=== PATIENT | female | born 2005 | race Caucasian/White ===

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

== ENCOUNTER 2023-01-05 18:46 | Emergency (ER) | payer OTHER ==
--- NOTE | 2023-01-05 20:21 | RAD REPORT ---
EXAM DESCRIPTION: CT - Head Brain Wo Cont - 01/05/2023 8:06 pm CLINICAL HISTORY: HEADACHE COMPARISON: No comparisons TECHNIQUE: All CT scans are performed using dose optimization technique as appropriate and may inclu de automated exposure control or mA/KV adjustment according to patient size. FINDINGS: No intracranial hemorrhage, hydrocephalus or extra-axial fluid collection.No areas of brai n edema or evidence of midline shift. The paranasal sinuses and mastoids are clear. The calvarium is intact. IMPRESSION: No acute intracranial abnormality.
[2023-01-05] MEDS ORDERED: DIPHENHYDRAMINE 50 MG/ML VIAL ONE (20:52)
[2023-01-05] MEDS ORDERED: KETOROLAC 30 MG/ML INJ ONE (20:52)
[2023-01-05] MEDS ORDERED: NA CHLORIDE 0.9% 1,000 ML ONE (20:52)
[2023-01-05] MEDS ORDERED: METOCLOPRAMIDE 10 MG/2mL INJ ONE (20:52)
[2023-01-05] MEDS ORDERED: ACETAMINOPHEN 500 MG TAB ONE (20:52)
--- NOTE | 2023-01-05 21:07 | EDPHYS ---
Physician Documentation [facility] Name: Simon Collier Age: 17 yrs Sex: Female : 2005 Arrival Date: 01/05/2023 Time: 18:46 Bed 20 Private MD: ED Physician Rahul Luevano HPI: 01/05 20:33 This 17 yrs old Female presents to ER via Ambulatory with complaints of Headache. rt 20:33 Patient presents to the ED with a headache. It is right-sided, throbbing in nature, rt nonradiating. She has associated nausea without vomiting. Reports blurred vision in her right eye. Denies any trauma. Ibuprofen and Tylenol have not adequately proved her symptoms. She states that they have been constant for the past 2 weeks. Symptoms are moderate severity, no other aggravating alleviating factors. Historical: - Allergies: 19:34 Latex, Natural Rubber; nj1 19:34 PENICILLINS; nj1 19:34 Keflex; nj1 - PMHx: 19:34 Anxiety; BPD; Depression; PTSD; nj1 - Immunization history:: Client reports having NOT received the Covid vaccine. - Social history:: Smoking status: Patient denies any tobacco usage or history of. - Family history:: not pertinent. ROS: 20:33 Constitutional: Negative for fever, chills, and weight loss, Cardiovascular: Negative rt for chest pain, palpitations, and edema, Respiratory: Negative for shortness of breath, cough, wheezing, and pleuritic chest pain, Skin: Negative for injury, rash, and discoloration. 20:33 Eyes: Positive for blurry vision. 20:33 Abdomen/GI: Positive for nausea, Negative for abdominal pain. 20:33 Neuro: Positive for headache, Negative for altered mental status. Exam: 20:33 Constitutional: This is a well developed, well nourished patient who is awake, alert, rt and in no acute distress. Head/Face: Normocephalic, atraumatic. Chest/axilla: Normal chest wall appearance and motion. Nontender with no deformity. No lesions are appreciated. Cardiovascular: Regular rate and rhythm with a normal S1 and S2. No gallops, murmurs, or rubs. Normal PMI, no JVD. No pulse deficits. Respiratory: Lungs have equal breath sounds bilaterally, clear to auscultation and percussion. No rales, rhonchi or wheezes noted. No increased work of breathing, no retractions or nasal flaring. Abdomen/GI: Soft, non-tender, with normal bowel sounds. No distension or tympany. No guarding or rebound. No evidence of tenderness throughout. Skin: Warm, dry with normal turgor. Normal color with no rashes, no lesions, and no evidence of cellulitis. MS/ Extremity: Pulses equal, no cyanosis. Neurovascular intact. Full, normal range of motion. Neuro: Awake and alert, GCS 15, oriented to person, place, time, and situation. Cranial nerves II-XII grossly intact. Motor strength 5/5 in all extremities. Sensory grossly intact. Cerebellar exam normal. Normal gait. Psych: Awake, alert, with orientation to person, place and time. Behavior, mood, and affect are within normal limits. 20:33 Neck: Supple, full range of motion, no meningismus. Vital Signs: 19:33 BP 141 / 97; Pulse 84; Resp 18; Temp 98.5(O); Pulse Ox 100% on R/A; Weight 84.28 kg; nj1 Height 5 ft. 1 in. ; Pain 8/10; 20:33 BP 137 / 82; Pulse 67; Resp 18 S; Pulse Ox 100% on R/A; ha1 21:30 BP 121 / 67; Pulse 60; Resp 17 S; Pulse Ox 100% on R/A; ha1 19:33 Body Mass Index 35.11 (84.28 kg, 154.94 cm) [facility] 19:33 Pain Scale: Adult nj MDM: 19:37 Patient medically screened. rt 21:07 Differential diagnosis: Tumor, intracranial hemorrhage, migraine, tension headache. rt Data reviewed: vital signs, nurses notes, radiologic studies. Independent interpretation of the following test(s) in the Emergency Department CT Scan: My interpretation is No hemorrhage seen on interpretation of the CT scan images. Test considered but Not performed: Labs: Neck supple, no meningismus, symptoms not consistent with subarachnoid hemorrhage, meningitis, cephalitis, lumbar puncture not indicated. Counseling: I had a detailed discussion with the patient and/or guardian regarding the historical points, exam findings, and any diagnostic results supporting the discharge/admit diagnosis, radiology results, the need for outpatient follow up, to return to the emergency department if symptoms worsen or persist or if there are any questions or concerns that arise at home. Response to treatment: the patient's symptoms have resolved after treatment. 01/05 19:37 Order name: CT Head Brain wo Cont; Complete Time: 20:22 rt Administered Medications: 20:35 Drug: Acetaminophen PO 1000 mg Route: PO; ha1 21:00 Follow up: Response: No adverse reaction; Pain is decreased ha1 20:40 Drug: Ketorolac IVP 15 mg Route: IVP; Site: left antecubital; ha1 21:00 Follow up: Response: No adverse reaction; Pain is decreased ha1 20:40 Drug: NS 0.9% IV 1000 ml Route: IV; Rate: 1 bolus; Site: left antecubital; ha1 22:09 Follow up: Response: No adverse reaction; IV Status: Completed infusion; IV Intake: ha1 1000ml 20:43 Drug: diphenhydrAMINE IVP 25 mg Route: IVP; Site: left antecubital; ha1 22:10 Follow up: Response: No adverse reaction ha1 20:46 Drug: metoCLOPramide IVP 10 mg Route: IVP; Site: left antecubital; ha1 22:10 Follow up: Response: No adverse reaction ha1 Disposition Summary: 01/05/23 21:06 Discharge Ordered Location: Home rt Problem: new rt Symptoms: are resolved rt Condition: Stable rt Diagnosis - Headache rt Followup: rt - With: Jasen Juarez DO - When: 5 - 6 days - Reason: Discharge Instructions: - Discharge Summary Sheet rt - General Headache Without Cause rt - Migraine Headache rt Forms: - Medication Reconciliation Form rt - Thank You Letter rt - Antibiotic Education rt - Prescription Opioid Use rt - Patient Portal Instructions rt - Leadership Thank You Letter rt - Work release form rv1 Prescriptions: - Reglan 10 mg Oral Tablet - take 1 tablet by ORAL route every 6 hours As needed for headache; 20 tablet; rt Refills: 0, Product Selection Permitted Signatures: Dispatcher [employer] Iman Tong, RN RN ha1 Rahul Luevano MD MD rt Earlene Leger RN RN nj1
--- NOTE | 2023-01-05 21:07 | ER ---
Nurse's Notes [facility] Name: Simon Collier Age: 17 yrs Sex: Female : 2005 Arrival Date: 01/05/2023 Time: 18:46 Bed 20 Private MD: Diagnosis: Headache Presentation: 01/05 19:33 Chief complaint: Patient states: Headache for almost 2 weeks, getting worse. Have tried [facility] ibuprofen and tylenol with no success. Ebola Screen: Patient denies travel to an Ebola-affected area in the 21 days before illness onset. Initial Sepsis Screen: Does the patient meet any 2 criteria? No. Patient's initial sepsis screen is negative. Does the patient have a suspected source of infection? No. Patient's initial sepsis screen is negative. Risk Assessment: Do you want to hurt yourself or someone else? Patient reports no desire to harm self or others. Onset of symptoms was December 23, 2022. 19:33 Method Of Arrival: Ambulatory [facility] 19:33 Acuity: SANDRA 3 [facility] 19:36 Coronavirus screen: Vaccine status: Patient reports being unvaccinated. [facility] Triage Assessment: 20:30 Headache History: The patient has had previous headaches and this one is similar to 1 previous episodes. General: Appears uncomfortable, Behavior is cooperative. Pain: Complains of pain in headache. Neuro: Level of Consciousness is awake, alert, obeys commands, Oriented to person, place, time, situation. Respiratory: Airway is patent Respiratory effort is even, unlabored, Respiratory pattern is regular, symmetrical. 22:08 Pain: Also complains of no other associated symptoms. [facility] Historical: - Allergies: 19:34 Latex, Natural Rubber; nj1 19:34 PENICILLINS; nj1 19:34 Keflex; nj1 - PMHx: 19:34 Anxiety; BPD; Depression; PTSD; nj1 - Immunization history:: Client reports having NOT received the Covid vaccine. - Social history:: Smoking status: Patient denies any tobacco usage or history of. - Family history:: not pertinent. Screenin:35 [facility] ED Fall Risk Assessment (Adult) History of falling in the last 3 months, pf1 including since admission No falls in past 3 months (0 pts) Confusion or Disorientation No (0 pts) Intoxicated or Sedated No (0 pts) Impaired Gait No (0 pts) Mobility Assist Device Used No (0 pt) Altered Elimination No (0 pt) Score/Fall Risk Level 0 - 2 = Low Risk Oriented to surroundings, Maintained a safe environment, Educated pt \T\ family on fall prevention, incl call for assistance when getting out of bed, Assessed \T\ reinforced patient's understanding of fall precautions, Provided non-skid footwear, Hourly rounding (assess needs \T\ fall precautionary measures) done, Used ambulatory aids as needed (educated on \T\ assisted with), Used gait belt as appropriate. Abuse screen: Denies threats or abuse. Nutritional screening: No deficits noted. Tuberculosis screening: No symptoms or risk factors identified. Assessment: 20:33 General: Appears in no apparent distress. uncomfortable, well groomed, well developed, pf1 Behavior is calm, cooperative, appropriate for age, quiet. Pain: Complains of pain in right frontal headache pain of 9 Pain currently is 9 out of 10 on a pain scale. Pain began 2 weeks. Neuro: Level of Consciousness is awake, alert, obeys commands, Oriented to person, place, time, situation, Reports headache in right frontal area. Neuro: Reports headache. Neuro: Reports dizziness, headache with confusion. Cardiovascular: No deficits noted. Capillary refill < 3 seconds Patient's skin is warm and dry. Respiratory: No deficits noted. Airway is patent Respiratory effort is even, unlabored, Respiratory pattern is regular, symmetrical. GI: No deficits noted. No signs and/or symptoms were reported involving the gastrointestinal system. : No deficits noted. No signs and/or symptoms were reported regarding the genitourinary system. EENT: No deficits noted. No signs and/or symptoms were reported regarding the EENT system. Derm: No deficits noted. No signs and/or symptoms reported regarding the dermatologic system. 21:30 Reassessment: Patient and/or family updated on plan of care and expected duration. Pain ha1 level reassessed. Patient is alert, oriented x 3, equal unlabored respirations, skin warm/dry/pink. Patient states feeling better. Patient states symptoms have improved. 21:35 Reassessment: awaiting on fluids to be completed as instructed by care provider. ha1 Vital Signs: 19:33 BP 141 / 97; Pulse 84; Resp 18; Temp 98.5(O); Pulse Ox 100% on R/A; Weight 84.28 kg; nj1 Height 5 ft. 1 in. ; Pain 8/10; 20:33 BP 137 / 82; Pulse 67; Resp 18 S; Pulse Ox 100% on R/A; ha1 21:30 BP 121 / 67; Pulse 60; Resp 17 S; Pulse Ox 100% on R/A; ha1 19:33 Body Mass Index 35.11 (84.28 kg, 154.94 cm) nj1 19:33 Pain Scale: Adult [facility] ED Course: 18:50 Patient arrived in ED. mr 19:33 Rahul Luevano MD is Attending Physician. rt 19:34 Triage completed. nj1 19:34 Arm band placed on right wrist. nj1 20:08 CT Head Brain wo Cont In Process Unspecified. EDMS 20:28 Iman Garcia, FARHAN is Primary Nurse. ha1 20:30 Patient has correct armband on for positive identification. Placed in gown. Bed in low ha1 position. Call light in reach. Side rails up X 1. 20:30 Inserted saline lock: 22 gauge in left antecubital area, using aseptic technique. ha1 21:06 Jasen Juarez DO is Referral Physician. rt 22:08 No provider procedures requiring assistance completed. IV discontinued, intact, ha1 bleeding controlled, No redness/swelling at site. Pressure dressing applied. 22:09 Provided Education on: follow up. ha1 Administered Medications: 20:35 Drug: Acetaminophen PO 1000 mg Route: PO; ha1 21:00 Follow up: Response: No adverse reaction; Pain is decreased ha1 20:40 Drug: Ketorolac IVP 15 mg Route: IVP; Site: left antecubital; ha1 21:00 Follow up: Response: No adverse reaction; Pain is decreased ha1 20:40 Drug: NS 0.9% IV 1000 ml Route: IV; Rate: 1 bolus; Site: left antecubital; ha1 22:09 Follow up: Response: No adverse reaction; IV Status: Completed infusion; IV Intake: ha1 1000ml 20:43 Drug: diphenhydrAMINE IVP 25 mg Route: IVP; Site: left antecubital; ha1 22:10 Follow up: Response: No adverse reaction ha1 20:46 Drug: metoCLOPramide IVP 10 mg Route: IVP; Site: left antecubital; ha1 22:10 Follow up: Response: No adverse reaction ha1 Medication: 21:43 VIS not applicable for this client. ha1 Intake: 22:09 IV: 1000ml; Total: 1000ml. ha1 Outcome: 21:06 Discharge ordered by . rt 22:08 Discharged to home via ambulance. ha1 22:08 Condition: stable 22:08 Discharge instructions given to patient, Instructed on discharge instructions, follow up and referral plans. medication usage, Demonstrated understanding of instructions, follow-up care, medications, Prescriptions given X 1. 22:10 Patient left the ED. ha1 Signatures: Dispatcher [employer] EDPR Erendira Dyson mr Iman Garcia RN RN ha1 Rahul Luevano MD MD rt Arabella Alfaro RN RN pf1 Earlene Leger RN RN nj1 Corrections: (The following items were deleted from the chart) 19:38 19:33 BP 141 / 97; Pulse 84bpm; Resp 18bpm; Pulse Ox 100% RA; Temp 98.5F Oral; nj1 nj1
[2023-01-05 22:33] VITALS: TEMP 98.5; O2SAT 100
[2023-01-05 22:37] VITALS: BP 121/67
== END 2023-01-05 22:10 | disposition home or self-care (01) ==
LOC: ER 18:46
DX: R51.9 Headache, unspecified (principal); Z88.0 Allergy status to penicillin; Z88.1 Allergy status to other antibiotic agents; Z91.040 Latex allergy status; Z91.048 Other nonmedicinal substance allergy status
CPT/HCPCS: 96361; 70450; 96375; 96374; 99284; J2765; J1200; J7030

== ENCOUNTER 2023-01-28 21:25 | Emergency (ER) | payer OTHER ==
--- OUTSIDE RECORDS SUMMARY | 2023-01-28 21:36 | XMS REPORT | Continuity of Care Document ---
:2005 Author Organization [facility] t Address [address] [facility] [address] [place] [address] Care Team Providers Name Role Phone PCP, PATIENT DOES NOT HAVE A Primary Care Physician Unavaila ADOLPH Bain Attending Clinician Unavailable ADOLPH LALA Attending Clinician Unavailable BAYRON BERMEO Attending Clinician Unavailable Bayron Bermeo MD Attending Clinician LORRIE ZAMARRIPA Attending Clinician Unavailable Lorrie Porras Attending Clinician GAUDENCIO COWAN Attending Clinician Unavailable GAUDENCIO COWAN Attending Clinician Unavailable ZOFIA BRISENO Attending Clinician Unavailable STEVE ORTEGA Attending Clinician Unavailable STEVE ORTEGA Attending Clinician Unavailable 2, [facility] Attending Clinician Unavailable Kirti Zavala PA-C Attending Clinician KIRTI ZAVALA Attending Clinician Unavailable Doctor Unassigned, [place] Attending Clinician Unavailable Heidi Bowen MD Attending Clinician Lab, Lkj Pedi Attending Clinician Unavailable Dio DIA, Andrade Attending Clinician Bunny DIA, Ivan Castle Attending Clinician Chela KRAFT, Fely Attending Clinician Payers Payer Name Policy Type Policy Number Effective Date Expiration Date S ede OLGUIN DUNKIRK [id number] 2022 HEALTHCARE 00:00:00 [facility] [id number] 2013 CHOICE [place] STAR 00:00:00 [place] [id number] 2019 00:00:00 Blue Cross Blue 6 [id number] 2019 Common Shield of [place] 00:00:00 [facility] [id number] 2013 Common CHOICE 00:00:00 [facility] [id number] Common CHOICE [facility] Blue Cross Blue C1 [id number] Common Shield of [facility] [id number] Common CHOICE [facility] Blue Cross Blue C1 [id number] Common Shield of [facility] Problems Condition Condition Condition Status Onset Resolution Last Treating Co mments Source Name Details Category Date Date Treatment Clinician Date Pain in Pain in Disease Active 2020-05 Univers wrist wrist 05-23 ity of 00:00: Medical Branch Enthesopat Enthesopat Disease Active 2020-05 U nivers hy hy 05-23 ity of 00:00: Medical Branch Depression Depression Disease Active Overview : Univers 08-13 Formattin ity of 00:00: g of this note Medical might be Branch different from the original. Sees Psychiatr y and Therapist Asthma Asthma Disease Active Univers 08-13 ity of 00:00: Medical Branch [id number] Extensor Problem Active Comm on carpi Spirit ulnaris - [facility] tendinitis [facility] [id number] Pain in Problem Active Commo n joint of Spirit left wrist [facility] [id number] Flexor Problem Active Common carpi Spirit ulnaris - [facility]I tendinitis [facility] Allergies, Adverse Reactions, Alerts Allergy Allergy Status Severity Reaction(s) Onset Inactive Treating Comm ents Source Name Type Date Date Clinician CEPHALEX DRUG Active Rash 2021-05 Univers IN INGREDI 2- ity of 00:00: [place] 00 Medical Branch Cephalex Propensi Active Rash 2021-05 Univer s in ty to 2 ity of adverse 00:00: [place] reaction 00 Medical s Branch Penicill Propensi Active Unknown - 2020-05 Rashes Uni vers in ty to See comments 0-07 and ity of adverse 00:00: throat [place] reaction 00 swells Medical s Branch PENICILL DRUG Active Unknown-Cmnt 2020-05 Un adilson IN INGREDI 0-07 ity of 00:00: [place] 00 Medical Branch Latex Propensi Active Rash Univers ty to 12-12 ity of adverse 00:00: [place] reaction 00 Medical s Branch LATEX DRUG Active Rash Univers INGREDI 12-12 ity of 00:00: [place] 00 Medical Branch Penicill Penicill Active Unknown Commo n in in [facility] Social History Social Habit Start Date Stop Date Quantity Comments Source Sex Assigned At Common Sp [facility] - [facility] History of tobacco Passive smoker Un iversity of use [facility] Gender identity Universit y of [facility] Sexual orientation [facility] sity of [facility] Alcohol intake 2023-01-12 2023-01-12 0 /d University of 00:00:00 00:00:00 [facility] Exposure to 2022-09-09 2022-09-19 Not sure University of SARS-CoV-2 (event) 00:00:00 09:55:00 [facility] Tobacco Comment 2022-09-19 2022-09-19 mother smokes [facility] sity of 00:00:00 00:00:00 inside and [facility] outside of house Branch History SDOH 2022-09-19 2022-09-19 1 University o f Alcohol Frequency 00:00:00 00:00:00 [facility] edical Branch History SDOH 2022-09-19 2022-09-19 0 University o f Alcohol Std Drinks 00:00:00 00:00:00 [place] [facility] History SDOH 2022-09-19 2022-09-19 1 University o f Alcohol Binge 00:00:00 00:00:00 [place] Medic al Branch History SDOH Social 2022-09-19 2022-09-19 5 Unive rsity of Connections Phone 00:00:00 00:00:00 [place] M edical Branch History SDOH Social 2022-09-19 2022-09-19 3 Unive rsity of Connections Get 00:00:00 00:00:00 [place] Med ical Together Branch History SDOH Social 2022-09-19 2022-09-19 1 Unive rsity of Connections Anglican 00:00:00 00:00:00 [place] [facility] History SDOH Social 2022-09-19 2022-09-19 2 Unive rsity of Connections 00:00:00 00:00:00 [place] Medical Membership Branch History SDOH Social 2022-09-19 2022-09-19 1 Unive rsity of Connections 00:00:00 00:00:00 [place] Medical Meetings Branch History SDOH Social 2022-09-19 2022-09-19 98 Unive rsity of Connections Living 00:00:00 00:00:00 [place] [facility] History SDOH 2022-09-19 2022-09-19 3 University o f Physical Activity 00:00:00 00:00:00 [place] M edical DPW Branch History SDOH 2022-09-19 2022-09-19 2 University o f Physical Activity 00:00:00 00:00:00 [place] M edical MPS Branch History SDOH Stress 2022-09-19 2022-09-19 5 Unive rsity of 00:00:00 00:00:00 [place] [facility] History SDOH 2022-09-19 2022-09-19 2 University o f Financial 00:00:00 00:00:00 [place] [facility] History SDOH Food 2022-09-19 2022-09-19 2 Univers ity of Worry 00:00:00 00:00:00 [place] [facility] History SDOH Food 2022-09-19 2022-09-19 2 Univers ity of Scarcity 00:00:00 00:00:00 [place] [facility] History SDOH 2022-09-19 2022-09-19 2 University o f Transport Med 00:00:00 00:00:00 [place] Medic al Branch History SDOH 2022-09-19 2022-09-19 2 University o f Transport Non-Med 00:00:00 00:00:00 [place] M edical Branch History [facility] 2022-09-19 2022-09-19 1 University o f Housing Unable to 00:00:00 00:00:00 [place] M edical Pay Branch History SDPA 2022-09-19 2022-09-19 1 [place] o f Housing Places 00:00:00 00:00:00 [facility] yaakov Lived Branch History [facility] 2022-09-19 2022-09-19 2 [place] o f Housing Homeless 00:00:00 00:00:00 [place] Me dical Last Year Branch History of Social 2022-09-19 2022-09-19 Univers ity of function 00:00:00 00:00:00 [facility] Tobacco use and 2022-09-19 2022-09-19 Smokeless Universit y of exposure 00:00:00 00:00:[address] tobacco non-[address] [facility] dical Branch Smoking Status Start Date Stop Date Source Never smoked tobacco [facility] Medications Ordered Filled Start Stop Current Ordering Indication Dosage Frequency Signature Comments Components Source Medication Medication Date Date Medication? Clinician (SIG) Name Name butmickeybital- 2022- No 1{tbl} 1 tablet, Univers acetaminoph 8-28 08-28 Oral, ity of en-caff 02:45: 02:52 ONCE, 1 [place] (ESGIC) 00 :00 dose, On Medical 50-325-40 Sun Branch mg tablet 1 01/12/23 at tablet 2145, LISETH butalbital- Yes [id number] 1{tbl} Take 1 Univers acetaminoph 8-27 tablet by ity of en-caff 00:00: mouth [place] 50-325-40 00 every 6 Medical mg tablet (six) Branch hours as needed (Headache) . budesonide- Yes 2{puff} Inhale 2 Univers formoteroL 8-05 Puffs in ity o f 160-4.5 06:42: the [place] mcg/actuati 03 morning Medic al on inhaler and 2 Branch Puffs in the evening. methylPREDN Yes [id number] Take by Univers ISolone 7-07 mouth ity of (MEDROL, 00:00: SEE-INSTRU [place] as ASIA,) 4 mg 00 CTIONS. Medica l tablets follow Branch package directions bromphenira 2023-0 Yes [id number] 5mL Take 5 mL Univers mine-pseudo 7-07 by mouth 4 it y of ephedrine-D 00:00: (four) [place] (BROMFED 00 times Medical DM) 2-30-10 daily as Bran ch mg/5 mL needed for syrup Congestion /Allergies . methylPREDN 2023-0 Yes [id number] Take by Univers ISolone 7-07 mouth ity of (MEDROL, 00:00: SEE-INSTRU [place] ASIA,) 4 mg 00 CTIONS. Medica l tablets follow Branch package directions bromphenira 2023-0 Yes [id number] 5mL Take 5 mL Univers mine-pseudo 7-07 by mouth 4 it y of ephedrine-D 00:00: (four) [place] M (BROMFED 00 times Medical DM) 2-30-10 daily as Bran ch mg/5 mL needed for syrup Congestion /Allergies . methylPREDN 3-0 Yes [id number] Take by Univers ISolone 7-07 mouth ity of (MEDROL, 00:00: SEE-INSTRU [place] as ASIA,) 4 mg 00 CTIONS. Medica l tablets follow Branch package directions bromphenira 2022-0 Yes [id number] 5mL Take 5 mL Univers mine-pseudo 7-07 by mouth 4 it y of ephedrine-D 00:00: (four) [place] (BROMFED 00 times Medical DM) 2-30-10 daily as Bran ch mg/5 mL needed for syrup Congestion /Allergies . budesonide- 2022-0 Yes 2{puff} Inhale 2 Univers formoteroL 6-23 Puffs in ity o f 160-4.5 11:08: the [place] mcg/actuati 41 morning Medic al on inhaler and 2 Branch Puffs in the evening. budesonide- 2022-0 Yes 2{puff} Inhale 2 Univers formoteroL 6-23 Puffs in ity o f 160-4.5 11:08: the [place] mcg/actuati 41 morning Medic al on inhaler and 2 Branch Puffs in the evening. budesonide- 2022-0 Yes 2{puff} Inhale 2 Univers formoteroL 6-23 Puffs in ity o f 160-4.5 11:08: the [place] mcg/actuati 41 morning Medic al on inhaler and 2 Branch Puffs in the evening. budesonide- Yes 2{puff} Inhale 2 Univers formoteroL 6-23 Puffs in ity o f 160-4.5 11:08: the [place] mcg/actuati 41 morning Medic al on inhaler and 2 Branch Puffs in the evening. clindamycin 2022- Yes [id number] 300mg Take 1 Univers 300 mg 6-23 07-04 capsule by ity of capsule 00:00: 04:59 mouth in [place] 00 :00 the Medical morning Branch and 1 capsule at noon and 1 capsule in the evening. Do all this for 10 days. clindamycin 2022- Yes [id number] 300mg Take 1 Univers 300 mg 6-23 07-04 capsule by ity of capsule 00:00: 04:59 mouth in [place] 00 :00 the Medical morning Branch and 1 capsule at noon and 1 capsule in the evening. Do all this for 10 days. VENTOLIN Yes [id number] INHALE TWO Univers HFA 90 6-01 (2) PUFFS ity of mcg/actuati 00:00: BY MOUTH [place] on inhaler 00 EVERY 6 Medica l (SIX) Branch HOURS NEEDED FOR WHEEZING OR SHORTNESS OF BREATH. VENTOLIN 0 Yes [id number] INHALE TWO Univers HFA 90 6-01 (2) PUFFS ity of mcg/actuati 00:00: [place] inhaler 00 EVERY 6 Medica l (SIX) Branch HOURS NEEDED FOR WHEEZING OR SHORTNESS OF BREATH. VENTOLIN 0 Yes [id number] INHALE TWO Univers HFA 90 6-01 (2) PUFFS ity of mcg/actuati 00:00: [place] inhaler 00 EVERY 6 Medica l (SIX) Branch HOURS NEEDED FOR WHEEZING OR SHORTNESS OF BREATH. VENTOLIN 0 Yes [id number] INHALE TWO Univers HFA 90 6-01 (2) PUFFS ity of mcg/actuati 00:00: [place]TH [place] inhaler 00 EVERY 6 Medica l (SIX) Branch HOURS NEEDED FOR WHEEZING OR SHORTNESS OF BREATH. VENTOLIN 2022-0 Yes [id number] INHALE TWO Univers HFA 90 6-01 (2) PUFFS ity of mcg/actuati 00:00: [place]TH [place] inhaler 00 EVERY 6 Medica l (SIX) Branch HOURS NEEDED FOR WHEEZING OR SHORTNESS OF BREATH. VENTOLIN 2022-0 Yes [id number] INHALE TWO Univers HFA 90 6-01 (2) PUFFS ity of mcg/actuati 00:00: BY [place]TH [place] inhaler 00 EVERY 6 Medica l (SIX) Branch HOURS NEEDED FOR WHEEZING OR SHORTNESS OF BREATH. budesonide- 2022-0 Yes 2{puff} Inhale 2 Univers formoteroL 5-04 Puffs in ity o f (SYMBICORT) 10:50: the [place] 160-4.5 50 morning Medical mcg/actuati and 2 Branch on inhaler Puffs in the evening. budesonide- 2022-0 Yes 2{puff} Inhale 2 Univers formoteroL 5-04 Puffs in ity o f (SYMBICORT) 10:50: the [place] 160-4.5 50 morning Medical mcg/actuati and 2 Branch on inhaler Puffs in the evening. budesonide- 2022-0 Yes 2{puff} Inhale 2 Univers formoteroL 5-04 Puffs in ity o f (SYMBICORT) 10:50: the [place] 160-4.5 50 morning Medical mcg/actuati and 2 Branch on inhaler Puffs in the evening. budesonide- 2022-0 Yes 2{puff} Inhale 2 Univers formoteroL 5-04 Puffs in ity o f (SYMBICORT) 10:50: the [place] 160-4.5 50 morning Medical mcg/actuati and 2 Branch on inhaler Puffs in the evening. albuterol 2022-0 Yes [id number] 2{puff} Inhale 2 Univers 90 5-04 Puffs ity of mcg/actuati 00:00: every 6 [place] on inhaler 00 (six) Medical hours as Branch needed for Wheezing or Shortness of Breath. montelukast 2022-0 Yes [id number] 10mg Take 1 Univers (SINGULAIR) 5-04 tablet by ity of 10 mg 00:00: mouth in [place] tablet 00 the Medical morning. [place] albuterol 2022-0 Yes [id number] 2{puff} Inhale 2 Univers 90 5-04 Puffs ity of mcg/actuati 00:00: every 6 [place] on inhaler 00 (six) Medical hours as Branch needed for Wheezing or Shortness of Breath. montelukast 2022-0 Yes [id number] 10mg Take 1 Univers (SINGULAIR) 5-04 tablet by ity of 10 mg 00:00: mouth in [place] tablet 00 the Medical morning. [place] albuterol 2022-0 Yes [id number] 2{puff} Inhale 2 Univers 90 5-04 Puffs ity of mcg/actuati 00:00: every 6 [place] on inhaler 00 (six) Medical hours as Branch needed for Wheezing or Shortness of Breath. montelukast 2022-0 Yes [id number] 10mg Take 1 Univers (SINGULAIR) 5-04 tablet by ity of 10 mg 00:00: mouth in [place] tablet 00 the Medical morning. [place] montelukast 2022-0 Yes [id number] 10mg Take 1 Univers (SINGULAIR) 5-04 tablet by ity of 10 mg 00:00: mouth in [place] tablet 00 the Medical morning. [place] montelukast 2022-0 Yes [id number] 10mg Take 1 Univers (SINGULAIR) 5-04 tablet by ity of 10 mg 00:00: mouth in [place] tablet 00 the Medical morning. [place] montelukast 2022-0 Yes [id number] 10mg Take 1 Univers (SINGULAIR) 5-04 tablet by ity of 10 mg 00:00: mouth in [place] tablet 00 the Medical morning. [place] montelukast 2022-0 Yes [id number] 10mg Take 1 Univers (SINGULAIR) 5-04 tablet by ity of 10 mg 00:00: mouth in [place] tablet 00 the Medical morning. [place] montelukast 2022-0 Yes [id number] 10mg Take 1 Univers (SINGULAIR) 5-04 tablet by ity of 10 mg 00:00: mouth in [place] tablet 00 the Medical morning. [place] montelukast 2022-0 Yes [id number] 10mg Take 1 Univers (SINGULAIR) 5-04 tablet by ity of 10 mg 00:00: mouth in [place] tablet 00 the Medical morning. Branch albuterol 3- No [id number] 2{puff} Inhale 2 [place] [address] 09-19 06-01 Puffs ity of mcg/actuati 00:00: 00:00 every 6 [place] on inhaler 00 :00 (six) Medical hours as Branch needed for Wheezing or Shortness of Breath. triamcinolo 3-0 Yes [id number] Apply to [facility] 09-16 area(s) 2 ity of acetonide 00:00: (two) [place] 0.1 % 00 times Medical ointment daily. Branch triamcinolo 2022-0 Yes [id number] Apply to [facility] 09-16 area(s) 2 ity of acetonide 00:00: (two) [place] 0.1 % 00 times Medical ointment daily. Branch triamcinolo 2022-0 2022- No [id number] Apply to [facility] 09-16 05- area(s) 2 ity of acetonide 00:00: 00:00 (two) [place] 0.1 % 00 :00 times Medical ointment daily. Branch triamcinolo 2022-0 2022- No [id number] Apply to [facility] 09-16 05-04 area(s) 2 ity of acetonide 00:00: 00:00 (two) [place] 0.1 % 00 :00 times Medical ointment daily. Branch methscopola 2023-0 Yes 5mg Take 1 Univ ers mine 5 mg 4-18 tablet by ity o f tablet 00:00: mouth [place] 00 every Medical morning. Branch methscopola 2023-0 Yes 5mg Take 1 Univ ers mine 5 mg 4-18 tablet by ity o f tablet 00:00: mouth [place] 00 every Medical morning. Branch methscopola 2023-0 Yes 5mg Take 1 Univ ers mine 5 mg 4-18 tablet by ity o f tablet 00:00: mouth [place] 00 every Medical morning. Branch methscopola 2023-0 Yes 5mg Take 1 Univ ers mine 5 mg 4-18 tablet by ity o f tablet 00:00: mouth [place] 00 every Medical morning. Branch methscopola 2023-0 Yes 5mg Take 1 Univ ers mine 5 mg 4-18 tablet by ity o f tablet 00:00: mouth [place] 00 every Medical morning. Branch methscopola 2023-0 Yes 5mg Take 1 Univ ers mine 5 mg 4-18 tablet by ity o f tablet 00:00: mouth [place] 00 every Medical morning. Branch methscopola 2023-0 Yes 5mg Take 1 Univ ers mine 5 mg 4-18 tablet by ity o f tablet 00:00: mouth [place] 00 every Medical morning. Branch methscopola 2023-0 Yes 5mg Take 1 Univ ers mine 5 mg 4-18 tablet by ity o f tablet 00:00: mouth [place] 00 every Medical morning. Branch methscopola 2023-0 Yes 5mg Take 1 Univ ers mine 5 mg 4-18 tablet by ity o f tablet 00:00: mouth [place] 00 every Medical morning. Branch omeprazole 2023-0 2023- No TAKE ONE Un adilson 20 mg 4-18 05-04 (1) ity of capsule 00:00: 00:00 CAPSULE BY [place] as 00 :00 MOUTH IN [facility] MORNING. omeprazole 2023-0 3- No TAKE ONE Un adilson 20 mg 4-18 05-04 (1) ity of capsule 00:00: 00:00 CAPSULE BY [place] as 00 :00 MOUTH IN [facility] MORNING. ondansetron 2023-0 Yes [id number] 8mg Take 1 Univers 8 mg 4-04 tablet by ity of disintegrat 00:00: mouth [place] ing tablet 00 every 8 Medica l (eight) Branch hours as needed for Nausea and Vomiting (N/V). ondansetron 2023-0 Yes [id number] 8mg Take 1 Univers 8 mg 4-04 tablet by ity of disintegrat 00:00: mouth [place] ing tablet 00 every 8 Medica l (eight) Branch hours as needed for Nausea and Vomiting (N/V). ondansetron 2023-0 Yes [id number] 8mg Take 1 Univers 8 mg 4-04 tablet by ity of disintegrat 00:00: mouth [place] ing tablet 00 every 8 Medica l (eight) Branch hours as needed for Nausea and Vomiting (N/V). ondansetron 2023-0 Yes [id number] 8mg Take 1 Univers 8 mg 4-04 tablet by ity of disintegrat 00:00: mouth [place] ing tablet 00 every 8 Medica l (eight) Branch hours as needed for Nausea and Vomiting (N/V). ondansetron 2023-0 Yes [id number] 8mg Take 1 Univers 8 mg 4-04 tablet by ity of disintegrat 00:00: mouth [place] ing tablet 00 every 8 Medica l (eight) Branch hours as needed for Nausea and Vomiting (N/V). ondansetron 2023-0 Yes [id number] 8mg Take 1 Univers 8 mg 4-04 tablet by ity of disintegrat 00:00: mouth [place] ing tablet 00 every 8 Medica l (eight) Branch hours as needed for Nausea and Vomiting (N/V). guanFACINE 2023-0 Yes 1mg Take 1 Unive rs 1 mg tablet 4-04 tablet by ity of 00:00: mouth at [place] 00 bedtime. Medical Branch ondansetron 2023-0 Yes [id number] 8mg Take 1 Univers 8 mg 4-04 tablet by ity of disintegrat 00:00: mouth [place] ing tablet 00 every 8 Medica l (eight) Branch hours as needed for Nausea and Vomiting (N/V). guanFACINE 2023-0 Yes 1mg Take 1 Unive rs 1 mg tablet 4-04 tablet by ity of 00:00: mouth at [place] 00 bedtime. Medical Branch ondansetron 3-0 Yes [id number] 8mg Take 1 Univers 8 mg 4-04 tablet by ity of disintegrat 00:00: mouth [place] ing tablet 00 every 8 Medica l (eight) Branch hours as needed for Nausea and Vomiting (N/V). guanFACINE 2023-0 Yes 1mg Take 1 Unive rs 1 mg tablet 4-04 tablet by ity of 00:00: mouth at [place] 00 bedtime. Medical Branch ondansetron 2023-0 Yes [id number] 8mg Take 1 Univers 8 mg 4-04 tablet by ity of disintegrat 00:00: mouth [place] ing tablet 00 every 8 Medica l (eight) Branch hours as needed for Nausea and Vomiting (N/V). guanFACINE 2023-0 Yes 1mg Take 1 Unive rs 1 mg tablet 4-04 tablet by ity of 00:00: mouth at [place] 00 bedtime. Medical Branch ondansetron 2023-0 Yes [id number] 8mg Take 1 Univers 8 mg 4-04 tablet by ity of disintegrat 00:00: mouth [place] ing tablet 00 every 8 Medica l (eight) Branch hours as needed for Nausea and Vomiting (N/V). guanFACINE 3-0 Yes 3mg Take 1 Unive rs ER 3 mg 4-04 tablet by ity of tablet 00:00: mouth at [place] 00 bedtime. Medical Branch ondansetron 2022-0 Yes [id number] 8mg Take 1 Univers 8 mg 4-04 tablet by ity of disintegrat 00:00: mouth [place] ing tablet 00 every 8 Medica l (eight) Branch hours as needed for Nausea and Vomiting (N/V). guanFACINE 3-0 Yes 3mg Take 1 Unive rs ER 3 mg 4-04 tablet by ity of tablet 00:00: mouth at [place] 00 bedtime. Medical Branch ondansetron 2022-0 Yes [id number] 8mg Take 1 Univers 8 mg 4-04 tablet by ity of disintegrat 00:00: mouth [place] ing tablet 00 every 8 Medica l (eight) Branch hours as needed for Nausea and Vomiting (N/V). guanFACINE 2022-0 Yes 3mg Take 1 Unive rs ER 3 mg 4-04 tablet by ity of tablet 00:00: mouth at [place] 00 bedtime. Medical Branch ondansetron 2022-0 Yes [id number] 8mg Take 1 Univers 8 mg 4-04 tablet by ity of disintegrat 00:00: mouth [place] ing tablet 00 every 8 Medica l (eight) Branch hours as needed for Nausea and Vomiting (N/V). guanFACINE 3-0 Yes 3mg Take 1 Unive rs ER 3 mg 4-04 tablet by ity of tablet 00:00: mouth at [place] 00 bedtime. Medical Branch ondansetron 2022-0 Yes [id number] 8mg Take 1 Univers 8 mg 4-04 tablet by ity of disintegrat 00:00: mouth [place] ing tablet 00 every 8 Medica l (eight) Branch hours as needed for Nausea and Vomiting (N/V). guanFACINE 3-0 Yes 3mg Take 1 Unive rs ER 3 mg 4-04 tablet by ity of tablet 00:00: mouth at [place] 00 bedtime. Medical Branch ziprasidone 3-0 Yes TAKE ONE Un adilson 20 mg 4-02 (1) ity of capsule 00:00: [place]LE(S) [place] 00 BY MOUTH Medical TWICE Branch DAILY WITH FOOD. ziprasidone 2023-0 Yes TAKE ONE Un adilson 20 mg 4-02 (1) ity of capsule 00:00: CAPSULE(S) [place] 00 BY MOUTH Medical TWICE Branch DAILY WITH FOOD. ziprasidone 2023-0 Yes TAKE ONE Un adilson 20 mg 4-02 (1) ity of capsule 00:00: CAPSULE(S) [place] 00 BY MOUTH Medical TWICE Branch DAILY WITH FOOD. ziprasidone 2023-0 Yes TAKE ONE Un adilson 20 mg 4-02 (1) ity of capsule 00:00: CAPSULE(S) [place] 00 BY MOUTH Medical TWICE Branch DAILY WITH FOOD. ziprasidone 3-0 Yes Take by Uni vers 60 mg 4-02 mouth ity of capsule 00:00: daily. [address] Branch ziprasidone 2023-0 Yes Take by Uni vers 60 mg 4-02 mouth ity of capsule 00:00: daily. [address] Branch ziprasidone 2023-0 Yes Take by Uni vers 60 mg 4-02 mouth ity of capsule 00:00: daily. [address] Branch ziprasidone 2023-0 Yes Take by Uni vers 60 mg 4-02 mouth ity of capsule 00:00: daily. [place] [address] Medical Branch ziprasidone 2023-0 Yes Take by Uni vers 60 mg 4-02 mouth ity of capsule 00:00: daily. [place] [address] Medical Branch ondansetron 3-0 Yes [id number] 8mg Take 1 Univers 8 mg 3-21 tablet by ity of disintegrat 00:00: mouth [place] ing tablet 00 every 8 Medica l (eight) Branch hours as needed for Nausea and Vomiting (N/V). albuterol 3-0 Yes [id number] 2.5mg Inhale 3 Univers 2.5 mg /3 3-21 mL every 4 ity of mL (0.083 00:00: (four) [place] %) 00 hours as Medical nebulizer needed for Bran ch solution Wheezing or Shortness of Breath. ondansetron 3-0 Yes [id number] 8mg Take 1 Univers 8 mg 3-21 tablet by ity of disintegrat 00:00: mouth [place] ing tablet 00 every 8 Medica l (eight) Branch hours as needed for Nausea and Vomiting (N/V). albuterol 2022-0 Yes [id number] 2.5mg Inhale 3 Univers 2.5 mg /3 3-21 mL every 4 ity of mL (0.083 00:00: (four) [place] %) 00 hours as Medical nebulizer needed for Bran ch solution Wheezing or Shortness of Breath. albuterol 2022-0 Yes [id number] 2.5mg Inhale 3 Univers 2.5 mg /3 3-21 mL every 4 ity of mL (0.083 00:00: (four) [place] %) 00 hours as Medical nebulizer needed for Bran ch solution Wheezing or Shortness of Breath. albuterol 2022-0 Yes [id number] 2.5mg Inhale 3 Univers 2.5 mg /3 3-21 mL every 4 ity of mL (0.083 00:00: ([facility]) [place] %) 00 hours as Medical nebulizer needed for Bran ch solution Wheezing or Shortness of Breath. albuterol 2022-0 Yes [id number] 2.5mg Inhale 3 Univers 2.5 mg /3 3-21 mL every 4 ity of mL (0.083 00:00: (four) [place] %) 00 hours as Medical nebulizer needed for Bran ch solution Wheezing or Shortness of Breath. albuterol 2022-0 Yes [id number] 2.5mg Inhale 3 Univers 2.5 mg /3 3-21 mL every 4 ity of mL (0.083 00:00: (four) [place] %) 00 hours as Medical nebulizer needed for Bran ch solution Wheezing or Shortness of Breath. albuterol 2022-0 Yes [id number] 2.5mg Inhale 3 Univers 2.5 mg /3 3-21 mL every 4 ity of mL (0.083 00:00: (four) [place] %) 00 hours as Medical nebulizer needed for Bran ch solution Wheezing or Shortness of Breath. albuterol 2022-0 3- No [id number] 2.5mg Inhale 3 Univers 2.5 mg /3 3-21 05-04 mL every 4 ity of mL (0.083 00:00: 00:00 (four) [place] %) 00 :00 hours as Medical nebulizer needed for Bran ch solution Wheezing or Shortness of Breath. albuterol 2022- No [id number] 2.5mg Inhale 3 [facility] 2.5 mg /3 3-21 05-04 mL every 4 ity of mL (0.083 00:00: 00:00 (four) [place] %) 00 :00 hours as Medical nebulizer needed for Bran ch solution Wheezing or Shortness of Breath. ondansetron 2022-2022- No [id number] 8mg Take 1 [facility] 8 mg 3-21 04-04 tablet by ity of disintegrat 00:00: 00:[place] 00 :00 every 8 Medica l (eight) Branch hours as needed for Nausea and Vomiting (N/V). ondansetron 2022-2022- No [id number] 8mg Take 1 [facility] 8 mg 3-21 04-04 tablet by ity of disintegrat 00:00: 00:00 [place] 00 :00 every 8 Medica l (eight) Branch hours as needed for Nausea and Vomiting (N/V). meloxicam 2022- No Univers (MOBIC 3-07 03-07 ity of ORAL) 11:13: 00:00 [place] 14 :00 Medical Branch meloxicam 0 2022- No Univers (MOBIC 3-07 03-07 ity of ORAL) 11:13: 00:00 [place] 14 :00 Medical Branch meloxicam 2022-0 2022- No Univers (MOBIC 3-07 03-07 ity of ORAL) 11:13: 00:00 [place] 14 :00 Medical Branch albuterol 0 Yes [id number] 2.5mg Inhale 3 [facility] 2.5 mg /3 3-07 mL every 4 ity of mL (0.083 00:00: (four) [place] %) 00 hours as Medical nebulizer needed for Bran ch solution Wheezing or Shortness of Breath. Nebulizer & 0 Yes [id number] Use as Univers Compressor 3-07 directed ity o f For Neb 00:00: [place] 00 Medical Branch budesonide- 2022-0 Yes [id number] 2{puff} Inhale 2 [facility] formoteroL 3-07 Puffs in ity o f (SYMBICORT) 00:00: the [place] 160-4.5 00 morning Medical mcg/actuati and 2 Branch on inhaler Puffs in the evening. meloxicam 2022-0 Yes [id number] Take 1 tab [facility] 7.5 mg 3-07 once daily ity of tablet 00:00: with food [place] 00 for muscle Medical pain for 3 Branch to 5 days at a time albuterol 2022-0 Yes [id number] 2.5mg Inhale 3 [facility] 2.5 mg /3 3-07 mL every 4 ity of mL (0.083 00:00: (four) [place] %) 00 hours as Medical nebulizer needed for Bran ch solution Wheezing or Shortness of Breath. Nebulizer & 2022-0 Yes [id number] Use as [facility] Compressor 3-07 directed ity o f For Neb 00:00: [place] 00 Medical Branch budesonide- 2022-0 Yes [id number] 2{puff} Inhale 2 [facility] formoteroL 3-07 Puffs in ity o f (SYMBICORT) 00:00: the 160-4.5 00 morning Medical mcg/actuati and 2 Branch on inhaler Puffs in the evening. meloxicam 2022-0 Yes [id number] Take 1 tab [facility] 7.5 mg 3-07 once daily ity of tablet 00:00: with food [place] for muscle Medical pain for 3 Branch to 5 days at a time albuterol 2022-0 Yes [id number] 2.5mg Inhale 3 [facility] 2.5 mg /3 3-07 mL every 4 ity of mL (0.083 00:00: (four) [place] %) 00 hours as Medical nebulizer needed for Bran ch solution Wheezing or Shortness of Breath. Nebulizer & 2022-0 Yes [id number] Use as [facility] Compressor 3-07 directed ity o f For Neb 00:00: [place] 00 Medical Branch budesonide- 2022-0 Yes [id number] 2{puff} Inhale 2 [facility] formoteroL 3-07 Puffs in ity o f (SYMBICORT) 00:00: the [place] 160-4.5 00 morning Medical mcg/actuati and 2 Branch on inhaler Puffs in the evening. meloxicam 2022-0 Yes [id number] Take 1 tab [facility] 7.5 mg 3-07 once daily ity of tablet 00:00: with food [place] 00 for muscle Medical pain for 3 Branch to 5 days at a time albuterol 2022-0 Yes [id number] 2.5mg Inhale 3 [facility] 2.5 mg /3 3-07 mL every 4 ity of mL (0.083 00:00: (four) [place] %) 00 hours as Medical nebulizer needed for Bran ch solution Wheezing or Shortness of Breath. Nebulizer & 2022-0 Yes [id number] Use as [facility] Compressor 3-07 directed ity o f For Neb 00:00: [place] Medical Branch budesonide- 2022-0 Yes [id number] 2{puff} Inhale 2 [facility] formoteroL 3-07 Puffs in ity o f (SYMBICORT) 00:00: the 160-4.5 00 morning Medical mcg/actuati and 2 Branch on inhaler Puffs in the evening. meloxicam 2022-0 Yes [id number] Take 1 tab [facility] 7.5 mg 3-07 once daily ity of tablet 00:00: with for muscle Medical pain for 3 Branch to 5 days at a time Nebulizer & 2022-0 Yes [id number] Use as [facility] Compressor 3-07 directed ity o f For Neb 00:00: Medical Branch budesonide- 2022-0 Yes [id number] 2{puff} Inhale 2 [facility] formoteroL 3-07 Puffs in ity o f (SYMBICORT) 00:00: the 160-4.5 00 morning Medical mcg/actuati and 2 Branch on inhaler Puffs in the evening. meloxicam 2022-0 Yes [id number] Take 1 tab [facility] 7.5 mg 3-07 once daily ity of tablet 00:00: with [place] for muscle Medical pain for 3 Branch to 5 days at a time Nebulizer & 2022-0 Yes [id number] Use as [facility] Compressor 3-07 directed ity o f For Neb 00:00: Medical Branch budesonide- 2022-0 Yes [id number] 2{puff} Inhale 2 [facility] formoteroL 3-07 Puffs in ity o f (SYMBICORT) 00:00: the 160-4.5 00 morning Medical mcg/actuati and 2 Branch on inhaler Puffs in the evening. meloxicam 2022-0 Yes [id number] Take 1 tab [facility] 7.5 mg 3-07 once daily ity of tablet 00:00: with food [place] 00 for muscle Medical pain for 3 Branch to 5 days at a time Nebulizer & 2022-0 Yes [id number] Use as [facility] Compressor 3-07 directed ity o f For Neb 00:00: [facility] Medical Branch budesonide- 2022-0 Yes [id number] 2{puff} Inhale 2 Univers formoteroL 3-07 Puffs in ity o f (SYMBICORT) 00:00: the [place] 160-4.5 00 morning Medical mcg/actuati and 2 Branch on inhaler Puffs in the evening. meloxicam 2022-0 Yes [id number] Take 1 tab [facility] 7.5 mg 3-07 once daily ity of tablet 00:00: with food [place] 00 for muscle Medical pain for 3 Branch to 5 days at a time Nebulizer & 2022-0 Yes [id number] Use as [facility] Compressor 3-07 directed ity o f For Neb 00:00: [place] Medical Branch budesonide- 2022-0 Yes [id number] 2{puff} Inhale 2 [facility] formoteroL 3-07 Puffs in ity o f (SYMBICORT) 00:00: the [place] 160-4.5 00 morning Medical mcg/actuati and 2 Branch on inhaler Puffs in the evening. meloxicam 2022-0 Yes [id number] Take 1 tab [facility] 7.5 mg 3-07 once daily ity of tablet 00:00: with food [place] 00 for muscle Medical pain for 3 Branch to 5 days at a time Nebulizer & 2022-0 Yes [id number] Use as [facility] Compressor 3-07 directed ity o f For Neb 00:00: [place] 00 Medical Branch budesonide- 2022-0 Yes [id number] 2{puff} Inhale 2 [facility] formoteroL 3-07 Puffs in ity o f (SYMBICORT) 00:00: the [place] 160-4.5 00 morning Medical mcg/actuati and 2 Branch on inhaler Puffs in the evening. meloxicam 2022-0 Yes [id number] Take 1 tab [facility] 7.5 mg 3-07 once daily ity of tablet 00:00: with food [place] 00 for muscle Medical pain for 3 Branch to 5 days at a time Nebulizer & 2022-0 Yes [id number] Use as [facility] Compressor 3-07 directed ity o f For Neb 00:00: [place] 00 Medical Branch budesonide- 2022-0 Yes [id number] 2{puff} Inhale 2 [facility] formoteroL 3-07 Puffs in ity o f (SYMBICORT) 00:00: the [place] 160-4.5 00 morning Medical mcg/actuati and 2 Branch on inhaler Puffs in the evening. meloxicam 2022-0 Yes [id number] Take 1 tab [facility] 7.5 mg 3-07 once daily ity of tablet 00:00: with food [place] 00 for muscle Medical pain for 3 Branch to 5 days at a time Nebulizer & 2022-0 Yes [id number] Use as [facility] Compressor 3-07 directed ity o f For Neb 00:00: Medical Branch budesonide- 2022-0 Yes [id number] 2{puff} Inhale 2 [facility] formoteroL 3-07 Puffs in ity o f (SYMBICORT) 00:00: the [place] 160-4.5 00 morning Medical mcg/actuati and 2 Branch on inhaler Puffs in the evening. meloxicam 2022-0 Yes [id number] Take 1 tab [facility] 7.5 mg 3-07 once daily ity of tablet 00:00: with food [place] 00 for muscle Medical pain for 3 Branch to 5 days at a time Nebulizer & 2022-0 2023- No [id number] Use as [facility] Compressor 3-07 05-04 directed ity of For Neb 00:00: 00:00 [place] 00 :00 Medical Branch budesonide- 2022-0 2023- No [id number] 2{puff} Inhale 2 [facility] formoteroL 3-07 05-04 Puffs in ity of (SYMBICORT) 00:00: 00:00 the [place] 160-4.5 00 :00 morning Medical mcg/actuati and 2 Branch on inhaler Puffs in the evening. meloxicam 2022-0 2023- No [id number] Take 1 tab [facility] 7.5 mg 3-07 05-04 once daily ity of tablet 00:00: 00:00 with food [place] 00 :00 for muscle Medical pain for 3 Branch to 5 days at a time Nebulizer & 2022-2022- No [id number] Use as [facility] Compressor 07-23- directed ity of For Neb 00:00: 00:00 [place] 00 :00 Medical Branch budesonide- 2022- No [id number] 2{puff} Inhale 2 [facility] formoteroL 07-23-04 Puffs in ity of (SYMBICORT) 00:00: 00:00 the [place] 160-4.5 00 :00 morning Medical mcg/actuati and 2 Branch on inhaler Puffs in the evening. meloxicam 2022- No [id number] Take 1 tab [facility] 7.5 mg 07-23- once daily ity of tablet 00:00: 00:00 with food [place] 00 :00 for muscle Medical pain for 3 Branch to 5 days at a time albuterol 2022-0 2022- No [id number] 2.5mg Inhale 3 Univers 2.5 mg /3 07-23 03-21 mL every 4 ity of mL (0.083 00:00: 00:00 (four) [place] %) 00 :00 hours as Medical nebulizer needed for Bran ch solution Wheezing or Shortness of Breath. albuterol 2022-0 2022- No [id number] 2.5mg Inhale 3 Univers 2.5 mg /3 07-23 03-21 mL every 4 ity of mL (0.083 00:00: 00:00 (four) [place] %) 00 :00 hours as Medical nebulizer needed for Bran ch solution Wheezing or Shortness of Breath. famotidine 2022-0 Yes 20mg Take 1 Un[facility] rs 20 mg 3-04 tablet by ity of tablet 00:00: mouth in [place] 00 the Medical morning. Branch cetirizine 2022-0 Yes TAKE ONE Uni vers 10 mg 3-04 (1) ity of tablet 00:00: TABLET(S) [place] 00 BY MOUTH Medical DAILY Branch NEEDED FOR ALLERGIES. famotidine 2022-0 Yes 20mg Take 1 Unive rs 20 mg 3-04 tablet by ity of tablet 00:00: mouth in [place] 00 the Medical morning. Branch cetirizine 2022-0 Yes TAKE ONE Uni vers 10 mg 3-04 (1) ity of tablet 00:00: TABLET(S) [place] 00 BY MOUTH Medical DAILY Branch NEEDED FOR ALLERGIES. famotidine 2023-0 Yes 20mg Take 1 Unive rs 20 mg 3-04 tablet by ity of tablet 00:00: mouth in [place] the Medical morning. Branch cetirizine 3-0 Yes TAKE ONE Uni vers 10 mg 3-04 (1) ity of tablet 00:00: TABLET(S) [place] 00 BY MOUTH Medical DAILY Branch NEEDED FOR ALLERGIES. famotidine 2023-0 Yes 20mg Take 1 Unive rs 20 mg 3-04 tablet by ity of tablet 00:00: mouth in [place] the Medical morning. Branch cetirizine 3-0 Yes TAKE ONE Uni vers 10 mg 3-04 (1) ity of tablet 00:00: TABLET(S) 00 BY MOUTH Medical DAILY Branch NEEDED FOR ALLERGIES. famotidine 2023-0 Yes 20mg Take 1 Unive rs 20 mg 3-04 tablet by ity of tablet 00:00: mouth in [place] the Medical morning. Branch cetirizine 3-0 Yes TAKE ONE Uni vers 10 mg 3-04 (1) ity of tablet 00:00: TABLET(S) BY MOUTH Medical DAILY Branch NEEDED FOR ALLERGIES. famotidine 2023-0 Yes 20mg Take 1 Unive rs 20 mg 3-04 tablet by ity of tablet 00:00: mouth in [place] the Medical morning. Branch cetirizine 3-0 Yes TAKE ONE Uni vers 10 mg 3-04 (1) ity of tablet 00:00: TABLET(S) BY MOUTH Medical DAILY Branch NEEDED FOR ALLERGIES. famotidine 2023-0 Yes 20mg Take 1 Unive rs 20 mg 3-04 tablet by ity of tablet 00:00: mouth in [place] the Medical morning. Branch cetirizine 2023-0 Yes TAKE ONE Uni vers 10 mg 3-04 (1) ity of tablet 00:00: TABLET(S) [place] 00 BY MOUTH Medical DAILY Branch NEEDED FOR ALLERGIES. famotidine 2023-0 Yes 20mg Take 1 Unive rs 20 mg 3-04 tablet by ity of tablet 00:00: mouth in [place] the Medical morning. Branch cetirizine 2023-0 Yes TAKE ONE Uni vers 10 mg 3-04 (1) ity of tablet 00:00: TABLET(S) [place] 00 BY MOUTH Medical DAILY Branch NEEDED FOR ALLERGIES. famotidine 0 Yes 20mg Take 1 Unive rs 20 mg 3-04 tablet by ity of tablet 00:00: mouth in [place] 00 the Medical morning. Branch cetirizine 0 Yes TAKE ONE Uni vers 10 mg 3-04 (1) ity of tablet 00:00: TABLET(S) [place] 00 BY MOUTH Medical DAILY Branch NEEDED FOR ALLERGIES. ondansetron 2022-0 Yes [id number] 8mg Take 1 [facility] 8 mg 3-01 tablet by ity of disintegrat 00:00: mouth [place] ing tablet 00 every 8 Medica l (eight) Branch hours as needed for Nausea and Vomiting (N/V). ondansetron 2022-0 Yes [id number] 8mg Take 1 [facility] 8 mg 3-01 tablet by ity of disintegrat 00:00: mouth [place] ing tablet 00 every 8 Medica l (eight) Branch hours as needed for Nausea and Vomiting (N/V). ondansetron 2022-0 Yes [id number] 8mg Take 1 [facility] 8 mg 3-01 tablet by ity of disintegrat 00:00: mouth [place] ing tablet 00 every 8 Medica l (eight) Branch hours as needed for Nausea and Vomiting (N/V). ondansetron 2022-0 Yes [id number] 8mg Take 1 [facility] 8 mg 3-01 tablet by ity of disintegrat 00:00: mouth [place] ing tablet 00 every 8 Medica l (eight) Branch hours as needed for Nausea and Vomiting (N/V). ondansetron 3-0 Yes [id number] 8mg Take 1 [facility] 8 mg 3-01 tablet by ity of disintegrat 00:00: mouth [place] ing tablet 00 every 8 Medica l (eight) Branch hours as needed for Nausea and Vomiting (N/V). ondansetron 3-0 Yes [id number] 8mg Take 1 [facility] 8 mg 3-01 tablet by ity of disintegrat 00:00: mouth [place] ing tablet 00 every 8 Medica l (eight) Branch hours as needed for Nausea and Vomiting (N/V). ondansetron 2023-0 Yes [id number] 8mg Take 1 [facility] 8 mg 3-01 tablet by ity of disintegrat 00:00: mouth [place] ing tablet 00 every 8 Medica l (eight) Branch hours as needed for Nausea and Vomiting (N/V). ondansetron 2023-0 Yes [id number] 8mg Take 1 [facility] 8 mg 3-01 tablet by ity of disintegrat 00:00: mouth [place] ing tablet 00 every 8 Medica l (eight) Branch hours as needed for Nausea and Vomiting (N/V). ondansetron 2023-0 Yes [id number] 8mg Take 1 [facility] 8 mg 3-01 tablet by ity of disintegrat 00:00: mouth [place] ing tablet 00 every 8 Medica l (eight) Branch hours as needed for Nausea and Vomiting (N/V). ondansetron 3-0 3- No [id number] 8mg Take 1 [facility] 8 mg 3-01 03-21 tablet by ity of disintegrat 00:00: 00:00 [place] tablet 00 :00 every 8 Medica l (eight) Branch hours as needed for Nausea and Vomiting (N/V). ondansetron 3-0 3- No [id number] 8mg Take 1 [facility] 8 mg 3-01 03-21 tablet by ity of disintegrat 00:00: 00:00 [place] tablet 00 :00 every 8 Medica l (eight) Branch hours as needed for Nausea and Vomiting (N/V). clindamycin 3-0 3- No [id number] 300mg Take 1 [facility] (CLEOCIN 3-01 03-12 capsule by ity of HCL) 300 mg 00:00: 05:59 mouth in [place] capsule 00 :00 the Medical morning Branch and 1 capsule at noon and 1 capsule in the evening. Do all this for 10 days. clindamycin 2023-0 3- No [id number] 300mg Take 1 Univers (CLEOCIN 3-01 03-12 capsule by ity of HCL) 300 mg 00:00: 05:59 mouth in [place] capsule 00 :00 the Medical morning Branch and 1 capsule at noon and 1 capsule in the evening. Do all this for 10 days. clindamycin 2023-0 3- No [id number] 300mg Take 1 [facility] (CLEOCIN 3-01 03-12 capsule by ity of HCL) 300 mg 00:00: 05:59 mouth in [place] capsule 00 :00 the Medical morning Branch and 1 capsule at noon and 1 capsule in the evening. Do all this for 10 days. clindamycin 2022-0 3- No [id number] 300mg Take 1 [facility] (CLEOCIN 3-01 03-12 capsule by ity of HCL) 300 mg 00:00: 05:59 mouth in [place] capsule 00 :00 the Medical morning Branch and 1 capsule at noon and 1 capsule in the evening. Do all this for 10 days. clindamycin 2022-0 3- No [id number] 300mg Take 1 [facility] (CLEOCIN 3- 03-12 capsule by ity of HCL) 300 mg 00:00: 05:59 mouth in [place] capsule 00 :00 the Medical morning Branch and 1 capsule at noon and 1 capsule in the evening. Do all this for 10 days. clindamycin 2022-0 3- No [id number] 300mg Take 1 [facility] (CLEOCIN 3- 03-12 capsule by ity of HCL) 300 mg 00:00: 05:59 mouth in [place] capsule 00 :00 the Medical morning Branch and 1 capsule at noon and 1 capsule in the evening. Do all this for 10 days. clindamycin 2022-0 3- No [id number] 300mg Take 1 [facility] (CLEOCIN 3- 03-12 capsule by ity of HCL) 300 mg 00:00: 05:59 mouth in [place] capsule 00 :00 the Medical morning Branch and 1 capsule at noon and 1 capsule in the evening. Do all this for 10 days. clindamycin 2022-0 3- No [id number] 300mg Take 1 [facility] (CLEOCIN 3- 03-12 capsule by ity of HCL) 300 mg 00:00: 05:59 mouth in [place] capsule 00 :00 the Medical morning Branch and 1 capsule at noon and 1 capsule in the evening. Do all this for 10 days. clindamycin 2022-0 3- No [id number] 300mg Take 1 [facility] (CLEOCIN 3-01 03-12 capsule by ity of HCL) 300 mg 00:00: 05:59 mouth in [place] capsule 00 :00 the Medical morning Branch and 1 capsule at noon and 1 capsule in the evening. Do all this for 10 days. predniSONE 0 2022- No [id number] 10mg Take 1 Univers 10 mg 07-17 tablet by ity of tablet 00:00: 05:59 mouth in [place] 00 :00 [facility] and 1 tablet in the evening. Do all this for 5 days. predniSONE 2022-0 2022- No [id number] 10mg Take 1 Univers 10 mg 07-17 tablet by ity of tablet 00:00: 05:59 mouth in [place] 00 :00 [facility] and 1 tablet in the evening. Do all this for 5 days. predniSONE 0 2022- No [id number] 10mg Take 1 [facility] 10 mg 07-17 tablet by ity of tablet 00:00: 05:59 mouth in [place] 00 :00 [facility] and 1 tablet in the evening. Do all this for 5 days. predniSONE 2022-0 2022- No [id number] 10mg Take 1 [facility] 10 mg 07-17 tablet by ity of tablet 00:00: 05:59 mouth in [place] 00 :00 [facility] and 1 tablet in the evening. Do all this for 5 days. predniSONE 2022-2022- No [id number] 10mg Take 1 [facility] 10 mg 07-17 tablet by ity of tablet 00:00: 05:59 mouth in [place] 00 :00 [facility] and 1 tablet in the evening. Do all this for 5 days. azithromyci Yes [id number] 250mg Take 1 Univers n 250 mg 1- tablet by ity of tablet 00:00: mouth [place] 00 SEE-INSTRU Medical CTIONS. Branch Take 500 mg day 1, then 250 mg days 2 to 5. fluticasone Yes [id number] 2{spray Use 2 [facility] propionate 1-31 } [...] BREATH OR CHEST TIGHTNESS. azithromyci 2022-0 Yes [id number] 250mg Take 1 Univers n 250 mg 1-31 tablet by ity of tablet 00:00: mouth [place] 00 [facility] CTIONS. Branch Take 500 mg day 1, then 250 mg days 2 to 5. fluticasone 2022-0 Yes [id number] 2{spray Use 2 Univers propionate 1-31 } [...] BREATH OR CHEST TIGHTNESS. azithromyci 2022-0 Yes [id number] 250mg Take 1 Univers n 250 mg 1-31 tablet by ity of tablet 00:00: mouth [place] 00 [facility] CTIONS. Branch Take 500 mg day 1, then 250 mg days 2 to 5. fluticasone 2022-0 Yes [id number] 2{spray Use 2 Univers propionate 1-31 } [...] BREATH OR CHEST TIGHTNESS. azithromyci 2022-0 Yes [id number] 250mg Take 1 Univers n 250 mg 1-31 tablet by ity of tablet 00:00: mouth [place] 00 [facility] CTIONS. Branch Take 500 mg day 1, then 250 mg days 2 to 5. fluticasone 2022-0 Yes [id number] 2{spray Use 2 Univers propionate 1-31 } [...] OF BREATH OR CHEST TIGHTNESS. azithromyci Yes [id number] 250mg Take 1 Univers n 250 mg 1-31 tablet by ity of tablet 00:00: mouth [place] 00 SEE-INSTRU Medical CTIONS. Branch Take 500 mg day 1, then 250 mg days 2 to 5. fluticasone Yes [id number] 2{spray Use 2 [facility] propionate 1-31 } [...] OF BREATH OR CHEST TIGHTNESS. fluticasone Yes [id number] 2{spray Use 2 [facility] propionate 1-31 } [...] OF BREATH OR CHEST TIGHTNESS. fluticasone Yes [id number] 2{spray Use 2 [facility] propionate 1-31 } [...] SHORTNESS OF BREATH OR CHEST TIGHTNESS. fluticasone 0 Yes [id number] 2{spray Use 2 [facility] propionate 1-31 } [...] OF BREATH OR CHEST TIGHTNESS. fluticasone Yes [id number] 2{spray Use 2 [facility] propionate 1-31 } [...] OF BREATH OR CHEST TIGHTNESS. fluticasone Yes [id number] 2{spray Use 2 [facility] propionate 1-31 } [...] SHORTNESS OF BREATH OR CHEST TIGHTNESS. fluticasone 0 Yes [id number] 2{spray Use 2 [facility] propionate 1-31 } [...] OF BREATH OR CHEST TIGHTNESS. fluticasone Yes [id number] 2{spray Use 2 [facility] propionate 1-31 } [...] OF BREATH OR CHEST TIGHTNESS. fluticasone Yes [id number] 2{spray Use 2 [facility] propionate 1-31 } [...] OF BREATH OR CHEST TIGHTNESS. fluticasone Yes [id number] 2{spray Use 2 [facility] propionate 1-31 } [...] OF BREATH OR CHEST TIGHTNESS. fluticasone Yes [id number] 2{spray Use 2 [facility] propionate 1-31 } [...] OF BREATH OR CHEST TIGHTNESS. fluticasone Yes [id number] 2{spray Use 2 [facility] propionate 1-31 } [...] OF BREATH OR CHEST TIGHTNESS. fluticasone Yes [id number] 2{spray Use 2 [facility] propionate 1-31 } [...] OF BREATH OR CHEST TIGHTNESS. fluticasone Yes [id number] 2{spray Use 2 [facility] propionate 1-31 } [...] OF BREATH OR CHEST TIGHTNESS. fluticasone Yes [id number] 2{spray Use 2 [facility] propionate 1-31 } [...] OF BREATH OR CHEST TIGHTNESS. fluticasone Yes [id number] 2{spray Use 2 [facility] propionate 1-31 } [...] OF BREATH OR CHEST TIGHTNESS. fluticasone Yes [id number] 2{spray Use 2 [facility] propionate 1-31 } [...] SHORTNESS OF BREATH OR CHEST TIGHTNESS. fluticasone 2022- No [id number] 2{spray Use 2 Univers propionate 1-31 05-04 } Sprays in ity of 50 00:00: 00:00 each [place] mcg/actuati 00 :00 nostril in Me dical on nasal the Branch spray morning and 2 Sprays in the evening. albuterol 2022- No INHALE TWO U nivers (VENTOLIN 06-18 (2) PUFFS ity of HFA) 90 00:00: 00:00 BY MOUTH [place] mcg/actuati 00 :00 EVERY FOUR Me dical on inhaler HOURS Branc h NEEDED FOR WHEEZING, SHORTNESS OF BREATH OR CHEST TIGHTNESS. fluticasone 2022- No [id number] 2{spray Use 2 Univers propionate 06-18 } Sprays in ity of 50 00:00: 00:00 each [place] mcg/actuati 00 :00 nostril in Me dical on nasal the Branch spray morning and 2 Sprays in the evening. albuterol 2022- No INHALE TWO U nivers (VENTOLIN 06-18 (2) PUFFS ity of HFA) 90 00:00: 00:00 BY MOUTH [place] mcg/actuati 00 :00 EVERY FOUR Me dical on inhaler HOURS Branc h NEEDED FOR WHEEZING, SHORTNESS OF BREATH OR CHEST TIGHTNESS. azithromyci 2022- No [id number] 250mg Take 1 [facility] n 250 mg 06-18 tablet by ity o f tablet 00:00: 00:00 [facility] mg day 1, then 250 mg days 2 to 5. azithromyci 2022- No [id number] 250mg Take 1 Univers n 250 mg 06-18 tablet by ity o f tablet 00:00: 00:00 [facility] 00 :00 SEE-INSTRU Medical CTIONS. Branch Take 500 mg day 1, then 250 mg days 2 to 5. azithromyci 2022- No [id number] 250mg Take 1 Univers n 250 mg 06-18 tablet by ity o f tablet 00:00: 00:00 [facility] 00 :00 [facility] Medical CTIONS. Branch Take 500 mg day 1, then 250 mg days 2 to 5. clindamycin 2021-05- No [id number] 300mg Take 1 Univers (CLEOCIN 06-27 capsule by ity of HCL) 300 mg 00:00: 05:59 mouth in [place] capsule 00 :00 the Medical morning Branch and 1 capsule at noon and 1 capsule in the evening. Do all this for 7 days. clindamycin 2021-05- No [id number] 300mg Take 1 [facility] (CLEOCIN 06-27 capsule by ity of HCL) 300 mg 00:00: 05:59 mouth in [place] capsule 00 :00 the Medical morning Branch and 1 capsule at noon and 1 capsule in the evening. Do all this for 7 days. fluticasone 2021-05 Yes [id number] 2{spray Use 2 [facility] propionate 0-18 } Sprays in ity of 50 00:00: each [place] mcg/actuati 00 nostril in Me dical on nasal the Branch spray morning and 2 Sprays in the evening. fluticasone 2021-05 Yes [id number] 2{spray Use 2 [facility] propionate 0-18 } Sprays in ity of 50 00:00: each [place] mcg/actuati 00 nostril in Me dical on nasal the Branch spray morning and 2 Sprays in the evening. fluticasone 2021-05 Yes [id number] 2{spray Use 2 [facility] propionate 0-18 } Sprays in ity of 50 00:00: each [place] mcg/actuati 00 nostril in Me dical on nasal the Branch spray morning and 2 Sprays in the evening. fluticasone 2021-05 Yes [id number] 2{spray Use 2 [facility] propionate 0-18 } Sprays in ity of 50 00:00: each [place] mcg/actuati 00 nostril in Me dical on nasal the Branch spray morning and 2 Sprays in the evening. fluticasone 2021-05 Yes [id number] 2{spray Use 2 [facility] propionate 0-18 } Sprays in ity of 50 00:00: each [place] mcg/actuati 00 nostril in Me dical on nasal the Branch spray morning and 2 Sprays in the evening. fluticasone 2021-05 Yes [id number] 2{spray Use 2 [facility] propionate 0-18 } Sprays in ity of 50 00:00: each [place] mcg/actuati 00 nostril in Me dical on nasal the Branch spray morning and 2 Sprays in the evening. fluticasone 2021-05- No [id number] 2{spray Use 2 [facility] propionate 0-18 06-18 } Sprays in ity of 50 00:00: 00:00 each [place] mcg/actuati 00 :00 nostril in Me dical on nasal the Branch spray morning and 2 Sprays in the evening. fluticasone 2021-05- No [id number] 2{spray Use 2 [facility] propionate 0-18 06-18 } Sprays in ity of 50 00:00: [...] TAKE ONE U nivers ne 600 mg 013 06-18 (1) ity of tablet 00:00: 00:00 TABLET(S) [place] 00 :00 BY MOUTH Medical THREE Branch TIMES A DAY WITH MEALS. meloxicam 2021-05 Yes Univers (MOBIC 0-11 ity of ORAL) 08:14: [address] meloxicam 2021-05 Yes Univers (MOBIC 0-11 ity of ORAL) 08:14: [address] meloxicam 2021-05 Yes Univers (MOBIC 0-11 ity of ORAL) 08:14: [address] meloxicam 2021-05 Yes Univers (MOBIC 0-11 ity of ORAL) 08:14: [address] meloxicam 2021-05 Yes Univers (MOBIC 0-11 ity of ORAL) 08:14: [address] meloxicam 2021-05 Yes Univers (MOBIC 0-11 ity of ORAL) 08:14: [address] meloxicam 2021-05 Yes Univers (MOBIC 0-11 ity of ORAL) 08:14: [address] meloxicam 2021-05 Yes Univers (MOBIC 0-11 ity of ORAL) 08:14: [address] meloxicam 2021-05 Yes Univers (MOBIC 0-11 ity of ORAL) 08:14: [address] meloxicam 2021-05 Yes Univers (MOBIC 0-11 ity of ORAL) 08:14: [address] meloxicam 2021-05 Yes Univers (MOBIC 0-11 ity of ORAL) 08:14: [address] meloxicam 2021-05 Yes Univers (MOBIC 0-11 ity of ORAL) 08:14: [address] meloxicam 2021-05 Yes Univers (MOBIC 0-11 ity of ORAL) 08:14: [address] meloxicam 2021-05 Yes Univers (MOBIC 0-11 ity of ORAL) 08:14: [address] meloxicam 2021-05 Yes Univers (MOBIC 0-11 ity of ORAL) 08:14: [address] meloxicam 2021-05 Yes Univers (MOBIC 0-11 ity of ORAL) 08:14: [place] [facility] fluticasone 2021-05 Yes [id number] INHALE TWO Univers propion-kumar 0-07 (2) PUFFS ity of meteroL 00:00: BY MOUTH [place] (ADVAIR 00 TWICE A Medical HFA) 115-21 DAY. Branch mcg/actuati on inhaler fluticasone 2021-05 Yes [id number] INHALE TWO Univers propion-kumar 0-07 (2) PUFFS ity of meteroL 00:00: BY MOUTH [place] (ADVAIR 00 TWICE A Medical HFA) 115-21 DAY. Branch mcg/actuati on inhaler fluticasone 2021-05 Yes [id number] INHALE TWO Univers propion-kumar 0-07 (2) PUFFS ity of meteroL 00:00: BY MOUTH [place] (ADVAIR 00 TWICE A Medical HFA) 115-21 DAY. Branch mcg/actuati on inhaler fluticasone 2021-05 Yes [id number] INHALE TWO Univers propion-kumar 0-07 (2) PUFFS ity of meteroL 00:00: BY MOUTH [place] (ADVAIR 00 TWICE A Medical HFA) 115-21 DAY. Branch mcg/actuati on inhaler fluticasone 2021-05 Yes [id number] INHALE TWO Univers propion-kumar 0-07 (2) PUFFS ity of meteroL 00:00: BY MOUTH [place] (ADVAIR 00 TWICE A Medical HFA) 115-21 DAY. Branch mcg/actuati on inhaler fluticasone 2021-05 Yes [id number] INHALE TWO Univers propion-kumar 0-07 (2) PUFFS ity of meteroL 00:00: BY MOUTH [place] (ADVAIR 00 TWICE A Medical HFA) 115-21 DAY. Branch mcg/actuati on inhaler fluticasone 2021-05 Yes [id number] INHALE TWO Univers propion-kumar 0-07 (2) PUFFS ity of meteroL 00:00: BY MOUTH [place] (ADVAIR 00 TWICE A Medical HFA) 115-21 DAY. Branch mcg/actuati on inhaler fluticasone 2021-05 Yes [id number] INHALE TWO Univers propion-kumar 0-07 (2) PUFFS ity of meteroL 00:00: BY MOUTH [place] (ADVAIR 00 TWICE A Medical HFA) 115-21 DAY. Branch mcg/actuati on inhaler fluticasone 2021-05 Yes [id number] INHALE TWO Univers propion-kumar 0-07 (2) PUFFS ity of meteroL 00:00: BY MOUTH [place] (ADVAIR 00 TWICE A Medical HFA) 115-21 DAY. Branch mcg/actuati on inhaler fluticasone 2021-05 Yes [id number] INHALE TWO Univers propion-kumar 0-07 (2) PUFFS ity of meteroL 00:00: BY MOUTH [place] (ADVAIR 00 TWICE A Medical HFA) 115-21 DAY. Branch mcg/actuati on inhaler fluticasone 2021-05 Yes [id number] INHALE TWO Univers propion-kumar 0-07 (2) PUFFS ity of meteroL 00:00: BY MOUTH [place] (ADVAIR 00 TWICE A Medical HFA) 115-21 DAY. Branch mcg/actuati on inhaler fluticasone 2021-05 Yes [id number] INHALE TWO Univers propion-kumar 0-07 (2) PUFFS ity of meteroL 00:00: BY MOUTH [place] (ADVAIR 00 TWICE A Medical HFA) 115-21 DAY. Branch mcg/actuati on inhaler fluticasone 2021-05 Yes [id number] INHALE TWO Univers propion-kumar 0-07 (2) PUFFS ity of meteroL 00:00: BY MOUTH [place] (ADVAIR 00 TWICE A Medical HFA) 115-21 DAY. Branch mcg/actuati on inhaler fluticasone 2021-05 Yes [id number] INHALE TWO Univers propion-kumar 0-07 (2) PUFFS ity of meteroL 00:00: BY MOUTH [place] (ADVAIR 00 TWICE A Medical HFA) 115-21 DAY. Branch mcg/actuati on inhaler fluticasone 2021-05 Yes [id number] INHALE TWO Univers propion-kumar 0-07 (2) PUFFS ity of meteroL 00:00: BY MOUTH [place] (ADVAIR 00 TWICE A Medical HFA) 115-21 DAY. Branch mcg/actuati on inhaler fluticasone 2021-05 Yes [id number] INHALE TWO Univers propion-kumar 0-07 (2) PUFFS ity of meteroL 00:00: BY MOUTH [place] (ADVAIR 00 TWICE A Medical HFA) 115-21 DAY. Branch mcg/actuati on inhaler fluticasone 2021-05- No [id number] INHALE TWO Univers propion-kumar 0-07 03-07 (2) PUFFS it y of meteroL 00:00: 00:00 BY MOUTH [place] (ADVAIR 00 :00 TWICE A Medical HFA) 115-21 DAY. Branch mcg/actuati on inhaler fluticasone 2021-05- No [id number] INHALE TWO Univers propion-kumar 0-07 03-07 (2) PUFFS it y of meteroL 00:00: 00:00 BY MOUTH [place] (ADVAIR 00 :00 TWICE A Medical HFA) 115-21 DAY. Branch mcg/actuati on inhaler fluticasone 2021-05- No [id number] INHALE TWO Univers propion-kumar 0-07 03-07 (2) PUFFS it y of meteroL 00:00: 00:00 BY MOUTH [place] (ADVAIR 00 :00 TWICE A Medical HFA) 115-21 DAY. Branch mcg/actuati on inhaler OXcarbazepi 2022-0 Yes 300mg Take 300 U nivers ne 300 mg 9-30 mg by ity of tablet 00:00: mouth in [place] 00 the Medical morning Branch and 300 mg in the evening. OXcarbazepi 2022-0 Yes 300mg Take 300 U nivers ne 300 mg 9-30 mg by ity of tablet 00:00: mouth in [place] 00 the Medical morning Branch and 300 mg in the evening. OXcarbazepi 2022-0 Yes 300mg Take 300 U nivers ne 300 mg 9-30 mg by ity of tablet 00:00: mouth in [place] 00 the Medical morning Branch and 300 mg in the evening. OXcarbazepi 2022-0 Yes 300mg Take 300 U nivers ne 300 mg 9-30 mg by ity of tablet 00:00: mouth in [place] 00 the Medical morning Branch and 300 mg in the evening. OXcarbazepi 2022-0 Yes 300mg Take 300 U nivers ne 300 mg 9-30 mg by ity of tablet 00:00: mouth in [place] 00 the Medical morning Branch and 300 mg in the evening. OXcarbazepi 2022-0 Yes 300mg Take 300 U nivers ne 300 mg 9-30 mg by ity of tablet 00:00: mouth in [place] 00 the Medical morning Branch and 300 mg in the evening. OXcarbazepi 2021-0 2022- No 300mg Take 300 Univers ne 300 mg 9-30 01-31 mg by ity of tablet 00:00: 00:00 mouth in [place] 00 :00 the Medical morning Branch and 300 mg in the evening. OXcarbazepi 2021-0 2022- No 300mg Take 300 Univers ne 300 mg 9-30 01-31 mg by ity of tablet 00:00: 00:00 mouth in [place] 00 :00 the Medical morning Branch and 300 mg in the evening. VRAYLAR 4.5 2021- Yes TAKE ONE Un adilson mg Cap 9-28 (1) ity of 00:00: CAPSULE(S) [place] 00 BY MOUTH Medical [facility] BEDTIME. mirtazapine 2021-0 Yes 7.5mg Take 7.5 U nivers 7.5 mg 9-28 mg by ity of tablet 00:00: mouth at [place] [address] bedtime. Medical Branch VRAYLAR 4.5 Yes TAKE ONE Un adilson mg Cap 9-28 (1) ity of 00:00: CAPSULE(S) [place] 00 BY MOUTH Medical [facility] BEDTIME. mirtazapine 2021-0 Yes 7.5mg Take 7.5 U nivers 7.5 mg 9-28 mg by ity of tablet 00:00: mouth at [place] [address] bedtime. Medical Branch VRAYLAR 4.5 2021-0 Yes TAKE ONE Un adilson mg Cap 9-28 (1) ity of 00:00: CAPSULE(S) [place] 00 BY MOUTH Medical AT [place] BEDTIME. mirtazapine 2-0 Yes 7.5mg Take 7.5 U nivers 7.5 mg 9-28 mg by ity of tablet 00:00: mouth at [place] [address] bedtime. Medical Branch VRAYLAR 4.5 2021-0 Yes TAKE ONE Un adilson mg Cap 9-28 (1) ity of 00:00: CAPSULE(S) [place] BY MOUTH Medical [facility] BEDTIME. mirtazapine 2-0 Yes 7.5mg Take 7.5 U nivers 7.5 mg 9-28 mg by ity of tablet 00:00: mouth at [place] [address] bedtime. Medical Branch VRAYNJR 4.5 Yes TAKE ONE Un adilson mg Cap 9-28 (1) ity of 00:00: CAPSULE(S) [place] 00 BY [facility] Medical [facility] BEDTIME. mirtazapine Yes 7.5mg Take 7.5 U nivers 7.5 mg 9-28 mg by ity of tablet 00:00: mouth at [place] 00 bedtime. Medical Branch [facility] 4.5 Yes TAKE ONE Un adilson mg Cap 9-28 (1) ity of 00:00: CAPSULE(S) [place] 00 BY [facility] Medical [facility] BEDTIME. mirtazapine Yes 7.5mg Take 7.5 U nivers 7.5 mg 9-28 mg by ity of tablet 00:00: mouth at [place] [address] bedtime. Medical [facility] 4.5 2022- No TAKE ONE U nivers mg Cap 9-28 -31 (1) ity of 00:00: 00:00 CAPSULE(S) [place] 00 :00 BY [facility] BEDTIME. mirtazapine 2022- No 7.5mg Take 7.5 Univers 7.5 mg 9-28 01-31 mg by ity of tablet 00:00: 00:00 mouth at [place] 00 :00 bedtime. Medical [place] [facility] 4.5 0 2022- No TAKE ONE U nivers mg Cap 9-28 -31 (1) ity of 00:00: 00:00 CAPSULE(S) [place] 00 :00 BY [facility] Medical [facility] BEDTIME. mirtazapine 2022- No 7.5mg Take 7.5 Univers 7.5 mg 9-28 01-31 mg by ity of tablet 00:00: 00:00 mouth at [place] 00 :00 bedtime. Medical Branch VRAYLA 3 Yes 1{capsu Take 1 Uni vers mg Cap 9-06 le} capsule by ity of 00:00: mouth [place] 00 daily. Medical Branch VRAYLAR 3 2021-0 Yes 1{capsu Take 1 Uni vers mg Cap 9-06 le} capsule by ity of 00:00: mouth [place] 00 daily. [facility] 3 Yes 1{capsu Take 1 Uni vers mg Cap 9-06 le} capsule by ity of 00:00: mouth [place] 00 daily. [facility] Branch [facility] 3 Yes 1{capsu Take 1 Uni vers mg Cap 9-06 le} capsule by ity of 00:00: mouth [place] 00 daily. [facility] 3 Yes 1{capsu Take 1 Uni vers mg Cap 9-06 le} capsule by ity of 00:00: mouth [place] 00 daily. [facility] 3 Yes 1{capsu Take 1 Uni vers mg Cap 9-06 le} capsule by ity of 00:00: mouth [place] 00 daily. [facility] 3 2022- No 1{capsu Take 1 Un adilson mg Cap 9-10 17-31 le} capsule by ity of 00:00: 00:00 mouth [place] 00 :00 daily. [facility] 3 2022- No 1{capsu Take 1 Un adilson mg Cap 9-06 -31 le} capsule by ity of 00:00: 00:00 mouth [place] 00 :00 daily. Medical Branch ADVAIR HFA Yes [id number] INHALE TWO Univers 115-21 8-29 (2) PUFFS ity of mcg/actuati 00:00: BY MOUTH [place] on inhaler 00 TWICE A Medica l DAY. Branch ADVAIR HFA Yes [id number] INHALE TWO Univers 115-21 8-01 (2) PUFFS ity of mcg/actuati 00:00: [place] inhal[place] 00 TWICE A Medica l DAY. Branch ADVAIR HFA Yes [id number] INHALE TWO Univers 115-21 8-01 (2) PUFFS ity of mcg/actuati 00:00: [place] inhal[place] 00 TWICE A Medica l DAY. Branch ADVAIR HFA 2022- No [id number] INHALE TWO Univers 115-21 8-01 08-29 (2) PUFFS ity of mcg/actuati 00:00: 00:00 BY MOUTH [place] inhaler 00 :00 TWICE A Medica l DAY. Branch albuterol 2021-0 Yes [id number] INHALE TWO Univers (VENTOLIN 4-08 (2) PUFFS ity o f HFA) 90 00:00: BY MOUTH [place] mcg/actuati 00 EVERY FOUR Me dical on inhaler HOURS Branc h NEEDED FOR WHEEZING, SHORTNESS OF BREATH OR CHEST TIGHTNESS. albuterol 2021-0 Yes [id number] INHALE TWO Univers (VENTOLIN 4-08 (2) PUFFS ity o f HFA) 90 00:00: BY MOUTH [place] mcg/actuati 00 EVERY FOUR Me dical on inhaler HOURS Branc h NEEDED FOR WHEEZING, SHORTNESS OF BREATH OR CHEST TIGHTNESS. albuterol 2021-0 Yes [id number] INHALE TWO Univers (VENTOLIN 4-08 (2) PUFFS ity o f HFA) 90 00:00: BY MOUTH [place] mcg/actuati 00 EVERY FOUR Me dical on inhaler HOURS Branc h NEEDED FOR WHEEZING, SHORTNESS OF BREATH OR CHEST TIGHTNESS. albuterol 2021-0 Yes [id number] INHALE TWO Univers (VENTOLIN 4-08 (2) PUFFS ity o f HFA) 90 00:00: BY MOUTH [place] mcg/actuati 00 EVERY FOUR Me dical on inhaler HOURS Branc h NEEDED FOR WHEEZING, SHORTNESS OF BREATH OR CHEST TIGHTNESS. albuterol 2021-0 Yes [id number] INHALE TWO Univers (VENTOLIN 4-08 (2) PUFFS ity o f HFA) 90 00:00: BY MOUTH [place] mcg/actuati 00 EVERY FOUR Me dical on inhaler HOURS Branc h NEEDED FOR WHEEZING, SHORTNESS OF BREATH OR CHEST TIGHTNESS. albuterol 2021-0 Yes [id number] INHALE TWO Univers (VENTOLIN 4-08 (2) PUFFS ity o f HFA) 90 00:00: BY MOUTH [place] mcg/actuati 00 EVERY FOUR Me dical on inhaler HOURS Branc h NEEDED FOR WHEEZING, SHORTNESS OF BREATH OR CHEST TIGHTNESS. albuterol 2021-0 Yes [id number] INHALE TWO Univers (VENTOLIN 4-08 (2) PUFFS ity o f HFA) 90 00:00: BY MOUTH [place] mcg/actuati 00 EVERY FOUR Me dical on inhaler HOURS Branc h NEEDED FOR WHEEZING, SHORTNESS OF BREATH OR CHEST TIGHTNESS. albuterol 0 Yes [id number] INHALE TWO Univers (VENTOLIN 4-08 (2) PUFFS ity o f HFA) 90 00:00: BY MOUTH [place] mcg/actuati 00 EVERY FOUR Me dical on inhaler HOURS Branc h NEEDED FOR WHEEZING, SHORTNESS OF BREATH OR CHEST TIGHTNESS. albuterol 0 Yes [id number] INHALE TWO Univers (VENTOLIN 4-08 (2) PUFFS ity o f HFA) 90 00:00: BY MOUTH [place] mcg/actuati 00 EVERY FOUR Me dical on inhaler HOURS Branc h NEEDED FOR WHEEZING, SHORTNESS OF BREATH OR CHEST TIGHTNESS. albuterol 3- No [id number] INHALE TWO Univers (VENTOLIN 4-08 01-31 (2) PUFFS ity of HFA) 90 00:00: 00:00 BY MOUTH [place] mcg/actuati 00 :00 EVERY FOUR Me dical on inhaler HOURS Branc h NEEDED FOR WHEEZING, SHORTNESS OF BREATH OR CHEST TIGHTNESS. albuterol 3- No [id number] INHALE TWO Univers (VENTOLIN 4-08 01-31 (2) [...] ity of tablet 00:00: mouth 00 daily. [facility] Branch meloxicam 2020-05 Yes 7.5mg Take 7.5 Uni vers 7.5 mg 0-08 mg by ity of tablet 00:00: mouth [place] 00 daily. [facility] meloxicam 2020-05 Yes 7.5mg Take 7.5 Uni vers 7.5 mg 0-08 mg by ity of tablet 00:00: mouth [place] 00 daily. [facility] meloxicam 2020-05 Yes 7.5mg Take 7.5 Uni vers 7.5 mg 0-08 mg by ity of tablet 00:00: mouth [place] 00 daily. [facility] meloxicam 2020-05 Yes 7.5mg Take 7.5 Uni vers 7.5 mg 0-08 mg by ity of tablet 00:00: mouth [place] 00 daily. [facility] meloxicam 2020-05 Yes 7.5mg Take 7.5 Uni vers 7.5 mg 0-08 mg by ity of tablet 00:00: mouth [place] 00 daily. [facility] meloxicam 2020-05 Yes 7.5mg Take 7.5 Uni vers 7.5 mg 0-08 mg by ity of tablet 00:00: mouth [place] 00 daily. [facility] meloxicam 2020-05- No 7.5mg Take 7.5 Un adilson 7.5 mg 0-08 01-31 mg by ity of tablet 00:00: 00:00 mouth [place] 00 :00 daily. [facility] meloxicam 2020-05- No 7.5mg Take 7.5 Un adilson 7.5 mg 0-08 01-31 mg by ity of tablet 00:00: 00:00 mouth [place] 00 :00 daily. [facility] Meloxicam Meloxicam 2020-05- No 1{table QD Meloxicam 7.5 MG 7.5 MG 003-24 t} 7.5 MG 00:00: 00:00 00 :00 Mobic 7.5 Mobic 7.5 2020- No 1{table QD Mobic 7.5 MG MG 12-25 t} MG 00:00: 00:00 00 :00 Mobic 7.5 Mobic 7.5 2020- No 1{table QD Mobic 7.5 MG MG 801-24 t} MG 00:00: 00:00 00 :00 fluticasone Yes [id number] 2{spray Use 2 Univers propionate 4-26 } Sprays in ity of 50 00:00: each [place] mcg/actuati 00 nostril 2 Med ical on nasal (two) Branch spray times daily. fluticasone Yes [id number] 2{spray Use 2 Univers propionate 4-26 } Sprays in ity of 50 00:00: each [place] mcg/actuati 00 nostril 2 Med ical on nasal (two) Branch spray times daily. fluticasone Yes [id number] 2{spray Use 2 Univers propionate 4-26 } Sprays in ity of 50 00:00: each [place] mcg/actuati 00 nostril 2 Med ical on nasal (two) Branch spray times daily. fluticasone 2021- No [id number] 2{spray Use 2 Univers propionate 4-26 10-18 } Sprays in ity of 50 00:00: 00:00 each [place] mcg/actuati 00 :00 nostril 2 Med ical on nasal (two) Branch spray times daily. fluticasone 2021- No [id number] 2{spray Use 2 Univers propionate 4-26 10-18 } Sprays in ity of 50 00:00: 00:00 each [place] mcg/actuati 00 :00 nostril 2 Med ical on nasal (two) Branch spray times daily. Mobic Mobic No Mobic Immunizations Ordered Immunization Filled Immunization Date Status Commen ts Source Name Name HPV9 2022-03-05 Completed University of 00:00:00 [facility] HPV9 2022-03-05 Completed University of 00:00: [facility] HPV9 2022-03-05 Completed University of 00:00:00 [facility] HPV9 2022-03-05 Completed University of 00:00:00 [facility] HPV9 2022-03-05 Completed University of 00:00:00 [facility] HPV9 2022-03-05 Completed University of 00:00: [facility] HPV9 2022-03-05 Completed University of 00:00: [facility] HPV9 2022-03-05 Completed University of 00:00:00 [facility] HPV9 2022-03-05 Completed University of 00:00:00 [facility] HPV9 2022-03-05 Completed University of 00:00:00 [facility] HPV9 2022-03-05 Completed University of 00:00:00 [place] [facility] HPV9 2022-03-05 Completed University of 00:00:00 [place] [facility] HPV9 2022-03-05 Completed University of 00:00:00 [place] [facility] HPV9 2022-03-05 Completed University of 00:00:00 [place] [facility] HPV9 2022-03-05 Completed University of 00:00:00 [place] [facility] HPV9 2022-03-05 Completed University of 00:00:00 [place] [facility] HPV9 2022-03-05 Completed University of 00:00:00 [place] [facility] HPV9 2022-03-05 Completed University of 00:00:00 [place] [facility] HPV9 2022-03-05 Completed University of 00:00:00 [place] [facility] HPV9 2022-03-05 Completed University of 00:00:00 [place] [facility] HPV9 2022-03-05 Completed University of 00:00:00 [place] [facility] HPV9 2022-03-05 Completed University of 00:00:00 [place] [facility] HPV9 2022-03-05 Completed University of 00:00:00 [place] [facility] HPV9 2022-03-05 Completed University of 00:00:00 [place] [facility] HPV9 2022-03-05 Completed University of 00:00:00 [place] [facility] HPV9 2022-03-05 Completed University of 00:00:00 [place] [facility] HPV9 2022-03-05 Completed University of 00:00:00 [place] [facility] HPV9 2022-03-05 Completed University of 00:00:00 [place] [facility] HPV9 2022-03-05 Completed University of 00:00:00 [place] [facility] HPV9 2022-03-05 Completed University of 00:00:00 [place] [facility] HPV9 2022-03-05 Completed University of 00:00:00 [place] [facility] HPV9 2022-03-05 Completed University of 00:00:00 [place] [facility] HPV9 2022-03-05 Completed University of 00:00:00 [place] [facility] HPV9 2022-03-05 Completed University of 00:00:00 [place] [facility] HPV9 2022-03-05 Completed University of 00:00:00 [place] [facility] HPV9 2022-03-05 Completed University of 00:00:00 [place] [facility] HPV9 2021-03-26 Completed University of [...] Branch HPV9 2021-03-26 Completed University of 00:00:00 [facility] Meningococcal B, OMV 2021-03-26 Completed Univ ersity of 00:00:00 [place] [facility] HPV9 2021-03-26 Completed University of 00:00:00 [facility] Meningococcal B, OMV 2021-03-26 Completed Univ ersity of 00:00:00 [facility] HPV9 2021-03-26 Completed University of 00:00:00 [facility] Meningococcal B, OMV 2021-03-26 Completed Univ ersity of 00:00:00 [place] [facility] HPV9 2021-03-26 Completed University of 00:00:00 [facility] Meningococcal B, OMV 2021-03-26 Completed Univ ersity of 00:00:00 [facility] HPV9 2021-03-26 Completed University of 00:00:00 [facility] Meningococcal B, OMV 2021-03-26 Completed Univ ersity of 00:00:00 [facility] Meningococcal 2019-12-06 Completed University of Polysaccharide 00:00:00 [place] Medi yaakov (groups A, C, Y and Branc h W-135) conjugate vaccine (MCV4P) Meningococcal B, OMV 2019-12-06 Completed Univ ersity of 00:00:00 [facility] Meningococcal 2019-12-06 Completed University of Polysaccharide 00:00:00 [place] Medi yaakov (groups A, C, Y and Branc h W-135) conjugate vaccine (MCV4P) Meningococcal B, OMV 2019-12-06 Completed Univ ersity of 00:00:00 [facility] Meningococcal 2019-12-06 Completed University of Polysaccharide 00:00:00 [place] Medi yaakov (groups A, C, Y and Branc h W-135) conjugate vaccine (MCV4P) Meningococcal B, OMV 2019-12-06 Completed Univ ersity of 00:00:00 [facility] Meningococcal 2019-12-06 Completed University of Polysaccharide 00:00:00 [place] Medi yaakov (groups A, C, Y and Branc h W-135) conjugate vaccine (MCV4P) Meningococcal B, OMV 2019-12-06 Completed Univ ersity of 00:00:00 [facility] Meningococcal 2019-12-06 Completed University of Polysaccharide 00:00:00 [place] Medi yaakov (groups A, C, Y and Branc h W-135) conjugate vaccine (MCV4P) Meningococcal B, OMV 2019-12-06 Completed Univ ersity of 00:00:00 [facility] Meningococcal 2019-12-06 Completed University of Polysaccharide 00:00:00 [place] Medi yaakov (groups A, C, Y and Branc h W-135) conjugate vaccine (MCV4P) Meningococcal B, OMV 2019-12-06 Completed Univ ersity of 00:00:00 [facility] Meningococcal 2019-12-06 Completed University of Polysaccharide 00:00:00 [place] Medi yaakov (groups A, C, Y and Branc h W-135) conjugate vaccine (MCV4P) Meningococcal B, OMV 2019-12-06 Completed Univ ersity of 00:00:00 [facility] Meningococcal 2019-12-06 Completed University of Polysaccharide 00:00:00 [facility] yaakov (groups A, C, Y and Branc h W-135) conjugate vaccine (MCV4P) Meningococcal B, OMV 2019-12-06 Completed Univ ersity of 00:00:00 [facility] Meningococcal 2019-12-06 Completed University of Polysaccharide 00:00:00 [facility] yaakov (groups A, C, Y and Branc h W-135) conjugate vaccine (MCV4P) Meningococcal B, OMV 2019-12-06 Completed Univ ersity of 00:00:00 [facility] Meningococcal 2019-12-06 Completed University of Polysaccharide 00:00:00 [facility] yaakov (groups A, C, Y and Branc h W-135) conjugate vaccine (MCV4P) Meningococcal B, OMV 2019-12-06 Completed Univ ersity of 00:00:00 [facility] Meningococcal 2019-12-06 Completed University of Polysaccharide 00:00:00 [place] Medi yaakov (groups A, C, Y and Branc h W-135) conjugate vaccine (MCV4P) Meningococcal B, OMV 2019-12-06 Completed Univ ersity of 00:00:00 [facility] Meningococcal 2019-12-06 Completed University of Polysaccharide 00:00:00 [place] Medi yaakov (groups A, C, Y and Branc h W-135) conjugate vaccine (MCV4P) Meningococcal B, OMV 2019-12-06 Completed Univ ersity of 00:00:00 [facility] Meningococcal 2019-12-06 Completed University of Polysaccharide 00:00:00 [place] Medi yaakov (groups A, C, Y and Branc h W-135) conjugate vaccine (MCV4P) Meningococcal B, OMV 2019-12-06 Completed Univ ersity of 00:00:00 [facility] Meningococcal 2019-12-06 Completed University of Polysaccharide 00:00:00 [place] Medi yaakov (groups A, C, Y and Branc h W-135) conjugate vaccine (MCV4P) Meningococcal B, OMV 2019-12-06 Completed Univ ersity of 00:00:00 [facility] Meningococcal 2019-12-06 Completed University of Polysaccharide 00:00:00 [place] Medi yaakov (groups A, C, Y and Branc h W-135) conjugate vaccine (MCV4P) Meningococcal B, OMV 2019-12-06 Completed Univ ersity of 00:00:00 [facility] Meningococcal 2019-12-06 Completed University of Polysaccharide 00:00:00 [place] Medi yaakov (groups A, C, Y and Branc h W-135) conjugate vaccine (MCV4P) Meningococcal B, OMV 2019-12-06 Completed Univ ersity of 00:00:00 [facility] Meningococcal 2019-12-06 Completed University of Polysaccharide 00:00:00 [place] Medi yaaokv (groups A, C, Y and Branc h W-135) conjugate vaccine (MCV4P) Meningococcal B, OMV 2019-12-06 Completed Univ ersity of 00:00:00 [facility] Meningococcal 2019-12-06 Completed University of Polysaccharide 00:00:00 [place] Medi yaakov (groups A, C, Y and Branc h W-135) conjugate vaccine (MCV4P) Meningococcal B, OMV 2019-12-06 Completed Univ ersity of 00:00:00 [facility] Meningococcal 2019-12-06 Completed University of Polysaccharide 00:00:00 [place] Medi yaakov (groups A, C, Y and Branc h W-135) conjugate vaccine (MCV4P) Meningococcal B, OMV 2019-12-06 Completed Univ ersity of 00:00:00 [facility] Meningococcal 2019-12-06 Completed University of Polysaccharide 00:00:00 [place] Medi yaakov (groups A, C, Y and Branc h W-135) conjugate vaccine (MCV4P) Meningococcal B, OMV 2019-12-06 Completed Univ ersity of 00:00:00 [facility] Meningococcal 2019-12-06 Completed University of Polysaccharide 00:00:00 [place] Medi yaakov (groups A, C, Y and Branc h W-135) conjugate vaccine (MCV4P) Meningococcal B, OMV 2019-12-06 Completed [facility] 00:00:00 [facility] Meningococcal 2019-12-06 Completed [facility] Polysaccharide 00:00:00 [facility] (groups A, C, Y and Branc h W-135) conjugate vaccine (MCV4P) Meningococcal B, OMV 2019-12-06 Completed [facility] 00:00:00 [facility] Meningococcal 2019-12-06 Completed [facility] Polysaccharide 00:00:00 [facility] (groups A, C, Y and Branc h W-135) conjugate vaccine (MCV4P) Meningococcal B, OMV 2019-12-06 Completed [facility] 00:00:00 [facility] Meningococcal 2019-12-06 Completed [facility] Polysaccharide 00:00:00 [facility] (groups A, C, Y and Branc h W-135) conjugate vaccine (MCV4P) Meningococcal B, OMV 2019-12-06 Completed [facility] 00:00:00 [facility] Meningococcal 2019-12-06 Completed [facility] Polysaccharide 00:00:00 [facility] (groups A, C, Y and Branc h W-135) conjugate vaccine (MCV4P) Meningococcal B, OMV 2019-12-06 Completed [facility] 00:00:00 [facility] Meningococcal 2019-12-06 Completed [facility] Polysaccharide 00:00:00 [facility] (groups A, C, Y and Branc h W-135) conjugate vaccine (MCV4P) Meningococcal B, OMV 2019-12-06 Completed [facility] 00:00:00 [facility] Meningococcal 2019-12-06 Completed [facility] Polysaccharide 00:00:00 [facility] (groups A, C, Y and Branc h W-135) conjugate vaccine (MCV4P) Meningococcal B, OMV 2019-12-06 Completed [facility] 00:00:00 [facility] Meningococcal 2019-12-06 Completed [facility] Polysaccharide 00:00:00 [facility] (groups A, C, Y and Branc h W-135) conjugate vaccine (MCV4P) Meningococcal B, OMV 2019-12-06 Completed [facility] 00:00:00 [facility] Meningococcal 2019-12-06 Completed [facility] Polysaccharide 00:00:00 [place] [facility] (groups A, C, Y and Branc h W-135) conjugate vaccine (MCV4P) Meningococcal B, OMV 2019-12-06 Completed [facility] 00:00:00 [facility] Meningococcal 2019-12-06 Completed [facility] Polysaccharide 00:00:00 [facility] (groups A, C, Y and Branc h W-135) conjugate vaccine (MCV4P) Meningococcal B, OMV 2019-12-06 Completed [facility] 00:00:00 [facility] Meningococcal 2019-12-06 Completed [facility] Polysaccharide 00:00:00 [facility] (groups A, C, Y and Branc h W-135) conjugate vaccine (MCV4P) Meningococcal B, OMV 2019-12-06 Completed [facility] 00:00:00 [facility] Meningococcal 2019-12-06 Completed [facility] Polysaccharide 00:00:00 [facility] (groups A, C, Y and Branc h W-135) conjugate vaccine (MCV4P) Meningococcal B, OMV 2019-12-06 Completed [facility] 00:00:00 [facility] Meningococcal 2019-12-06 Completed [facility] Polysaccharide 00:00:00 [facility] (groups A, C, Y and Branc h W-135) conjugate vaccine (MCV4P) Meningococcal B, OMV 2019-12-06 Completed [facility] 00:00:00 [facility] Meningococcal 2019-12-06 Completed [facility] Polysaccharide 00:00:00 [facility] (groups A, C, Y and Branc h W-135) conjugate vaccine (MCV4P) Meningococcal B, OMV 2019-12-06 Completed [facility] 00:00:00 [facility] Meningococcal 2019-12-06 Completed [facility] Polysaccharide 00:00:00 [place] [facility] (groups A, C, Y and Branc h W-135) conjugate vaccine (MCV4P) Meningococcal B, OMV 2019-12-06 Completed [facility] 00:00:00 [facility] Meningococcal 2019-12-06 Completed [facility] Polysaccharide 00:00:00 [facility] (groups A, C, Y and Branc h W-135) conjugate vaccine (MCV4P) Meningococcal B, OMV 2019-12-06 Completed [facility] 00:00:00 [facility] Meningococcal 2019-12-06 Completed [facility] Polysaccharide 00:00:00 [facility] (groups A, C, Y and Branc h W-135) conjugate vaccine (MCV4P) Meningococcal B, OMV 2019-12-06 Completed [facility] 00:00:00 [facility] Meningococcal 2019-12-06 Completed [facility] Polysaccharide 00:00:00 [facility] (groups A, C, Y and Branc h W-135) conjugate vaccine (MCV4P) Meningococcal B, OMV 2019-12-06 Completed [facility] 00:00:00 [facility] Meningococcal 2019-12-06 Completed [facility] Polysaccharide 00:00:00 [facility] (groups A, C, Y and Branc h W-135) conjugate vaccine (MCV4P) Meningococcal B, OMV 2019-12-06 Completed [facility] 00:00:00 [facility] Meningococcal Vaccine 2015-09-08 Completed [facility] vers[facility] 00:00:00 [facility] TDAP 2015-09-08 Completed [facility] of 00:00:00 [facility] Meningococcal Vaccine 2015-09-08 Completed [facility] vers[facility] 00:00:00 [facility] TDAP 2015-09-08 Completed [facility] of 00:00:00 [facility] Meningococcal Vaccine 2015-09-08 Completed [facility] vers[facility] of 00:00:00 [facility] TDAP 2015-09-08 Completed [facility] of 00:00:00 [facility] Meningococcal Vaccine 2015-09-08 Completed [facility] vers[facility] 00:00:00 [facility] TDAP 2015-09-08 Completed [facility] of 00:00:00 [facility] Meningococcal Vaccine 2015-09-08 Completed [facility] vers[facility] of 00:00:00 [facility] TDAP 2015-09-08 Completed [facility] of 00:00:00 [facility] Meningococcal Vaccine 2015-09-08 Completed [facility] vers[facility] 00:00:00 [facility] TDAP 2015-09-08 Completed [facility] 00:00:00 [facility] Meningococcal Vaccine 2015-09-08 Completed [facility] vers[facility] 00:00:00 [facility] TDAP 2015-09-08 Completed [facility] 00:00:00 [facility] Meningococcal Vaccine 2015-09-08 Completed [facility] 00:00:00 [facility] TDAP 2015-09-08 Completed [facility] 00:00:00 [facility] Meningococcal Vaccine 2015-09-08 Completed [facility] 00:00:00 [facility] TDAP 2015-09-08 Completed [facility] 00:00:00 [facility] Meningococcal Vaccine 2015-09-08 Completed [facility] 00:00:00 [facility] TDAP 2015-09-08 Completed [facility] 00:00:00 [facility] Meningococcal Vaccine 2015-09-08 Completed [facility] 00:00:00 [facility] TDAP 2015-09-08 Completed [facility] 00:00:00 [facility] Meningococcal Vaccine 2015-09-08 Completed [facility] 00:00:00 [facility] TDAP 2015-09-08 Completed [facility] 00:00:00 [facility] Meningococcal Vaccine 2015-09-08 Completed [facility] 00:00:00 [facility] TDAP 2015-09-08 Completed [facility] 00:00:00 [facility] Meningococcal Vaccine 2015-09-08 Completed [facility] 00:00:00 [facility] TDAP 2015-09-08 Completed [facility] 00:00:00 [facility] Meningococcal Vaccine 2015-09-08 Completed [facility] 00:00:00 [facility] TDAP 2015-09-08 Completed [facility] 00:00:00 [facility] Meningococcal Vaccine 2015-09-08 Completed [facility] vers[facility] 00:00:00 [facility] TDAP 2015-09-08 Completed [facility] 00:00:00 [facility] Meningococcal Vaccine 2015-09-08 Completed [facility] vers[facility] 00:00:00 [facility] TDAP 2015-09-08 Completed [facility] 00:00:00 [facility] Meningococcal Vaccine 2015-09-08 Completed [facility] vers[facility] 00:00:00 [facility] TDAP 2015-09-08 Completed [facility] 00:00:00 [facility] Meningococcal Vaccine 2015-09-08 Completed [facility] 00:00:00 [facility] TDAP 2015-09-08 Completed [facility] 00:00:00 [facility] Meningococcal Vaccine 2015-09-08 Completed [facility] 00:00:00 [facility] TDAP 2015-09-08 Completed [facility] 00:00:00 [facility] Meningococcal Vaccine 2015-09-08 Completed [facility] 00:00:00 [facility] TDAP 2015-09-08 Completed [facility] 00:00:00 [facility] Meningococcal Vaccine 2015-09-08 Completed [facility] 00:00:00 [facility] TDAP 2015-09-08 Completed [facility] 00:00:00 [facility] Meningococcal Vaccine 2015-09-08 Completed [facility] 00:00:00 [facility] TDAP 2015-09-08 Completed [facility] 00:00:00 [facility] Meningococcal Vaccine 2015-09-08 Completed [facility] 00:00:00 [facility] TDAP 2015-09-08 Completed [facility] 00:00:00 [facility] Meningococcal Vaccine 2015-09-08 Completed [facility] 00:00:00 [facility] TDAP 2015-09-08 Completed [facility] 00:00:00 [facility] Meningococcal Vaccine 2015-09-08 Completed [facility] 00:00:00 [facility] TDAP 2015-09-08 Completed [facility] 00:00:00 [facility] Meningococcal Vaccine 2015-09-08 Completed [facility] 00:00:00 [facility] TDAP 2015-09-08 Completed [facility] 00:00:00 [facility] Meningococcal Vaccine 2015-09-08 Completed [facility] 00:00:00 [facility] TDAP 2015-09-08 Completed [facility] 00:00:00 [facility] Meningococcal Vaccine 2015-09-08 Completed [facility] 00:00:00 [facility] TDAP 2015-09-08 Completed [facility] 00:00:00 [facility] Meningococcal Vaccine 2015-09-08 Completed [facility] 00:00:00 [facility] TDAP 2015-09-08 Completed [facility] 00:00:00 [facility] Meningococcal Vaccine 2015-09-08 Completed [facility] 00:00:00 [facility] TDAP 2015-09-08 Completed [facility] 00:00:00 [facility] Meningococcal Vaccine 2015-09-08 Completed [facility] 00:00:00 [facility] TDAP 2015-09-08 Completed [facility] 00:00:00 [facility] Meningococcal Vaccine 2015-09-08 Completed [facility] 00:00:00 [facility] TDAP 2015-09-08 Completed [facility] 00:00:00 [facility] Meningococcal Vaccine 2015-09-08 Completed [facility] 00:00:00 [facility] TDAP 2015-09-08 Completed [facility] 00:00:00 [facility] Meningococcal Vaccine 2015-09-08 Completed [facility] 00:00:00 [facility] TDAP 2015-09-08 Completed [facility] 00:00:00 [facility] Meningococcal Vaccine 2015-09-08 Completed [facility] 00:00:00 [facility] TDAP 2015-09-08 Completed [facility] 00:00:00 [facility] Meningococcal Vaccine 2015-09-08 Completed [facility] 00:00:00 [facility] TDAP 2015-09-08 Completed [facility] 00:00:00 [facility] Meningococcal Vaccine 2015-09-08 Completed [facility] 00:00:00 [facility] TDAP 2015-09-08 Completed [facility] 00:00:00 [facility] Meningococcal Vaccine 2015-09-08 Completed [facility] 00:00:00 [facility] TDAP 2015-09-08 Completed [facility] 00:00:00 [facility] HEPATITIS A 2008-08-11 Completed [facility] of 00:00:00 [facility] HEPATITIS A 2008-08-11 Completed [facility] 00:00:00 [facility] HEPATITIS A 2008-08-11 Completed [facility] 00:00:00 [facility] HEPATITIS A 2008-08-11 Completed [facility] of 00:00:00 [facility] HEPATITIS A 2008-08-11 Completed [facility] 00:00:00 [facility] HEPATITIS A 2008-08-11 Completed [facility] 00:00:00 [facility] HEPATITIS A 2008-08-11 Completed [facility] 00:00:00 [facility] HEPATITIS A 2008-08-11 Completed [facility] 00:00:00 [facility] HEPATITIS A 2008-08-11 Completed [facility] 00:00:00 [facility] HEPATITIS A 2008-08-11 Completed [facility] 00:00:00 [facility] HEPATITIS A 2008-08-11 Completed [facility] 00:00:00 [facility] HEPATITIS A 2008-08-11 Completed [facility] 00:00:00 [facility] HEPATITIS A 2008-08-11 Completed [facility] 00:00:00 [facility] HEPATITIS A 2008-08-11 Completed [facility] 00:00:00 [facility] HEPATITIS A 2008-08-11 Completed [facility] 00:00:00 [facility] HEPATITIS A 2008-08-11 Completed [facility] 00:00:00 [facility] HEPATITIS A 2008-08-11 Completed [facility] 00:00:00 [facility] HEPATITIS A 2008-08-11 Completed [facility] 00:00:00 [facility] HEPATITIS A 2008-08-11 Completed [facility] 00:00:00 [facility] HEPATITIS A 2008-08-11 Completed [facility] 00:00:00 [facility] HEPATITIS A 2008-08-11 Completed [facility] 00:00:00 [facility] HEPATITIS A 2008-08-11 Completed [facility] 00:00:00 [facility] HEPATITIS A 2008-08-11 Completed [facility] 00:00:00 [facility] HEPATITIS A 2008-08-11 Completed [facility] 00:00:00 [facility] HEPATITIS A 2008-08-11 Completed [facility] 00:00:00 [facility] HEPATITIS A 2008-08-11 Completed [facility] 00:00:00 [facility] HEPATITIS A 2008-08-11 Completed [facility] 00:00:00 [facility] HEPATITIS A 2008-08-11 Completed [facility] 00:00:00 [facility] HEPATITIS A 2008-08-11 Completed [facility] 00:00:00 [facility] HEPATITIS A 2008-08-11 Completed [facility] 00:00:00 [facility] HEPATITIS A 2008-08-11 Completed [facility] 00:00:00 [facility] HEPATITIS A 2008-08-11 Completed [facility] 00:00:00 [facility] HEPATITIS A 2008-08-11 Completed [facility] 00:00:00 [facility] HEPATITIS A 2008-08-11 Completed [facility] 00:00:00 [facility] HEPATITIS A 2008-08-11 Completed [facility] 00:00:00 [facility] HEPATITIS A 2008-08-11 Completed [facility] 00:00:00 [facility] HEPATITIS A 2008-08-11 Completed [facility] 00:00:00 [facility] HEPATITIS A 2008-08-11 Completed [facility] 00:00:00 [facility] HEPATITIS A 2008-08-11 Completed [facility] 00:00:00 [facility] DTAP 2008-01-15 Completed [facility] 00:00:00 [facility] HEPATITIS A 2008-01-15 Completed [facility] 00:00:00 [facility] MMR 2008-01-15 Completed [facility] of 00:00:00 [facility] Polio (IPV/OPV) 2008-01-15 Completed [facility] 00:00:00 [facility] Varicella 2008-01-15 Completed [facility] of (varivax)(chicken 00:00:00 [place] [facility] DTAP 2008-01-15 Completed [facility] 00:00:00 [facility] HEPATITIS A 2008-01-15 Completed [facility] 00:00:00 [facility] MMR 2008-01-15 Completed [facility] of 00:00:00 [facility] Polio (IPV/OPV) 2008-01-15 Completed [facility] 00:00:00 [facility] Varicella 2008-01-15 Completed [facility] (varivax)(chicken 00:00:00 [place] [facility]ox[facility] DTAP 2008-01-15 Completed [facility] 00:00:00 [facility] HEPATITIS A 2008-01-15 Completed [facility] 00:00:00 [facility] MMR 2008-01-15 Completed [facility] 00:00:00 [facility] Polio (IPV/OPV) 2008-01-15 Completed [facility] y [facility] 00:00:00 [facility] Varicella 2008-01-15 Completed [facility] (varivax)(chicken 00:00:00 [place] [facility]ox) [facility] DTAP 2008-01-15 Completed [facility] 00:00:00 [facility] HEPATITIS A 2008-01-15 Completed [facility] 00:00:00 [facility] MMR 2008-01-15 Completed [facility] of 00:00:00 [facility] Polio (IPV/OPV) 2008-01-15 Completed [facility] y [facility] 00:00:00 [facility] Varicella 2008-01-15 Completed [facility] (varivax)(chicken 00:00:00 [place] [facility]ox[facility] DTAP 2008-01-15 Completed [facility] 00:00:00 [facility] HEPATITIS A 2008-01-15 Completed [facility] 00:00:00 [facility] MMR 2008-01-15 Completed [facility] of 00:00:00 [facility] Polio (IPV/OPV) 2008-01-15 Completed [facility] 00:00:00 [facility] Varicella 2008-01-15 Completed [facility] (varivax)(chicken 00:00:00 [place] [facility]ox) [facility] DTAP 2008-01-15 Completed [facility] 00:00:00 [facility] HEPATITIS A 2008-01-15 Completed [facility] of 00:00:00 [facility] MMR 2008-01-15 Completed [facility] of 00:00:00 [facility] Polio (IPV/OPV) 2008-01-15 Completed [facility] y [facility] 00:00:00 [facility] Varicella 2008-01-15 Completed [facility] (varivax)(chicken 00:00:00 [place] [facility]) [facility] DTAP 2008-01-15 Completed [facility] 00:00:00 [facility] HEPATITIS A 2008-01-15 Completed [facility] of 00:00:00 [facility] MMR 2008-01-15 Completed [facility] of 00:00:00 [facility] Polio (IPV/OPV) 2008-01-15 Completed [facility] 00:00:00 [facility] Varicella 2008-01-15 Completed [facility] (varivax)(chicken 00:00:00 [place] [facility] DTAP 2008-01-15 Completed [facility] 00:00:00 [facility] HEPATITIS A 2008-01-15 Completed [facility] of 00:00:00 [facility] MMR 2008-01-15 Completed [facility] of 00:00:00 [facility] Polio (IPV/OPV) 2008-01-15 Completed [facility] 00:00:00 [facility] Varicella 2008-01-15 Completed [facility] (varivax)(chicken 00:00:00 [place] [facility] DTAP 2008-01-15 Completed [facility] 00:00:00 [facility] HEPATITIS A 2008-01-15 Completed [facility] 00:00:00 [facility] MMR 2008-01-15 Completed [facility] 00:00:00 [facility] Polio (IPV/OPV) 2008-01-15 Completed [facility] 00:00:00 [facility] Varicella 2008-01-15 Completed [facility] (varivax)(chicken 00:00:00 [place] [facility] DTAP 2008-01-15 Completed [facility] 00:00:00 [facility] HEPATITIS A 2008-01-15 Completed [facility] of 00:00:00 [facility] MMR 2008-01-15 Completed [facility] of 00:00:00 [facility] Polio (IPV/OPV) 2008-01-15 Completed [facility] 00:00:00 [facility] Varicella 2008-01-15 Completed [facility] (varivax)(chicken 00:00:00 [place] [facility] DTAP 2008-01-15 Completed [facility] 00:00:00 [facility] HEPATITIS A 2008-01-15 Completed [facility] 00:00:00 [facility] MMR 2008-01-15 Completed [facility] of 00:00:00 [facility] Polio (IPV/OPV) 2008-01-15 Completed [facility] 00:00:00 [facility] Varicella 2008-01-15 Completed [facility] (varivax)(chicken 00:00:00 [place] [facility] DTAP 2008-01-15 Completed [facility] 00:00:00 [facility] HEPATITIS A 2008-01-15 Completed [facility] 00:00:00 [facility] MMR 2008-01-15 Completed [facility] of 00:00:00 [facility] Polio (IPV/OPV) 2008-01-15 Completed [facility] 00:00:00 [facility] Varicella 2008-01-15 Completed [facility] (varivax)(chicken 00:00:00 [place] [facility] DTAP 2008-01-15 Completed [facility] 00:00:00 [facility] HEPATITIS A 2008-01-15 Completed [facility] 00:00:00 [facility] MMR 2008-01-15 Completed [facility] of 00:00:00 [facility] Polio (IPV/OPV) 2008-01-15 Completed [facility] 00:00:00 [facility] Varicella 2008-01-15 Completed [facility] (varivax)(chicken 00:00:00 [place] [facility] DTAP 2008-01-15 Completed [facility] 00:00:00 [facility] HEPATITIS A 2008-01-15 Completed [facility] 00:00:00 [facility] MMR 2008-01-15 Completed [facility] of 00:00:00 [facility] Polio (IPV/OPV) 2008-01-15 Completed [facility] 00:00:00 [facility] Varicella 2008-01-15 Completed [facility] (varivax)(chicken 00:00:00 [place] [facility] DTAP 2008-01-15 Completed [facility] 00:00:00 [facility] HEPATITIS A 2008-01-15 Completed [facility] 00:00:00 [facility] MMR 2008-01-15 Completed [facility] 00:00:00 [facility] Polio (IPV/OPV) 2008-01-15 Completed [facility] 00:00:00 [facility] Varicella 2008-01-15 Completed [facility] (varivax)(chicken 00:00:00 [place] [facility] DTAP 2008-01-15 Completed [facility] 00:00:00 [facility] HEPATITIS A 2008-01-15 Completed [facility] 00:00:00 [facility] MMR 2008-01-15 Completed [facility] of 00:00:00 [facility] Polio (IPV/OPV) 2008-01-15 Completed [facility] 00:00:00 [facility] Varicella 2008-01-15 Completed [facility] (varivax)(chicken 00:00:00 [place] [facility] DTAP 2008-01-15 Completed [facility] 00:00:00 [facility] HEPATITIS A 2008-01-15 Completed [facility] 00:00:00 [facility] MMR 2008-01-15 Completed [facility] 00:00:00 [facility] Polio (IPV/OPV) 2008-01-15 Completed [facility] 00:00:00 [facility] Varicella 2008-01-15 Completed [facility] (varivax)(chicken 00:00:00 [place] [facility] DTAP 2008-01-15 Completed [facility] 00:00:00 [facility] HEPATITIS A 2008-01-15 Completed [facility] 00:00:00 [facility] MMR 2008-01-15 Completed [facility] 00:00:00 [facility] Polio (IPV/OPV) 2008-01-15 Completed [facility] 00:00:00 [facility] Varicella 2008-01-15 Completed [facility] (varivax)(chicken 00:00:00 [place] [facility] DTAP 2008-01-15 Completed [facility] 00:00:00 [facility] HEPATITIS A 2008-01-15 Completed [facility] 00:00:00 [facility] MMR 2008-01-15 Completed [facility] 00:00:00 [facility] Polio (IPV/OPV) 2008-01-15 Completed [facility] 00:00:00 [facility] Varicella 2008-01-15 Completed [facility] (varivax)(chicken 00:00:00 [place] [facility] DTAP 2008-01-15 Completed [facility] 00:00:00 [facility] HEPATITIS A 2008-01-15 Completed [facility] 00:00:00 [facility] MMR 2008-01-15 Completed [facility] 00:00:00 [facility] Polio (IPV/OPV) 2008-01-15 Completed [facility] 00:00:00 [facility] Varicella 2008-01-15 Completed [facility] (varivax)(chicken 00:00:00 [place] [facility] DTAP 2008-01-15 Completed [facility] 00:00:00 [facility] HEPATITIS A 2008-01-15 Completed [facility] 00:00:00 [facility] MMR 2008-01-15 Completed [facility] 00:00:00 [facility] Polio (IPV/OPV) 2008-01-15 Completed [facility] 00:00:00 [facility] Varicella 2008-01-15 Completed [facility] (varivax)(chicken 00:00:00 [place] [facility] DTAP 2008-01-15 Completed [facility] 00:00:00 [facility] [facility] HEPATITIS A 2008-01-15 Completed [facility] 00:00:00 [facility] MMR 2008-01-15 Completed [facility] 00:00:00 [facility] Polio (IPV/OPV) 2008-01-15 Completed [facility] 00:00:00 [facility] Varicella 2008-01-15 Completed [facility] of (varivax)(chicken 00:00:00 [place] [facility] pox) [facility] DTAP 2008-01-15 Completed [facility] 00:00:00 [facility] HEPATITIS A 2008-01-15 Completed [facility] 00:00:00 [facility] MMR 2008-01-15 Completed [facility] 00:00:00 [facility] Polio (IPV/OPV) 2008-01-15 Completed [facility] 00:00:00 [facility] Varicella 2008-01-15 Completed [facility] (varivax)(chicken 00:00:00 [place] [facility] pox) [facility] DTAP 2008-01-15 Completed [facility] 00:00:00 [facility] HEPATITIS A 2008-01-15 Completed [facility] 00:00:00 [facility] MMR 2008-01-15 Completed [facility] 00:00:00 [facility] Polio (IPV/OPV) 2008-01-15 Completed [facility] 00:00:00 [facility] Varicella 2008-01-15 Completed [facility] (varivax)(chicken 00:00:00 [place] [facility] pox) [facility] DTAP 2008-01-15 Completed [facility] 00:00:00 [facility] HEPATITIS A 2008-01-15 Completed [facility] 00:00:00 [facility] MMR 2008-01-15 Completed [facility] 00:00:00 [facility] Polio (IPV/OPV) 2008-01-15 Completed [facility] 00:00:00 [facility] Varicella 2008-01-15 Completed [facility] (varivax)(chicken 00:00:00 [place] [facility] pox) [facility] DTAP 2008-01-15 Completed [facility] 00:00:00 [facility] HEPATITIS A 2008-01-15 Completed [facility] 00:00:00 [facility] MMR 2008-01-15 Completed [facility] 00:00:00 [facility] Polio (IPV/OPV) 2008-01-15 Completed [facility] 00:00:00 [facility] Varicella 2008-01-15 Completed [facility] (varivax)(chicken 00:00:00 [place] [facility] pox) [facility] DTAP 2008-01-15 Completed [facility] 00:00:00 [facility] HEPATITIS A 2008-01-15 Completed [facility] 00:00:00 [facility] MMR 2008-01-15 Completed [facility] 00:00:00 [facility] Polio (IPV/OPV) 2008-01-15 Completed [facility] 00:00:00 [facility] Varicella 2008-01-15 Completed [facility] (varivax)(chicken 00:00:00 [place] [facility] pox) [facility] DTAP 2008-01-15 Completed [facility] 00:00:00 [facility] HEPATITIS A 2008-01-15 Completed [facility] 00:00:00 [facility] MMR 2008-01-15 Completed [facility] 00:00:00 [facility] Polio (IPV/OPV) 2008-01-15 Completed [facility] 00:00:00 [facility] Varicella 2008-01-15 Completed [facility] (varivax)(chicken 00:00:00 [place] [facility] pox) Branch DTAP 2008-01-15 Completed [facility] 00:00:00 [facility] HEPATITIS A 2008-01-15 Completed [facility] 00:00:00 [facility] MMR 2008-01-15 Completed [facility] of 00:00:00 [facility] Polio (IPV/OPV) 2008-01-15 Completed [facility] 00:00:00 [facility] Varicella 2008-01-15 Completed [facility] (varivax)(chicken 00:00:00 [place] [facility] pox) [facility] DTAP 2008-01-15 Completed [facility] 00:00:00 [facility] HEPATITIS A 2008-01-15 Completed [facility] 00:00:00 [facility] MMR 2008-01-15 Completed [facility] 00:00:00 [facility] Polio (IPV/OPV) 2008-01-15 Completed [facility] 00:00:00 [facility] Varicella 2008-01-15 Completed [facility] (varivax)(chicken 00:00:00 [place] [facility] pox) [facility] DTAP 2008-01-15 Completed [facility] 00:00:00 [facility] HEPATITIS A 2008-01-15 Completed [facility] 00:00:00 [facility] MMR 2008-01-15 Completed [facility] 00:00:00 [facility] Polio (IPV/OPV) 2008-01-15 Completed [facility] 00:00:00 [facility] Varicella 2008-01-15 Completed [facility] (varivax)(chicken 00:00:00 [place] [facility] pox) [facility] DTAP 2008-01-15 Completed [facility] 00:00:00 [facility] HEPATITIS A 2008-01-15 Completed [facility] of 00:00:00 [facility] MMR 2008-01-15 Completed [facility] of 00:00:00 [facility] Polio (IPV/OPV) 2008-01-15 Completed [facility] 00:00:00 [facility] Varicella 2008-01-15 Completed [facility] (varivax)(chicken 00:00:00 [place] [facility] pox) [facility] DTAP 2008-01-15 Completed [facility] 00:00:00 [facility] HEPATITIS A 2008-01-15 Completed [facility] 00:00:00 [facility] MMR 2008-01-15 Completed [facility] 00:00:00 [facility] Polio (IPV/OPV) 2008-01-15 Completed [facility] 00:00:00 [facility] Varicella 2008-01-15 Completed [facility] (varivax)(chicken 00:00:00 [place] [facility] pox) Branch DTAP 2008-01-15 Completed [facility] 00:00:00 [facility] HEPATITIS A 2008-01-15 Completed [facility] 00:00:00 [facility] MMR 2008-01-15 Completed [facility] 00:00:00 [facility] Polio (IPV/OPV) 2008-01-15 Completed [facility] 00:00:00 [facility] Varicella 2008-01-15 Completed [facility] (varivax)(chicken 00:00:00 [place] [facility] pox) Branch DTAP 2008-01-15 Completed [facility] 00:00:00 [facility] HEPATITIS A 2008-01-15 Completed [facility] 00:00:00 [facility] MMR 2008-01-15 Completed [facility] 00:00:00 [facility] Polio (IPV/OPV) 2008-01-15 Completed [facility] 00:00:00 [facility] Varicella 2008-01-15 Completed [facility] (varivax)(chicken 00:00:00 [place] [facility] pox) Branch DTAP 2008-01-15 Completed [facility] 00:00:00 [facility] HEPATITIS A 2008-01-15 Completed [facility] 00:00:00 [facility] MMR 2008-01-15 Completed [facility] 00:00:00 [facility] Polio (IPV/OPV) 2008-01-15 Completed [facility] 00:00:00 [facility] Varicella 2008-01-15 Completed [facility] (varivax)(chicken 00:00:00 [place] [facility] pox) [facility] DTAP 2008-01-15 Completed [facility] 00:00:00 [facility] HEPATITIS A 2008-01-15 Completed [facility] 00:00:00 [facility] MMR 2008-01-15 Completed [facility] 00:00:00 [facility] Polio (IPV/OPV) 2008-01-15 Completed [facility] 00:00:00 [facility] Varicella 2008-01-15 Completed [facility] (varivax)(chicken 00:00:00 [place] [facility] pox) [facility] DTAP 2008-01-15 Completed [facility] 00:00:00 [facility] HEPATITIS A 2008-01-15 Completed [facility] 00:00:00 [facility] MMR 2008-01-15 Completed [facility] 00:00:00 [facility] Polio (IPV/OPV) 2008-01-15 Completed [facility] 00:00:00 [facility] Varicella 2008-01-15 Completed [facility] (varivax)(chicken 00:00:00 [place] [facility] pox) [facility] DTAP 2008-01-15 Completed [facility] 00:00:00 [facility] HEPATITIS A 2008-01-15 Completed [facility] 00:00:00 [facility] MMR 2008-01-15 Completed [facility] 00:00:00 [facility] Polio (IPV/OPV) 2008-01-15 Completed [facility] 00:00:00 [facility] Varicella 2008-01-15 Completed [facility] (varivax)(chicken 00:00:00 [place] [facility] pox) Branch Pneumococcal 13 2005-07-16 Completed Universit y of Conjugate, PCV13 00:00:00 [facility] dical (Prevnar 13) Branch Polio (IPV/OPV) 2005-07-16 Completed [facility] 00:00:00 [facility] Pneumococcal 13 2005-07-16 Completed [facility]it y of Conjugate, PCV13 00:00:00 [facility] dical (Prevnar 13) Branch Polio (IPV/OPV) 2005-07-16 Completed [facility] 00:00:00 [facility] Pneumococcal 13 2005-07-16 Completed [facility]it y of Conjugate, PCV13 00:00:00 [facility] dical (Prevnar 13) Branch Polio (IPV/OPV) 2005-07-16 Completed [facility] 00:00:00 [facility] Pneumococcal 13 2005-07-16 Completed [facility]it y of Conjugate, PCV13 00:00:00 [facility] dical (Prevnar 13) Branch Polio (IPV/OPV) 2005-07-16 Completed [facility] 00:00:00 [facility] Pneumococcal 13 2005-07-16 Completed [facility]it y of Conjugate, PCV13 00:00:00 [facility] dical (Prevnar 13) Branch Polio (IPV/OPV) 2005-07-16 Completed [facility] 00:00:00 [facility] Pneumococcal 13 2005-07-16 Completed [facility] y of Conjugate, PCV13 00:00:00 [place] [facility] (Prevnar 13) Branch Polio (IPV/OPV) 2005-07-16 Completed [facility] 00:00:00 [facility] Pneumococcal 13 2005-07-16 Completed [facility]it y of Conjugate, PCV13 00:00:00 [facility] dical (Prevnar 13) Branch Polio (IPV/OPV) 2005-07-16 Completed [facility] 00:00:00 [facility] Pneumococcal 13 2005-07-16 Completed [facility] of Conjugate, PCV13 00:00:00 [place] [facility] (Prevnar 13) Branch Polio (IPV/OPV) 2005-07-16 Completed [facility] 00:00:00 [facility] Pneumococcal 13 2005-07-16 Completed [facility] of Conjugate, PCV13 00:00:00 [place] [facility] (Prevnar 13) Branch Polio (IPV/OPV) 2005-07-16 Completed [facility] 00:00:00 [facility] Pneumococcal 13 2005-07-16 Completed [facility] y of Conjugate, PCV13 00:00:00 [facility] dical (Prevnar 13) Branch Polio (IPV/OPV) 2005-07-16 Completed [facility] 00:00:00 [facility] Pneumococcal 13 2005-07-16 Completed [facility]it y of Conjugate, PCV13 00:00:00 [facility] dical (Prevnar 13) Branch Polio (IPV/OPV) 2005-07-16 Completed [facility] 00:00:00 [facility] Pneumococcal 13 2005-07-16 Completed [facility] y of Conjugate, PCV13 00:00:00 [facility] dical (Prevnar 13) Branch Polio (IPV/OPV) 2005-07-16 Completed [facility] 00:00:00 [facility] Pneumococcal 13 2005-07-16 Completed [facility] y of Conjugate, PCV13 00:00:00 [facility] dical (Prevnar 13) Branch Polio (IPV/OPV) 2005-07-16 Completed [facility] 00:00:00 [facility] Pneumococcal 13 2005-07-16 Completed [facility] y of Conjugate, PCV13 00:00:00 [facility] dical (Prevnar 13) Branch Polio (IPV/OPV) 2005-07-16 Completed [facility] 00:00:00 [facility] Pneumococcal 13 2005-07-16 Completed [facility] y of Conjugate, PCV13 00:00:00 [place] [facility] (Prevnar 13) Branch Polio (IPV/OPV) 2005-07-16 Completed [facility] 00:00:00 [facility] Pneumococcal 13 2005-07-16 Completed [facility] y of Conjugate, PCV13 00:00:00 [facility] dical (Prevnar 13) Branch Polio (IPV/OPV) 2005-07-16 Completed [facility] 00:00:00 [facility] Pneumococcal 13 2005-07-16 Completed [facility] y of Conjugate, PCV13 00:00:00 [place] [facility] (Prevnar 13) Branch Polio (IPV/OPV) 2005-07-16 Completed [facility] 00:00:00 [facility] Pneumococcal 13 2005-07-16 Completed [facility] y of Conjugate, PCV13 00:00:00 [place] [facility] (Prevnar 13) Branch Polio (IPV/OPV) 2005-07-16 Completed [facility] 00:00:00 [facility] Pneumococcal 13 2005-07-16 Completed [facility] y of Conjugate, PCV13 00:00:00 [place] [facility] (Prevnar 13) Branch Polio (IPV/OPV) 2005-07-16 Completed [facility] 00:00:00 [facility] Pneumococcal 13 2005-07-16 Completed [facility] of Conjugate, PCV13 00:00:00 [place] [facility] (Prevnar 13) Branch Polio (IPV/OPV) 2005-07-16 Completed [facility] 00:00:00 [facility] Pneumococcal 13 2005-07-16 Completed [facility] y of Conjugate, PCV13 00:00:00 [place] [facility] (Prevnar 13) Branch Polio (IPV/OPV) 2005-07-16 Completed [facility] 00:00:00 [facility] Pneumococcal 13 2005-07-16 Completed [facility] y of Conjugate, PCV13 00:00:00 [place] [facility] (Prevnar 13) Branch Polio (IPV/OPV) 2005-07-16 Completed [facility] 00:00:00 [facility] Pneumococcal 13 2005-07-16 Completed [facility] y of Conjugate, PCV13 00:00:00 [place] [facility] (Prevnar 13) Branch Polio (IPV/OPV) 2005-07-16 Completed [facility] 00:00:00 [facility] Pneumococcal 13 2005-07-16 Completed [facility] y of Conjugate, PCV13 00:00:00 [place] [facility] (Prevnar 13) Branch Polio (IPV/OPV) 2005-07-16 Completed [facility] 00:00:00 [facility] Pneumococcal 13 2005-07-16 Completed [facility] y of Conjugate, PCV13 00:00:00 [place] [facility] (Prevnar 13) Branch Polio (IPV/OPV) 2005-07-16 Completed [facility] 00:00:00 [facility] Branch Pneumococcal 13 2005-07-16 Completed [facility]it y of Conjugate, PCV13 00:00:00 [facility] dical (Prevnar 13) Branch Polio (IPV/OPV) 2005-07-16 Completed [facility] 00:00:00 [facility] Pneumococcal 13 2005-07-16 Completed [facility] y of Conjugate, PCV13 00:00:00 [facility] dical (Prevnar 13) Branch Polio (IPV/OPV) 2005-07-16 Completed [facility] 00:00:00 [facility] Pneumococcal 13 2005-07-16 Completed [facility]it y of Conjugate, PCV13 00:00:00 [facility] dical (Prevnar 13) Branch Polio (IPV/OPV) 2005-07-16 Completed [facility] 00:00:00 [facility] Pneumococcal 13 2005-07-16 Completed [facility] y of Conjugate, PCV13 00:00:00 [facility] dical (Prevnar 13) Branch Polio (IPV/OPV) 2005-07-16 Completed [facility] of 00:00:00 [facility] Pneumococcal 13 2005-07-16 Completed [facility]it y of Conjugate, PCV13 00:00:00 [facility] dical (Prevnar 13) Branch Polio (IPV/OPV) 2005-07-16 Completed [facility] 00:00:00 [facility] Pneumococcal 13 2005-07-16 Completed [facility] y of Conjugate, PCV13 00:00:00 [facility] dical (Prevnar 13) Branch Polio (IPV/OPV) 2005-07-16 Completed [facility] 00:00:00 [facility] Pneumococcal 13 2005-07-16 Completed [facility] y of Conjugate, PCV13 00:00:00 [facility] dical (Prevnar 13) Branch Polio (IPV/OPV) 2005-07-16 Completed [facility] 00:00:00 [facility] Pneumococcal 13 2005-07-16 Completed [facility]it y of Conjugate, PCV13 00:00:00 [facility] dical (Prevnar 13) Branch Polio (IPV/OPV) 2005-07-16 Completed [facility] 00:00:00 [facility] Pneumococcal 13 2005-07-16 Completed [facility] y of Conjugate, PCV13 00:00:00 [facility] dical (Prevnar 13) Branch Polio (IPV/OPV) 2005-07-16 Completed [facility] 00:00:00 [facility] Pneumococcal 13 2005-07-16 Completed [facility]it y of Conjugate, PCV13 00:00:00 [facility] dical (Prevnar 13) Branch Polio (IPV/OPV) 2005-07-16 Completed [facility] 00:00:00 [facility] Pneumococcal 13 2005-07-16 Completed [facility] y of Conjugate, PCV13 00:00:00 [facility] dical (Prevnar 13) Branch Polio (IPV/OPV) 2005-07-16 Completed [facility] 00:00:00 [facility] Pneumococcal 13 2005-07-16 Completed [facility] y of Conjugate, PCV13 00:00:00 [facility] dical (Prevnar 13) Branch Polio (IPV/OPV) 2005-07-16 Completed [facility] 00:00:00 [facility] Pneumococcal 13 2005-07-16 Completed [facility]it y of Conjugate, PCV13 00:00:00 [facility] dical (Prevnar 13) Branch Polio (IPV/OPV) 2005-07-16 Completed [facility] 00:00:00 [facility] Pneumococcal 13 2005-07-16 Completed [facility] y of Conjugate, PCV13 00:00:00 [facility] dical (Prevnar 13) Branch Polio (IPV/OPV) 2005-07-16 Completed [facility] 00:00:00 [facility] MMR 2005-06-11 Completed [facility] 00:00:00 [facility] Varicella 2005-06-11 Completed University of (varivax)(chicken 00:00:00 [place] [facility] pox) Branch MMR 2005-06-11 Completed [facility] 00:00:00 [facility] Varicella 2005-06-11 Completed [facility] of (varivax)(chicken 00:00:00 [facility] edical pox) Branch MMR 2005-06-11 Completed [facility] of 00:00:00 [facility] Varicella 2005-06-11 Completed [facility] of (varivax)(chicken 00:00:00 [facility] edical pox) Branch MMR 2005-06-11 Completed [facility] of 00:00:00 [facility] Varicella 2005-06-11 Completed [facility] of (varivax)(chicken 00:00:00 [facility] edical pox) Branch [facility] 2005-06-11 Completed [facility] 00:00:00 [facility] Varicella 2005-06-11 Completed [facility] (varivax)(chicken 00:00:00 [place] [facility] pox) [facility] 2005-06-11 Completed [facility] 00:00:00 [facility] Varicella 2005-06-11 Completed [facility] (varivax)(chicken 00:00:00 [place] [facility] pox) Branch [facility] 2005-06-11 Completed [facility] 00:00:00 [facility] Varicella 2005-06-11 Completed [facility] (varivax)(chicken 00:00:00 [place] [facility] pox) Branch [facility] 2005-06-11 Completed [facility] 00:00:00 [facility] Varicella 2005-06-11 Completed [facility] (varivax)(chicken 00:00:00 [place] [facility] pox) Branch [facility] 2005-06-11 Completed [facility] 00:00:00 [facility] Varicella 2005-06-11 Completed [facility] (varivax)(chicken 00:00:00 [place] [facility] pox) Branch [facility] 2005-06-11 Completed [facility] 00:00:00 [facility] Varicella 2005-06-11 Completed [facility] (varivax)(chicken 00:00:00 [place] [facility] pox) Branch [facility] 2005-06-11 Completed [facility] 00:00:00 [facility] Varicella 2005-06-11 Completed [facility] (varivax)(chicken 00:00:00 [place] [facility] pox) Branch [facility] 2005-06-11 Completed [facility] 00:00:00 [facility] Varicella 2005-06-11 Completed [facility] (varivax)(chicken 00:00:00 [place] [facility] pox) Branch [facility] 2005-06-11 Completed [facility] 00:00:00 [facility] Varicella 2005-06-11 Completed [facility] of (varivax)(chicken 00:00:00 [place] [facility] pox) Branch [facility] 2005-06-11 Completed [facility] 00:00:00 [facility] Varicella 2005-06-11 Completed [facility] of (varivax)(chicken 00:00:00 [place] [facility] pox) Branch [facility] 2005-06-11 Completed [facility] 00:00:00 [facility] Varicella 2005-06-11 Completed [facility] of (varivax)(chicken 00:00:00 [place] [facility] pox) Branch [facility] 2005-06-11 Completed [facility] 00:00:00 [facility] Varicella 2005-06-11 Completed [facility] of (varivax)(chicken 00:00:00 [place] [facility] pox) Branch [facility] 2005-06-11 Completed [facility] 00:00:00 [facility] Varicella 2005-06-11 Completed [facility] of (varivax)(chicken 00:00:00 [place] [facility] pox) Branch [facility] 2005-06-11 Completed [facility] 00:00:00 [facility] Varicella 2005-06-11 Completed [facility] of (varivax)(chicken 00:00:00 [place] [facility] pox) Branch [facility] 2005-06-11 Completed [facility] 00:00:00 [facility] Varicella 2005-06-11 Completed [facility] of (varivax)(chicken 00:00:00 [place] [facility] pox) Branch [facility] 2005-06-11 Completed [facility] 00:00:00 [facility] Varicella 2005-06-11 Completed [facility] of (varivax)(chicken 00:00:00 [place] [facility] pox) Branch [facility] 2005-06-11 Completed [facility] 00:00:00 [facility] Varicella 2005-06-11 Completed [facility] of (varivax)(chicken 00:00:00 [place] [facility] pox) Branch [facility] 2005-06-11 Completed [facility] 00:00:00 [facility] Varicella 2005-06-11 Completed [facility] of (varivax)(chicken 00:00:00 [place] [facility] pox) Branch [facility] 2005-06-11 Completed [facility] 00:00:00 [facility] Varicella 2005-06-11 Completed [facility] of (varivax)(chicken 00:00:00 [place] [facility] pox) Branch [facility] 2005-06-11 Completed [facility] 00:00:00 [facility] Varicella 2005-06-11 Completed [facility] of (varivax)(chicken 00:00:00 [place] [facility] pox) Branch [facility] 2005-06-11 Completed [facility] 00:00:00 [facility] Varicella 2005-06-11 Completed [facility] of (varivax)(chicken 00:00:00 [place] [facility] pox) Branch [facility] 2005-06-11 Completed [facility] 00:00:00 [facility] Varicella 2005-06-11 Completed [facility] of (varivax)(chicken 00:00:00 [place] [facility] pox) Branch [facility] 2005-06-11 Completed [facility] 00:00:00 [facility] Varicella 2005-06-11 Completed [facility] of (varivax)(chicken 00:00:00 [place] [facility] pox) Branch [facility] 2005-06-11 Completed [facility] 00:00:00 [facility] Varicella 2005-06-11 Completed [facility] of (varivax)(chicken 00:00:00 [place] [facility] pox) Branch [facility] 2005-06-11 Completed [facility] 00:00:00 [facility] Varicella 2005-06-11 Completed [facility] of (varivax)(chicken 00:00:00 [place] [facility] pox) Branch [facility] 2005-06-11 Completed [facility] 00:00:00 [facility] Varicella 2005-06-11 Completed [facility] of (varivax)(chicken 00:00:00 [place] [facility] pox) Branch [facility] 2005-06-11 Completed [facility] 00:00:00 [facility] Varicella 2005-06-11 Completed [facility] of (varivax)(chicken 00:00:00 [place] [facility] pox) Branch [facility] 2005-06-11 Completed [facility] 00:00:00 [facility] Varicella 2005-06-11 Completed [facility] of (varivax)(chicken 00:00:00 [place] [facility] pox) Branch [facility] 2005-06-11 Completed [facility] 00:00:00 [facility] Varicella 2005-06-11 Completed [facility] of (varivax)(chicken 00:00:00 [place] [facility] pox) Branch [facility] 2005-06-11 Completed [facility] 00:00:00 [facility] Varicella 2005-06-11 Completed [facility] (varivax)(chicken 00:00:00 [place] [facility] pox) Branch [facility] 2005-06-11 Completed [facility] 00:00:00 [facility] Varicella 2005-06-11 Completed [facility] (varivax)(chicken 00:00:00 [place] [facility] pox) Branch [facility] 2005-06-11 Completed [facility] 00:00:00 [facility] [facility] Varicella 2005-06-11 Completed [facility] (varivax)(chicken 00:00:00 [place] [facility]ox[facility] 2005-06-11 Completed [facility] 00:00:00 [facility] Varicella 2005-06-11 Completed [facility] (varivax)(chicken 00:00:00 [place] [facility] pox[facility] MMR 2005-06-11 Completed [facility] 00:00:00 [facility] Varicella 2005-06-11 Completed [facility] (varivax)(chicken 00:00:00 [place] [facility] pox) [facility] MMR 2005-06-11 Completed [facility] 00:00:00 [facility] Varicella 2005-06-11 Completed [facility] (varivax)(chicken 00:00:00 [place] [facility] pox) [facility] DTAP 2005-05-07 Completed [facility] 00:00:00 [facility] HIB 3 Dose Schedule 2005-05-07 Completed [facility]ive [facility]ity of 00:00:00 [facility] Hep B, Adol or Pedi 2005-05-07 Completed [facility] of Dosage 00:00:00 [facility] Pneumococcal 13 2005-05-07 Completed [facility] of Conjugate, PCV13 00:00:00 [facility] dicne (Prevnar 13) [place] Polio (IPV/OPV) 2005-05-07 Completed [facility] 00:00:00 [facility] DTAP 2005-05-07 Completed [facility] 00:00:00 [facility] HIB 3 Dose Schedule 2005-05-07 Completed [facility]ive [facility]ity of 00:00:00 [facility] [place] Hep B, Adol or Pedi 2005-05-07 Completed [facility] Dosage 00:00:00 [facility] [place] Pneumococcal 13 2005-05-07 Completed [facility] Conjugate, PCV13 00:00:00 [facility] (Prevnar 13) [place] Polio (IPV/OPV) 2005-05-07 Completed [facility] 00:00:00 [facility] DTAP 2005-05-07 Completed [facility] 00:00:00 [facility] HIB 3 Dose Schedule 2005-05-07 Completed [facility] 00:00:00 [facility] Hep B, Adol or Pedi 2005-05-07 Completed [facility] Dosage 00:00:00 [facility] [place] Pneumococcal 13 2005-05-07 Completed [facility] of Conjugate, PCV13 00:00:00 [facility] dical (Prevnar 13) [place] Polio (IPV/OPV) 2005-05-07 Completed [facility] 00:00:00 [facility] DTAP 2005-05-07 Completed [facility] 00:00:00 [facility] HIB 3 Dose Schedule 2005-05-07 Completed [facility]ive [facility]ity of 00:00:00 [facility] [place] Hep B, Adol or Pedi 2005-05-07 Completed [facility] of Dosage 00:00:00 [facility] [place] Pneumococcal 13 2005-05-07 Completed [facility] of Conjugate, PCV13 00:00:00 [facility] dical (Prevnar 13) [facility] Polio (IPV/OPV) 2005-05-07 Completed [facility] 00:00:00 [facility] DTAP 2005-05-07 Completed [facility] 00:00:00 [facility] HIB 3 Dose Schedule 2005-05-07 Completed [facility]ive rsity of 00:00:00 [facility] [place] Hep B, Adol or Pedi 2005-05-07 Completed [facility] of Dosage 00:00:00 [facility] [place] Pneumococcal 13 2005-05-07 Completed [facility] Conjugate, PCV13 00:00:00 [facility] (Prevnar 13) [place] Polio (IPV/OPV) 2005-05-07 Completed [facility] 00:00:00 [facility] [place] DTAP 2005-05-07 Completed [facility] 00:00:00 [facility] [place] HIB 3 Dose Schedule 2005-05-07 Completed [facility]ive rsity of 00:00:00 [facility] [place] Hep B, Adol or Pedi 2005-05-07 Completed [facility]ive [facility] of Dosage 00:00:00 [facility] [place] Pneumococcal 13 2005-05-07 Completed [facility] Conjugate, PCV13 00:00:00 [facility] (Prevnar 13) [place] Polio (IPV/OPV) 2005-05-07 Completed [facility] 00:00:00 [facility] [place] DTAP 2005-05-07 Completed [facility] 00:00:00 [facility] HIB 3 Dose Schedule 2005-05-07 Completed [facility]ive rsity of 00:00:00 [facility] [place] Hep B, Adol or Pedi 2005-05-07 Completed [facility] of Dosage 00:00:00 [facility] [place] Pneumococcal 13 2005-05-07 Completed [facility] of Conjugate, PCV13 00:00:00 [facility] dical (Prevnar 13) Branch Polio (IPV/OPV) 2005-05-07 Completed [facility] 00:00:00 [facility] [place] DTAP 2005-05-07 Completed [facility] 00:00:00 [facility] HIB 3 Dose Schedule 2005-05-07 Completed [facility]ive rsity of 00:00:00 [facility] [place] Hep B, Adol or Pedi 2005-05-07 Completed [facility]ive rs[facility] of Dosage 00:00:00 [facility] [place] Pneumococcal 13 2005-05-07 Completed [facility] of Conjugate, PCV13 00:00:00 [facility] dical (Prevnar 13) Branch Polio (IPV/OPV) 2005-05-07 Completed [facility] 00:00:00 [facility] [place] DTAP 2005-05-07 Completed [facility] 00:00:00 [facility] [place] HIB 3 Dose Schedule 2005-05-07 Completed [facility]ive rsity of 00:00:00 [facility] [place] Hep B, Adol or Pedi 2005-05-07 Completed [facility]ive [facility] of Dosage 00:00:00 [facility] [place] Pneumococcal 13 2005-05-07 Completed [facility] of Conjugate, PCV13 00:00:00 [facility] (Prevnar 13) [place] Polio (IPV/OPV) 2005-05-07 Completed [facility] 00:00:00 [facility] [place] DTAP 2005-05-07 Completed [facility] 00:00:00 [facility] [place] HIB 3 Dose Schedule 2005-05-07 Completed [facility]ive rsity of 00:00:00 [facility] [place] Hep B, Adol or Pedi 2005-05-07 Completed [facility] of Dosage 00:00:00 [facility] [place] Pneumococcal 13 2005-05-07 Completed [facility] Conjugate, PCV13 00:00:00 [facility] (Prevnar 13) [facility] Polio (IPV/OPV) 2005-05-07 Completed [facility] 00:00:00 [facility] [place] DTAP 2005-05-07 Completed [facility] 00:00:00 [facility] [place] HIB 3 Dose Schedule 2005-05-07 Completed [facility]ive rsity of 00:00:00 [facility] [place] Hep B, Adol or Pedi 2005-05-07 Completed [facility] of Dosage 00:00:00 [facility] [place] Pneumococcal 13 2005-05-07 Completed [facility] of Conjugate, PCV13 00:00:00 [facility] dical (Prevnar 13) Branch Polio (IPV/OPV) 2005-05-07 Completed [facility] 00:00:00 [facility] [place] DTAP 2005-05-07 Completed [facility] 00:00:00 [facility] [place] HIB 3 Dose Schedule 2005-05-07 Completed [facility]ive rsity of 00:00:00 [facility] [place] Hep B, Adol or Pedi 2005-05-07 Completed [facility]ive rs[facility] of Dosage 00:00:00 [facility] [place] Pneumococcal 13 2005-05-07 Completed [facility] of Conjugate, PCV13 00:00:00 [facility] dical (Prevnar 13) Branch Polio (IPV/OPV) 2005-05-07 Completed [facility] 00:00:00 [facility] [place] DTAP 2005-05-07 Completed [facility] 00:00:00 [facility] [place] HIB 3 Dose Schedule 2005-05-07 Completed [facility]ive rsity of 00:00:00 [facility] [place] Hep B, Adol or Pedi 2005-05-07 Completed [facility]ive rs[facility] of Dosage 00:00:00 [facility] [place] Pneumococcal 13 2005-05-07 Completed [facility] of Conjugate, PCV13 00:00:00 [facility] (Prevnar 13) [place] Polio (IPV/OPV) 2005-05-07 Completed [facility] 00:00:00 [facility] [place] DTAP 2005-05-07 Completed [facility] 00:00:00 [facility] [place] HIB 3 Dose Schedule 2005-05-07 Completed [facility]ive rsity of 00:00:00 [facility] [place] Hep B, Adol or Pedi 2005-05-07 Completed [facility]ive [facility] of Dosage 00:00:00 [facility] [place] Pneumococcal 13 2005-05-07 Completed [facility] of Conjugate, PCV13 00:00:00 [facility] (Prevnar 13) [place] Polio (IPV/OPV) 2005-05-07 Completed [facility] 00:00:00 [facility] [place] DTAP 2005-05-07 Completed [facility] 00:00:00 [facility] [place] HIB 3 Dose Schedule 2005-05-07 Completed [facility]ive rsity of 00:00:00 [facility] [place] Hep B, Adol or Pedi 2005-05-07 Completed [facility]ive rs[facility] of Dosage 00:00:00 [facility] [place] Pneumococcal 13 2005-05-07 Completed [facility] of Conjugate, PCV13 00:00:00 [facility] dical (Prevnar 13) Branch Polio (IPV/OPV) 2005-05-07 Completed [facility] of 00:00:00 [facility] [place] DTAP 2005-05-07 Completed [facility] 00:00:00 [facility] [place] HIB 3 Dose Schedule 2005-05-07 Completed [facility]ive rsity of 00:00:00 [facility] [place] Hep B, Adol or Pedi 2005-05-07 Completed [facility] of Dosage 00:00:00 [facility] [place] Pneumococcal 13 2005-05-07 Completed [facility] of Conjugate, PCV13 00:00:00 [facility] dical (Prevnar 13) Branch Polio (IPV/OPV) 2005-05-07 Completed [facility] 00:00:00 [facility] [place] DTAP 2005-05-07 Completed [facility] 00:00:00 [facility] [place] HIB 3 Dose Schedule 2005-05-07 Completed [facility]ive rsity of 00:00:00 [facility] [place] Hep B, Adol or Pedi 2005-05-07 Completed [facility] of Dosage 00:00:00 [facility] [place] Pneumococcal 13 2005-05-07 Completed [facility] of Conjugate, PCV13 00:00:00 [facility] (Prevnar 13) [place] Polio (IPV/OPV) 2005-05-07 Completed [facility] 00:00:00 [facility] [place] DTAP 2005-05-07 Completed [facility] 00:00:00 [facility] [place] HIB 3 Dose Schedule 2005-05-07 Completed [facility]ive rsity of 00:00:00 [facility] [place] Hep B, Adol or Pedi 2005-05-07 Completed [facility] of Dosage 00:00:00 [facility] [place] Pneumococcal 13 2005-05-07 Completed [facility] of Conjugate, PCV13 00:00:00 [facility] (Prevnar 13) [place] Polio (IPV/OPV) 2005-05-07 Completed [facility] 00:00:00 [facility] [place] DTAP 2005-05-07 Completed [facility] 00:00:00 [facility] [place] HIB 3 Dose Schedule 2005-05-07 Completed [facility]ive rsity of 00:00:00 [facility] [place] Hep B, Adol or Pedi 2005-05-07 Completed [facility] of Dosage 00:00:00 [facility] [place] Pneumococcal 13 2005-05-07 Completed [facility] of Conjugate, PCV13 00:00:00 [facility] dical (Prevnar 13) [facility] Polio (IPV/OPV) 2005-05-07 Completed [facility] 00:00:00 [facility] [place] DTAP 2005-05-07 Completed [facility] 00:00:00 [facility] [place] HIB 3 Dose Schedule 2005-05-07 Completed [facility] rsity of 00:00:00 [facility] [place] Hep B, Adol or Pedi 2005-05-07 Completed [facility] of Dosage 00:00:00 [facility] [place] Pneumococcal 13 2005-05-07 Completed [facility] of Conjugate, PCV13 00:00:00 [facility] dical (Prevnar 13) [place] Polio (IPV/OPV) 2005-05-07 Completed [facility] 00:00:00 [facility] [place] DTAP 2005-05-07 Completed [facility] 00:00:00 [facility] [place] HIB 3 Dose Schedule 2005-05-07 Completed [facility] of 00:00:00 [facility] [place] Hep B, Adol or Pedi 2005-05-07 Completed [facility] of Dosage 00:00:00 [facility] [place] Pneumococcal 13 2005-05-07 Completed [facility] of Conjugate, PCV13 00:00:00 [facility] (Prevnar 13) [place] Polio (IPV/OPV) 2005-05-07 Completed [facility] 00:00:00 [facility] [place] DTAP 2005-05-07 Completed [facility] 00:00:00 [facility] [place] HIB 3 Dose Schedule 2005-05-07 Completed [facility] of 00:00:00 [facility] [place] Hep B, Adol or Pedi 2005-05-07 Completed [facility] of Dosage 00:00:00 [facility] [place] Pneumococcal 13 2005-05-07 Completed [facility] Conjugate, PCV13 00:00:00 [facility] (Prevnar 13) [place] Polio (IPV/OPV) 2005-05-07 Completed [facility] 00:00:00 [facility] [place] DTAP 2005-05-07 Completed [facility] 00:00:00 [facility] [place] HIB 3 Dose Schedule 2005-05-07 Completed [facility] of 00:00:00 [facility] [place] Hep B, Adol or Pedi 2005-05-07 Completed [facility] of Dosage 00:00:00 [facility] [place] Pneumococcal 13 2005-05-07 Completed [facility] of Conjugate, PCV13 00:00:00 [facility] dical (Prevnar 13) [facility] Polio (IPV/OPV) 2005-05-07 Completed [facility] 00:00:00 [facility] [place] DTAP 2005-05-07 Completed [facility] 00:00:00 [facility] [place] HIB 3 Dose Schedule 2005-05-07 Completed [facility] of 00:00:00 [facility] [place] Hep B, Adol or Pedi 2005-05-07 Completed [facility] of Dosage 00:00:00 [facility] [place] Pneumococcal 13 2005-05-07 Completed [facility] of Conjugate, PCV13 00:00:00 [facility] dical (Prevnar 13) [place] Polio (IPV/OPV) 2005-05-07 Completed [facility] 00:00:00 [facility] [place] DTAP 2005-05-07 Completed [facility] 00:00:00 [facility] [place] HIB 3 Dose Schedule 2005-05-07 Completed [facility] of 00:00:00 [facility] [place] Hep B, Adol or Pedi 2005-05-07 Completed [facility] of Dosage 00:00:00 [facility] [place] Pneumococcal 13 2005-05-07 Completed [facility] Conjugate, PCV13 00:00:00 [facility] (Prevnar 13) [place] Polio (IPV/OPV) 2005-05-07 Completed [facility] 00:00:00 [facility] [place] DTAP 2005-05-07 Completed [facility] 00:00:00 [facility] [place] HIB 3 Dose Schedule 2005-05-07 Completed [facility] of 00:00:00 [facility] [place] Hep B, Adol or Pedi 2005-05-07 Completed [facility] of Dosage 00:00:00 [facility] [place] Pneumococcal 13 2005-05-07 Completed [facility] Conjugate, PCV13 00:00:00 [facility] (Prevnar 13) [place] Polio (IPV/OPV) 2005-05-07 Completed [facility] 00:00:00 [facility] [place] DTAP 2005-05-07 Completed [facility] 00:00:00 [facility] [place] HIB 3 Dose Schedule 2005-05-07 Completed [facility] rsity of 00:00:00 [facility] [place] Hep B, Adol or Pedi 2005-05-07 Completed [facility] of Dosage 00:00:00 [facility] [place] Pneumococcal 13 2005-05-07 Completed [facility] of Conjugate, PCV13 00:00:00 [facility] dical (Prevnar 13) [place] Polio (IPV/OPV) 2005-05-07 Completed [facility] 00:00:00 [facility] [place] DTAP 2005-05-07 Completed [facility] 00:00:00 [facility] [place] HIB 3 Dose Schedule 2005-05-07 Completed [facility] of 00:00:00 [facility] [place] Hep B, Adol or Pedi 2005-05-07 Completed [facility] of Dosage 00:00:00 [facility] [place] Pneumococcal 13 2005-05-07 Completed [facility] of Conjugate, PCV13 00:00:00 [facility]ical (Prevnar 13) [facility] Polio (IPV/OPV) 2005-05-07 Completed [facility] 00:00:00 [facility] [place] DTAP 2005-05-07 Completed [facility] 00:00:00 [facility] [place] HIB 3 Dose Schedule 2005-05-07 Completed [facility] of 00:00:00 [facility] [place] Hep B, Adol or Pedi 2005-05-07 Completed [facility] of Dosage 00:00:00 [facility] [place] Pneumococcal 13 2005-05-07 Completed [facility] of Conjugate, PCV13 00:00:00 [facility]ical (Prevnar 13) [place] Polio (IPV/OPV) 2005-05-07 Completed [facility] 00:00:00 [facility] [place] DTAP 2005-05-07 Completed [facility] 00:00:00 [facility] [place] HIB 3 Dose Schedule 2005-05-07 Completed [facility] of 00:00:00 [facility] [place] Hep B, Adol or Pedi 2005-05-07 Completed [facility] of Dosage 00:00:00 [facility] [place] Pneumococcal 13 2005-05-07 Completed [facility] of Conjugate, PCV13 00:00:00 [facility] (Prevnar 13) [place] Polio (IPV/OPV) 2005-05-07 Completed [facility] 00:00:00 [facility] [place] DTAP 2005-05-07 Completed [facility] 00:00:00 [facility] [place] HIB 3 Dose Schedule 2005-05-07 Completed [facility] of 00:00:00 [facility] [place] Hep B, Adol or Pedi 2005-05-07 Completed [facility] of Dosage 00:00:00 [facility] [place] Pneumococcal 13 2005-05-07 Completed [facility] of Conjugate, PCV13 00:00:00 [facility] (Prevnar 13) [facility] Polio (IPV/OPV) 2005-05-07 Completed [facility] 00:00:00 [facility] [place] DTAP 2005-05-07 Completed [facility] 00:00:00 [facility] [place] HIB 3 Dose Schedule 2005-05-07 Completed [facility] of 00:00:00 [facility] [place] Hep B, Adol or Pedi 2005-05-07 Completed [facility] of Dosage 00:00:00 [facility] [place] Pneumococcal 13 2005-05-07 Completed [facility] of Conjugate, PCV13 00:00:00 [facility] (Prevnar 13) [place] Polio (IPV/OPV) 2005-05-07 Completed [facility] 00:00:00 [facility] [place] DTAP 2005-05-07 Completed [facility] 00:00:00 [facility] [place] HIB 3 Dose Schedule 2005-05-07 Completed [facility] of 00:00:00 [facility] [place] Hep B, Adol or Pedi 2005-05-07 Completed [facility] of Dosage 00:00:00 [facility] [place] Pneumococcal 13 2005-05-07 Completed [facility] of Conjugate, PCV13 00:00:00 [facility] (Prevnar 13) [place] Polio (IPV/OPV) 2005-05-07 Completed [facility] 00:00:00 [facility] [place] DTAP 2005-05-07 Completed [facility] 00:00:00 [facility] [place] HIB 3 Dose Schedule 2005-05-07 Completed [facility] of 00:00:00 [facility] [place] Hep B, Adol or Pedi 2005-05-07 Completed [facility] of Dosage 00:00:00 [facility] [place] Pneumococcal 13 2005-05-07 Completed [facility] of Conjugate, PCV13 00:00:00 [facility] (Prevnar 13) [place] Polio (IPV/OPV) 2005-05-07 Completed [facility] 00:00:00 [facility] [place] DTAP 2005-05-07 Completed [facility] 00:00:00 [facility] [place] HIB 3 Dose Schedule 2005-05-07 Completed [facility] of 00:00:00 [facility] [place] Hep B, Adol or Pedi 2005-05-07 Completed [facility] of Dosage 00:00:00 [facility] [place] Pneumococcal 13 2005-05-07 Completed [facility] Conjugate, PCV13 00:00:00 [facility] (Prevnar 13) [facility] Polio (IPV/OPV) 2005-05-07 Completed [facility] 00:00:00 [facility] [place] DTAP 2005-05-07 Completed [facility] 00:00:00 [facility] [place] HIB 3 Dose Schedule 2005-05-07 Completed [facility] of 00:00:00 [facility] [place] Hep B, Adol or Pedi 2005-05-07 Completed [facility] of Dosage 00:00:00 [facility] [place] Pneumococcal 13 2005-05-07 Completed [facility] Conjugate, PCV13 00:00:00 [facility] (Prevnar 13) [facility] Polio (IPV/OPV) 2005-05-07 Completed [facility] 00:00:00 [facility] [place] DTAP 2005-05-07 Completed [facility] 00:00:00 [facility] [place] HIB 3 Dose Schedule 2005-05-07 Completed [facility] of 00:00:00 [facility] [place] Hep B, Adol or Pedi 2005-05-07 Completed [facility] of Dosage 00:00:00 [facility] [place] Pneumococcal 13 2005-05-07 Completed [facility] of Conjugate, PCV13 00:00:00 [facility] (Prevnar 13) [place] Polio (IPV/OPV) 2005-05-07 Completed [facility] 00:00:00 [facility] [place] DTAP 2005-05-07 Completed [facility] 00:00:00 [facility] [place] HIB 3 Dose Schedule 2005-05-07 Completed [facility] of 00:00:00 [facility] [place] Hep B, Adol or Pedi 2005-05-07 Completed [facility] of Dosage 00:00:00 [facility] [place] Pneumococcal 13 2005-05-07 Completed [facility] Conjugate, PCV13 00:00:00 [facility] (Prevnar 13) [place] Polio (IPV/OPV) 2005-05-07 Completed [facility] 00:00:00 [facility] [place] DTAP 2005-05-07 Completed [facility] 00:00:00 [facility] [place] HIB 3 Dose Schedule 2005-05-07 Completed [facility] 00:00:00 [facility] [place] Hep B, Adol or Pedi 2005-05-07 Completed [facility] of Dosage 00:00:00 [facility] [place] Pneumococcal 13 2005-05-07 Completed [facility] Conjugate, PCV13 00:00:00 [facility] (Prevnar 13) [facility] Polio (IPV/OPV) 2005-05-07 Completed [facility] 00:00:00 [facility] [place] DTAP 2004-04-19 Completed [facility] 00:00:00 [facility] [place] HIB 3 Dose Schedule 2004-04-19 Completed [facility] 00:00:00 [facility] [place] Hep B, Adol or Pedi 2004-04-19 Completed [facility] of Dosage 00:00:00 [facility] [place] Pneumococcal 13 2004-04-19 Completed [facility] Conjugate, PCV13 00:00:00 [facility] (Prevnar 13) [facility] Polio (IPV/OPV) 2004-04-19 Completed [facility] 00:00:00 [facility] [place] DTAP 2004-04-19 Completed [facility] 00:00:00 [facility] [place] HIB 3 Dose Schedule 2004-04-19 Completed [facility] 00:00:00 [facility] [place] Hep B, Adol or Pedi 2004-04-19 Completed [facility] Dosage 00:00:00 [facility] [place] Pneumococcal 13 2004-04-19 Completed [facility] Conjugate, PCV13 00:00:00 [facility] (Prevnar 13) [place] Polio (IPV/OPV) 2004-04-19 Completed [facility] 00:00:00 [facility] [place] DTAP 2004-04-19 Completed [facility] 00:00:00 [facility] [place] HIB 3 Dose Schedule 2004-04-19 Completed [facility] 00:00:00 [facility] [place] Hep B, Adol or Pedi 2004-04-19 Completed [facility] Dosage 00:00:00 [facility] [place] Pneumococcal 13 2004-04-19 Completed [facility] Conjugate, PCV13 00:00:00 [facility] (Prevnar 13) [place] Polio (IPV/OPV) 2004-04-19 Completed [facility] 00:00:00 [facility] [place] DTAP 2004-04-19 Completed [facility] 00:00:00 [facility] [place] HIB 3 Dose Schedule 2004-04-19 Completed [facility] 00:00:00 [facility] [place] Hep B, Adol or Pedi 2004-04-19 Completed [facility] Dosage 00:00:00 [facility] [place] Pneumococcal 13 2004-04-19 Completed [facility] Conjugate, PCV13 00:00:00 [facility] (Prevnar 13) [facility] Polio (IPV/OPV) 2004-04-19 Completed [facility] 00:00:00 [facility] [place] DTAP 2004-04-19 Completed [facility] 00:00:00 [facility] [place] HIB 3 Dose Schedule 2004-04-19 Completed [facility] 00:00:00 [facility] [place] Hep B, Adol or Pedi 2004-04-19 Completed [facility] Dosage 00:00:00 [facility] [place] Pneumococcal 13 2004-04-19 Completed [facility] Conjugate, PCV13 00:00:00 [facility] (Prevnar 13) [facility] Polio (IPV/OPV) 2004-04-19 Completed [facility] 00:00:00 [facility] [place] DTAP 2004-04-19 Completed [facility] 00:00:00 [facility] [place] HIB 3 Dose Schedule 2004-04-19 Completed [facility] 00:00:00 [facility] [place] Hep B, Adol or Pedi 2004-04-19 Completed [facility] Dosage 00:00:00 [facility] [place] Pneumococcal 13 2004-04-19 Completed [facility] Conjugate, PCV13 00:00:00 [facility] (Prevnar 13) [place] Polio (IPV/OPV) 2004-04-19 Completed [facility] 00:00:00 [facility] [place] DTAP 2004-04-19 Completed [facility] 00:00:00 [facility] [place] HIB 3 Dose Schedule 2004-04-19 Completed [facility] 00:00:00 [facility] Hep B, Adol or Pedi 2004-04-19 Completed [facility] Dosage 00:00:00 [facility] Pneumococcal 13 2004-04-19 Completed [facility] Conjugate, PCV13 00:00:00 [facility] dical (Prevnar 13) Branch Polio (IPV/OPV) 2004-04-19 Completed [facility] 00:00:00 [facility] DTAP 2004-04-19 Completed [facility] 00:00:00 [facility] HIB 3 Dose Schedule 2004-04-19 Completed [facility] 00:00:00 [facility] Hep B, Adol or Pedi 2004-04-19 Completed [facility] Dosage 00:00:00 [facility] Pneumococcal 13 2004-04-19 Completed [facility] Conjugate, PCV13 00:00:00 [facility] dical (Prevnar 13) Branch Polio (IPV/OPV) 2004-04-19 Completed [facility] 00:00:00 [facility] DTAP 2004-04-19 Completed [facility] 00:00:00 [facility] HIB 3 Dose Schedule 2004-04-19 Completed [facility] 00:00:00 [facility] Hep B, Adol or Pedi 2004-04-19 Completed [facility] Dosage 00:00:00 [facility] Pneumococcal 13 2004-04-19 Completed [facility] Conjugate, PCV13 00:00:00 [facility] dical (Prevnar 13) Branch Polio (IPV/OPV) 2004-04-19 Completed [facility] 00:00:00 [facility] DTAP 2004-04-19 Completed [facility] 00:00:00 [facility] HIB 3 Dose Schedule 2004-04-19 Completed [facility] 00:00:00 [facility] Hep B, Adol or Pedi 2004-04-19 Completed [facility] Dosage 00:00:00 [facility] Pneumococcal 13 2004-04-19 Completed [facility] Conjugate, PCV13 00:00:00 [facility] dical (Prevnar 13) [place] Polio (IPV/OPV) 2004-04-19 Completed [facility] 00:00:00 [facility] DTAP 2004-04-19 Completed [facility] 00:00:00 [facility] HIB 3 Dose Schedule 2004-04-19 Completed [facility] 00:00:00 [facility] Hep B, Adol or Pedi 2004-04-19 Completed [facility] Dosage 00:00:00 [facility] Pneumococcal 13 2004-04-19 Completed [facility] Conjugate, PCV13 00:00:00 [facility] dical (Prevnar 13) Branch Polio (IPV/OPV) 2004-04-19 Completed [facility] 00:00:00 [facility] DTAP 2004-04-19 Completed [facility] 00:00:00 [facility] HIB 3 Dose Schedule 2004-04-19 Completed [facility] 00:00:00 [facility] Hep B, Adol or Pedi 2004-04-19 Completed [facility] Dosage 00:00:00 [facility] Pneumococcal 13 2004-04-19 Completed [facility] Conjugate, PCV13 00:00:00 [facility] dical (Prevnar 13) Branch Polio (IPV/OPV) 2004-04-19 Completed [facility] 00:00:00 [facility] DTAP 2004-04-19 Completed [facility] 00:00:00 [facility] HIB 3 Dose Schedule 2004-04-19 Completed [facility] 00:00:00 [facility] Hep B, Adol or Pedi 2004-04-19 Completed [facility] Dosage 00:00:00 [facility] Pneumococcal 13 2004-04-19 Completed [facility] Conjugate, PCV13 00:00:00 [facility] dical (Prevnar 13) Branch Polio (IPV/OPV) 2004-04-19 Completed [facility] 00:00:00 [facility] DTAP 2004-04-19 Completed [facility] 00:00:00 [facility] HIB 3 Dose Schedule 2004-04-19 Completed [facility] 00:00:00 [facility] Hep B, Adol or Pedi 2004-04-19 Completed [facility] Dosage 00:00:00 [facility] Pneumococcal 13 2004-04-19 Completed [facility] Conjugate, PCV13 00:00:00 [facility] dical (Prevnar 13) Branch Polio (IPV/OPV) 2004-04-19 Completed [facility] 00:00:00 [facility] DTAP 2004-04-19 Completed [facility] 00:00:00 [facility] HIB 3 Dose Schedule 2004-04-19 Completed [facility] 00:00:00 [facility] Hep B, Adol or Pedi 2004-04-19 Completed [facility] Dosage 00:00:00 [facility] Pneumococcal 13 2004-04-19 Completed [facility] Conjugate, PCV13 00:00:00 [facility] dical (Prevnar 13) Branch Polio (IPV/OPV) 2004-04-19 Completed [facility] 00:00:00 [facility] DTAP 2004-04-19 Completed [facility] 00:00:00 [facility] HIB 3 Dose Schedule 2004-04-19 Completed [facility] 00:00:00 [facility] Hep B, Adol or Pedi 2004-04-19 Completed [facility] Dosage 00:00:00 [facility] Pneumococcal 13 2004-04-19 Completed [facility] Conjugate, PCV13 00:00:00 [facility] dical (Prevnar 13) Branch Polio (IPV/OPV) 2004-04-19 Completed [facility] 00:00:00 [facility] DTAP 2004-04-19 Completed [facility] 00:00:00 [facility] HIB 3 Dose Schedule 2004-04-19 Completed [facility] 00:00:00 [facility] Hep B, Adol or Pedi 2004-04-19 Completed [facility] Dosage 00:00:00 [facility] Pneumococcal 13 2004-04-19 Completed [facility] Conjugate, PCV13 00:00:00 [facility] dical (Prevnar 13) Branch Polio (IPV/OPV) 2004-04-19 Completed [facility] 00:00:00 [facility] DTAP 2004-04-19 Completed [facility] 00:00:00 [facility] HIB 3 Dose Schedule 2004-04-19 Completed [facility] 00:00:00 [facility] Hep B, Adol or Pedi 2004-04-19 Completed [facility] Dosage 00:00:00 [facility] Pneumococcal 13 2004-04-19 Completed [facility] Conjugate, PCV13 00:00:00 [facility] dical (Prevnar 13) Branch Polio (IPV/OPV) 2004-04-19 Completed [facility] 00:00:00 [facility] DTAP 2004-04-19 Completed [facility] 00:00:00 [facility] HIB 3 Dose Schedule 2004-04-19 Completed [facility] 00:00:00 [facility] Hep B, Adol or Pedi 2004-04-19 Completed [facility] Dosage 00:00:00 [facility] Pneumococcal 13 2004-04-19 Completed [facility] Conjugate, PCV13 00:00:00 [facility] dical (Prevnar 13) Branch Polio (IPV/OPV) 2004-04-19 Completed [facility] 00:00:00 [facility] DTAP 2004-04-19 Completed [facility] 00:00:00 [facility] HIB 3 Dose Schedule 2004-04-19 Completed [facility] 00:00:00 [facility] Hep B, Adol or Pedi 2004-04-19 Completed [facility] Dosage 00:00:00 [facility] Pneumococcal 13 2004-04-19 Completed [facility] Conjugate, PCV13 00:00:00 [facility] dical (Prevnar 13) Branch Polio (IPV/OPV) 2004-04-19 Completed [facility] 00:00:00 [facility] DTAP 2004-04-19 Completed [facility] 00:00:00 [facility] HIB 3 Dose Schedule 2004-04-19 Completed [facility] 00:00:00 [facility] Hep B, Adol or Pedi 2004-04-19 Completed [facility] Dosage 00:00:00 [facility] Pneumococcal 13 2004-04-19 Completed [facility] Conjugate, PCV13 00:00:00 [place] [facility] (Prevnar 13) Branch Polio (IPV/OPV) 2004-04-19 Completed [facility] 00:00:00 [facility] DTAP 2004-04-19 Completed [facility] 00:00:00 [facility] HIB 3 Dose Schedule 2004-04-19 Completed [facility] 00:00:00 [facility] Hep B, Adol or Pedi 2004-04-19 Completed [facility] Dosage 00:00:00 [facility] Pneumococcal 13 2004-04-19 Completed [facility] of Conjugate, PCV13 00:00:00 [facility] dical (Prevnar 13) Branch Polio (IPV/OPV) 2004-04-19 Completed [facility] 00:00:00 [facility] DTAP 2004-04-19 Completed [facility] 00:00:00 [facility] HIB 3 Dose Schedule 2004-04-19 Completed [facility] 00:00:00 [facility] Hep B, Adol or Pedi 2004-04-19 Completed [facility] Dosage 00:00:00 [facility] Pneumococcal 13 2004-04-19 Completed [facility] Conjugate, PCV13 00:00:00 [facility] dical (Prevnar 13) Branch Polio (IPV/OPV) 2004-04-19 Completed [facility] 00:00:00 [facility] DTAP 2004-04-19 Completed [facility] 00:00:00 [facility] HIB 3 Dose Schedule 2004-04-19 Completed [facility] 00:00:00 [facility] Hep B, Adol or Pedi 2004-04-19 Completed [facility] Dosage 00:00:00 [facility] Pneumococcal 13 2004-04-19 Completed [facility] Conjugate, PCV13 00:00:00 [place] [facility] (Prevnar 13) Branch Polio (IPV/OPV) 2004-04-19 Completed [facility] 00:00:00 [facility] DTAP 2004-04-19 Completed [facility] 00:00:00 [facility] HIB 3 Dose Schedule 2004-04-19 Completed [facility] 00:00:00 [facility] Hep B, Adol or Pedi 2004-04-19 Completed [facility] Dosage 00:00:00 [facility] Pneumococcal 13 2004-04-19 Completed [facility] Conjugate, PCV13 00:00:00 [place] [facility] (Prevnar 13) Branch Polio (IPV/OPV) 2004-04-19 Completed [facility] 00:00:00 [facility] DTAP 2004-04-19 Completed [facility] 00:00:00 [facility] HIB 3 Dose Schedule 2004-04-19 Completed [facility] 00:00:00 [facility] Hep B, Adol or Pedi 2004-04-19 Completed [facility] Dosage 00:00:00 [facility] Pneumococcal 13 2004-04-19 Completed [facility] Conjugate, PCV13 00:00:00 [facility] dical (Prevnar 13) Branch Polio (IPV/OPV) 2004-04-19 Completed [facility] 00:00:00 [facility] DTAP 2004-04-19 Completed [facility] 00:00:00 [facility] HIB 3 Dose Schedule 2004-04-19 Completed [facility] 00:00:00 [facility] Hep B, Adol or Pedi 2004-04-19 Completed [facility] Dosage 00:00:00 [facility] Pneumococcal 13 2004-04-19 Completed [facility] Conjugate, PCV13 00:00:00 [facility] dical (Prevnar 13) Branch Polio (IPV/OPV) 2004-04-19 Completed [facility] 00:00:00 [facility] DTAP 2004-04-19 Completed [facility] 00:00:00 [facility] HIB 3 Dose Schedule 2004-04-19 Completed [facility] 00:00:00 [facility] Hep B, Adol or Pedi 2004-04-19 Completed [facility] Dosage 00:00:00 [facility] Pneumococcal 13 2004-04-19 Completed [facility] Conjugate, PCV13 00:00:00 [facility] dical (Prevnar 13) Branch Polio (IPV/OPV) 2004-04-19 Completed [facility] 00:00:00 [facility] DTAP 2004-04-19 Completed [facility] 00:00:00 [facility] HIB 3 Dose Schedule 2004-04-19 Completed [facility] 00:00:00 [facility] Hep B, Adol or Pedi 2004-04-19 Completed [facility] Dosage 00:00:00 [facility] Pneumococcal 13 2004-04-19 Completed [facility] of Conjugate, PCV13 00:00:00 [facility] dical (Prevnar 13) Branch Polio (IPV/OPV) 2004-04-19 Completed [facility] 00:00:00 [facility] DTAP 2004-04-19 Completed [facility] 00:00:00 [facility] HIB 3 Dose Schedule 2004-04-19 Completed [facility] 00:00:00 [facility] Hep B, Adol or Pedi 2004-04-19 Completed [facility] Dosage 00:00:00 [facility] Pneumococcal 13 2004-04-19 Completed [facility] Conjugate, PCV13 00:00:00 [facility] dical (Prevnar 13) Branch Polio (IPV/OPV) 2004-04-19 Completed [facility] 00:00:00 [facility] DTAP 2004-04-19 Completed [facility] 00:00:00 [facility] HIB 3 Dose Schedule 2004-04-19 Completed [facility] 00:00:00 [facility] Hep B, Adol or Pedi 2004-04-19 Completed [facility] Dosage 00:00:00 [facility] Pneumococcal 13 2004-04-19 Completed [facility] Conjugate, PCV13 00:00:00 [facility] dical (Prevnar 13) Branch Polio (IPV/OPV) 2004-04-19 Completed [facility] 00:00:00 [facility] DTAP 2004-04-19 Completed [facility] 00:00:00 [facility] HIB 3 Dose Schedule 2004-04-19 Completed [facility] 00:00:00 [facility] Hep B, Adol or Pedi 2004-04-19 Completed [facility] Dosage 00:00:00 [facility] Pneumococcal 13 2004-04-19 Completed [facility] Conjugate, PCV13 00:00:00 [facility] dical (Prevnar 13) Branch Polio (IPV/OPV) 2004-04-19 Completed [facility] 00:00:00 [facility] DTAP 2004-04-19 Completed [facility] 00:00:00 [facility] HIB 3 Dose Schedule 2004-04-19 Completed [facility] 00:00:00 [facility] Hep B, Adol or Pedi 2004-04-19 Completed [facility] Dosage 00:00:00 [facility] Pneumococcal 13 2004-04-19 Completed [facility] Conjugate, PCV13 00:00:00 [facility] dical (Prevnar 13) Branch Polio (IPV/OPV) 2004-04-19 Completed [facility] 00:00:00 [facility] DTAP 2004-04-19 Completed [facility] 00:00:00 [facility] HIB 3 Dose Schedule 2004-04-19 Completed [facility] 00:00:00 [facility] Hep B, Adol or Pedi 2004-04-19 Completed [facility] Dosage 00:00:00 [facility] Pneumococcal 13 2004-04-19 Completed [facility] Conjugate, PCV13 00:00:00 [facility] dical (Prevnar 13) Branch Polio (IPV/OPV) 2004-04-19 Completed [facility] 00:00:00 [facility] DTAP 2004-04-19 Completed [facility] 00:00:00 [facility] HIB 3 Dose Schedule 2004-04-19 Completed [facility] 00:00:00 [facility] Hep B, Adol or Pedi 2004-04-19 Completed [facility] Dosage 00:00:00 [facility] Pneumococcal 13 2004-04-19 Completed [facility] Conjugate, PCV13 00:00:00 [facility] dical (Prevnar 13) Branch Polio (IPV/OPV) 2004-04-19 Completed [facility] 00:00:00 [facility] DTAP 2004-04-19 Completed [facility] 00:00:00 [facility] HIB 3 Dose Schedule 2004-04-19 Completed [facility] 00:00:00 [facility] Hep B, Adol or Pedi 2004-04-19 Completed [facility] Dosage 00:00:00 [facility] Pneumococcal 13 2004-04-19 Completed [facility] Conjugate, PCV13 00:00:00 [place] [facility] (Prevnar 13) Branch Polio (IPV/OPV) 2004-04-19 Completed [facility] 00:00:00 [facility] DTAP 2004-04-19 Completed [facility] 00:00:00 [facility] HIB 3 Dose Schedule 2004-04-19 Completed [facility] 00:00:00 [facility] Hep B, Adol or Pedi 2004-04-19 Completed [facility] Dosage 00:00:00 [facility] Pneumococcal 13 2004-04-19 Completed [facility] Conjugate, PCV13 00:00:00 [facility] dical (Prevnar 13) Branch Polio (IPV/OPV) 2004-04-19 Completed [facility] 00:00:00 [facility] DTAP 2004-04-19 Completed [facility] 00:00:00 [facility] HIB 3 Dose Schedule 2004-04-19 Completed [facility] 00:00:00 [facility] Hep B, Adol or Pedi 2004-04-19 Completed [facility] Dosage 00:00:00 [facility] Pneumococcal 13 2004-04-19 Completed [facility] Conjugate, PCV13 00:00:00 [facility] dical (Prevnar 13) Branch Polio (IPV/OPV) 2004-04-19 Completed [facility] 00:00:00 [facility] DTAP 2004-04-19 Completed [facility] 00:00:00 [facility] HIB 3 Dose Schedule 2004-04-19 Completed [facility] 00:00:00 [facility] Hep B, Adol or Pedi 2004-04-19 Completed [facility] Dosage 00:00:00 [facility] Pneumococcal 13 2004-04-19 Completed [facility] Conjugate, PCV13 00:00:00 [facility] dical (Prevnar 13) Branch Polio (IPV/OPV) 2004-04-19 Completed [facility] 00:00:00 [facility] DTAP 2004-03-05 Completed [facility] 00:00:00 [facility] HIB 3 Dose Schedule 2004-03-05 Completed [facility] 00:00:00 [facility] Pneumococcal 13 2004-03-05 Completed [facility] Conjugate, PCV13 00:00:00 [facility] dical (Prevnar 13) Branch Polio (IPV/OPV) 2004-03-05 Completed [facility] 00:00:00 [facility] DTAP 2004-03-05 Completed [facility] 00:00:00 [facility] HIB 3 Dose Schedule 2004-03-05 Completed [facility] 00:00:00 [facility] Pneumococcal 13 2004-03-05 Completed [facility] Conjugate, PCV13 00:00:00 [place] [facility] (Prevnar 13) Branch Polio (IPV/OPV) 2004-03-05 Completed [facility] 00:00:00 [facility] DTAP 2004-03-05 Completed [facility] 00:00:00 [facility] HIB 3 Dose Schedule 2004-03-05 Completed [facility] 00:00:00 [facility] Pneumococcal 13 2004-03-05 Completed [facility] Conjugate, PCV13 00:00:00 [facility] dical (Prevnar 13) Branch Polio (IPV/OPV) 2004-03-05 Completed [facility] 00:00:00 [facility] DTAP 2004-03-05 Completed [facility] 00:00:00 [facility] HIB 3 Dose Schedule 2004-03-05 Completed [facility] 00:00:00 [facility] Pneumococcal 13 2004-03-05 Completed [facility] Conjugate, PCV13 00:00:00 [facility] dical (Prevnar 13) Branch Polio (IPV/OPV) 2004-03-05 Completed [facility] 00:00:00 [facility] DTAP 2004-03-05 Completed [facility] 00:00:00 [facility] HIB 3 Dose Schedule 2004-03-05 Completed [facility] 00:00:00 [facility] Pneumococcal 13 2004-03-05 Completed [facility] Conjugate, PCV13 00:00:00 [facility] dical (Prevnar 13) Branch Polio (IPV/OPV) 2004-03-05 Completed [facility] 00:00:00 [facility] DTAP 2004-03-05 Completed [facility] 00:00:00 [facility] HIB 3 Dose Schedule 2004-03-05 Completed [facility] 00:00:00 [facility] Pneumococcal 13 2004-03-05 Completed [facility] Conjugate, PCV13 00:00:00 [place] [facility] (Prevnar 13) Branch Polio (IPV/OPV) 2004-03-05 Completed [facility] 00:00:00 [facility] DTAP 2004-03-05 Completed [facility] 00:00:00 [facility] HIB 3 Dose Schedule 2004-03-05 Completed [facility] 00:00:00 [facility] Pneumococcal 13 2004-03-05 Completed [facility] Conjugate, PCV13 00:00:00 [place] [facility] (Prevnar 13) Branch Polio (IPV/OPV) 2004-03-05 Completed [facility] 00:00:00 [facility] DTAP 2004-03-05 Completed [facility] 00:00:00 [facility] HIB 3 Dose Schedule 2004-03-05 Completed [facility] 00:00:00 [facility] Pneumococcal 13 2004-03-05 Completed [facility] Conjugate, PCV13 00:00:00 [facility] dical (Prevnar 13) Branch Polio (IPV/OPV) 2004-03-05 Completed [facility] 00:00:00 [facility] DTAP 2004-03-05 Completed [facility] 00:00:00 [facility] HIB 3 Dose Schedule 2004-03-05 Completed [facility] 00:00:00 [facility] Pneumococcal 13 2004-03-05 Completed [facility] Conjugate, PCV13 00:00:00 [facility] dical (Prevnar 13) Branch Polio (IPV/OPV) 2004-03-05 Completed [facility] 00:00:00 [facility] DTAP 2004-03-05 Completed [facility] 00:00:00 [facility] HIB 3 Dose Schedule 2004-03-05 Completed [facility] 00:00:00 [facility] Pneumococcal 13 2004-03-05 Completed [facility] Conjugate, PCV13 00:00:00 [facility] d[facility] (Prevnar 13) Branch Polio (IPV/OPV) 2004-03-05 Completed [facility] 00:00:00 [facility] DTAP 2004-03-05 Completed [facility] 00:00:00 [facility] HIB 3 Dose Schedule 2004-03-05 Completed [facility] 00:00:00 [facility] Pneumococcal 13 2004-03-05 Completed [facility] Conjugate, PCV13 00:00:00 [facility] d[facility] (Prevnar 13) Branch Polio (IPV/OPV) 2004-03-05 Completed [facility] 00:00:00 [facility] DTAP 2004-03-05 Completed [facility] 00:00:00 [facility] HIB 3 Dose Schedule 2004-03-05 Completed [facility] 00:00:00 [facility] Pneumococcal 13 2004-03-05 Completed [facility] Conjugate, PCV13 00:00:00 [place] [facility] (Prevnar 13) Branch Polio (IPV/OPV) 2004-03-05 Completed [facility] 00:00:00 [facility] DTAP 2004-03-05 Completed [facility] 00:00:00 [facility] HIB 3 Dose Schedule 2004-03-05 Completed [facility] 00:00:00 [facility] Pneumococcal 13 2004-03-05 Completed [facility] Conjugate, PCV13 00:00:00 [place] [facility] (Prevnar 13) Branch Polio (IPV/OPV) 2004-03-05 Completed [facility] 00:00:00 [facility] DTAP 2004-03-05 Completed [facility] 00:00:00 [facility] HIB 3 Dose Schedule 2004-03-05 Completed [facility] 00:00:00 [facility] Pneumococcal 13 2004-03-05 Completed [facility] Conjugate, PCV13 00:00:00 [facility] dical (Prevnar 13) Branch Polio (IPV/OPV) 2004-03-05 Completed [facility] 00:00:00 [facility] DTAP 2004-03-05 Completed [facility] 00:00:00 [facility] HIB 3 Dose Schedule 2004-03-05 Completed [facility] 00:00:00 [facility] Pneumococcal 13 2004-03-05 Completed [facility] Conjugate, PCV13 00:00:00 [facility] dical (Prevnar 13) Branch Polio (IPV/OPV) 2004-03-05 Completed [facility] 00:00:00 [facility] DTAP 2004-03-05 Completed [facility] 00:00:00 [facility] HIB 3 Dose Schedule 2004-03-05 Completed [facility] 00:00:00 [facility] Pneumococcal 13 2004-03-05 Completed [facility] Conjugate, PCV13 00:00:00 [facility] dical (Prevnar 13) Branch Polio (IPV/OPV) 2004-03-05 Completed [facility] 00:00:00 [facility] DTAP 2004-03-05 Completed [facility] 00:00:00 [facility] HIB 3 Dose Schedule 2004-03-05 Completed [facility] 00:00:00 [facility] Pneumococcal 13 2004-03-05 Completed [facility] Conjugate, PCV13 00:00:00 [place] [facility] (Prevnar 13) Branch Polio (IPV/OPV) 2004-03-05 Completed [facility] 00:00:00 [facility] DTAP 2004-03-05 Completed [facility] 00:00:00 [facility] HIB 3 Dose Schedule 2004-03-05 Completed [facility] 00:00:00 [facility] Pneumococcal 13 2004-03-05 Completed [facility] Conjugate, PCV13 00:00:00 [facility] d[facility] (Prevnar 13) Branch Polio (IPV/OPV) 2004-03-05 Completed [facility] 00:00:00 [facility] DTAP 2004-03-05 Completed University of 00:00:00 [facility] HIB 3 Dose Schedule 2004-03-05 Completed Unive rsity of 00:00:00 [facility] Pneumococcal 13 2004-03-05 Completed Universit y of Conjugate, PCV13 00:00:00 [facility] dical (Prevnar 13) Branch Polio (IPV/OPV) 2004-03-05 Completed Universit y of 00:00:00 [facility] DTAP 2004-03-05 Completed University of 00:00:00 [facility] HIB 3 Dose Schedule 2004-03-05 Completed Unive rsity of 00:00:00 [facility] Pneumococcal 13 2004-03-05 Completed Universit y of Conjugate, PCV13 00:00:00 [facility] dical (Prevnar 13) Branch Polio (IPV/OPV) 2004-03-05 Completed Universit y of 00:00:00 [facility] DTAP 2004-03-05 Completed University of 00:00:00 [facility] HIB 3 Dose Schedule 2004-03-05 Completed Unive rsity of 00:00:00 [facility] Pneumococcal 13 2004-03-05 Completed Universit y of Conjugate, PCV13 00:00:00 [facility] dical (Prevnar 13) Branch Polio (IPV/OPV) 2004-03-05 Completed [facility]it y of 00:00:00 [facility] DTAP 2004-03-05 Completed University of 00:00:00 [facility] HIB 3 Dose Schedule 2004-03-05 Completed Unive rsity of 00:00:00 [facility] Pneumococcal 13 2004-03-05 Completed [facility]it y of Conjugate, PCV13 00:00:00 [place] [facility] (Prevnar 13) [facility] Polio (IPV/OPV) 2004-03-05 Completed [facility]it [facility] of 00:00:00 [facility] DTAP 2004-03-05 Completed University of 00:00:00 [facility] HIB 3 Dose Schedule 2004-03-05 Completed Unive rsity of 00:00:00 [facility] Pneumococcal 13 2004-03-05 Completed [facility]it y of Conjugate, PCV13 00:00:00 [place] [facility] (Prevnar 13) Branch Polio (IPV/OPV) 2004-03-05 Completed [facility]it [facility] of 00:00:00 [facility] DTAP 2004-03-05 Completed University of 00:00:00 [facility] HIB 3 Dose Schedule 2004-03-05 Completed Unive rsity of 00:00:00 [facility] Pneumococcal 13 2004-03-05 Completed Universit y of Conjugate, PCV13 00:00:00 [place] [facility] (Prevnar 13) Branch Polio (IPV/OPV) 2004-03-05 Completed [facility]it [facility] of 00:00:00 [facility] DTAP 2004-03-05 Completed University of 00:00:00 [facility] HIB 3 Dose Schedule 2004-03-05 Completed Unive rsity of 00:00:00 [facility] Pneumococcal 13 2004-03-05 Completed Universit y of Conjugate, PCV13 00:00:00 [place] [facility] (Prevnar 13) Branch Polio (IPV/OPV) 2004-03-05 Completed [facility]it [facility] of 00:00:00 [facility] DTAP 2004-03-05 Completed University of 00:00:00 [facility] HIB 3 Dose Schedule 2004-03-05 Completed Unive rsity of 00:00:00 [facility] Pneumococcal 13 2004-03-05 Completed Universit y of Conjugate, PCV13 00:00:00 [place] [facility] (Prevnar 13) Branch Polio (IPV/OPV) 2004-03-05 Completed [facility]it [facility] of 00:00:00 [facility] DTAP 2004-03-05 Completed University of 00:00:00 [facility] HIB 3 Dose Schedule 2004-03-05 Completed Unive rsity of 00:00:00 [facility] Pneumococcal 13 2004-03-05 Completed Universit y of Conjugate, PCV13 00:00:00 [place] [facility] (Prevnar 13) Branch Polio (IPV/OPV) 2004-03-05 Completed [facility]it [facility] of 00:00:00 [facility] DTAP 2004-03-05 Completed University of 00:00:00 [facility] HIB 3 Dose Schedule 2004-03-05 Completed Unive rsity of 00:00:00 [facility] Pneumococcal 13 2004-03-05 Completed Universit y of Conjugate, PCV13 00:00:00 [place] [facility] (Prevnar 13) Branch Polio (IPV/OPV) 2004-03-05 Completed [facility]it [facility] of 00:00:00 [facility] DTAP 2004-03-05 Completed University of 00:00:00 [facility] HIB 3 Dose Schedule 2004-03-05 Completed Unive rsity of 00:00:00 [facility] Pneumococcal 13 2004-03-05 Completed Universit y of Conjugate, PCV13 00:00:[address] [facility] dical (Prevnar 13) Branch Polio (IPV/OPV) 2004-03-05 Completed Universit y of 00:00:00 [facility] DTAP 2004-03-05 Completed University of 00:00:00 [facility] HIB 3 Dose Schedule 2004-03-05 Completed Unive rsity of 00:00:00 [facility] Pneumococcal 13 2004-03-05 Completed Universit y of Conjugate, PCV13 00:00:[address] [facility] dical (Prevnar 13) Branch Polio (IPV/OPV) 2004-03-05 Completed Universit y of 00:00:00 [facility] DTAP 2004-03-05 Completed University of 00:00:00 [facility] HIB 3 Dose Schedule 2004-03-05 Completed Unive rsity of 00:00:00 [facility] Pneumococcal 13 2004-03-05 Completed Universit y of Conjugate, PCV13 00:00:00 [place] [facility] (Prevnar 13) Branch Polio (IPV/OPV) 2004-03-05 Completed [facility]it [facility] of 00:00:00 [facility] DTAP 2004-03-05 Completed University of 00:00:00 [facility] HIB 3 Dose Schedule 2004-03-05 Completed Unive rsity of 00:00:00 [facility] Pneumococcal 13 2004-03-05 Completed [facility]it y of Conjugate, PCV13 00:00:00 [place] [facility] (Prevnar 13) Branch Polio (IPV/OPV) 2004-03-05 Completed [facility]it [facility] of 00:00:00 [facility] DTAP 2004-03-05 Completed University of 00:00:00 [facility] HIB 3 Dose Schedule 2004-03-05 Completed Unive rsity of 00:00:00 [facility] Pneumococcal 13 2004-03-05 Completed Universit y of Conjugate, PCV13 00:00:[address] [facility] dical (Prevnar 13) Branch Polio (IPV/OPV) 2004-03-05 Completed [facility]it [facility] of 00:00:00 [facility] DTAP 2004-03-05 Completed University of 00:00:00 [facility] HIB 3 Dose Schedule 2004-03-05 Completed Unive rsity of 00:00:00 [facility] Pneumococcal 13 2004-03-05 Completed Universit y of Conjugate, PCV13 00:00:[address] [facility] dical (Prevnar 13) Branch Polio (IPV/OPV) 2004-03-05 Completed [facility]it y of 00:00:00 [facility] DTAP 2004-03-05 Completed University of 00:00:00 [facility] HIB 3 Dose Schedule 2004-03-05 Completed Unive rsity of 00:00:00 [facility] Pneumococcal 13 2004-03-05 Completed Universit y of Conjugate, PCV13 00:00:00 [facility] dical (Prevnar 13) Branch Polio (IPV/OPV) 2004-03-05 Completed Universit [facility] of 00:00:00 [facility] DTAP 2004-03-05 Completed University of 00:00:00 [facility] HIB 3 Dose Schedule 2004-03-05 Completed Unive rsity of 00:00:00 [facility] Pneumococcal 13 2004-03-05 Completed Universit y of Conjugate, PCV13 00:00:00 [facility] dical (Prevnar 13) Branch Polio (IPV/OPV) 2004-03-05 Completed [facility]it y of 00:00:00 [facility] DTAP 2004-03-05 Completed University of 00:00:00 [facility] HIB 3 Dose Schedule 2004-03-05 Completed Unive rsity of 00:00:00 [facility] Pneumococcal 13 2004-03-05 Completed Universit y of Conjugate, PCV13 00:00:00 [facility] dical (Prevnar 13) Branch Polio (IPV/OPV) 2004-03-05 Completed [facility]it [facility] of 00:00:00 [facility] DTAP 2004-03-05 Completed University of 00:00:00 [facility] HIB 3 Dose Schedule 2004-03-05 Completed Unive rsity of 00:00:00 [facility] Pneumococcal 13 2004-03-05 Completed Universit y of Conjugate, PCV13 00:00:00 [facility] dical (Prevnar 13) Branch Polio (IPV/OPV) 2004-03-05 Completed [facility]it y of 00:00:00 [facility] DTAP 2004-03-05 Completed University of 00:00:00 [facility] HIB 3 Dose Schedule 2004-03-05 Completed Unive rsity of 00:00:00 [facility] Pneumococcal 13 2004-03-05 Completed Universit y of Conjugate, PCV13 00:00:00 [facility] dical (Prevnar 13) Branch Polio (IPV/OPV) 2004-03-05 Completed Universit y of 00:00:00 [facility] Hep B, Adol or Pedi 2003 Completed Unive rsity of Dosage 00:00:00 [facility] Hep B, Adol or Pedi 2003 Completed Unive rsity of Dosage 00:00:00 [facility] Hep B, Adol or Pedi 2003 Completed Unive rsity of Dosage 00:00:00 [facility] Hep B, Adol or Pedi 2003 Completed Unive rsity of Dosage 00:00:00 [facility] Hep B, Adol or Pedi 2003 Completed Unive rsity of Dosage 00:00:00 [facility] Hep B, Adol or Pedi 2003 Completed Unive rsity of Dosage 00:00:00 [facility] Hep B, Adol or Pedi 2003 Completed Unive rsity of Dosage 00:00:00 [facility] Hep B, Adol or Pedi 2003 Completed Unive rsity of Dosage 00:00:00 [facility] Hep B, Adol or Pedi 2003 Completed Unive rsity of Dosage 00:00:00 [facility] Hep B, Adol or Pedi 2003 [...] 2003 Completed Unive rsity of Dosage 00:00:00 [facility] Hep B, Adol or Pedi 2003 Completed Unive rsity of Dosage 00:00:00 [facility] Hep B, Adol or Pedi 2003 Completed Unive rsity of Dosage 00:00:00 [facility] Hep B, Adol or Pedi 2003 Completed Unive rsity of Dosage 00:00:00 [facility] Hep B, Adol or Pedi 2003 Completed Unive rsity of Dosage 00:00:00 [facility] Hep B, Adol or Pedi 2003 Completed Unive rsity of Dosage 00:00:00 [facility] Vital Signs Vital Name Observation Time Observation Value Comments Source Systolic blood 2023-01-13 01:17:00 124 mm[Hg] Univer sity of pressure [facility] Diastolic blood 2023-01-13 01:17:00 91 mm[Hg] Unive rsity of pressure [facility] Heart rate 2023-01-13 01:17:00 98 /min [facility] Body temperature 2023-01-13 01:17:00 37 Danitza [facility] Res[facility] rate 2023-01-13 01:17:00 16 /min [facility] Body height 2023-01-13 01:17:00 154.9 cm [facility] Body weight 2023-01-13 01:17:00 83.915 kg [facility] BMI 2023-01-13 01:17:00 34.96 kg/m2 Universi ty of [facility] Oxygen saturation in 2023-01-13 01:17:00 100 /min University of Arterial blood by [facility] Pulse oximetry Branch Systolic blood 2022-11-22 18:48:00 124 mm[Hg] Univer sity of pressure [facility] Diastolic blood 2022-11-22 18:48:00 79 mm[Hg] Unive rsity of pressure [facility] Heart rate 2022-11-22 18:48:00 95 /min [facility] Body temperature 2022-11-22 18:48:00 36.5 Danitza Univ ersity of [facility] Body height 2022-11-22 18:48:00 154.9 cm [facility] Body weight 2022-11-22 18:48:00 87.408 kg [facility] BMI 2022-11-22 18:48:00 36.41 kg/m2 [facility] Body mass index 2022-11-22 18:48:00 97.88 % Unive rsity of (BMI) [Percentile] [facility] ica Per age and sex Branch Oxygen saturation in 2022-11-22 18:48:00 98 /min University of Arterial blood by [facility] Pulse oximetry Branch Systolic blood 2022-11-08 16:07:00 120 mm[Hg] Univer sity of pressure [facility] Diastolic blood 2022-11-08 16:07:00 80 mm[Hg] Unive rsity of pressure [facility] Heart rate 2022-11-08 16:07:00 95 /min [facility] Body temperature 2022-11-08 16:07:00 36.78 Danitza Univ ersity of [facility] Respiratory rate 2022-11-08 16:07:00 19 /min Univ ersity of [facility] Body height 2022-11-08 16:07:00 154.9 cm [facility] Body weight 2022-11-08 16:07:00 85.911 kg [facility] BMI 2022-11-08 16:07:00 35.79 kg/m2 [facility] Body mass index 2022-11-08 16:07:00 97.71 % Unive rsity of (BMI) [Percentile] [place] [facility] Per age and sex Branch Oxygen saturation in 2022-11-08 16:07:00 95 /min University of Arterial blood by [place] [employer] yaakov Pulse oximetry Branch Systolic blood 2022-09-19 15:30:00 131 mm[Hg] Univer sity of pressure [facility] Diastolic blood 2022-09-19 15:30:00 89 mm[Hg] Unive rsity of pressure [facility] Heart rate 2022-09-19 15:30:00 88 /min Universi ty of [facility] Respiratory rate 2022-09-19 15:30:00 18 /min Univ ersity of [facility] Body height 2022-09-19 15:30:00 154.9 cm Universi ty of [facility] Body weight 2022-09-19 15:30:00 87.091 kg [facility] BMI 2022-09-19 15:30:00 36.28 kg/m2 Universi ty of [facility] Body mass index 2022-09-19 15:30:00 97.90 % Unive rsity of (BMI) [Percentile] [place] [facility] Per age and sex Branch Oxygen saturation in 2022-09-19 15:30:00 99 /min University of Arterial blood by [facility] Pulse oximetry Branch Systolic blood 2022-09-16 15:15:00 121 mm[Hg] Univer sity of pressure [facility] Diastolic blood 2022-09-16 15:15:00 84 mm[Hg] Unive rsity of pressure [facility] Heart rate 2022-09-16 15:15:00 87 /min Universi ty of [facility] Body temperature 2022-09-16 15:15:00 36.78 Danitza Univ ersity of [facility] Respiratory rate 2022-09-16 15:15:00 14 /min Univ ersity of [facility] Body weight 2022-09-16 15:15:00 86.909 kg Universi ty of [facility] Oxygen saturation in 2022-09-16 15:15:00 97 /min University of Arterial blood by [facility] yaakov Pulse oximetry Branch Systolic blood 2022-08-20 13:50:00 124 mm[Hg] Univer sity of pressure [facility] Diastolic blood 2022-08-20 13:50:00 82 mm[Hg] Unive rsity of pressure [facility] Heart rate 2022-08-20 13:50:00 91 /min [facility] Body temperature 2022-08-20 13:50:00 36.28 Danitza Univ ersity of [facility] Respiratory rate 2022-08-20 13:50:00 15 /min Univ ersity of [facility] Body weight 2022-08-20 13:50:00 88.769 kg [facility] Oxygen saturation in 2022-08-20 13:50:00 99 /min University of Arterial blood by [place] [employer] yaakov Pulse oximetry Branch Systolic blood 2022-08-06 13:50:00 138 mm[Hg] Univer sity of pressure [facility] Diastolic blood 2022-08-06 13:50:00 74 mm[Hg] Unive rsity of pressure [facility] Heart rate 2022-08-06 13:50:00 73 /min [facility] Body temperature 2022-08-06 13:50:00 36.67 Danitza Univ ersity of [facility] Respiratory rate 2022-08-06 13:50:00 15 /min Univ ersity of [facility] Body weight 2022-08-06 13:50:00 86.138 kg [facility] Oxygen saturation in 2022-08-06 13:50:00 99 /min University of Arterial blood by [place] [employer] yaakov Pulse oximetry Branch Systolic blood 2022-07-23 17:18:00 118 mm[Hg] Univer sity of pressure [facility] Diastolic blood 2022-07-23 17:18:00 74 mm[Hg] Unive rsity of pressure [facility] Heart rate 2022-07-23 15:16:00 79 /min [facility] Body temperature 2022-07-23 15:16:00 36.89 Danitza Univ ers[facility] of [facility] Respiratory rate 2022-07-23 15:16:00 16 /min Univ ersity of [facility] Body weight 2022-07-23 15:16:00 86.41 kg [facility] Systolic blood 2022-07-17 14:59:00 124 mm[Hg] Univer sity of pressure [facility] Diastolic blood 2022-07-17 14:59:00 81 mm[Hg] Unive rsity of pressure [facility] Heart rate 2022-07-17 14:59:00 87 /min [facility] Body temperature 2022-07-17 14:59:00 36.61 Danitza Univ ersity of [facility] Respiratory rate 2022-07-17 14:59:00 18 /min Univ ersity of [facility] Body weight 2022-07-17 14:59:00 86.818 kg [facility] Oxygen saturation in 2022-07-17 14:59:00 99 /min University of Arterial blood by [place] [employer] yaakov Pulse oximetry Branch Systolic blood 2022-06-18 17:49:00 122 mm[Hg] Univer sity of pressure [facility] Diastolic blood 2022-06-18 17:49:00 78 mm[Hg] Unive rsity of pressure [facility] Heart rate 2022-06-18 16:12:00 101 /min [facility] Body temperature 2022-06-18 16:12:00 36.11 Danitza Univ ersity of [facility] Respiratory rate 2022-06-18 16:12:00 16 /min Univ ersity of [facility] Body weight 2022-06-18 16:12:00 85.548 kg [facility] Oxygen saturation in 2022-06-18 16:12:00 99 /min University of Arterial blood by [place] [employer] yaakov Pulse oximetry Branch Systolic blood 2022-04-26 21:10:00 145 mm[Hg] Univer sity of pressure [facility] Diastolic blood 2022-04-26 21:10:00 88 mm[Hg] Unive rsity of pressure [facility] Heart rate 2022-04-26 21:10:00 84 /min [facility] Respiratory rate 2022-04-26 21:10:00 15 /min Univ ers[facility] Body weight 2022-04-26 21:10:00 87.408 kg [facility] Systolic blood 2022-03-05 12:38:00 126 mm[Hg] Univer sity of pressure [facility] Diastolic blood 2022-03-05 12:38:00 77 mm[Hg] Unive rsity of pressure [facility] Heart rate 2022-03-05 12:38:00 85 /min Universi ty of [facility] Body temperature 2022-03-05 12:38:00 36.94 Danitza Univ ersity of [facility] Respiratory rate 2022-03-05 12:38:00 16 /min Univ ersity of [facility] Body height 2022-03-05 12:38:00 157.5 cm Universi ty of [facility] Body weight 2022-03-05 12:38:00 85.866 kg Universi ty of [facility] BMI 2022-03-05 12:38:00 34.62 kg/m2 Universi ty [facility] Body mass index 2022-03-05 12:38:00 97.58 % Unive rsity of (BMI) [Percentile] [facility] ica Per age and sex Branch Systolic blood 2021-12-18 13:54:00 138 mm[Hg] Univer sity of pressure [facility] Diastolic blood 2021-12-18 13:54:00 82 mm[Hg] Unive rsity of pressure [facility] Heart rate 2021-12-18 13:54:00 92 /min Universi ty of [facility] Respiratory rate 2021-12-18 13:54:00 16 /min Univ ersity of [facility] Body weight 2021-12-18 13:54:00 86.138 kg Universi ty [facility] height 2021-04-24 08:30:00 61 [in_i] Common [facility] weight 2021-04-24 08:30:00 175 [lb_av] [facility] temperature 2021-04-24 08:30:00 97.2 [degF] Common [facility] bmi 2021-04-24 08:30:00 33.06 kg/m2 Common [facility] blood pressure 2021-04-24 08:30:00 100 mm[Hg] [facility] blood pressure 2021-04-24 08:30:00 72 mm[Hg] [facility] diastolic [facility] height 2021-02-22 08:00:00 61 [in_i] [facility] - [facility] weight 2021-02-22 08:00:00 175 [lb_av] [facility] - [facility] bmi 2021-02-22 08:00:00 33.06 kg/m2 [facility] - [facility] blood pressure 2021-02-22 08:00:00 145 mm[Hg] [facility] systolic [facility] blood pressure 2021-02-22 08:00:00 97 mm[Hg] [facility] diastolic [facility] height 2020-12-25 10:00:00 61 [in_i] [facility] - [facility] weight 2020-12-25 10:00:00 175.5 [lb_av] [facility] bmi 2020-12-25 10:00:00 33.16 kg/m2 Common [facility] - [facility] blood pressure 2020-12-25 10:00:00 133 mm[Hg] [facility] systolic [facility] blood pressure 2020-12-25 10:00:00 87 mm[Hg] [facility] Procedures Procedure Date / Time Performing Clinician Source Performed ASSIGNMENT OF BENEFITS 2023-01-13 03:39:37 Doctor Unassigned, [facility] [place] [facility] POCT TEST 2023-01-13 02:47:00 Bayron Bermeo [facility] URINALYSIS 2023-01-13 01:58:00 Bayron eBrmeo [facility] CONSENT/REFUSAL FOR 2023-01-13 01:02:47 Doctor Unassigned, [facility] DIAGNOSIS AND TREATMENT [place] THROAT CULTURE 2022-11-22 19:12:00 Hussain Zamarripassica [place] [facility] POCT GRP A STREP 2022-11-08 16:46:00 Gaudencio Cowan [facility] (MOLECULAR) Medical Branch POCT MOLECULAR STREP 2022-08-20 14:39:00 Kirti Zavala [facility] URINALYSIS 2022-07-23 16:30:00 [facility] URINE CULTURE 2022-07-23 16:30:00 Kirti [facility]av[facility] POCT URINALYSIS 2022-07-23 00:00:00 Kirti Zav[facility] FERRITIN SERUM 2022-07-17 15:36:00 Kirti Zavala [facility] TOTAL IRON BINDING 2022-07-17 15:36:00 Kirti Zavala [facility] FREE T4 2022-07-17 15:36:00 Kirti Zavala [facility] TRIIODOTHYRONINE 2022-07-17 15:36:00 Kirti Zavala [facility] COMP. METABOLIC PANEL 2022-07-17 15:36:00 Kirti [facility]avala [facility] ([id number]) [facility] CBC WITH DIFF 2022-07-17 15:36:00 Kirti Zavala [facility] PATIENT FINANCIAL 2022-07-17 14:40:48 [facility] [place] [facility] ASSIGNMENT OF BENEFITS 2022-04-26 20:56:52 [facility] GARDASIL 9 (HPV 9V) 2022-03-05 12:48:[address] [facility] VACCINE [facility] [id number] CONSENT 2021-12-18 05:01:00 Doctor Unaerumigned, [facility] [place] [facility] Encounters Start End Encounter Admission Attending Care Care Encounter Source Date/Time Date/Time Type Type Clinicians Facility Department ID 2022-12-23 Outpatient [facility] [id number] Common 16:18:00 [id number] [facility] 2021-06-13 Outpatient [facility] [id number] Common 14:26:40 [id number] [facility] 2021-06-13 [facility] Common 14:02:33 [id number] [facility] 2021-06-13 [facility] Common 13:38:36 [id number] [facility] 2021-06-13 [facility] Common 13:35:54 [id number] [facility] 2023-01-20 2023-01-20 Outpatient [facility] Zach 15:38:37 15:38:37 [id number] [place] 2023-01-12 2023-01-12 Emergency X [facility] ERT [id number] Univers 20:19:00 22:47:00 BAYRON aquino [facility] 2023-01-12 2023-01-12 Emergency [facility] [id number] Univers 20:19:00 22:47:00 Bayron JOHNSON [id number] ity [facility] [id number] [place] [facility] [id number] [address] 2022-12-29 2022-12-29 Outpatient [facility] Zach 14:02:39 14:02:39 [id number] [facility] 2022-12-09 2022-12-09 Outpatient [facility] Zach 15:01:21 15:01:21 [id number] [facility] 2022-11-29 2022-11-29 Outpatient [facility] Zach 09:04:32 09:04:32 [id number] [facility] 2022-11-22 2022-11-22 Outpatient R DALLIN [facility] [id number] Univers 13:30:00 14:14:43 LORRIE aquino [facility] 2022-11-22 2022-11-22 Office [facility] 1.2.840.114 [id number] Univers 13:30:00 14:14:43 Visit Lorrie JOHNSON 350.1.13.10 i ty [facility] 4.2.[place].2.[place] [facility] [phone] [address] 2022-11-11 2022-11-11 Outpatient R ZAMARRIPA [facility] [id number] Univers 13:00:00 13:00:00 LORRIE aquino [facility] 2022-11-08 2022-11-08 Outpatient R GAUDENCIO COWAN [facility] [id number] Univers 11:00:00 11:51:31 GAUDENCIO COWAN alfredomarlene [facility] 2022-11-08 2022-11-08 Office [facility] 1.2.840.114 [id number] Univers 11:00:00 11:51:31 Visit Gaudencio ALEX 350.1.13.10 ity of [facility] 4.2.[place].2.[place] PROFESS[place] [phone] [address] 2022-11-05 2022-11-05 [facility] [id number] Univers 10:00:00 10:00:00 LORRIE aquino [facility] 2022-10-28 2022-10-28 Out[facility] [id number] Univers 10:00:00 10:00:00 LORRIE alfredomarlene [facility] 2022-10-13 2022-10-13 Refill [facility] 1.2.840.114 [id number] Univers 00:00:00 00:00:00 Lorrie JOHNSON 350.1.13.10 i ty of [place] [phone] [facility] 044 [facility] 2022-09-19 2022-09-19 Medicaid Nurse 2, Adc Lab [facility] 1.2.840.114 [id number] Univers 11:00:00 11:15:00 Visit Lorrie Zamarripa 350.1.13.10 ity of [place] [phone] [facility] 353 [facility] 2022-09-19 2022-09-19 Outpatient [facility] [id number] Univers 10:30:00 10:52:56 [facility]22-[facility]-19 2022-09-19 Office [facility] 1.2.840.114 [id number] Univers 10:30:00 10:52:56 Visit Lorrie ALEX 350.1.13.10 i ty of [place] 4.2.7.2.686 Christ[place] NORRISIO [phone] [place] dical [address] 2022-09-16 2022-09-16 Office [facility] 1.2.840.114 [id number] Univers 10:10:00 10:50:00 Visit , Kirti HUYNH 350.1.13.10 it y [place] [id number] [address] 2022-09-16 2022-09-16 Outpatient R [facility] [id number] Univers 10:10:00 10:44:02 , KIRTI aquino [facility] 2022-08-28 2022-08-28 Outpatient [facility] [id number] Zach 13:04:51 13:04:51 [id number] F [place] 2022-08-27 2022-08-27 Patient [facility] 1.2.840.114 [id number] Univers 00:00:00 00:00:00 Secure Msg , Kirti HUYNH 350.1.13.10 it[place] [id number] [address] 2022-08-20 2022-08-20 Outpatient R [facility] [id number] Univers 08:50:00 10:09:13 , KIRTI aquino [facility] 2022-08-20 2022-08-20 Office [facility] 1.2.840.114 [id number] Univers 08:50:00 10:09:13 Visit , Kirti HUYNH 350.1.13.10 it [place] [id number] [address] 2022-08-06 2022-08-06 [facility] [id number] Univers 08:50:00 09:20:30 , KIRTI aquino [facility] 2022-08-06 2022-08-06 Office [facility] 1.2.840.114 [id number] [facility] 08:50:00 09:20:30 Visit , Kirti HUYNH 350.1.13.10 it [place] [id number] [address] 2022-07-31 2022-07-31 Outpatient R [facility] [id number] [facility] 08:10:00 08:10:00 , KIRTI aquino [facility] 2022-07-26 2022-07-26 Patient [facility] 1.2.840.114 [id number] Univers 00:00:00 00:00:00 Secure Msg , Kirti HUYNH 350.1.13.10 [place] [id number] [address] 2022-07-23 2022-07-23 Outpatient R [facility] [id number] [facility] 09:10:00 11:21:44 , KIRTI aquino [facility] 2022-07-23 2022-07-23 Office [facility] 1.2.840.114 [id number] [facility] 09:10:00 11:21:44 Visit , Kirti HUYNH 350.1.13.10 it [place] [id number] [address] 2022-07-19 2022-07-19 Telephone [facility] 1.2.840.11 [id number] Univers 00:00:00 00:00:00 , Kirti HUYNH 350.1.13.10 it [place] [id number] [address] 2022-07-17 2022-07-17 Outpatient R [facility] [id number] [facility] 08:50:00 09:39:40 , KIRTI aquino [facility] 2022-07-17 2022-07-17 Office [facility] 1.2.840.114 [id number] Univers 08:50:00 09:39:40 Visit , Kirti HUYNH 350.1.13.10 it [place] [id number] [address] 2022-07-17 2022-07-17 Orders Doctor ISAI 1.2.840.114 [id number] Univers 00:00:00 00:00:00 Only Unassigned, SARAH 350.1.13.10 [place] [facility] 4.2.7.2.686 [place] as [phone] [address] 2022-07-17 2022-07-17 Letter [facility] 1.2.840.114 [id number] Univers 00:00:00 00:00:00 (Out) , Kirti HUYNH 350.1.13.10 [place] [id number] [address] 2022-06-20 2022-06-20 Telephone [facility] 1.2.840.11 [id number] Univers 00:00:00 00:00:00 , Kirti HUYNH 350.1.13.10 it [place] [id number] [address] 2022-06-18 2022-06-18 Outpatient R [facility] [id number] Univers 10:10:00 10:46:37 , KIRTI aquino of [facility] 2022-06-18 2022-06-18 Office [facility] 1.2.840.114 [id number] Univers 10:10:00 10:46:37 Visit , Kirti HUYNH 350.1.13.10 it [place] [id number] [address] 2022-06-18 2022-06-18 Letter [facility] 1.2.840.114 [id number] Univers 00:00:00 00:00:00 (Out) , Kirti HUYNH 350.1.13.10 it [place] [id number] [address] 2022-06-05 2022-06-05 Outpatient [facility] [id number]- Zach 11:16:58 11:16:58 [id number] F [place] 2022-04-26 2022-04-26 Outpatient R [facility] [id number] Univers 15:10:00 15:55:14 , KIRTI aquino of [facility] 2022-04-26 2022-04-26 Office [facility] 1.2.840.114 [id number] Univers 15:10:00 15:55:14 Visit , Kirti HUYNH 350.1.13.10 it [place] [id number] [address] 2022-04-26 2022-04-26 Telephone [facility] 1.2.840.11 [id number] Univers 00:00:00 00:00:00 , Kirti HUYNH 350.1.13.10 it [place] [id number] [address] 2022-04-26 2022-04-26 Orders Doctor ISAI 1.2.840.114 [id number] Univers 00:00:00 00:00:00 Only Unassigned, SARAH 350.1.13.10 ity [place] [facility] 4.2.7.2.686 [place] as [id number] [address] 2022-03-05 2022-03-05 Office [facility] 1.2.840.114 [id number] Univers 07:30:00 07:50:00 Visit , Kirti HUYNH 350.1.13.10 it [place] [id number] [address] 2022-03-05 2022-03-05 Outpatient R [facility] [id number] Univers 07:30:00 07:30:00 , KIRTI aquino of [facility] 2022-01-13 2022-01-13 Anton Gray [facility] 1.2.840.114 [id number] Univers 00:00:00 00:00:00 Heidi booth 350.1.13.10 it[place] [id number] [address] 2021-12-18 2021-12-18 Office [facility] 1.2.840.114 [id number] Univers 08:50:00 09:30:32 Visit , Kirti HUYNH 350.1.13.10 it [place] [id number] [address] 2021-12-18 2021-12-18 Outpatient R [facility] [id number] Univers 08:50:00 09:30:32 , KIRTI aquino [facility] 2021-12-18 2021-12-[address] [facility] [id number] Univers 08:50:00 08:50:00 , KIRTI aquino [facility] 2021-12-18 2021-12-18 Orders Doctor ISAI 1.2.840.114 [id number] Univers 00:00:00 00:00:00 Only UnassignedSARAH 350.1.13.10 ity of [place] [facility] 4.2.7.2.686 [place] as [phone] [address] 2021-12-17 2021-12-17 [facility] 1.2.840.114 [id number] Univers 00:00:00 00:00:00 , Kirti HUYNH 350.1.13.10 it [place] 564.5029593 [address] 2021-10-17 2021-10-17 Orders Doctor ISAI 1.2.840.114 [id number] Univers 00:00:00 00:00:00 Only UnassignedSARAH 350.1.13.10 ity of [place] [facility] 4.2.7.2.686 [place] [phone] [address] 2021-10-05 2021-10-05 Outpatient R [facility] [id number] [facility] 09:10:00 09:39:17 , KIRTI aquino [facility] 2021-10-05 2021-10-05 Office [facility] 1.2.840.114 [id number] [facility] 09:10:00 09:39:17 Visit , Kirti HUYNH 350.1.13.10 [place] [id number] [address] 2021-10-05 2021-10-05 Outpatient R [facility] [id number] Univers 09:10:00 09:39:17 , KIRTI aquino [facility] 2021-09-16 2021-09-16 Refill [facility] 1.2.840.114 [id number] Univers 00:00:00 00:00:00 , Kirti HUYNH 350.1.13.10 [place] 352.0710131 [address] 2021-09-05 2021-09-05 Refill [facility] 1.2.840.114 [id number] Univers 00:00:00 00:00:00 , Kirti HUYNH 350.1.13.10 it [place] [id number] [address] 2021-08-22 2021-08-22 Refill [facility] 1.2.840.114 [id number] Univers 00:00:00 00:00:00 , Kirti HUYNH 350.1.13.10 it [place] [id number] [address] 2021-07-31 [facility] 1.[facility].840.114 [id number] Univers 00:00:00 00:00:00 , Kirti HUYNH 350.1.13.10 it [place] [id number] [address] 2021-07-05 2021-07-05 Refill [facility] 1.2.840.114 [id number] Univers 00:00:00 00:00:00 , Kirti HUYNH 350.1.13.10 it [place] [id number] [address] 2021-06-22 2021-06-22 Office [facility] 1.2.840.114 [id number] Univers 10:10:00 10:32:50 Visit , Kirti HUYNH 350.1.13.10 it [place] [id number] [address] 2021-06-22 2021-06-22 Outpatient R [facility] [id number] Univers 10:10:00 10:32:50 , KIRTI aquino [facility] 2021-06-22 2021-06-22 Outpatient R [facility] [id number] Univers 10:10:00 10:10:00 , KIRTI aquino [facility] 2021-05-25 2021-05-25 Office [facility] 1.2.840.114 [id number] Univers 07:50:00 08:10:00 Visit , Kirti HUYNH 350.1.13.10 it [place] [facility] [id number] [address] 2021-05-25 2021-05-25 Outpatient R [facility] [id number] Univers 07:50:00 07:50:00 , KIRTI aquino [facility] 2021-05-08 2021-05-08 Telephone [facility] 1.2.840.11 [id number] Univers 00:00:00 00:00:00 , Kirti HUYNH 350.1.13.10 it [place] 575.0321984 [address] 2021-04-24 2021-04-24 OFFICE STLMLC STLMLC [id number] Co mmon 00:00:00 00:00:00 VISIT EST Spir it PT LEVEL 3 - [facility] 2021-03-26 2021-03-26 Outpatient R [facility] [id number] Univers 07:50:00 08:17:10 , KIRTI miles [facility] 2021-03-26 2021-03-26 Outpatient R [facility] [id number] Univers 07:50:00 08:17:10 , KIRTI miles [facility] 2021-03-26 2021-03-26 Office [facility] 1.2.840.114 [id number] Univers 07:35:06 08:17:10 Visit , Kirti HUYNH 350.1.13.10 it [place] [facility] [id number] [facility] [address] 2021-03-26 2021-03-26 Orders Doctor ISAI 1.2.840.114 [id number] Univers 00:00:00 00:00:00 Only Unassigned, SARAH 350.1.13.10 [place] [facility] 4.2.7.2.686 [place] as [phone] [facility] [address] 2021-02-26 2021-02-26 Outpatient R [facility] [id number] Univers 07:30:00 07:30:00 , KIRTI aquino [facility] 2021-02-22 2021-02-22 OFFICE STLMLC STLMLC [id number] Co mmon 00:00:00 00:00:00 VISIT EST Spir it PT LEVEL 3 - [facility] 2021-02-13 2021-02-13 Telephone [facility] 1.2.840.11 [id number] Univers 00:00:00 00:00:00 , Kirti Huynh 350.1.13.10 [place] [id number] [facility] [address] 2020-12-26 2020-12-26 (TEL) STLMLC STLMLC [id number] Co mmon 00:00:00 00:00:00 [facility] 2020-12-25 2020-12-[address] [facility] [id number] Co mmon 00:00:00 00:00:00 VISIT NEW Spir it PT LEVEL 3 - [facility] 2020-11-09 2020-11-09 Refill [facility] 1.2.840.114 [id number] Univers 00:00:00 00:00:00 , Kirti Huynh 350.1.13.10 [place] [id number] [address] 2020-10-30 2020-10-30 Office [facility] 1.2.840.114 [id number] Univers 08:13:03 08:53:06 Visit , Kirti Huynh 350.1.13.10 [place] [id number] [address] 2020-10-30 2020-10-30 Outpatient R [facility] [id number] Univers 08:10:00 08:10:00 , KIRTI aquino [facility] 2020-10-08 2020-10-08 Refill [facility] 1.2.840.114 [id number] Univers 00:00:00 00:00:00 , Kirti Huynh 350.1.13.10 [place] [facility] [id number] [address] 2020-09-21 2020-09-21 Telephone [facility] 1.2.840.11 [id number] Univers 00:00:00 00:00:00 , Kirti Huynh 350.1.13.10 [place] [facility] [id number] [address] 2020-09-11 2020-09-11 Outpatient R [facility] [id number] Univers 14:50:00 14:50:00 , KIRTI aquino [facility] 2020-09-11 2020-09-11 Office [facility] 1.2.840.114 [id number] Univers 14:17:17 14:37:17 Visit , Kirti Huynh 350.1.13.10 [place] [facility] [id number] [address] 2020-09-08 2020-09-08 Outpatient R [facility] [id number] Univers 08:00:00 08:00:00 ity of [facility] 2020-09-08 2020-09-08 Medicaid Nurse Lab, Lkj Radha [facility] 1.2.840 .114 [id number] Univers 07:37:02 07:52:02 Visit Kirti Zavala 350.1.13.10 it[place] [facility] [id number] [address] 2020-06-09 2020-06-09 Office [facility] 1.2.840.114 [id number] Univers 13:37:53 14:45:06 Visit , Kirti Huynh 350.1.13.10 it y of Pediatric 4.2.7.2.686 [facility] [id number] [address] 2020-06-09 2020-06-09 Out[facility] [id number] Univers 13:50:00 13:50:00 , KIRTI aquino of [facility] 2020-05-02 2020-05-02 Telephone [facility] 1.2.840.9 [id number] Univers 00:00:00 00:00:00 , Kirti Hobson 34228.1.1 ity of 3.104.2.7 [place] ..104341 Medica l .[address] 2020-03-14 2020-03-14 Office [facility] 1.2.840.6 [id number] Univers 08:24:03 10:07:46 Visit , Kirti Hobson 49588.1.1 ity of 3.104.2.7 [place] ..406078 Medica l .[address] 2020-03-14 2020-03-14 Outpatient R [facility] [id number] Univers 08:30:00 08:30:00 , KIRTI aquino of [facility] 2020-03-14 2020-03-14 Travel 1.2.840.1 1.2.635.892 [id number] Univers 00:00:00 00:00:00 87338.1.1 350.1.13.10 it[place] of 3.104.2.7 [place].3.698 [place] .3.020697 084.8 Medica l .[address] 2020-03-07 2020-03-07 [facility] 1.2.840.1 10 [id number] Univers 08:17:02 08:58:21 Visit Lab, Lkj Pedi 03797.1.1 ity of 3.104.2.7 [place] .3.736680 Medica l .[address] 2020-03-07 2020-03-07 Outpatient R [facility] [id number] Univers 08:15:00 08:15:00 , KIRTI ity of [facility] 2020-03-07 2020-03-07 [facility] [place] 1.2.840.114 [id number] Univers 00:00:00 00:00:00 (Out) , Kirti Huynh 350.1.13.10 [place]7.2.[place] [facility] [id number] [facility] [address] 2020-03-07 2020-03-07 Travel 1.2.840.1 1.2.774.084 [id number] Univers 00:00:00 00:00:00 89800.1.1 350.1.13.10 ity of 3.104.2.7 [place].3.698 [place] .3.294275 084.8 Medica l .[address] 2020-03-02 2020-03-02 [facility] 1.2.840.6 [id number] Univers 13:57:26 23:59:00 María , Kirti Hobson 74077.1.1 it y of 3.104.2.7 [place] .3.914332 Medica l .[address] 2020-03-02 2020-03-02 Outpatient R [facility] [id number] Univers 00:00:00 00:00:00 , KIRTI ity of [facility] 2020-03-02 2020-03-02 Orders Doctor 1.2.840.5 [id number] Univers 00:00:00 00:00:00 Only Unassigned, 37255.1.1 ity [place] 3.104.2.7 [place] .3.025603 Medica l .[address] 2020-03-02 2020-03-02 Travel 1.2.840.1 1.2.553.726 [id number] Univers 00:00:00 00:00:00 74712.1.1 350.1.13.10 ity of 3.104.2.7 [place].3.698 [place] .3.901632 084.8 Medica l .[address] 2020-03-01 2020-03-01 Office [facility] 1.2.840.9 [id number] Univers 15:43:02 16:12:11 Visit , Kirti Hobson 27293.1.1 ity of 3.104.2.7 [place] .3.212209 Medica l .[address] 2020-03-01 2020-03-01 Outpatient R [facility] [id number] Univers 15:50:00 15:50:00 , KIRTI ity of [facility] 2020-01-26 2020-01-26 Refill [facility] 1.2.840.9 [id number] Univers 00:00:00 00:00:00 , Kirti Hobson 88325.1.1 ity of 3.104.2.7 [place] .3.255284 Medica l .[address] [place] 2019-12-06 2019-12-29 Office [facility] 1.2.840.1 [id number] Univers 08:53:20 11:24:50 Visit , Kirti Hobson 48824.1.1 ity of 3.104.2.7 [place] .3.958475 Medica l .[address] 2019-12-27 2019-12-27 Refill [facility] 1.2.840.1 [id number] Univers 00:00:00 00:00:00 , Kirti Hobson 63147.1.1 ity of 3.104.2.7 [place] .3.868370 Medica l .[address] 2019-12-06 2019-12-06 Outpatient R [facility] [id number] Univers 09:00:00 09:00:00 , KIRTI ity of [facility] 2019-12-06 2019-12-06 Travel 1.2.840.1 1.2.696.315 [id number] Univers 00:00:00 00:00:00 26230.1.1 350.1.13.10 ity of 3.104.2.7 [place]3.698 [place] .3.093354 084.8 Medica l .[address] 2019-12-06 2019-12-06 Orders Doctor 1.2.840.5 [id number] Univers 00:00:00 00:00:00 Only Unassigned, 08206.1.1 it[place] of [place] 3.104.2.7 [place] .3.199389 Medica l .[address] 2019-11-29 2019-11-29 Refill [facility] 1.2.840.114 [id number] Univers 00:00:00 00:00:00 , Kirti Huynh 350.1.13.10 [place] [facility] 002.9355717 [address] 2019-10-27 2019-10-27 Refill [facility] 1.2.840.114 [id number] Univers 00:00:00 00:00:00 , Kirti Huynh 350.1.13.10 [place].2.[place] [facility] 146.4857789 [address] 2019-09-17 2019-09-17 [facility] 1.2.840.114 [id number] Univers 00:00:00 00:00:00 , Kirti Huynh 350.1.13.10 it [place]7.2.[place] [facility] [id number] [address] 2019-08-18 2019-08-18 [address]1 14 [id number] Univers 10:55:44 11:15:44 ne Visit , Kirti Huynh 350.1.13.10 i ty of Pediatric 4.2.7.2.686 [place] [facility] 465.0708712 [address] 2019-08-18 2019-08-18 Outpatient R [facility] [id number] Univers 10:50:00 10:50:00 , KIRTI aquino of [facility] 2019-08-18 2019-08-18 Telephone [facility] 1.2.840.11 [id number] Univers 00:00:00 00:00:00 , Kirti Huynh 350.1.13.10 [place].2.[place] [facility] 165.1674753 [address] 2019-07-23 2019-07-23 Refill [facility] 1.2.840.114 [id number] Univers 00:00:00 00:00:00 , Kirti Huynh 350.1.13.10 it y of Pediatric 4.2.7.2.686 [facility] [id number] [address] 2019-06-25 2019-06-25 Refill [facility] 1.2.840.114 [id number] Univers 00:00:00 00:00:00 , Kirti Huynh 350.1.13.10 it y of Pediatric 4.2.7.2.686 [facility] [id number] [address] 2019-06-24 2019-06-24 Office Andrade Wharton [facility] 1.2.840.114 [id number] Univers 13:14:16 13:48:00 Visit Lino 350.1.13.10 it y of Pediatric 4.2.7.2.686 [facility] [phone] [address] 2019-06-04 2019-06-04 Office [facility] 1.2.840.114 [id number] Univers 07:52:49 08:12:49 Visit , Kirti Huynh 350.1.13.10 it y of Pediatric 4.2.7.2.686 [facility] [id number] [address] 2019-06-04 2019-06-04 Letter [facility] 1.2.840.114 [id number] Univers 00:00:00 00:00:00 (Out) , Kirti Huynh 350.1.13.10 it y of Pediatric 4.2.7.2.686 [facility] [id number] [address] 2019-06-04 2019-06-04 Letter [facility] 1.2.840.114 [id number] Univers 00:00:00 00:00:00 (Out) , Kirti Huynh 350.1.13.10 it y of Pediatric 4.2.7.2.686 [facility] [id number] [address] 2019-06-03 2019-06-03 Telephone [facility] 1.2.840.11 [id number] Univers 00:00:00 00:00:00 , Kirti Huynh 350.1.13.10 it y of Pediatric 4.2.7.2.686 [facility] [id number] [address] 2019-02-04 2019-02-04 Orders Doctor ISAI 1.2.840.114 [id number] Univers 00:00:00 00:00:00 Only Unassigned, SARAH 350.1.13.10 ity of [facility] 4.2.7.2.686 Doron as [phone] [facility] [address] 2019-01-28 2019-01-28 Office CORNELIA Hollis 1.2.891.059 [id number] Univers 09:02:42 09:57:29 Visit Ivan Bernard 350.1.13.10 it y of Surgical 4.2.7.2.686 [place] as Specialti [phone] [place] [facility] [address] [facility] 2019-01-28 2019-01-28 Letter CORNELIA Hollis 1.2.259.894 [id number] Univers 00:00:00 00:00:00 (Out) Ivan Bernard 350.1.13.10 it y of Surgical 4.2.7.2.686 Dor[facility] as Specialti [phone] Me dical es [address] 2019-01-25 2019-01-25 Telephone Lucas [facility] 1.2.840.11 [id number] Univers 00:00:00 00:00:00 , Kirti Huynh 350.1.13.10 it y of Pediatric 4.2.7.2.686 [facility] [phone] [facility] [address] 2019-01-11 2019-01-11 Office Chela [facility] [id number] [facility] 14:00:31 14:40:37 Visit Fely Johnson 350.1.13.10 i ty of [place] 4.2.7.2.686 Christi Clancyessio [phone] [place] dical nal 134 [facility] Results Test Description Test Time Test Comments Results Result Comments Source POCT TEST 2023-01-13 02:47:00 Test Item Value Reference Range Interpretation Comme nts POCT PREG (test code = 1605) Negative On board controls acceptable with C Line (test code = 3574) Yes POCT PREG LOT # (test code = 3575) [id number] POCT PREG TEST DATE (test code = 3576) 07/17/2024 Lab Interpretation (test code = 16558-1) Normal [facility] GRP A STREP (MOLECULAR)2022-11-08 16:46:00 Test Item Value Reference Range Interpretation Comments POCT GP A STREP (test code = positive Negative - Negative 17570-1) [facility] GRP A STREP (MOLECULAR)2022-11-08 16:46:00 Test Item Value Reference Range Interpretation Comments POCT GP A STREP (test code = positive Negative - Negative 66447-5) [facility] MOLECULAR [id number] 14:46:44 Test Item Value Reference Range Interpretation Comments POCT Molecular Strep (test code = Negative Negative 66354-4) Lab Interpretation (test code = Normal 45460-3) [facility] MOLECULAR [id number] 14:46:44 Test Item Value Reference Range Interpretation Comments POCT Molecular Strep (test code = Negative Negative 22868-8) Lab Interpretation (test code = Normal 62112-5) [facility] URINALYSIS W SPECIFIC [id number] 16:29:00 Test Item Value Reference Range Interpretation Comments POCT U SP GRAV (test code = 1.025 mg/dl 1.005-1.025 3255) POCT PH U (test code = 3254) 5 mg/dl 5-8 POCT U LEUK EST (test code = Negative Negative - Negative 3263) POCT U NIT (test code = 3262) Negative Negative - Negative POCT U PROT (test code = trace Negative - Negative 3259) POCT U GLU (test code = 3256) Negative Negative - Negative POCT U KETONE (test code = Negative Negative - Negative 3258) POCT U UROBILI (test code = Negative 0.2-1 3260) POCT U BILI (test code = Negative Negative - Negative 3261) POCT U BLD (test code = 3257) 250 Negative - Negative POCT U COLOR (test code = dark yellow 3266) POCT U APPEAR (test code = hazy 3267) [facility] URINALYSIS W SPECIFIC [id number] 16:29:00 Test Item Value Reference Range Interpretation Comments POCT U SP GRAV (test code = 1.025 mg/dl 1.005-1.025 3255) POCT PH U (test code = 3254) 5 mg/dl 5-8 POCT U LEUK EST (test code = Negative Negative - Negative 3263) POCT U NIT (test code = 3262) Negative Negative - Negative POCT U PROT (test code = trace Negative - Negative 3259) POCT U GLU (test code = 3256) Negative Negative - Negative POCT U KETONE (test code = Negative Negative - Negative 3258) POCT U UROBILI (test code = Negative 0.2-1 3260) POCT U BILI (test code = Negative Negative - Negative 3261) POCT U BLD (test code = 3257) 250 Negative - Negative POCT U COLOR (test code = dark yellow 3266) POCT U APPEAR (test code = hazy 3267) [facility] URINALYSIS W SPECIFIC [id number] 16:29:00 Test Item Value Reference Range Interpretation Comments POCT U SP GRAV (test code = 1.025 mg/dl 1.005-1.025 3255) POCT PH U (test code = 3254) 5 mg/dl 5-8 POCT U LEUK EST (test code = Negative Negative - Negative 3) POCT U NIT (test code = 3262) Negative Negative - Negative POCT U PROT (test code = trace Negative - Negative 3259) POCT U GLU (test code = 3256) Negative Negative - Negative POCT U KETONE (test code = Negative Negative - Negative 3258) POCT U UROBILI (test code = Negative 0.2-1 3260) POCT U BILI (test code = Negative Negative - Negative 3261) POCT U BLD (test code = 3257) 250 Negative - Negative POCT U COLOR (test code = dark yellow 6) POCT U APPEAR (test code = hazy 3266) [facility] [id number] 05:33:44 Test Item Value Reference Range Interpretation Comments HEMOGLOBIN A1c (test code = 36208) 5.0 % 4.2-5.6 THYROID II PROFILE (TU,T4,FTI,TSH)2021-08-09 03:59:32 Test Item Value Reference Range Interpretation Comments T-UPTAKE (test code = 2817) 33.1 % 24.3-39.0 THYROX. BIND. CAPAC. (test code 1.0 0.8-1.3 = 86821) T4 (THYROXINE) (test code = 10.3 UG/DL 4.5-10.5 2819) CORRECTED T4 (FTI) (test code = 10.3 UG/DL 4.2-11.6 2820) TSH, THIRD GENERATION (test code 1.980 UIU/ML 0.500-4.300 = 2821) CBC W/AUTO DIFF WITH [id number] 02:47:17 Test Item Value Reference Range Interpretation [...] RBCS 0.00 K/UL 0.00-0.13 (test code = 03907) COMPREHENSIVE METABOLIC [id number] 02:35:49 Test Item Value Reference Range Interpretation Comments GLUCOSE (test code = 108 MG/DL 70-99 H 2216) BUN (test code = 10 MG/DL 5-18 2207) CREATININE (test 0.83 MG/DL 0.50-1.10 code = 2214) eGFR (2020 CKD-EPI) NO CALC >60 NOTE: 2 021 CKD-EPI (test code = 37371) ML/MIN/1.73 is not v alidated for pediatric populations. Fo r patients less t robert 19 years old, consider NKF pediatric eGFR calculator https://www.kid tiffanie.o rg/professional s/kdo qi/gfr_calculat orPed CALC BUN/CREAT (test 12 RATIO 6-28 code = 2234) SODIUM (test code = 140 MEQ/L 425-079 5142) POTASSIUM (test code 4.2 MEQ/L 3.5-5.4 = 2227) CHLORIDE (test code 102 MEQ/L 95-107 = 2214) CARBON DIOXIDE (test 25 MEQ/L 19-31 code = 2205) CALCIUM (test code = 9.6 MG/DL 8.4-10.2 2208) PROTEIN, TOTAL (test 7.2 G/DL 6.0-8.0 code = 2228) ALBUMIN (test code = 4.6 G/DL 3.6-5.2 2200) CALC GLOBULIN (test 2.6 G/DL 2.1-3.7 code = 2239) CALC A/G RATIO (test 1.8 RATIO 1.0-2.6 code = 2233) BILIRUBIN, TOTAL 0.7 MG/DL See_Comment [Automated message] (test code = 2206) The [employer] which generated this result transmit nenita reference range : <=1.2. The refe rence range was not u sed to interpret th is result as normal/abnormal . ALKALINE PHOSPHATASE 74 U/L 53-138 (test code = 2203) AST (test code = 16 U/L 948 2217) ALT (test code = 17 U/L 5-45 2218) HEPATIC FUNCTION [id number] 02:35:49 Test Item Value Reference Range Interpretation Comments PROTEIN, TOTAL (test 7.2 G/DL 6.0-8.0 code = 2228) ALBUMIN (test code = 4.6 G/DL 3.6-5.2 2200) BILIRUBIN, TOTAL 0.7 MG/DL See_Comment [Automated message] (test code = 2206) The [employer] which generated this result transmitted ref erence range: <=1.2. T he reference range was not used to interpr et this result as normal/abnormal . BILIRUBIN, DIRECT 0.2 MG/DL 0.0-0.3 (test code = 2021) ALKALINE PHOSPHATASE 74 U/L 53-138 (test code = 2203) AST (test code = 16 U/L 9-48 2218) ALT (test code = 17 U/L 5-45 UNLESS OTH ERWISE 2219) INDICATED, ALL TESTING PERFORMED [facility]. [address] [place] [address] 4 LABORATORY DIRE CTOR: MICHAEL POWER M.D. CLIA NUMBER [id number] [place] [id number] Notes Date/Time Note Provider Source 2023-01-12 Formatting of this note might be differe nt from the original. Leandro Avendaño RN [facility] 22:29:17-00:00 Pt discharged home by charge nurse. Given all education and information regarding pain management; s/s of worsening symptoms; prescriptions and follow up importance. Pt verbalized understanding. Alert and ambulatory to pov. Electronically signed by Leandro Avendaño RN at 0 01/12/2023 10:30 PM CDT 2023-01-12 Formatting of this note might be differe nt from the original. Tiffany Lake RN [facility] 20:14:30-00:00 Pt presents with constant mi graine for 3 wks. Pt went to [facility] 1 wk ago and it was negative. Pt was given reglan but it interacts with her Seroquel and trazodone. Pt reports having n/v. Pt states pain is all over her head. Pt also works nights. LMP: 3 wks ago Last dose of medication for headache last night 3AM. Electronically signed by Tiffany Lake RN at 0 01/12/2023 8:18 PM CDT 2023-01-12 Formatting of this note is different from the or iginal. [facility] 20:02:00-00:00 [facility] Emergency Department Note Patient Name: Cherri Collier Date of : 2005 17 year old female Treatment Room: [place] [address] Primary Care Physician: Kirti Zavala Patient Escorted by: Self [9] Mode of Arrival: Personal means [1] EMS Treatment Prior to ED Arrival: [facility] [employer] treatment: None Travel and Exposure Screening: Symptoms Does patient have any of these symptoms?: (not r ecorded) Exposure Screening Has patient had contact with someone with a communicable disease in the last month?: (not recorded) Diseases exposed to:: (not recorded) Is Patient ?: (not recorded) Exposure Date: (not recorded) Chief Complaint: Chief Complaint Patient presents with Headache 3 wks; constant, seen at [facility] ct negative History of Present Illness: Cherri Collier is a 17 year old femaleh who presents to the ED with headache X 3 weeks. Thats had similar type headache in the past but has not been constant as this present episode. Pt report s Headache localizes to righ t frontal area with radiation to left frontal/temporal region. Headache has been constant. Did not take her temperature but has sweats. + N/V. Has not been evaluated for the headaches by a Neurologist. Pt was at [facility] last week for same where pt had a CT head and was managed with a headache cocktail. No trauma. Currently EDWARDS is rated at 8/10. No poss ibility of as dank mederos is a female per pt. No travel hx. No focal weakness. 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 used: No Headache Pain location: Frontal Radiates to: Does not radiate Severity currently: 8/10 Severity at highest: 8/10 Timing: Constant Progression: Unchanged Chronicity: Chronic Similar to prior headaches: yes Context: activity, bright light and loud noise Relieved by: Nothing Worsened by: Light and sound Ineffective treatments: Acetaminophen and prescr iption medications Associated symptoms: photophobia and sinus press ure Associated symptoms: no abdo alejandra pain, no back pain, no blurred vision, no congestion, no cough, no diarrhea, no dizziness, no drainage, no ear pain, no eye pain, no facial pain, no fatigue, no fever, no focal weakness, no hearin g loss, no loss of balance, no myalgias, no nausea, no near-syncope, no neck pain, no neck stiffness, no numbness, no paresthesias, no seizures, no sore throat, no swollen gl ands, no syncope, no tinglin g, no URI, no visual change, no vomiting and no weakness Risk factors: no family hx o f SAH, does not have insomnia and lifestyle not sedentary Past Medical History/Immunizations: Past Medical History: Diagnosis Date Abnormal uterine bleeding menorrhagia Anxiety Asthma Depression Esophageal reflux History of self-harm Cutting / inner thigh / last time was Early 201 9 Major depressive disorder with Bi-Polar Tendencies Migraines Pain Right 3rd MC Fx PTSD (post-traumatic stress disorder) Right ankle pain 11/02/2015 Fainting Spells Recurrent Chronic Sinus Infection Tetanus received in last 5 years: Unknown Allergies: Allergies Allergen Reactions Keflex [Cephalexin] Rash Latex Rash Penicillin Unknown - See comments Rashes and throat swells Past Social History: Tobacco Use Never smoked or used smokeless tobacco. Passive Exposure: Yes Comments: mother smokes inside and outside of h ouse Alcohol Use No. Drug Use No. Sexual Activity Not sexually active. Comments: has never had sex; interested in girl s Past Surgical History: Penrose Tooth extraction Apr 2022 Review of Systems: Review of Systems Constitutional: Negative. Negative for fatigue a nd fever. HENT: Positive for sinus pre ssure. Negative for congestion, ear pain, hearing loss, postnasal drip and sore throat. Eyes: Positive for photophobia. Negative for rashid rred vision and pain. Respiratory: Negative. Negative for cough. Breasts: Negative. Cardiovascular: Negative. Negative for syncope a nd near-syncope. Gastrointestinal: Negative. Negative for abdominal pain, diarrhea, nausea and vomiting. Genitourinary: Negative. Musculoskeletal: Negative. N egative for back pain, myalgias, neck pain and neck stiffness. Skin: Negative. Neurological: Positive for headaches. Negative for dizziness, focal weakness, seizures, weakness, numbness, paresthesias and loss of balance. Psychiatric/Behavioral: Negative. All other systems reviewed and are negative. Endocrine: Endocrine negative Physical Exam: ED Triage Vitals [01/12/232016] Weight 83.9 kg (185 lb) Actual or estimated Height 1.549 m (5' 1") BP (!) 124/91 Pulse 98 Resp 16 Temp 37 ?C (98.6 ?F) Temp src SpO2 100 % Measured on Room air Physical Exam Vitals and nursing note reviewed. Constitutional: General: She is not in acute distress. Appearance: Normal appearan ce. She is well-developed and normal weight. She is not ill-appearing, toxic-appearing or diaphoretic. HENT: Head: Normocephalic and atraumatic. Nose: Nose normal. Mouth/Throat: Mouth: Mucous membranes are moist. Pharynx: Oropharynx is lyric r. No oropharyngeal exudate or posterior oropharyngeal erythema. Eyes: General: No scleral icterus. Right eye: No discharge. Left eye: No discharge. Extraocular Movements: Extraocular movements in tact. Conjunctiva/sclera: Conjunctivae normal. Pupils: Pupils are equal, round, and reactive t o light. Neck: Thyroid: No thyromegaly. Cardiovascular: Rate and Rhythm: Normal rate and regular rhythm . Heart sounds: Normal heart sounds. No murmur he melanie. Pulmonary: Effort: Pulmonary effort is normal. No respirat ory distress. Breath sounds: Normal breat h sounds. No stridor. No wheezing, rhonchi or rales. Chest: Chest wall: No tenderness. Abdominal: General: Bowel sounds are normal. There is no d istension. Palpations: Abdomen is soft. Tenderness: There is no abd ominal tenderness. There is no right CVA tenderness, left CVA tenderness, guarding or rebound. Musculoskeletal: General: No swelling, tende rness, deformity or signs of injury. Normal range of motion. Cervical back: Normal range of motion and neck supple. No rigidity or tenderness. Right lower leg: No edema. Left lower leg: No edema. Lymphadenopathy: Cervical: No cervical adenopathy. Skin: General: Skin is warm and dry. Capillary Refill: Capillary refill takes less t robert 2 seconds. Coloration: Skin is not jaundiced or pale. Findings: No bruising, erythema, lesion or rash . Neurological: General: No focal deficit present. Mental Status: She is alert and oriented to per son, place, and time. Cranial Nerves: No cranial nerve deficit. Sensory: No sensory deficit. Motor: No weakness or abnormal muscle tone. Coordination: Coordination normal. Gait: Gait normal. Deep Tendon Reflexes: Reflexes normal. Psychiatric: Mood and Affect: Mood normal. Behavior: Behavior normal. Thought Content: Thought content normal. Judgment: Judgment normal. Radiology: No orders to display Lab Results: Lab Results URINALYSIS - Abnormal Result Value Ref Range APPEARANCE Hazy (*) Clear COLOR Yellow Yellow PH 5.0 4.8 - 8.0 SP GRAVITY 1.024 1.003 - 1.030 GLU U QUAL Normal Normal BLOOD Negative Negative KETONES Negative Negative PROTEIN Negative Negative UROBILIN Normal Normal BILIRUBIN Negative Negative NITRITE Negative Negative LEUK TANVI Negative Negative RBC/HPF 4 (*) 0 - 3 HPF WBC/HPF 1 0 - 5 HPF BACTERIA Few (*) Negative MUCOUS Moderate (*) Negative LPF SQ EPITH 7 HPF HYAL CAST 5 (*) <=2 LPF POCT TEST - Normal POCT PREG Negative On board controls acceptable with C Line Yes POCT PREG LOT # [id number] POCT PREG TEST DATE 07/17/2024 Orders and Treatments: Orders Placed This Encounter Procedures URINALYSIS POCT TEST Orders Placed This Encounter Medications rtkizrqkyx-mcnntxbrvxpsh-xmsi (ESGIC) 50-325-40 mg tablet 1 tablet First Provider Eval: ED Events Date/Time Event User Comments 01/12/232020 Medical Screening Begins BAYRON BALTAZAR -- 01/12/232020 First Provider Evaluation BAYRON BERMEO MD -- No notes of EC Admission Criteria type on file. ED COURSE Diagnosis/Impression as of 01/12/232222 Complaint of headache Headache disorder Procedures: Procedures MDM: Medical Decision Making Cherri Collier is a 17 year old female who presents to the ED with a headache X 3 weeks Problems Addressed: Headache disorder: chronic illness or injury Details: ED evaluation dn management as brooke gutierres Will refer pt to Dr Lala/Neurology Amount and/or Complexity of Data Reviewed Labs: ordered. Risk OTC drugs. Prescription drug management. Flowsheet Documentation: 10:20 PM Pt re-examined. Headache significantly improved Will discharge home with ESG IC and refer to Dr Lala, Neurology Specialist or Neurology Clinic in [place] Scoring Tools: No data recorded Disposition/Condition: ED Disposition ED Disposition Disch - Home Condition Stable Comment -- Discharge Medications: Patient's Medications START taking these medications No medications on file CONTINUE taking these medications which have NOT CHANGED BROMPHENIRAMINE-PSEUDOEPHED RINE-DM (BROMFED DM) 2-30-10 MG/5 ML SYRUP Take 5 mL by mouth 4 (four) times daily as needed for Congestion/Allergies. BUDESONIDE-FORMOTEROL 160-4 .5 MCG/ACTUATION INHALER Inhale 2 Puffs in the morning and 2 Puffs in the evening. CETIRIZINE 10 MG TABLET NICOLASA E ONE (1) TABLET(S) BY MOUTH DAILY NEEDED FOR ALLERGIES. FAMOTIDINE 20 MG TABLET Take 1 tablet by mouth in the morning. GUANFACINE ER 3 MG TABLET Take 1 tablet by mout h at bedtime. METHSCOPOLAMINE 5 MG TABLET Take 1 tablet by mo uth every morning. METHYLPREDNISOLONE (MEDROL, ASIA,) 4 MG TABLETS Take by mouth SEE-INSTRUCTIONS. follow package directions MONTELUKAST (SINGULAIR) 10 MG TABLET Take 1 tab let by mouth in the morning. ONDANSETRON 8 MG DISINTEGRA TING TABLET Take 1 tablet by mouth every 8 (eight) hours as needed for Nausea and Vomiting (N/V). VENTOLIN HFA 90 MCG/ACTUATI ON INHALER INHALE TWO (2) PUFFS BY MOUTH EVERY 6 (SIX) HOURS NEEDED FOR WHEEZING OR SHORTNESS OF BREATH. ZIPRASIDONE 60 MG CAPSULE Take by mouth daily. START taking Modified Medications as Prescribed No medications on file STOP taking these medications No medications on file Follow-up: Contact information for follow-up Adolph Lala MD Specialty: PN-NEUROLOGY [facility] [address] [place] [address]. [facility] [id number] Neurology Clinic Specialty: PN-NEUROLOGY [address] [place] [id number] Electronically signed by: Bayron Bermeo MD 01/12/232222
--- NOTE | 2023-01-29 00:49 | ER ---
Nurse's Notes [facility] Name: Simon Collier Age: 17 yrs Sex: Female : 2005 Arrival Date: 01/28/2023 Time: 21:25 Bed 16 Private MD: Diagnosis: Bitten by cat;Puncture wound without foreign body of unspecified hand, initial encounter Presentation: 01/28 22:25 Chief complaint: Patient states: scratched by her cat early this morning and throughout as6 the day pt hand has had increased swelling and pain. Coronavirus screen: At this time, the client does not indicate any symptoms associated with coronavirus-19. Ebola Screen: No symptoms or risks identified at this time. Initial Sepsis Screen: Does the patient meet any 2 criteria? No. Patient's initial sepsis screen is negative. Does the patient have a suspected source of infection? No. Patient's initial sepsis screen is negative. Risk Assessment: Do you want to hurt yourself or someone else? Patient reports no desire to harm self or others. Onset of symptoms was January 28, 2023. 22:25 Acuity: SANDRA 4 as6 22:25 Method Of Arrival: Ambulatory as6 Triage Assessment: 22:30 Bite description: bite sustained to dorsum of right hand by a cat, animal information: bp vaccination(s) is current. General: Appears uncomfortable, Behavior is calm, cooperative, appropriate for age. Pain: Complains of pain in dorsum of right hand. EENT: No deficits noted. Neuro: No deficits noted. Cardiovascular: No deficits noted. Respiratory: No deficits noted. GI: No signs and/or symptoms were reported involving the gastrointestinal system. : No signs and/or symptoms were reported regarding the genitourinary system. Derm: No deficits noted. Musculoskeletal: No deficits noted. Injury Description: Bite sustained to dorsum of right hand. 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 - Social history:: Smoking status: Reported history of juuling and/or vaping. Screenin/13 01:00 [facility] ED Fall Risk Assessment (Adult) History of falling in the last 3 months, bp including since admission No falls in past 3 months (0 pts). Abuse screen: Denies threats or abuse. Denies injuries from another. Nutritional screening: No deficits noted. Tuberculosis screening: No symptoms or risk factors identified. Assessment: 01/28 22:30 General: SEE TRIAGE NOTE. bp 01/29 01:00 Reassessment: DC HOME. bp Vital Signs: 01/28 22:25 BP 132 / 90; Pulse 82; Resp 18 S; Temp 98.1(TE); Pulse Ox 100% on R/A; Weight 83.91 kg as6 (R); Height 5 ft. 1 in. (R); Pain 9/10; 22:25 Body Mass Index 34.96 (83.91 kg, 154.94 cm) as6 22:25 Pain Scale: Adult as6 ED Course: 21:29 Patient arrived in ED. rg4 21:36 Toya Vega FNP-C is PHCP. snw 21:36 Luiz Sandoval MD is Attending Physician. snw 22:24 Arm band placed on. as6 22:26 Triage completed. as6 23:13 Renny Jorge, RN is Primary Nurse. bp 23:36 Hand Right 3 View XRAY In Process Unspecified. EDMS 01/29 01:00 Patient has correct armband on for positive identification. bp 01:00 No provider procedures requiring assistance completed. Patient did not have IV access bp during this emergency room visit. Wound care: to puncture located on dorsum of right hand was cleaned with Hibiclens. Administered Medications: 01/28 23:37 Drug: Hibiclens Topical Liquid 4 % 1 application Route: Topical; Site: affected area; bp 23:38 Drug: Clindamycin PO 300 mg Route: PO; bp Medication: 01/29 01:00 VIS not applicable for this client. bp Outcome: 00:48 Discharge ordered by . snw 01:00 Discharged to home ambulatory. bp 01:00 Condition: stable 01:00 Discharge instructions given to patient, Instructed on discharge instructions, follow up and referral plans. medication usage, wound care, Demonstrated understanding of instructions, follow-up care, medications, wound care, Prescriptions given X 3. 01:03 Patient left the ED. bp Signatures: Dispatcher [employer] EDMS Toya Vega, CORNELIUSC ASSEMBLER FAUCETS-Judith Fernandez rg4 Renny Jorge, RN RN Dougie Royal RN RN as6
--- NOTE | 2023-01-29 00:49 | EDPHYS ---
Physician Documentation [facility] Name: Simon Collier Age: 17 yrs Sex: Female : 2005 Arrival Date: 01/28/2023 Time: 21:25 Bed 16 Private MD: ED Physician Luiz Sandoval HPI: 01/28 23:00 This 17 yrs old Female presents to ER via Ambulatory with complaints of Cat Bite. snw 23:00 The patient was bitten on the right hand, by a cat, Dog approached the cat and the cat snw bit the patient. Onset: The symptoms/episode began/occurred suddenly, at 03:30. Animal information: The animal was reported to appear healthy. Animal's vaccinations are not up to date. The animal is known and can be quarantined. Severity of symptoms: At their worst the symptoms were moderate. The patient has not experienced similar symptoms in the past. The patient has not recently seen a physician. 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 - Social history:: Smoking status: Reported history of juuling and/or vaping. ROS: 22:57 Constitutional: Negative for fever, chills, and weight loss, Eyes: Negative for injury, snw pain, redness, and discharge, ENT: Negative for injury, pain, and discharge, Neck: Negative for injury, pain, and swelling, Cardiovascular: Negative for chest pain, palpitations, and edema, Respiratory: Negative for shortness of breath, cough, wheezing, and pleuritic chest pain, Abdomen/GI: Negative for abdominal pain, nausea, vomiting, diarrhea, and constipation, Back: Negative for injury and pain, : Negative for injury, bleeding, discharge, and swelling, MS/Extremity: Negative for injury and deformity, Neuro: Negative for headache, weakness, numbness, tingling, and seizure. 22:57 Skin: Positive for puncture, of the dorsum of right hand and lateral aspect of right hand. Exam: 22:56 Constitutional: This is a well developed, well nourished patient who is awake, alert, snw and in no acute distress. Head/Face: Normocephalic, atraumatic. Eyes: Pupils equal round and reactive to light, extra-ocular motions intact. Lids and lashes normal. Conjunctiva and sclera are non-icteric and not injected. Cornea within normal limits. Periorbital areas with no swelling, redness, or edema. ENT: Nares patent. No nasal discharge, no septal abnormalities noted. Tympanic membranes are normal and external auditory canals are clear. Oropharynx with no redness, swelling, or masses, exudates, or evidence of obstruction, uvula midline. Mucous membranes moist. Neck: Trachea midline, no thyromegaly or masses palpated, and no cervical lymphadenopathy. Supple, full range of motion without nuchal rigidity, or vertebral point tenderness. No Meningismus. Chest/axilla: Normal chest wall appearance and motion. Nontender with no deformity. No lesions are appreciated. Cardiovascular: Regular rate and rhythm with a normal S1 and S2. No gallops, murmurs, or rubs. Normal PMI, no JVD. No pulse deficits. Respiratory: Lungs have equal breath sounds bilaterally, clear to auscultation and percussion. No rales, rhonchi or wheezes noted. No increased work of breathing, no retractions or nasal flaring. Abdomen/GI: Soft, non-tender, with normal bowel sounds. No distension or tympany. No guarding or rebound. No evidence of tenderness throughout. Back: No spinal tenderness. No costovertebral tenderness. Full range of motion. MS/ Extremity: Pulses equal, no cyanosis. Neurovascular intact. Full, normal range of motion. Neuro: Awake and alert, GCS 15, oriented to person, place, time, and situation. Cranial nerves II-XII grossly intact. Motor strength 5/5 in all extremities. Sensory grossly intact. Cerebellar exam normal. Normal gait. Psych: Awake, alert, with orientation to person, place and time. Behavior, mood, and affect are within normal limits. 22:56 Skin: Appearance: normal except for affected area, injury, puncture(s), that are deep, of the lateral aspect of right hand and dorsum of right hand, area with mild erythema and moderate edema . Vital Signs: 22:25 BP 132 / 90; Pulse 82; Resp 18 S; Temp 98.1(TE); Pulse Ox 100% on R/A; Weight 83.91 kg as6 (R); Height 5 ft. 1 in. (R); Pain 9/10; 22:25 Body Mass Index 34.96 (83.91 kg, 154.94 cm) as6 22:25 Pain Scale: Adult as6 MDM: 22:48 Patient medically screened. snw 22:59 Differential diagnosis: tendon injury, vascular injury, cellulitis. Data reviewed: snw vital signs, nurses notes. I considered the following discharge prescriptions or medication management in the emergency department Medications were administered in the Emergency Department. See MAR. Counseling: I had a detailed discussion with the patient and/or guardian regarding the historical points, exam findings, and any diagnostic results supporting the discharge/admit diagnosis, the need for outpatient follow up, to return to the emergency department if symptoms worsen or persist or if there are any questions or concerns that arise at home. Special discussion: I discussed in detail with the patient the higher chance of wound infection based on his presenting history. 01/28 22:53 Order name: Hand Right 3 View XRAY snw 01/28 22:53 Order name: Misc. Order: contact animal control; Complete Time: 00:58 snw 01/28 22:53 Order name: Wound Care; Complete Time: 23:29 snw Administered Medications: 23:37 Drug: Hibiclens Topical Liquid 4 % 1 application Route: Topical; Site: affected area; bp 23:38 Drug: Clindamycin PO 300 mg Route: PO; bp Disposition: 01/29 03:48 Co-signature as Attending Physician, Luiz Sandoval MD I agree with the assessment sp4 and plan of care. I reviewed the patient's care provided by the Advanced Practice Provider and agree with the diagnosis and treatment plan. Disposition Summary: 01/29/23 00:48 Discharge Ordered Location: Home snw Condition: Stable snw Diagnosis - Bitten by cat snw - Puncture wound without foreign body of unspecified hand, initial encounter snw Followup: snw - With: Emergency Department - When: As needed - Reason: Worsening of condition Followup: snw - With: Private Physician - When: 2 - 3 days - Reason: Recheck today's complaints, Continuance of care, Re-evaluation by your physician Discharge Instructions: - Discharge Summary Sheet snw - Puncture Wound snw - Wound Infection snw - Hand Washing snw - Animal Bite, Adult snw Forms: - Medication Reconciliation Form snw - Thank You Letter snw - Antibiotic Education snw - Prescription Opioid Use snw - Patient Portal Instructions snw - Leadership Thank You Letter snw - Work release form rv1 Prescriptions: - Hibiclens 4 % Topical liquid - apply 1 application by TOPICAL route every 12 hours; 120 milliliter; Refills: snw 0, Product Selection Permitted - Clindamycin HCl 300 mg Oral Capsule - take 1 capsule by ORAL route every 6 hours for 10 days; 40 capsule; Refills: 0, snw Product Selection Permitted - Tramadol 50 mg Oral Tablet - take 1 tablet by ORAL route every 8 hours as needed; 12 tablet; Refills: 0, snw Product Selection Permitted Signatures: Dispatcher [employer] EDMS Toya Vega FNP-C COMB WINDER-Csnw Renny Jorge RN RN bp Slawson, Ashby, RN RN as6 Luiz Sandoval MD MD sp4 Corrections: (The following items were deleted from the chart) 01/28 22:59 22:58 Rate is 70 beats/min. Rhythm is regular. QRS [place] is Normal. QRS interval is snw normal. T waves are Inverted in leads III, aVL. Clinical impression: NSR w/ Non-specific ST/T Changes. snw
[2023-01-29 01:08] VITALS: BP 132/90; TEMP 98.1; O2SAT 100
--- NOTE | 2023-01-29 10:07 | RAD REPORT ---
EXAM DESCRIPTION: RAD - Hand Right 3 View - 01/28/2023 11:34 pm CLINICAL HISTORY: ANIMAL BITE COMPARISON: None. FINDINGS: 3 views of the right hand. No acute fracture or dislocation. Normal osseous mineralization . No radiopaque foreign body. IMPRESSION: 1. No acute fracture or dislocation. Electronically signed by: Edward Champagne 01/28/2023 11:44 PM CDT Due to temporary technical issues with the PACS/Fluency reporting system, reports are being signed by the in house radiologist without review as a courtesy to ensure prompt reporting. The interpreting r adiologist is fully responsible for the content of the report.
== END 2023-01-29 01:03 | disposition home or self-care (01) ==
LOC: ER 21:25
DX: S61.431A Puncture wound without foreign body of right hand, initial encounter (principal); W55.01XA Bitten by cat, initial encounter; Z88.0 Allergy status to penicillin; Z88.1 Allergy status to other antibiotic agents; Z88.8 Allergy status to other drugs, medicaments and biological substances; Z91.040 Latex allergy status; Z91.048 Other nonmedicinal substance allergy status
CPT/HCPCS: 99283

== ENCOUNTER → 2023-05-25 | Emergency (ER) | payer OTHER ==
[~2023-05-25] MED LIST: HYDROCODONE/CHLORPHEN 5 ML/OSYR ONE; dexAMETHasone 10 MG/ML VIAL ONE
--- OUTSIDE RECORDS SUMMARY | 2023-05-25 21:03 | XMS REPORT | Continuity of Care Document ---
Author Name Unknown Address [address] [place] [address] [facility] thconnect Address 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 Problems Condition Name Condition Details Condition Category Status Onset Date Resolution Date Last Treatment Date Treating Clinician Comments Source [id number] Extensor carpi ulnaris tendinitis Problem Active [facility] [id number] Pain in joint of left wrist Problem Active [facility] [id number] Flexor carpi ulnaris tendinitis Problem Active [facility] Allergies, Adverse Reactions, Alerts Allergy Name Allergy Type Status Severity Reaction(s) Onset Date Inactive Date Treating Clinician Comments Source Penicill in Penicill in Active Unknown [facility] Social History Social Habit Start Date Stop Date Quantity Comments Source History of Tobacco Use [facility] Sex Assigned At [facility] Smoking Status Start Date Stop Date Source Never Smoker [facility] Medications Ordered Medication Name Filled Medication Name Start Date Stop Date Current Medication? Ordering Clinician Indication Dosage Frequency Signature (SIG) Comments Components Source Meloxicam 7.5 MG Meloxicam 7.5 MG 2020-05 007 00:00: 00 03-24 00:00 :00 No 1{table t} QD Meloxicam 7.5 MG Mobic 7.5 MG Mobic 7.5 MG 12-25 00:00: 00 01-24 00:00 :00 No 1{table t} QD Mobic 7.5 MG Mobic 7.5 MG Mobic 7.5 MG 12-25 00:00: 00 01-24 00:00 :00 No 1{table t} QD Mobic 7.5 MG Mobic Mobic No Mobic Vital Signs Vital Name Observation Time Observation Value Comments S ource height 2021-04-24 08:30:00 61 [in_i] [facility] weight 2021-04-24 08:30:00 175 [lb_av] [facility] temperature 2021-04-24 08:30:00 97.2 [degF] [facility] bmi 2021-04-24 08:30:00 33.06 kg/m2 [facility] blood pressure systolic 2021-04-24 08:30:00 100 mm[Hg] [facility] blood pressure diastolic 2021-04-24 08:30:00 72 mm[Hg] [facility] height 2021-02-22 08:00:00 61 [in_i] [facility] weight 2021-02-22 08:00:00 175 [lb_av] [facility] bmi 2021-02-22 08:00:00 33.06 kg/m2 [facility] blood pressure systolic 2021-02-22 08:00:00 145 mm[Hg] [facility] blood pressure diastolic 2021-02-22 08:00:00 97 mm[Hg] [facility] height 2020-12-25 10:00:00 61 [in_i] [facility] weight 2020-12-25 10:00:00 175.5 [lb_av] Co mmon [facility] bmi 2020-12-25 10:00:00 33.16 kg/m2 [facility] blood pressure systolic 2020-12-25 10:00:00 133 mm[Hg] [facility] blood pressure diastolic 2020-12-25 10:00:00 87 mm[Hg] [facility] Encounters Start Date/Time End Date/Time Encounter Type Admission Type Attending Clinicians Care Facility Care Department Encounter ID Source 2023-03-24 13:44:01 Outpatient SIRENA DESHPANDEH [facility] [id number] [facility] 2023-03-20 15:13:00 Outpatient SIRENA DSEHPANDEH [facility] [id number] [facility] 2022-12-23 16:18:00 Outpatient [facility] [id number] [facility] 2021-06-13 14:26:40 Outpatient [facility] [id number] [facility] 2021-06-13 14:02:33 Outpatient [facility] [id number] [facility] 2021-06-13 13:38:36 Outpatient [facility] [id number] [facility] 2021-06-13 13:35:54 Outpatient [facility] [id number] [facility] 2023-01-20 15:38:37 2023-01-20 15:38:37 Outpatient [facility] [id number] Zach Edmondson 2022-12-29 14:02:39 2022-12-29 14:02:39 Outpatient [facility] [id number] Zach Edmondson 2022-12-09 15:01:21 2022-12-09 15:01:21 Outpatient [facility] [id number] Zach Edmondson 2022-11-29 09:04:32 2022-11-29 09:04:32 Outpatient [facility] [id number] Zach Edmondson 2022-08-28 13:04:51 2022-08-28 13:04:51 Outpatient [facility] [id number] Zach Edmondson 2022-06-05 11:16:58 2022-06-05 11:16:58 Outpatient [facility] [id number] Zach Edmondson 2021-04-24 00:00:00 2021-04-24 00:00:00 OFFICE VISIT EST PT LEVEL [id number] [facility] 2021-02-22 00:00:00 2021-02-22 00:00:00 OFFICE VISIT EST PT LEVEL [id number] [facility] 2020-12-26 00:00:00 2020-12-26 00:00:00 (TEL) [facility] [id number] [facility] 2020-12-25 00:00:00 2020-12-25 00:00:00 OFFICE VISIT NEW PT LEVEL [id number] [facility] Results Test Description Test Time Test Comments Results Result Co mments Source THYROID II PROFILE (TU,T4,FTI,TSH)2021-08-09 03:59:32* Test Item Value Reference Range Interpretation Comme nts T-UPTAKE (test code = 2817) 33.1 % 24.3-39.0 THYROX. BIND. CAPAC. (test c ode = 71611) 1.0 0.8-1.3 T4 (THYROXINE) (test code = 2819) 10.3 UG/DL 4.5-10.5 CORRECTED T4 (FTI) (test cod e = 2820) 10.3 UG/DL 4.2-11.6 TSH, THIRD GENERATION (test code = 2821) 1.980 UIU/ML 0.500-4.300 CBC W/AUTO DIFF WITH [id number] 02:47:17* Test Item Value Reference Range Interpretation Comme nts WBC (test code = 1001) 7.2 K/UL 3.5-11.0 RBC (test code = 1002) 5.03 M/UL 4.00-5.40 HEMOGLOBIN (test code = 1003) 13.5 G/DL 11.0-15.5 HEMATOCRIT (test code = 1004) 40.4 % 33.0-45.0 MCV (test code = 1005) 80.3 fL 78.0-95.0 MCH (test code = 1006) 26.8 PG 24.0-33.0 MCHC (test code = 1007) 33.4 G/DL 31.0-36.0 RDW (test code = 1038) 13.2 % 11.5-15.0 NEUTROPHILS (test code = 1008) 66.2 % LYMPHOCYTES (test code = 1010) 24.7 % MONOCYTES (test code = 1011) 6.0 % EOSINOPHILS (test code = 1012) 2.1 % BASOPHILS (test code = 1013) 0.6 % IMMATURE GRANULOCYTES (test code = 1036) 0.4 % NUCLEATED RBCS (test code = 1065) 0.0 /100 WBC'S See_Comment [Automated messa ge] The system which generated this result transmitted reference range: 0.0. The reference range was not used to interpret this result as normal/abnormal. PLATELET COUNT (test code = 1015) 256 K/UL 150-450 ABSOLUTE NEUTROPHILS (test code = 1066) 4.78 K/UL 1.50-7.50 ABSOLUTE LYMPHOCYTES (test code = 1067) 1.78 K/UL 1.20-4.00 ABSOLUTE MONOCYTES (test code = 1068) 0.43 K/UL 0.10-0.90 ABSOLUTE EOSINOPHILS (test code = 1040) 0.15 K/UL 0.00-0.50 ABSOLUTE BASOPHILS (test code = 1069) 0.04 K/UL 0.00-0.10 ABS IMMATURE GRANULOCYTES (test code = 1020) 0.03 K/UL 0.00-0.10 ABS NUCLEATED RBCS (test code = 69095) 0.00 K/UL 0.00-0.13 COMPREHENSIVE METABOLIC [id number] 02:35:49* Test Item Value Reference Range Interpretation Comme nts GLUCOSE (test code = 2216) 108 MG/DL 70-99 H BUN (test code = 2207) 10 MG/DL 5-18 CREATININE (test code = 221) 0.83 MG/DL 0.50-1.10 eGFR (2020 CKD-EPI) (test code = 97333) NO CALC ML/MIN/1.73 >60 NOTE: 2020 CKD-EPI is not validated for pediatric populations. For patients less than 19 years old, consider [facility] pediatric eGFR calculator https://www.kidney.o rg/professionals/kdo jimbo/gfr_calculatorPed CALC BUN/CREAT (test code = 2234) 12 RATIO 6-28 SODIUM (test code = 223) 140 MEQ/L 133-146 POTASSIUM (test code = 2228) 4.2 MEQ/L 3.5-5.4 CHLORIDE (test code = 2215) 102 MEQ/L 95-107 CARBON DIOXIDE (test code = 6) 25 MEQ/L 19-31 CALCIUM (test code = 2209) 9.6 MG/DL 8.4-10.2 PROTEIN, TOTAL (test code = 2228) 7.2 G/DL 6.0-8.0 ALBUMIN (test code = 2200) 4.6 G/DL 3.6-5.2 CALC GLOBULIN (test code = 2240) 2.6 G/DL 2.1-3.7 CALC A/G RATIO (test code = 223) 1.8 RATIO 1.0-2.6 BILIRUBIN, TOTAL (test code = 2206) 0.7 MG/DL See_Comment [Automated me ssage] The system which generated this result transmitted reference range: <=1.2. The reference range was not used to interpret this result as normal/abnormal. ALKALINE PHOSPHATASE (test code = 2203) 74 U/L 53-138 AST (test code = 2218) 16 U/L 9-48 ALT (test code = 2218) 17 U/L 5-45 HEPATIC FUNCTION [id number] 02:35:49* Test Item Value Reference Range Interpretation Comme nts PROTEIN, TOTAL (test code = 2228) 7.2 G/DL 6.0-8.0 ALBUMIN (test code = 2200) 4.6 G/DL 3.6-5.2 BILIRUBIN, TOTAL (test code = 2206) 0.7 MG/DL See_Comment [Automated me ssage] The system which generated this result transmitted reference range: <=1.2. The reference range was not used to interpret this result as normal/abnormal. BILIRUBIN, DIRECT (test code = 2021) 0.2 MG/DL 0.0-0.3 ALKALINE PHOSPHATASE (test code = 2203) 74 U/L 53-138 AST (test code = 8) 16 U/L 9-48 ALT (test code = 2218) 17 U/L 5-45 UNLESS OTHERWISE INDICATED, ALL TESTING PERFORMED [facility] [address] [place] [address] [employer] SIGNAL ELECTRICIAN: MICHAEL HOUSE M.D. CLIA NUMBER [id number] [facility] [place]. [id number]
--- NOTE | 2023-05-25 22:08 | RAD REPORT ---
EXAM DESCRIPTION: RADChest Single View05/25/2023 9:37 pm CLINICAL HISTORY: Congestion;Cough COMPARISON: Chest Pa And Lat (2 Views) dated 07/19/2022; Chest Pa And Lat (2 Views) dated 06/17/2018; C HEST PA AND LAT 2 VIEW dated 09/19/2014 TECHNIQUE: Portable AP view of the chest. FINDINGS: The lungs are clear. No pneumothorax or effusion. The cardiomediastinal contours are unre markable. IMPRESSION: No acute cardiopulmonary process.
--- NOTE | 2023-05-25 22:12 | EDPHYS ---
Physician Documentation [facility] Name: Simon Collier Age: 17 yrs Sex: Female : 2005 Arrival Date: 05/25/2023 Time: 20:57 Bed 7 Private MD: ED Physician Fermin Martel HPI: 05/25 23:02 This 17 yrs old Female presents to ER via EMS with complaints of cough, chest pain. kb 23:02 Patient is a 17-year-old female who presents for cough and congestion for 1 week with kb pain to the chest with cough and movement for 3 days. Denies fever or chills. States she has been exposed to COVID, flu and RSV. Also reports she gets bronchitis quite often.. Historical: - Allergies: 21:11 Keflex; tm6 21:11 Latex; tm6 21:11 PENICILLINS; tm6 - PMHx: 21:11 Anxiety; Asthma; BPD; Depression; PTSD; tm6 - PSHx: 21:11 wisdom teeth; tm6 - Immunization history:: Adult Immunizations up to date, Client reports having NOT received the Covid vaccine. Flu vaccine is not up to date. - Social history:: Smoking status: Reported history of juuling and/or vaping. Patient/guardian denies using alcohol. ROS: 23:01 Constitutional: Negative for fever, chills, and weight loss, kb 23:01 ENT: Positive for rhinorrhea, sinus congestion, 23:01 Cardiovascular: Positive for chest pain, with cough, with movement, 23:01 Respiratory: Positive for cough, shortness of breath, 23:01 All other systems are negative, Exam: 21:35 Constitutional: This is a well developed, well nourished patient who is awake, alert, kb and in no acute distress. Head/Face: Normocephalic, atraumatic. ENT: Moist Mucous membranes Cardiovascular: Regular rate Respiratory: Respirations even and unlabored. No increased work of breathing. Talking in full sentences Abdomen/GI: Soft, non-tender. No distention Skin: Warm, dry with normal turgor. Normal color. MS/ Extremity: Pulses equal, no cyanosis. Neurovascular intact. Full, normal range of motion. Neuro: Awake and alert, GCS 15, oriented to person, place, time, and situation. Moves all extremities. Normal gait. 21:35 Chest/axilla: Inspection: normal, Palpation: tenderness, 21:35 ECG was reviewed by the Attending Physician. Vital Signs: 21:09 BP 132 / 99; Pulse 82; Resp 31; Temp 98.6(O); Pulse Ox 100% on R/A; Weight 81.65 kg; tm6 Height 5 ft. 1 in. ; Pain 7/10; 21:09 Body Mass Index 34.01 (81.65 kg, 154.94 cm) - Percentile 96.8 % tm6 21:09 Pain Scale: Adult tm6 MDM: 21:04 Patient medically screened. kb 23:01 Differential Diagnosis: Bronchitis Influenza Upper Respiratory Infection Pneumonia kb Other covid. Data reviewed: vital signs, nurses notes. I considered the following discharge prescriptions or medication management in the emergency department I discussed and recommended Over The Counter medications, Antibiotics: At this time antibiotics are not recommended, Antivirals: At this time, antivirals are not recommended. Historians other than the Patient: EMS: [facility]. Counseling: I had a detailed discussion with the patient and/or guardian regarding the historical points, exam findings, and any diagnostic results supporting the discharge/admit diagnosis, lab results, radiology results, the need for outpatient follow up, a family practitioner, to return to the emergency department if symptoms worsen or persist or if there are any questions or concerns that arise at home. 01 21:04 Order name: Flu; Complete Time: 22:01 kb 07 21:04 Order name: COVID-19 SARS RT PCR; Complete Time: 21:48 kb 05/25 21:04 Order name: Chest Single View XRAY; Complete Time: 22:09 kb 05/25 21:04 Order name: EKG; Complete Time: 21:06 kb 05/25 21:04 Order name: EKG - Nurse/Tech; Complete Time: 21:12 kb EC:35 Rate is 80 beats/min. Rhythm is regular. Right axis deviation noted. SD interval is kb normal at 108 msec. QRS interval is normal at 82 msec. QT interval is normal at 449 msec. Administered Medications: 21:53 Drug: Tussionex Pennkinetic ER PO Suspension 5 ml PO once Route: PO; rv 22:16 Follow up: Response: No adverse reaction rv 22:16 Drug: Dexamethasone IM 10 mg IM once Route: IM; Site: right deltoid; rv 22:16 Follow up: Response: Medication administered at discharge. rv Disposition Summary: 05/25/23 22:11 Discharge Ordered Notes: Location: Home kb Condition: Stable kb Diagnosis - Acute upper respiratory infection, unspecified kb - Pleurisy kb Followup: kb - With: Emergency Department - When: As needed - Reason: Worsening of condition Followup: kb - With: Private Physician - When: 2 - 3 days - Reason: Recheck today's complaints, Continuance of care, Re-evaluation by your physician Discharge Instructions: - Discharge Summary Sheet kb - Upper Respiratory Infection, Adult kb - Pleurisy, [id number] kb Forms: - Medication Reconciliation Form kb - Thank You Letter kb - Antibiotic Education kb - Prescription Opioid Use kb - Patient Portal Instructions kb - Leadership Thank You Letter kb - Work release form jb4 Prescriptions: - albuterol sulfate 90 mcg/actuation Inhalation HFA Aerosol Inhaler - inhale 2 puff INHALATION route every 4-6 hours As needed; 1 unit; Refills: 0, kb Product Selection Permitted Signatures: Dispatcher [employer] Mariely Díaz, DONOR SUPPORT TECHNICIAN-C DONOR SUPPORT TECHNICIAN-Israel Figueroa, RN RN Shaila Lorenzana RN RN tm6
--- NOTE | 2023-05-25 22:12 | ER ---
Nurse's Notes [facility] Name: Simon Collier Age: 17 yrs Sex: Female : 2005 Arrival Date: 05/25/2023 Time: 20:57 Bed 7 Private MD: Diagnosis: Acute upper respiratory infection, unspecified;Pleurisy Presentation: 05/25 21:09 Chief complaint: EMS states: chest pain x3 days. Has not had much sleep due to constant tm6 chest pain. Patient also reported runny nose, congestion, and productive cough. Coronavirus screen: Vaccine status: Patient reports being unvaccinated. Ebola Screen: Patient negative for fever greater than or equal to 101.5 degrees Fahrenheit, and additional compatible Ebola Virus Disease symptoms Patient denies exposure to infectious person. Patient denies travel to an Ebola-affected area in the 21 days before illness onset. No symptoms or risks identified at this time. Initial Sepsis Screen: Does the patient meet any 2 criteria? No. Patient's initial sepsis screen is negative. Does the patient have a suspected source of infection? No. Patient's initial sepsis screen is negative. Risk Assessment: Do you want to hurt yourself or someone else? Patient reports no desire to harm self or others. Onset of symptoms was May 22, 2023. 21:09 Method Of Arrival: EMS: [facility] tm6 21:09 Acuity: SANDRA 3 tm6 Triage Assessment: 21:11 General: Appears distressed, Behavior is cooperative. Pain: Complains of pain in chest tm6 Pain currently is 7 out of 10 on a pain scale. Pain began 2-3 days ago. EENT: Reports nasal congestion nasal discharge that is green. Neuro: Level of Consciousness is awake, alert, obeys commands, Oriented to person, place, time, situation. Cardiovascular: Capillary refill < 3 seconds Patient's skin is warm and dry. Rhythm is sinus rhythm. Respiratory: Airway is patent Respiratory effort is even, unlabored, Respiratory pattern is regular, symmetrical. Respiratory: Parent/caregiver reports the patient having cough that is productive. GI: Abdomen is round non-distended. : No signs and/or symptoms were reported regarding the genitourinary system. Derm: No signs and/or symptoms reported regarding the dermatologic system. Musculoskeletal: No signs and/or symptoms reported regarding the musculoskeletal system. 21:13 General: Appears in no apparent distress. Behavior is calm, cooperative. Pain: rv Complains of pain in chest. Historical: - Allergies: 21:11 Keflex; tm6 21:11 Latex; tm6 21:11 PENICILLINS; tm6 - PMHx: 21:11 Anxiety; Asthma; BPD; Depression; PTSD; tm6 - PSHx: 21:11 wisdom teeth; tm6 - Immunization history:: Adult Immunizations up to date, Client reports having NOT received the Covid vaccine. Flu vaccine is not up to date. - Social history:: Smoking status: Reported history of juuling and/or vaping. Patient/guardian denies using alcohol. Screenin:12 [facility] ED Fall Risk Assessment (Adult) History of falling in the last 3 months, rv including since admission No falls in past 3 months (0 pts) Score/Fall Risk Level 0 - 2 = Low Risk Oriented to surroundings, Maintained a safe environment, Educated pt \T\ family on fall prevention, incl call for assistance when getting out of bed, Assessed \T\ reinforced patient's understanding of fall precautions. Abuse screen: Denies threats or abuse. Denies injuries from another. Nutritional screening: No deficits noted. Tuberculosis screening: No symptoms or risk factors identified. Assessment: 21:14 Reassessment: see triage assessment. tm6 Vital Signs: 21:09 BP 132 / 99; Pulse 82; Resp 31; Temp 98.6(O); Pulse Ox 100% on R/A; Weight 81.65 kg; tm6 Height 5 ft. 1 in. ; Pain 7/10; 21:09 Body Mass Index 34.01 (81.65 kg, 154.94 cm) - Percentile 96.8 % tm6 21:09 Pain Scale: Adult tm6 ED Course: 21:03 Patient arrived in ED. kb 21:04 Mariely Huynh FNP-C is PHCP. kb 21:04 Fermin Martel MD is Attending Physician. kb 21:04 Israel Pleitez, FARHAN is Primary Nurse. rv 21:11 Triage completed. tm6 21:12 COVID-19 SARS RT PCR Sent. rv 21:12 Flu Sent. rv 21:12 No provider procedures requiring assistance completed. Patient did not have IV access rv during this emergency room visit. 21:12 Patient has correct armband on for positive identification. Client placed on continuous rv cardiac and pulse oximetry monitoring. NIBP monitoring applied. hospital monitor on. 21:13 Arm band placed on right wrist. rv 21:14 Provided Education on: plan of care. Door closed. Noise minimized. Warm blanket given. tm6 21:38 Chest Single View XRAY In Process Unspecified. EDMS Administered Medications: 21:53 Drug: Tussionex Pennkinetic ER PO Suspension 5 ml PO once Route: PO; rv 22:16 Follow up: Response: No adverse reaction rv 22:16 Drug: Dexamethasone IM 10 mg IM once Route: IM; Site: right deltoid; rv 22:16 Follow up: Response: Medication administered at discharge. rv Medication: 21:12 VIS not applicable for this client. rv Outcome: 22:11 Discharge ordered by . kb 22:16 Discharged to home ambulatory, with friend, rv 22:16 Condition: good 22:16 Discharge instructions given to patient, Instructed on discharge instructions, follow up and referral plans. medication usage, Demonstrated understanding of instructions, follow-up care, medications, Prescriptions given X 1, 22:17 Patient left the ED. rv Signatures: Dispatcher [employer] EDMS Mariely Huynh, CHEMICAL PROCESSING LABORER-C CHEMICAL PROCESSING LABORER-Israel Figueroa, RN RN rv Shaila Amaya RN RN tm6
[2023-05-25 23:01] VITALS: BP 132/99; TEMP 98.6; O2SAT 100
--- NOTE | 2023-05-26 12:21 | EKG ---
Test Date: 2023-05-25 Test Time: 20:57:38 Film Spooler: RV MEASUREMENT RESULTS: Intervals: Rate: 80 HI: 108 QRSD: 82 QT: 390 QTc: 449 [place]: P: 49 HI: 108 QRS: 93 T: 64 INTERPRETIVE STATEMENTS: Sinus rhythm with sinus arrhythmia with short HI Rightward axis Borderline ECG Compared to ECG 05/06/2017 23:57:39 Short HI interval now present Right-axis deviation now present Electronically Signed On 05-26-23 12:19:02 DIRECTOR SALES SUPPORT by Bo Edward
== END ==
LOC: ER 20:57
DX: J06.9 Acute upper respiratory infection, unspecified (principal); R09.1 Pleurisy; Z11.52 Encounter for screening for COVID-19; Z88.0 Allergy status to penicillin; Z88.1 Allergy status to other antibiotic agents; Z91.040 Latex allergy status; Z28.310 Unvaccinated for COVID-19
CPT/HCPCS: 93005; 87635; 87804 ×2; 71045; 96372; 99285; J1100

== ENCOUNTER 2024-04-29 09:53 | Emergency (ER) | payer OTHER ==
--- OUTSIDE RECORDS SUMMARY | 2024-04-29 10:01 | XMS REPORT | Continuity of Care Document ---
Author Name Unknown Address [address] [facility] [address]. [address] [place] [address] [facility] thconnect Address [address] [facility]. [address] [place] [address] Support Name Relationship Address Phone Janes Collier Personal Relationship [address] [place] [phone] JANES COLLIER Emergency Contact [address] [place] [address] Cherri Collier Personal Relationship [address] [place] [address] JANES COLLIER [address] [place] [address] Unavailable JANES COLLIER [address] [place] [address] Unavailable WOOD, A" MICHELLE Significant Unknown Unavailable Michelle Wood, A" Significant Other Unknown Care Team Providers Care Home Theater Installer Name Role Phone Kirti Zavala PA-C Primary Care Physician + Naseem Juarez Attending Clinician Unavailable CYNTHIA Attending Clinician Unavailable KRISTIE CHEN Attending Clinician Unavail able KRISTIE CHEN Attending Clinician Unavail able BAYRON BERMEO Attending Clinician Unavailable Bayron Bermeo MD Attending Clinician [phone] MARV ZAMARRIPA Attending Clinician Unavailable Marv Porras Attending Clinician [phone] GAUDENCIO COWAN Attending Clinician Unavailab GAUDENCIO Nelson Attending Clinician Unavailab ZOFIA Khanna Attending Clinician Unavailable STEVE ORTEGA Attending Clinician UnavailSTEVE Cowart Attending Clinician Unavailoscar ble 2, [facility] Attending Clinician Unavailable Kirti Zavala PA-C Attending Clinician [phone] KIRTI ZAVALA Attending Clinician Unavailab le Doctor Unassigned, [place] Attending Clinician U pako Bowen MD, Heidi Attending Clinician + [phone] Lab, Braydon Garcia Attending Clinician Unavailable Dio DIA, Andrade Attending Clinician [phone] Ivan Hollis MD Attending Clinician [phone] Fely York PA-C Attending Clinician [phone] CYNTHIA Admitting Clinician Unavailable Payers Payer Name Policy Type Policy Number Effective Date Expirati on Date Source [facility] Individual Exchange Benefit Plan [id number] [facility] (O) [id number] [facility] [id number] 2022 00:00:00 [facility] [id number] 2013 00:00:00 [facility] [id number] 2019 00:00:00 [place] [address] [id number] 2019 00:00:00 [facility] [id number] 2013 00:00:00 [facility] [id number] [place] [address] [id number] [facility] [id number] [place] [address] [id number] [facility] Problems Condition Name Condition Details Condition Category Status Onset Date Resolution Date Last Treatment Date Treating Clinician Comments Source Pain in wrist Pain in wrist Disease Active 2020-05 00:00: 00 [facility] [place] Enthesopat hy Enthesopat hy Disease Active 2020-05 00:00: 00 [facility] Depression Depression Disease Active 08-13 00:00: 00 Overview: Formattin g of this note might be different from the original. Sees Psychiatr y and Therapist [facility] Asthma Asthma Disease Active 08-13 00:00: 00 [facility] [id number] Extensor carpi ulnaris tendinitis Problem Active [facility] [id number] Pain in joint of left wrist Problem Active [facility] [id number] Flexor carpi ulnaris tendinitis Problem Active [facility] [id number] Body mass index [BMI] 35.0-35.9, adult Problem [facility] [id number] CHANTAL (generaliz ed anxiety disorder) Problem [facility] [id number] Mixed hyperlipid emia Problem [facility] [id number] Bipolar depression Problem [facility] [id number] Moderate recurrent major depression Problem [facility] [id number] Primary insomnia Problem [facility] [id number] Morbid (severe) obesity due to excess calories Problem [facility] Allergies, Adverse Reactions, Alerts Allergy Name Allergy Type Status Severity Reaction(s) Onset Date Inactive Date Treating Clinician Comments Source CEPHALEX IN DRUG INGREDI Active Rash 2021-05 00:00: 00 [facility] Cephalex in Propensi ty to adverse reaction s Active Rash 2021-05 00:00: 00 [facility] Penicill in Propensi ty to adverse reaction s Active Unknown - See comments 2020-05 00:00: 00 Rashes and throat swells [facility] PENICILL IN DRUG INGREDI Active Unknown-Cmnt 2020-05 00:00: 00 [facility] Latex Propensi ty to adverse reaction s Active Rash 12-12 00:00: 00 [facility] LATEX DRUG INGREDI Active Rash 12-12 00:00: 00 [facility] Penicill in Penicill in Active Unknown [facility] 8091 Drug allergy Active Unknown [facility] Latex Latex Active Unknown [facility] Social History Social Habit Start Date Stop Date Quantity Comments Source History of Tobacco Use [facility] Sex Assigned At [facility] Gender identity [facility] to SARS-CoV-2 (event) 2022-09-09 00:00:00 2022-09-19 09:55:00 Not sure [facility] History SDOH Alcohol Frequency 2022-09-19 00:00:00 2022-09-19 00:00:00 1 [facility] History SDOH Alcohol Std Drinks 2022-09-19 00:00:00 2022-09-19 00:00:00 0 [facility] History SDOH Alcohol Binge 2022-09-19 00:00:00 2022-09-19 00:00:00 1 [facility] History SDOH Social Connections Phone 2022-09-19 00:00:00 2022-09-19 00:00:00 5 [facility] History SDOH Social Connections Get Together 2022-09-19 00:00:00 2022-09-19 00:00:00 3 [facility] History SDOH Social Connections [facility] 2022-09-19 00:00:00 2022-09-19 00:00:00 1 [facility] History SDOH Social Connections Membership 2022-09-19 00:00:00 2022-09-19 00:00:00 2 [facility] History SDOH Social Connections Meetings 2022-09-19 00:00:00 2022-09-19 00:00:00 1 [facility] History SDOH Social Connections Living 2022-09-19 00:00:00 2022-09-19 00:00:00 98 [facility] History SDOH Physical Activity DPW 2022-09-19 00:00:00 2022-09-19 00:00:00 3 [facility] History SDOH Physical Activity MPS 2022-09-19 00:00:00 2022-09-19 00:00:00 2 [facility] History SDOH Stress 2022-09-19 00:00:00 2022-09-19 00:00:00 5 [facility] History SDOH Financial 2022-09-19 00:00:00 2022-09-19 00:00:00 2 [facility] History SDOH Food Worry 2022-09-19 00:00:00 2022-09-19 00:00:00 2 [facility] History SDOH Food Scarcity 2022-09-19 00:00:00 2022-09-19 00:00:00 2 [facility] History SDOH Transport Med 2022-09-19 00:00:00 2022-09-19 00:00:00 2 [facility] History SDOH Transport Non-Med 2022-09-19 00:00:00 2022-09-19 00:00:00 2 [facility] History SDOH Housing Unable to Pay 2022-09-19 00:00:00 2022-09-19 00:00:00 1 [facility] History SDOH Housing Places Lived 2022-09-19 00:00:00 2022-09-19 00:00:00 1 [facility] History SDOH Housing Homeless Last Year 2022-09-19 00:00:00 2022-09-19 00:00:00 2 [facility] History of Social function 2022-09-19 00:00:00 2022-09-19 00:00:00 [facility] Alcohol intake 2022-07-17 00:00:00 2022-07-17 00:00:00 0 /d [facility] Tobacco Comment 2017-08-21 00:00:00 2017-08-21 00:00:00 mother smokes inside and outside of house [facility] Tobacco use and exposure 2017-08-21 00:00:00 2017-08-21 00:00:00 Smokeless tobacco non-user [facility] Smoking Status Start Date Stop Date Source Former Smoker 2024-01-12 00:00:00 2024-01-12 00:00:00 [facility] Never smoked tobacco [facility] Medications Ordered Medication Name Filled Medication Name Start Date Stop Date Current Medication? Ordering Clinician Indication Dosage Frequency Signature (SIG) Comments Components Source Azithromyci n 250 MG Azithromyci n 250 MG 2 00:00: 00 No QD Azithromyc in 250 MG butalbital- acetaminoph en-caff (ESGIC) 50-325-40 mg tablet 1 tablet 01-13 02:45: 00 01-13 02:52 :00 No 1{tbl} 1 tablet, Oral, ONCE, 1 dose, On 01/12/23 at 2145, LISETH [facility] butalbital- acetaminoph en-caff 50-325-40 mg tablet 01-12 00:00: 00 Yes [id number] 1{tbl} Take 1 tablet by mouth every 6 (six) hours as needed (Headache) . [facility] budesonide- formoteroL 160-4.5 mcg/actuati on inhaler 12-21 06:42: 03 Yes 2{puff} Inhale 2 Puffs in the morning and 2 Puffs in the evening. [facility] methylPREDN ISolone (MEDROL, ASIA,) 4 mg tablets 11-22 00:00: 00 Yes [id number] Take by mouth SEE-INSTRU CTIONS. follow package directions [facility] bromphenira mine-pseudo ephedrine-D M (BROMFED DM) 2-30-10 mg/5 mL syrup 11-22 00:00: 00 Yes [id number] 5mL Take 5 mL by mouth 4 (four) times daily as needed for Congestion /Allergies . [facility] budesonide- formoteroL 160-4.5 mcg/actuati on inhaler 11-08 11:08: 41 Yes 2{puff} Inhale 2 Puffs in the morning and 2 Puffs in the evening. [facility] clindamycin 300 mg capsule 11-08 00:00: 00 11-19 04:59 :00 No [id number] 300mg Take 1 capsule by mouth in the morning and 1 capsule at noon and 1 capsule in the evening. Do all this for 10 days. [facility] VENTOLIN HFA 90 mcg/actuati on inhaler 10-17 00:00: 00 Yes [id number] INHALE TWO (2) PUFFS BY MOUTH EVERY 6 (SIX) HOURS NEEDED FOR WHEEZING OR SHORTNESS OF BREATH. [facility] budesonide- formoteroL (SYMBICORT) 160-4.5 mcg/actuati on inhaler 09-19 10:50: 50 Yes 2{puff} Inhale 2 Puffs in the morning and 2 Puffs in the evening. [facility] montelukast (SINGULAIR) 10 mg tablet 09-19 00:00: 00 Yes [id number] 10mg Take 1 tablet by mouth in the morning. [facility] albuterol 90 mcg/actuati on inhaler 09-19 00:00: 00 10-17 00:00 :00 No [id number] 2{puff} Inhale 2 Puffs every 6 (six) hours as needed for Wheezing or Shortness of Breath. [facility] triamcinolo ne acetonide 0.1 % ointment 09-16 00:00: 00 09-19 00:00 :00 No [id number] Apply to area(s) 2 (two) times daily. [facility] methscopola mine 5 mg tablet 09-03 00:00: 00 Yes 5mg Take 1 tablet by mouth every morning. [facility] omeprazole 20 mg capsule 09-03 00:00: 00 09-19 00:00 :00 No TAKE ONE (1) CAPSULE BY MOUTH IN THE MORNING. [facility] ondansetron 8 mg disintegrat ing tablet 08-20 00:00: 00 Yes [id number] 8mg Take 1 tablet by mouth every 8 (eight) hours as needed for Nausea and Vomiting (N/V). [facility] guanFACINE 1 mg tablet 08-20 00:00: 00 Yes 1mg Take 1 tablet by mouth at bedtime. [facility] guanFACINE ER 3 mg tablet 08-20 00:00: 00 Yes 3mg Take 1 tablet by mouth at bedtime. [facility] ziprasidone 20 mg capsule 08-18 00:00: 00 Yes TAKE ONE (1) CAPSULE(S) BY MOUTH TWICE DAILY WITH FOOD. [facility] ziprasidone 60 mg capsule 08-18 00:00: 00 Yes Take by mouth daily. [facility] albuterol 2.5 mg /3 mL (0.083 %) nebulizer solution 08-06 00:00: 00 09-19 00:00 :00 No [id number] 2.5mg Inhale 3 mL every 4 (four) hours as needed for Wheezing or Shortness of Breath. [facility] ondansetron 8 mg disintegrat ing tablet 08-06 00:00: 00 08-20 00:00 :00 No [id number] 8mg Take 1 tablet by mouth every 8 (eight) hours as needed for Nausea and Vomiting (N/V). [facility] meloxicam (MOBIC ORAL) 07-23 11:13: 14 07-23 00:00 :00 No [facility] Nebulizer & Compressor For Neb Bonny 07-23 00:00: 00 09-19 00:00 :00 No [id number] Use as directed [facility] budesonide- formoteroL (SYMBICORT) 160-4.5 mcg/actuati on inhaler 07-23 00:00: 00 09-19 00:00 :00 No [id number] 2{puff} Inhale 2 Puffs in the morning and 2 Puffs in the evening. [facility] meloxicam 7.5 mg tablet 07-23 00:00: 00 09-19 00:00 :00 No [id number] Take 1 tab once daily with food for muscle pain for 3 to 5 days at a time [facility] albuterol 2.5 mg /3 mL (0.083 %) nebulizer solution 07-23 00:00: 00 08-06 00:00 :00 No [id number] 2.5mg Inhale 3 mL every 4 (four) hours as needed for Wheezing or Shortness of Breath. [facility] famotidine 20 mg tablet 07-20 00:00: 00 Yes 20mg Take 1 tablet by mouth in the morning. [facility] cetirizine 10 mg tablet 07-20 00:00: 00 Yes TAKE ONE (1) TABLET(S) BY MOUTH DAILY NEEDED FOR ALLERGIES. [facility] ondansetron 8 mg disintegrat ing tablet 07-17 00:00: 00 08-06 00:00 :00 No [id number] 8mg Take 1 tablet by mouth every 8 (eight) hours as needed for Nausea and Vomiting (N/V). [facility] clindamycin (CLEOCIN HCL) 300 mg capsule 07-17 00:00: 07-28 05:59 :00 No [id number] 300mg Take 1 capsule by mouth in the morning and 1 capsule at noon and 1 capsule in the evening. Do all this for 10 days. [facility] predniSONE 10 mg tablet 07-17 00:00: 00 07-23 05:59 :00 No [id number] 10mg Take 1 tablet by mouth in the morning and 1 tablet in the evening. Do all this for 5 days. [facility] fluticasone propionate 50 mcg/actuati on nasal spray 06-18 00:00: 00 09-19 00:00 :00 No [id number] 2{spray } Use 2 Sprays in each nostril in the morning and 2 Sprays in the evening. [facility] albuterol (VENTOLIN HFA) 90 mcg/actuati on inhaler 06-18 00:00: 00 09-19 00:00 :00 No INHALE TWO (2) PUFFS BY MOUTH EVERY FOUR HOURS NEEDED FOR WHEEZING, SHORTNESS OF BREATH OR CHEST TIGHTNESS. [facility] azithromyci n 250 mg tablet - 00:00: 00 07-17 00:00 :00 No [id number] 250mg Take 1 tablet by mouth SEE-INSTRU CTIONS. Take 500 mg day 1, then 250 mg days 2 to 5. [facility] clindamycin (CLEOCIN HCL) 300 mg capsule 2021-05 2-09 00:00: 00 05-04 05:59 :00 No [id number] 300mg Take 1 capsule by mouth in the morning and 1 capsule at noon and 1 capsule in the evening. Do all this for 7 days. [facility] fluticasone propionate 50 mcg/actuati on nasal spray 2021-05 0-18 00:00: 00 06-18 00:00 :00 No [id number] 2{spray } Use 2 Sprays in each nostril in the morning and 2 Sprays in the evening. [facility] OXcarbazepi ne 600 mg tablet 2021-05 0-13 00:00: 00 06-18 00:00 :00 No TAKE ONE (1) TABLET(S) BY MOUTH THREE TIMES A DAY WITH MEALS. [facility] meloxicam (MOBIC ORAL) 2021-05 0-11 08:14: 15 Yes [facility] fluticasone propion-kumar meteroL (ADVAIR HFA) 115-21 mcg/actuati on inhaler 2021-05 0-07 00:00: 00 07-23 00:00 :00 No [id number] INHALE TWO (2) PUFFS BY MOUTH TWICE A DAY. [facility] OXcarbazepi ne 300 mg tablet 9-30 00:00: 00 06-18 00:00 :00 No 300mg Take 300 mg by mouth in the morning and 300 mg in the evening. [facility] VRAYLAR 4.5 mg Cap 9-28 00:00: 00 06-18 00:00 :00 No TAKE ONE (1) CAPSULE(S) BY MOUTH AT BEDTIME. [facility] mirtazapine 7.5 mg tablet 9-28 00:00: 00 06-18 00:00 :00 No 7.5mg Take 7.5 mg by mouth at bedtime. [facility] VRAYLAR 3 mg Cap 9-06 00:00: 00 06-18 00:00 :00 No 1{capsu le} Take 1 capsule by mouth daily. [facility] ADVAIR HFA 115-21 mcg/actuati on inhaler 01-14 00:00: 00 Yes [id number] INHALE TWO (2) PUFFS BY MOUTH TWICE A DAY. [facility] ADVAIR HFA 115-21 mcg/actuati on inhaler 8 00:00: 00 01-14 00:00 :00 No [id number] INHALE TWO (2) PUFFS BY MOUTH TWICE A DAY. [facility] albuterol (VENTOLIN HFA) 90 mcg/actuati on inhaler 4- 00:00: 00 06-18 00:00 :00 No [id number] INHALE TWO (2) PUFFS BY MOUTH EVERY FOUR HOURS NEEDED FOR WHEEZING, SHORTNESS OF BREATH OR CHEST TIGHTNESS. [facility] meloxicam 7.5 mg tablet 2020-05 0- 00:00: 00 06-18 00:00 :00 No 7.5mg Take 7.5 mg by mouth daily. [facility] fluticasone propionate 50 mcg/actuati on nasal spray 09-11 00:00: 00 03-05 00:00 :00 No [id number] 2{spray } Use 2 Sprays in each nostril 2 (two) times daily. [facility] Rexulti 1 MG Rexulti 1 MG No QD Rexulti 1 MG Immunizations Ordered Immunization Name Filled Immunization Name Date Status Comments Source [facility] 2022-03-05 00:00:00 Completed [facility] HPV9 2022-03-05 00:00:00 Completed [facility] 2022-03-05 00:00:00 Completed [facility] 2022-03-05 00:00:00 Completed [facility] HPV9 2022-03-05 00:00:00 Completed [facility] HPV9 2022-03-05 00:00:00 Completed [facility] HPV9 2022-03-05 00:00:00 Completed [facility] HPV9 2022-03-05 00:00:00 Completed [facility] HPV9 2022-03-05 00:00:00 Completed [facility] HPV9 2022-03-05 00:00:00 Completed [facility] HPV9 2022-03-05 00:00:00 Completed [facility] HPV9 2022-03-05 00:00:00 Completed [facility] HPV9 2022-03-05 00:00:00 Completed [facility] HPV9 2022-03-05 00:00:00 Completed [facility] HPV9 2022-03-05 00:00:00 Completed [facility] HPV9 2022-03-05 00:00:00 Completed [facility] HPV9 2022-03-05 00:00:00 Completed [facility] HPV9 2022-03-05 00:00:00 Completed [facility] HPV9 2022-03-05 00:00:00 Completed [facility] HPV9 2022-03-05 00:00:00 Completed [facility] HPV9 2022-03-05 00:00:00 Completed [facility] HPV9 2022-03-05 00:00:00 Completed [facility] HPV9 2022-03-05 00:00:00 Completed [facility] Meningococcal B, OMV 2021-03-26 00:00:00 Completed [facility] HPV9 2021-03-26 00:00:00 Completed [facility] Meningococcal B, OMV 2021-03-26 00:00:00 Completed [facility] HPV9 2021-03-26 00:00:00 Completed [facility] Meningococcal B, OMV 2021-03-26 00:00:00 Completed [facility] HPV9 2021-03-26 00:00:00 Completed [facility] Meningococcal B, OMV 2021-03-26 00:00:00 Completed [facility] HPV9 2021-03-26 00:00:00 Completed [facility] Meningococcal B, OMV 2021-03-26 00:00:00 Completed [facility] HPV9 2021-03-26 00:00:00 Completed [facility] Meningococcal B, OMV 2021-03-26 00:00:00 Completed [facility] HPV9 2021-03-26 00:00:00 Completed [facility] Meningococcal B, OMV 2021-03-26 00:00:00 Completed [facility] HPV9 2021-03-26 00:00:00 Completed [facility] Meningococcal B, OMV 2021-03-26 00:00:00 Completed [facility] HPV9 2021-03-26 00:00:00 Completed [facility] Meningococcal B, OMV 2021-03-26 00:00:00 Completed [facility] HPV9 2021-03-26 00:00:00 Completed [facility] Meningococcal B, OMV 2021-03-26 00:00:00 Completed [facility] HPV9 2021-03-26 00:00:00 Completed [facility] Meningococcal B, OMV 2021-03-26 00:00:00 Completed [facility] HPV9 2021-03-26 00:00:00 Completed [facility] Meningococcal B, OMV 2021-03-26 00:00:00 Completed [facility] HPV9 2021-03-26 00:00:00 Completed [facility] Meningococcal B, OMV 2021-03-26 00:00:00 Completed [facility] HPV9 2021-03-26 00:00:00 Completed [facility] Meningococcal B, OMV 2021-03-26 00:00:00 Completed [facility] HPV9 2021-03-26 00:00:00 Completed [facility] Meningococcal B, OMV 2021-03-26 00:00:00 Completed [facility] HPV9 2021-03-26 00:00:00 Completed [facility] Meningococcal B, OMV 2021-03-26 00:00:00 Completed [facility] HPV9 2021-03-26 00:00:00 Completed [facility] Meningococcal B, OMV 2021-03-26 00:00:00 Completed [facility] HPV9 2021-03-26 00:00:00 Completed [facility] Meningococcal B, OMV 2021-03-26 00:00:00 Completed [facility] HPV9 2021-03-26 00:00:00 Completed [facility] Meningococcal B, OMV 2021-03-26 00:00:00 Completed [facility] 2021-03-26 00:00:00 Completed [facility] Meningococcal B, OMV 2021-03-26 00:00:00 Completed [facility] 2021-03-26 00:00:00 Completed [facility] Meningococcal B, OMV 2021-03-26 00:00:00 Completed [facility] HPV9 2021-03-26 00:00:00 Completed [facility] Meningococcal B, OMV 2021-03-26 00:00:00 Completed [facility] 2021-03-26 00:00:00 Completed [facility] Meningococcal B, OMV 2021-03-26 00:00:00 Completed [facility] HPV9 2021-03-26 00:00:00 Completed [facility] Meningococcal B, OMV 2021-03-26 00:00:00 Completed [facility] HPV9 2021-03-26 00:00:00 Completed [facility] Meningococcal B, OMV 2021-03-26 00:00:00 Completed [facility] HPV9 2021-03-26 00:00:00 Completed [facility] Meningococcal B, OMV 2021-03-26 00:00:00 Completed [facility] HPV9 2021-03-26 00:00:00 Completed [facility] Meningococcal Polysaccharide (groups A, C, Y and W-135) conjugate vaccine (MCV4P) 2019-12-06 00:00:00 Completed [facility] Meningococcal B, OMV 2019-12-06 00:00:00 Completed [facility] Meningococcal Polysaccharide (groups A, C, Y and W-135) conjugate vaccine (MCV4P) 2019-12-06 00:00:00 Completed [facility] Meningococcal B, OMV 2019-12-06 00:00:00 Completed [facility] Meningococcal Polysaccharide (groups A, C, Y and W-135) conjugate vaccine (MCV4P) 2019-12-06 00:00:00 Completed [facility] Meningococcal B, OMV 2019-12-06 00:00:00 Completed [facility] Meningococcal Polysaccharide (groups A, C, Y and W-135) conjugate vaccine (MCV4P) 2019-12-06 00:00:00 Completed [facility] Meningococcal B, OMV 2019-12-06 00:00:00 Completed [facility] Meningococcal Polysaccharide (groups A, C, Y and W-135) conjugate vaccine (MCV4P) 2019-12-06 00:00:00 Completed [facility] Meningococcal B, OMV 2019-12-06 00:00:00 Completed [facility] Meningococcal Polysaccharide (groups A, C, Y and W-135) conjugate vaccine (MCV4P) 2019-12-06 00:00:00 Completed [facility] Meningococcal B, OMV 2019-12-06 00:00:00 Completed [facility] Meningococcal Polysaccharide (groups A, C, Y and W-135) conjugate vaccine (MCV4P) 2019-12-06 00:00:00 Completed [facility] Meningococcal B, OMV 2019-12-06 00:00:00 Completed [facility] Meningococcal Polysaccharide (groups A, C, Y and W-135) conjugate vaccine (MCV4P) 2019-12-06 00:00:00 Completed [facility] Meningococcal B, OMV 2019-12-06 00:00:00 Completed [facility] Meningococcal Polysaccharide (groups A, C, Y and W-135) conjugate vaccine (MCV4P) 2019-12-06 00:00:00 Completed [facility] Meningococcal B, OMV 2019-12-06 00:00:00 Completed [facility] Meningococcal Polysaccharide (groups A, C, Y and W-135) conjugate vaccine (MCV4P) 2019-12-06 00:00:00 Completed [facility] Meningococcal B, OMV 2019-12-06 00:00:00 Completed [facility] Meningococcal Polysaccharide (groups A, C, Y and W-135) conjugate vaccine (MCV4P) 2019-12-06 00:00:00 Completed [facility] Meningococcal B, OMV 2019-12-06 00:00:00 Completed [facility] Meningococcal Polysaccharide (groups A, C, Y and W-135) conjugate vaccine (MCV4P) 2019-12-06 00:00:00 Completed [facility] Meningococcal B, OMV 2019-12-06 00:00:00 Completed [facility] Meningococcal Polysaccharide (groups A, C, Y and W-135) conjugate vaccine (MCV4P) 2019-12-06 00:00:00 Completed [facility] Meningococcal B, OMV 2019-12-06 00:00:00 Completed [facility] Meningococcal Polysaccharide (groups A, C, Y and W-135) conjugate vaccine (MCV4P) 2019-12-06 00:00:00 Completed [facility] Meningococcal B, OMV 2019-12-06 00:00:00 Completed [facility] Meningococcal Polysaccharide (groups A, C, Y and W-135) conjugate vaccine (MCV4P) 2019-12-06 00:00:00 Completed [facility] Meningococcal B, OMV 2019-12-06 00:00:00 Completed [facility] Meningococcal Polysaccharide (groups A, C, Y and W-135) conjugate vaccine (MCV4P) 2019-12-06 00:00:00 Completed [facility] Meningococcal B, OMV 2019-12-06 00:00:00 Completed [facility] Meningococcal Polysaccharide (groups A, C, Y and W-135) conjugate vaccine (MCV4P) 2019-12-06 00:00:00 Completed [facility] Meningococcal B, OMV 2019-12-06 00:00:00 Completed [facility] Meningococcal Polysaccharide (groups A, C, Y and W-135) conjugate vaccine (MCV4P) 2019-12-06 00:00:00 Completed [facility] Meningococcal B, OMV 2019-12-06 00:00:00 Completed [facility] Meningococcal Polysaccharide (groups A, C, Y and W-135) conjugate vaccine (MCV4P) 2019-12-06 00:00:00 Completed [facility] Meningococcal B, OMV 2019-12-06 00:00:00 Completed [facility] Meningococcal Polysaccharide (groups A, C, Y and W-135) conjugate vaccine (MCV4P) 2019-12-06 00:00:00 Completed [facility] Meningococcal B, OMV 2019-12-06 00:00:00 Completed [facility] Meningococcal Polysaccharide (groups A, C, Y and W-135) conjugate vaccine (MCV4P) 2019-12-06 00:00:00 Completed [facility] Meningococcal B, OMV 2019-12-06 00:00:00 Completed [facility] Meningococcal Polysaccharide (groups A, C, Y and W-135) conjugate vaccine (MCV4P) 2019-12-06 00:00:00 Completed [facility] Meningococcal B, OMV 2019-12-06 00:00:00 Completed [facility] Meningococcal Polysaccharide (groups A, C, Y and W-135) conjugate vaccine (MCV4P) 2019-12-06 00:00:00 Completed [facility] Meningococcal B, OMV 2019-12-06 00:00:00 Completed [facility] Meningococcal Polysaccharide (groups A, C, Y and W-135) conjugate vaccine (MCV4P) 2019-12-06 00:00:00 Completed [facility] Meningococcal B, OMV 2019-12-06 00:00:00 Completed [facility] Meningococcal Polysaccharide (groups A, C, Y and W-135) conjugate vaccine (MCV4P) 2019-12-06 00:00:00 Completed [facility] Meningococcal B, OMV 2019-12-06 00:00:00 Completed [facility] Meningococcal Polysaccharide (groups A, C, Y and W-135) conjugate vaccine (MCV4P) 2019-12-06 00:00:00 Completed [facility] Meningococcal B, OMV 2019-12-06 00:00:00 Completed [facility] Meningococcal Vaccine 2015-09-08 00:00:00 Completed [facility] TDAP 2015-09-08 00:00:00 Completed [facility] Meningococcal Vaccine 2015-09-08 00:00:00 Completed [facility] TDAP 2015-09-08 00:00:00 Completed [facility] Meningococcal Vaccine 2015-09-08 00:00:00 Completed [facility] TDAP 2015-09-08 00:00:00 Completed [facility] Meningococcal Vaccine 2015-09-08 00:00:00 Completed [facility] TDAP 2015-09-08 00:00:00 Completed [facility] Meningococcal Vaccine 2015-09-08 00:00:00 Completed [facility] TDAP 2015-09-08 00:00:00 Completed [facility] Meningococcal Vaccine 2015-09-08 00:00:00 Completed [facility] TDAP 2015-09-08 00:00:00 Completed [facility] Meningococcal Vaccine 2015-09-08 00:00:00 Completed [facility] TDAP 2015-09-08 00:00:00 Completed [facility] Meningococcal Vaccine 2015-09-08 00:00:00 Completed [facility] TDAP 2015-09-08 00:00:00 Completed [facility] Meningococcal Vaccine 2015-09-08 00:00:00 Completed [facility] TDAP 2015-09-08 00:00:00 Completed [facility] Meningococcal Vaccine 2015-09-08 00:00:00 Completed [facility] TDAP 2015-09-08 00:00:00 Completed [facility] Meningococcal Vaccine 2015-09-08 00:00:00 Completed [facility] TDAP 2015-09-08 00:00:00 Completed [facility] Meningococcal Vaccine 2015-09-08 00:00:00 Completed [facility] TDAP 2015-09-08 00:00:00 Completed [facility] Meningococcal Vaccine 2015-09-08 00:00:00 Completed [facility] TDAP 2015-09-08 00:00:00 Completed [facility] Meningococcal Vaccine 2015-09-08 00:00:00 Completed [facility] TDAP 2015-09-08 00:00:00 Completed [facility] Meningococcal Vaccine 2015-09-08 00:00:00 Completed [facility] TDAP 2015-09-08 00:00:00 Completed [facility] Meningococcal Vaccine 2015-09-08 00:00:00 Completed [facility] TDAP 2015-09-08 00:00:00 Completed [facility] Meningococcal Vaccine 2015-09-08 00:00:00 Completed [facility] TDAP 2015-09-08 00:00:00 Completed [facility] Meningococcal Vaccine 2015-09-08 00:00:00 Completed [facility] TDAP 2015-09-08 00:00:00 Completed [facility] Meningococcal Vaccine 2015-09-08 00:00:00 Completed [facility] TDAP 2015-09-08 00:00:00 Completed [facility] Meningococcal Vaccine 2015-09-08 00:00:00 Completed [facility] TDAP 2015-09-08 00:00:00 Completed [facility] Meningococcal Vaccine 2015-09-08 00:00:00 Completed [facility] TDAP 2015-09-08 00:00:00 Completed [facility] Meningococcal Vaccine 2015-09-08 00:00:00 Completed [facility] TDAP 2015-09-08 00:00:00 Completed [facility] Meningococcal Vaccine 2015-09-08 00:00:00 Completed [facility] TDAP 2015-09-08 00:00:00 Completed [facility] Meningococcal Vaccine 2015-09-08 00:00:00 Completed [facility] TDAP 2015-09-08 00:00:00 Completed [facility] Meningococcal Vaccine 2015-09-08 00:00:00 Completed [facility] TDAP 2015-09-08 00:00:00 Completed [facility] Meningococcal Vaccine 2015-09-08 00:00:00 Completed [facility] TDAP 2015-09-08 00:00:00 Completed [facility] HEPATITIS A 2008-08-11 00:00:00 Completed [facility] HEPATITIS A 2008-08-11 00:00:00 Completed [facility] HEPATITIS A 2008-08-11 00:00:00 Completed [facility] HEPATITIS A 2008-08-11 00:00:00 Completed [facility] HEPATITIS A 2008-08-11 00:00:00 Completed [facility] HEPATITIS A 2008-08-11 00:00:00 Completed [facility] HEPATITIS A 2008-08-11 00:00:00 Completed [facility] HEPATITIS A 2008-08-11 00:00:00 Completed [facility] HEPATITIS A 2008-08-11 00:00:00 Completed [facility] HEPATITIS A 2008-08-11 00:00:00 Completed [facility] HEPATITIS A 2008-08-11 00:00:00 Completed [facility] HEPATITIS A 2008-08-11 00:00:00 Completed [facility] HEPATITIS A 2008-08-11 00:00:00 Completed [facility] HEPATITIS A 2008-08-11 00:00:00 Completed [facility] HEPATITIS A 2008-08-11 00:00:00 Completed [facility] HEPATITIS A 2008-08-11 00:00:00 Completed [facility] HEPATITIS A 2008-08-11 00:00:00 Completed [facility] HEPATITIS A 2008-08-11 00:00:00 Completed [facility] HEPATITIS A 2008-08-11 00:00:00 Completed [facility] HEPATITIS A 2008-08-11 00:00:00 Completed [facility] HEPATITIS A 2008-08-11 00:00:00 Completed [facility] HEPATITIS A 2008-08-11 00:00:00 Completed [facility] HEPATITIS A 2008-08-11 00:00:00 Completed [facility] HEPATITIS A 2008-08-11 00:00:00 Completed [facility] HEPATITIS A 2008-08-11 00:00:00 Completed [facility] HEPATITIS A 2008-08-11 00:00:00 Completed [facility] HEPATITIS A 2008-01-15 00:00:00 Completed [facility] MMR 2008-01-15 00:00:00 Completed [facility] Polio (IPV/OPV) 2008-01-15 00:00:00 Completed [facility] Varicella (varivax)(chicken pox) 2008-01-15 00:00:00 Completed [facility] DTAP 2008-01-15 00:00:00 Completed [facility] HEPATITIS A 2008-01-15 00:00:00 Completed [facility] MMR 2008-01-15 00:00:00 Completed [facility] Polio (IPV/OPV) 2008-01-15 00:00:00 Completed [facility] Varicella (varivax)(chicken pox) 2008-01-15 00:00:00 Completed [facility] DTAP 2008-01-15 00:00:00 Completed [facility] HEPATITIS A 2008-01-15 00:00:00 Completed [facility] MMR 2008-01-15 00:00:00 Completed [facility] Polio (IPV/OPV) 2008-01-15 00:00:00 Completed [facility] Varicella (varivax)(chicken pox) 2008-01-15 00:00:00 Completed [facility] DTAP 2008-01-15 00:00:00 Completed [facility] HEPATITIS A 2008-01-15 00:00:00 Completed [facility] MMR 2008-01-15 00:00:00 Completed [facility] Polio (IPV/OPV) 2008-01-15 00:00:00 Completed [facility] Varicella (varivax)(chicken pox) 2008-01-15 00:00:00 Completed [facility] DTAP 2008-01-15 00:00:00 Completed [facility] HEPATITIS A 2008-01-15 00:00:00 Completed [facility] MMR 2008-01-15 00:00:00 Completed [facility] Polio (IPV/OPV) 2008-01-15 00:00:00 Completed [facility] Varicella (varivax)(chicken pox) 2008-01-15 00:00:00 Completed [facility] DTAP 2008-01-15 00:00:00 Completed [facility] HEPATITIS A 2008-01-15 00:00:00 Completed [facility] MMR 2008-01-15 00:00:00 Completed [facility] Polio (IPV/OPV) 2008-01-15 00:00:00 Completed [facility] Varicella (varivax)(chicken pox) 2008-01-15 00:00:00 Completed [facility] DTAP 2008-01-15 00:00:00 Completed [facility] HEPATITIS A 2008-01-15 00:00:00 Completed [facility] MMR 2008-01-15 00:00:00 Completed [facility] Polio (IPV/OPV) 2008-01-15 00:00:00 Completed [facility] Varicella (varivax)(chicken pox) 2008-01-15 00:00:00 Completed [facility] DTAP 2008-01-15 00:00:00 Completed [facility] HEPATITIS A 2008-01-15 00:00:00 Completed [facility] MMR 2008-01-15 00:00:00 Completed [facility] Polio (IPV/OPV) 2008-01-15 00:00:00 Completed [facility] Varicella (varivax)(chicken pox) 2008-01-15 00:00:00 Completed [facility] DTAP 2008-01-15 00:00:00 Completed [facility] HEPATITIS A 2008-01-15 00:00:00 Completed [facility] MMR 2008-01-15 00:00:00 Completed [facility] Polio (IPV/OPV) 2008-01-15 00:00:00 Completed [facility] Varicella (varivax)(chicken pox) 2008-01-15 00:00:00 Completed [facility] DTAP 2008-01-15 00:00:00 Completed [facility] HEPATITIS A 2008-01-15 00:00:00 Completed [facility] MMR 2008-01-15 00:00:00 Completed [facility] Polio (IPV/OPV) 2008-01-15 00:00:00 Completed [facility] Varicella (varivax)(chicken pox) 2008-01-15 00:00:00 Completed [facility] DTAP 2008-01-15 00:00:00 Completed [facility] HEPATITIS A 2008-01-15 00:00:00 Completed [facility] MMR 2008-01-15 00:00:00 Completed [facility] Polio (IPV/OPV) 2008-01-15 00:00:00 Completed [facility] Varicella (varivax)(chicken pox) 2008-01-15 00:00:00 Completed [facility] DTAP 2008-01-15 00:00:00 Completed [facility] HEPATITIS A 2008-01-15 00:00:00 Completed [facility] MMR 2008-01-15 00:00:00 Completed [facility] Polio (IPV/OPV) 2008-01-15 00:00:00 Completed [facility] Varicella (varivax)(chicken pox) 2008-01-15 00:00:00 Completed [facility] DTAP 2008-01-15 00:00:00 Completed [facility] HEPATITIS A 2008-01-15 00:00:00 Completed [facility] MMR 2008-01-15 00:00:00 Completed [facility] Polio (IPV/OPV) 2008-01-15 00:00:00 Completed [facility] Varicella (varivax)(chicken pox) 2008-01-15 00:00:00 Completed [facility] DTAP 2008-01-15 00:00:00 Completed [facility] HEPATITIS A 2008-01-15 00:00:00 Completed [facility] MMR 2008-01-15 00:00:00 Completed [facility] Polio (IPV/OPV) 2008-01-15 00:00:00 Completed [facility] Varicella (varivax)(chicken pox) 2008-01-15 00:00:00 Completed [facility] DTAP 2008-01-15 00:00:00 Completed [facility] HEPATITIS A 2008-01-15 00:00:00 Completed [facility] MMR 2008-01-15 00:00:00 Completed [facility] Polio (IPV/OPV) 2008-01-15 00:00:00 Completed [facility] Varicella (varivax)(chicken pox) 2008-01-15 00:00:00 Completed [facility] DTAP 2008-01-15 00:00:00 Completed [facility] HEPATITIS A 2008-01-15 00:00:00 Completed [facility] MMR 2008-01-15 00:00:00 Completed [facility] Polio (IPV/OPV) 2008-01-15 00:00:00 Completed [facility] Varicella (varivax)(chicken pox) 2008-01-15 00:00:00 Completed [facility] DTAP 2008-01-15 00:00:00 Completed [facility] HEPATITIS A 2008-01-15 00:00:00 Completed [facility] MMR 2008-01-15 00:00:00 Completed [facility] Polio (IPV/OPV) 2008-01-15 00:00:00 Completed [facility] Varicella (varivax)(chicken pox) 2008-01-15 00:00:00 Completed [facility] DTAP 2008-01-15 00:00:00 Completed [facility] HEPATITIS A 2008-01-15 00:00:00 Completed [facility] MMR 2008-01-15 00:00:00 Completed [facility] Polio (IPV/OPV) 2008-01-15 00:00:00 Completed [facility] Varicella (varivax)(chicken pox) 2008-01-15 00:00:00 Completed [facility] DTAP 2008-01-15 00:00:00 Completed [facility] HEPATITIS A 2008-01-15 00:00:00 Completed [facility] MMR 2008-01-15 00:00:00 Completed [facility] Polio (IPV/OPV) 2008-01-15 00:00:00 Completed [facility] Varicella (varivax)(chicken pox) 2008-01-15 00:00:00 Completed [facility] DTAP 2008-01-15 00:00:00 Completed [facility] HEPATITIS A 2008-01-15 00:00:00 Completed [facility] MMR 2008-01-15 00:00:00 Completed [facility] Polio (IPV/OPV) 2008-01-15 00:00:00 Completed [facility] Varicella (varivax)(chicken pox) 2008-01-15 00:00:00 Completed [facility] DTAP 2008-01-15 00:00:00 Completed [facility] HEPATITIS A 2008-01-15 00:00:00 Completed [facility] MMR 2008-01-15 00:00:00 Completed [facility] Polio (IPV/OPV) 2008-01-15 00:00:00 Completed [facility] Varicella (varivax)(chicken pox) 2008-01-15 00:00:00 Completed [facility] DTAP 2008-01-15 00:00:00 Completed [facility] HEPATITIS A 2008-01-15 00:00:00 Completed [facility] MMR 2008-01-15 00:00:00 Completed [facility] Polio (IPV/OPV) 2008-01-15 00:00:00 Completed [facility] Varicella (varivax)(chicken pox) 2008-01-15 00:00:00 Completed [facility] DTAP 2008-01-15 00:00:00 Completed [facility] HEPATITIS A 2008-01-15 00:00:00 Completed [facility] MMR 2008-01-15 00:00:00 Completed [facility] Polio (IPV/OPV) 2008-01-15 00:00:00 Completed [facility] Varicella (varivax)(chicken pox) 2008-01-15 00:00:00 Completed [facility] DTAP 2008-01-15 00:00:00 Completed [facility] HEPATITIS A 2008-01-15 00:00:00 Completed [facility] MMR 2008-01-15 00:00:00 Completed [facility] Polio (IPV/OPV) 2008-01-15 00:00:00 Completed [facility] Varicella (varivax)(chicken pox) 2008-01-15 00:00:00 Completed [facility] DTAP 2008-01-15 00:00:00 Completed [facility] HEPATITIS A 2008-01-15 00:00:00 Completed [facility] MMR 2008-01-15 00:00:00 Completed [facility] Polio (IPV/OPV) 2008-01-15 00:00:00 Completed [facility] Varicella (varivax)(chicken pox) 2008-01-15 00:00:00 Completed [facility] DTAP 2008-01-15 00:00:00 Completed [facility] HEPATITIS A 2008-01-15 00:00:00 Completed [facility] MMR 2008-01-15 00:00:00 Completed [facility] Polio (IPV/OPV) 2008-01-15 00:00:00 Completed [facility] Varicella (varivax)(chicken pox) 2008-01-15 00:00:00 Completed [facility] DTAP 2008-01-15 00:00:00 Completed [facility] Pneumococcal 13 Conjugate, PCV13 (Prevnar 13) 2005-07-16 00:00:00 Completed [facility] Polio (IPV/OPV) 2005-07-16 00:00:00 Completed [facility] Pneumococcal 13 Conjugate, PCV13 (Prevnar 13) 2005-07-16 00:00:00 Completed [facility] Polio (IPV/OPV) 2005-07-16 00:00:00 Completed [facility] Pneumococcal 13 Conjugate, PCV13 (Prevnar 13) 2005-07-16 00:00:00 Completed [facility] Polio (IPV/OPV) 2005-07-16 00:00:00 Completed [facility] Pneumococcal 13 Conjugate, PCV13 (Prevnar 13) 2005-07-16 00:00:00 Completed [facility] Polio (IPV/OPV) 2005-07-16 00:00:00 Completed [facility] Pneumococcal 13 Conjugate, PCV13 (Prevnar 13) 2005-07-16 00:00:00 Completed [facility] Polio (IPV/OPV) 2005-07-16 00:00:00 Completed [facility] Pneumococcal 13 Conjugate, PCV13 (Prevnar 13) 2005-07-16 00:00:00 Completed [facility] Polio (IPV/OPV) 2005-07-16 00:00:00 Completed [facility] Pneumococcal 13 Conjugate, PCV13 (Prevnar 13) 2005-07-16 00:00:00 Completed [facility] Polio (IPV/OPV) 2005-07-16 00:00:00 Completed [facility] Pneumococcal 13 Conjugate, PCV13 (Prevnar 13) 2005-07-16 00:00:00 Completed [facility] Polio (IPV/OPV) 2005-07-16 00:00:00 Completed [facility] Pneumococcal 13 Conjugate, PCV13 (Prevnar 13) 2005-07-16 00:00:00 Completed [facility] Polio (IPV/OPV) 2005-07-16 00:00:00 Completed [facility] Pneumococcal 13 Conjugate, PCV13 (Prevnar 13) 2005-07-16 00:00:00 Completed [facility] Polio (IPV/OPV) 2005-07-16 00:00:00 Completed [facility] Pneumococcal 13 Conjugate, PCV13 (Prevnar 13) 2005-07-16 00:00:00 Completed [facility] Polio (IPV/OPV) 2005-07-16 00:00:00 Completed [facility] Pneumococcal 13 Conjugate, PCV13 (Prevnar 13) 2005-07-16 00:00:00 Completed [facility] Polio (IPV/OPV) 2005-07-16 00:00:00 Completed [facility] Pneumococcal 13 Conjugate, PCV13 (Prevnar 13) 2005-07-16 00:00:00 Completed [facility] Polio (IPV/OPV) 2005-07-16 00:00:00 Completed [facility] Pneumococcal 13 Conjugate, PCV13 (Prevnar 13) 2005-07-16 00:00:00 Completed [facility] Polio (IPV/OPV) 2005-07-16 00:00:00 Completed [facility] Pneumococcal 13 Conjugate, PCV13 (Prevnar 13) 2005-07-16 00:00:00 Completed [facility] Polio (IPV/OPV) 2005-07-16 00:00:00 Completed [facility] Pneumococcal 13 Conjugate, PCV13 (Prevnar 13) 2005-07-16 00:00:00 Completed [facility] Polio (IPV/OPV) 2005-07-16 00:00:00 Completed [facility] Pneumococcal 13 Conjugate, PCV13 (Prevnar 13) 2005-07-16 00:00:00 Completed [facility] Polio (IPV/OPV) 2005-07-16 00:00:00 Completed [facility] Pneumococcal 13 Conjugate, PCV13 (Prevnar 13) 2005-07-16 00:00:00 Completed [facility] Polio (IPV/OPV) 2005-07-16 00:00:00 Completed [facility] Pneumococcal 13 Conjugate, PCV13 (Prevnar 13) 2005-07-16 00:00:00 Completed [facility] Polio (IPV/OPV) 2005-07-16 00:00:00 Completed [facility] Pneumococcal 13 Conjugate, PCV13 (Prevnar 13) 2005-07-16 00:00:00 Completed [facility] Polio (IPV/OPV) 2005-07-16 00:00:00 Completed [facility] Pneumococcal 13 Conjugate, PCV13 (Prevnar 13) 2005-07-16 00:00:00 Completed [facility] Polio (IPV/OPV) 2005-07-16 00:00:00 Completed [facility] Pneumococcal 13 Conjugate, PCV13 (Prevnar 13) 2005-07-16 00:00:00 Completed [facility] Polio (IPV/OPV) 2005-07-16 00:00:00 Completed [facility] Pneumococcal 13 Conjugate, PCV13 (Prevnar 13) 2005-07-16 00:00:00 Completed [facility] Polio (IPV/OPV) 2005-07-16 00:00:00 Completed [facility] Pneumococcal 13 Conjugate, PCV13 (Prevnar 13) 2005-07-16 00:00:00 Completed [facility] Polio (IPV/OPV) 2005-07-16 00:00:00 Completed [facility] Pneumococcal 13 Conjugate, PCV13 (Prevnar 13) 2005-07-16 00:00:00 Completed [facility] Polio (IPV/OPV) 2005-07-16 00:00:00 Completed [facility] Pneumococcal 13 Conjugate, PCV13 (Prevnar 13) 2005-07-16 00:00:00 Completed [facility] Polio (IPV/OPV) 2005-07-16 00:00:00 Completed [facility] MMR 2005-06-11 00:00:00 Completed [facility] Varicella (varivax)(chicken pox) 2005-06-11 00:00:00 Completed [facility] MMR 2005-06-11 00:00:00 Completed [facility] Varicella (varivax)(chicken pox) 2005-06-11 00:00:00 Completed [facility] 2005-06-11 00:00:00 Completed [facility] Varicella (varivax)(chicken pox) 2005-06-11 00:00:00 Completed [facility] 2005-06-11 00:00:00 Completed [facility] Varicella (varivax)(chicken pox) 2005-06-11 00:00:00 Completed [facility] 2005-06-11 00:00:00 Completed [facility] Varicella (varivax)(chicken pox) 2005-06-11 00:00:00 Completed [facility] 2005-06-11 00:00:00 Completed [facility] Varicella (varivax)(chicken pox) 2005-06-11 00:00:00 Completed [facility] 2005-06-11 00:00:00 Completed [facility] Varicella (varivax)(chicken pox) 2005-06-11 00:00:00 Completed [facility] 2005-06-11 00:00:00 Completed [facility] Varicella (varivax)(chicken pox) 2005-06-11 00:00:00 Completed [facility] 2005-06-11 00:00:00 Completed [facility] Varicella (varivax)(chicken pox) 2005-06-11 00:00:00 Completed [facility] 2005-06-11 00:00:00 Completed [facility] Varicella (varivax)(chicken pox) 2005-06-11 00:00:00 Completed [facility] 2005-06-11 00:00:00 Completed [facility] Varicella (varivax)(chicken pox) 2005-06-11 00:00:00 Completed [facility] 2005-06-11 00:00:00 Completed [facility] Varicella (varivax)(chicken pox) 2005-06-11 00:00:00 Completed [facility] 2005-06-11 00:00:00 Completed [facility] Varicella (varivax)(chicken pox) 2005-06-11 00:00:00 Completed [facility] 2005-06-11 00:00:00 Completed [facility] Varicella (varivax)(chicken pox) 2005-06-11 00:00:00 Completed [facility] 2005-06-11 00:00:00 Completed [facility] Varicella (varivax)(chicken pox) 2005-06-11 00:00:00 Completed [facility] 2005-06-11 00:00:00 Completed [facility] Varicella (varivax)(chicken pox) 2005-06-11 00:00:00 Completed [facility] 2005-06-11 00:00:00 Completed [facility] Varicella (varivax)(chicken pox) 2005-06-11 00:00:00 Completed [facility] 2005-06-11 00:00:00 Completed [facility] Varicella (varivax)(chicken pox) 2005-06-11 00:00:00 Completed [facility] 2005-06-11 00:00:00 Completed [facility] Varicella (varivax)(chicken pox) 2005-06-11 00:00:00 Completed [facility] 2005-06-11 00:00:00 Completed [facility] Varicella (varivax)(chicken pox) 2005-06-11 00:00:00 Completed [facility] 2005-06-11 00:00:00 Completed [facility] Varicella (varivax)(chicken pox) 2005-06-11 00:00:00 Completed [facility] 2005-06-11 00:00:00 Completed [facility] Varicella (varivax)(chicken pox) 2005-06-11 00:00:00 Completed [facility] 2005-06-11 00:00:00 Completed [facility] Varicella (varivax)(chicken pox) 2005-06-11 00:00:00 Completed [facility] 2005-06-11 00:00:00 Completed [facility] Varicella (varivax)(chicken pox) 2005-06-11 00:00:00 Completed [facility] 2005-06-11 00:00:00 Completed [facility] Varicella (varivax)(chicken pox) 2005-06-11 00:00:00 Completed [facility] MMR 2005-06-11 00:00:00 Completed [facility] Varicella (varivax)(chicken pox) 2005-06-11 00:00:00 Completed [facility] DTAP 2005-05-07 00:00:00 Completed [facility] HIB 3 Dose Schedule 2005-05-07 00:00:00 Completed [facility] Hep B, Adol or Pedi Dosage 2005-05-07 00:00:00 Completed [facility] Pneumococcal 13 Conjugate, PCV13 (Prevnar 13) 2005-05-07 00:00:00 Completed [facility] Polio (IPV/OPV) 2005-05-07 00:00:00 Completed [facility] DTAP 2005-05-07 00:00:00 Completed [facility] HIB 3 Dose Schedule 2005-05-07 00:00:00 Completed [facility] Hep B, Adol or Pedi Dosage 2005-05-07 00:00:00 Completed [facility] Pneumococcal 13 Conjugate, PCV13 (Prevnar 13) 2005-05-07 00:00:00 Completed [facility] Polio (IPV/OPV) 2005-05-07 00:00:00 Completed [facility] DTAP 2005-05-07 00:00:00 Completed [facility] HIB 3 Dose Schedule 2005-05-07 00:00:00 Completed [facility] Hep B, Adol or Pedi Dosage 2005-05-07 00:00:00 Completed [facility] Pneumococcal 13 Conjugate, PCV13 (Prevnar 13) 2005-05-07 00:00:00 Completed [facility] Polio (IPV/OPV) 2005-05-07 00:00:00 Completed [facility] DTAP 2005-05-07 00:00:00 Completed [facility] HIB 3 Dose Schedule 2005-05-07 00:00:00 Completed [facility] Hep B, Adol or Pedi Dosage 2005-05-07 00:00:00 Completed [facility] Pneumococcal 13 Conjugate, PCV13 (Prevnar 13) 2005-05-07 00:00:00 Completed [facility] Polio (IPV/OPV) 2005-05-07 00:00:00 Completed [facility] DTAP 2005-05-07 00:00:00 Completed [facility] HIB 3 Dose Schedule 2005-05-07 00:00:00 Completed [facility] Hep B, Adol or Pedi Dosage 2005-05-07 00:00:00 Completed [facility] Pneumococcal 13 Conjugate, PCV13 (Prevnar 13) 2005-05-07 00:00:00 Completed [facility] Polio (IPV/OPV) 2005-05-07 00:00:00 Completed [facility] DTAP 2005-05-07 00:00:00 Completed [facility] HIB 3 Dose Schedule 2005-05-07 00:00:00 Completed [facility] Hep B, Adol or Pedi Dosage 2005-05-07 00:00:00 Completed [facility] Pneumococcal 13 Conjugate, PCV13 (Prevnar 13) 2005-05-07 00:00:00 Completed [facility] Polio (IPV/OPV) 2005-05-07 00:00:00 Completed [facility] DTAP 2005-05-07 00:00:00 Completed [facility] HIB 3 Dose Schedule 2005-05-07 00:00:00 Completed [facility] Hep B, Adol or Pedi Dosage 2005-05-07 00:00:00 Completed [facility] Pneumococcal 13 Conjugate, PCV13 (Prevnar 13) 2005-05-07 00:00:00 Completed [facility] Polio (IPV/OPV) 2005-05-07 00:00:00 Completed [facility] DTAP 2005-05-07 00:00:00 Completed [facility] HIB 3 Dose Schedule 2005-05-07 00:00:00 Completed [facility] Hep B, Adol or Pedi Dosage 2005-05-07 00:00:00 Completed [facility] Pneumococcal 13 Conjugate, PCV13 (Prevnar 13) 2005-05-07 00:00:00 Completed [facility] Polio (IPV/OPV) 2005-05-07 00:00:00 Completed [facility] DTAP 2005-05-07 00:00:00 Completed [facility] HIB 3 Dose Schedule 2005-05-07 00:00:00 Completed [facility] Hep B, Adol or Pedi Dosage 2005-05-07 00:00:00 Completed [facility] Pneumococcal 13 Conjugate, PCV13 (Prevnar 13) 2005-05-07 00:00:00 Completed [facility] Polio (IPV/OPV) 2005-05-07 00:00:00 Completed [facility] DTAP 2005-05-07 00:00:00 Completed [facility] HIB 3 Dose Schedule 2005-05-07 00:00:00 Completed [facility] Hep B, Adol or Pedi Dosage 2005-05-07 00:00:00 Completed [facility] Pneumococcal 13 Conjugate, PCV13 (Prevnar 13) 2005-05-07 00:00:00 Completed [facility] Polio (IPV/OPV) 2005-05-07 00:00:00 Completed [facility] DTAP 2005-05-07 00:00:00 Completed [facility] HIB 3 Dose Schedule 2005-05-07 00:00:00 Completed [facility] Hep B, Adol or Pedi Dosage 2005-05-07 00:00:00 Completed [facility] Pneumococcal 13 Conjugate, PCV13 (Prevnar 13) 2005-05-07 00:00:00 Completed [facility] Polio (IPV/OPV) 2005-05-07 00:00:00 Completed [facility] DTAP 2005-05-07 00:00:00 Completed [facility] HIB 3 Dose Schedule 2005-05-07 00:00:00 Completed [facility] Hep B, Adol or Pedi Dosage 2005-05-07 00:00:00 Completed [facility] Pneumococcal 13 Conjugate, PCV13 (Prevnar 13) 2005-05-07 00:00:00 Completed [facility] Polio (IPV/OPV) 2005-05-07 00:00:00 Completed [facility] DTAP 2005-05-07 00:00:00 Completed [facility] HIB 3 Dose Schedule 2005-05-07 00:00:00 Completed [facility] Hep B, Adol or Pedi Dosage 2005-05-07 00:00:00 Completed [facility] Pneumococcal 13 Conjugate, PCV13 (Prevnar 13) 2005-05-07 00:00:00 Completed [facility] Polio (IPV/OPV) 2005-05-07 00:00:00 Completed [facility] DTAP 2005-05-07 00:00:00 Completed [facility] HIB 3 Dose Schedule 2005-05-07 00:00:00 Completed [facility] Hep B, Adol or Pedi Dosage 2005-05-07 00:00:00 Completed [facility] Pneumococcal 13 Conjugate, PCV13 (Prevnar 13) 2005-05-07 00:00:00 Completed [facility] Polio (IPV/OPV) 2005-05-07 00:00:00 Completed [facility] DTAP 2005-05-07 00:00:00 Completed [facility] HIB 3 Dose Schedule 2005-05-07 00:00:00 Completed [facility] Hep B, Adol or Pedi Dosage 2005-05-07 00:00:00 Completed [facility] Pneumococcal 13 Conjugate, PCV13 (Prevnar 13) 2005-05-07 00:00:00 Completed [facility] Polio (IPV/OPV) 2005-05-07 00:00:00 Completed [facility] DTAP 2005-05-07 00:00:00 Completed [facility] HIB 3 Dose Schedule 2005-05-07 00:00:00 Completed [facility] Hep B, Adol or Pedi Dosage 2005-05-07 00:00:00 Completed [facility] Pneumococcal 13 Conjugate, PCV13 (Prevnar 13) 2005-05-07 00:00:00 Completed [facility] Polio (IPV/OPV) 2005-05-07 00:00:00 Completed [facility] DTAP 2005-05-07 00:00:00 Completed [facility] HIB 3 Dose Schedule 2005-05-07 00:00:00 Completed [facility] Hep B, Adol or Pedi Dosage 2005-05-07 00:00:00 Completed [facility] Pneumococcal 13 Conjugate, PCV13 (Prevnar 13) 2005-05-07 00:00:00 Completed [facility] Polio (IPV/OPV) 2005-05-07 00:00:00 Completed [facility] DTAP 2005-05-07 00:00:00 Completed [facility] HIB 3 Dose Schedule 2005-05-07 00:00:00 Completed [facility] Hep B, Adol or Pedi Dosage 2005-05-07 00:00:00 Completed [facility] Pneumococcal 13 Conjugate, PCV13 (Prevnar 13) 2005-05-07 00:00:00 Completed [facility] Polio (IPV/OPV) 2005-05-07 00:00:00 Completed [facility] DTAP 2005-05-07 00:00:00 Completed [facility] HIB 3 Dose Schedule 2005-05-07 00:00:00 Completed [facility] Hep B, Adol or Pedi Dosage 2005-05-07 00:00:00 Completed [facility] Pneumococcal 13 Conjugate, PCV13 (Prevnar 13) 2005-05-07 00:00:00 Completed [facility] Polio (IPV/OPV) 2005-05-07 00:00:00 Completed [facility] DTAP 2005-05-07 00:00:00 Completed [facility] HIB 3 Dose Schedule 2005-05-07 00:00:00 Completed [facility] Hep B, Adol or Pedi Dosage 2005-05-07 00:00:00 Completed [facility] Pneumococcal 13 Conjugate, PCV13 (Prevnar 13) 2005-05-07 00:00:00 Completed [facility] Polio (IPV/OPV) 2005-05-07 00:00:00 Completed [facility] DTAP 2005-05-07 00:00:00 Completed [facility] HIB 3 Dose Schedule 2005-05-07 00:00:00 Completed [facility] Hep B, Adol or Pedi Dosage 2005-05-07 00:00:00 Completed [facility] Pneumococcal 13 Conjugate, PCV13 (Prevnar 13) 2005-05-07 00:00:00 Completed [facility] Polio (IPV/OPV) 2005-05-07 00:00:00 Completed [facility] DTAP 2005-05-07 00:00:00 Completed [facility] HIB 3 Dose Schedule 2005-05-07 00:00:00 Completed [facility] Hep B, Adol or Pedi Dosage 2005-05-07 00:00:00 Completed [facility] Pneumococcal 13 Conjugate, PCV13 (Prevnar 13) 2005-05-07 00:00:00 Completed [facility] Polio (IPV/OPV) 2005-05-07 00:00:00 Completed [facility] DTAP 2005-05-07 00:00:00 Completed [facility] HIB 3 Dose Schedule 2005-05-07 00:00:00 Completed [facility] Hep B, Adol or Pedi Dosage 2005-05-07 00:00:00 Completed [facility] Pneumococcal 13 Conjugate, PCV13 (Prevnar 13) 2005-05-07 00:00:00 Completed [facility] Polio (IPV/OPV) 2005-05-07 00:00:00 Completed [facility] DTAP 2005-05-07 00:00:00 Completed [facility] HIB 3 Dose Schedule 2005-05-07 00:00:00 Completed [facility] Hep B, Adol or Pedi Dosage 2005-05-07 00:00:00 Completed [facility] Pneumococcal 13 Conjugate, PCV13 (Prevnar 13) 2005-05-07 00:00:00 Completed [facility] Polio (IPV/OPV) 2005-05-07 00:00:00 Completed [facility] DTAP 2005-05-07 00:00:00 Completed [facility] HIB 3 Dose Schedule 2005-05-07 00:00:00 Completed [facility] Hep B, Adol or Pedi Dosage 2005-05-07 00:00:00 Completed [facility] Pneumococcal 13 Conjugate, PCV13 (Prevnar 13) 2005-05-07 00:00:00 Completed [facility] Polio (IPV/OPV) 2005-05-07 00:00:00 Completed [facility] DTAP 2005-05-07 00:00:00 Completed [facility] HIB 3 Dose Schedule 2005-05-07 00:00:00 Completed [facility] Hep B, Adol or Pedi Dosage 2005-05-07 00:00:00 Completed [facility] Pneumococcal 13 Conjugate, PCV13 (Prevnar 13) 2005-05-07 00:00:00 Completed [facility] Polio (IPV/OPV) 2005-05-07 00:00:00 Completed [facility] DTAP 2004-04-19 00:00:00 Completed [facility] HIB 3 Dose Schedule 2004-04-19 00:00:00 Completed [facility] Hep B, Adol or Pedi Dosage 2004-04-19 00:00:00 Completed [facility] Pneumococcal 13 Conjugate, PCV13 (Prevnar 13) 2004-04-19 00:00:00 Completed [facility] Polio (IPV/OPV) 2004-04-19 00:00:00 Completed [facility] DTAP 2004-04-19 00:00:00 Completed [facility] HIB 3 Dose Schedule 2004-04-19 00:00:00 Completed [facility] Hep B, Adol or Pedi Dosage 2004-04-19 00:00:00 Completed [facility] Pneumococcal 13 Conjugate, PCV13 (Prevnar 13) 2004-04-19 00:00:00 Completed [facility] Polio (IPV/OPV) 2004-04-19 00:00:00 Completed [facility] DTAP 2004-04-19 00:00:00 Completed [facility] HIB 3 Dose Schedule 2004-04-19 00:00:00 Completed [facility] Hep B, Adol or Pedi Dosage 2004-04-19 00:00:00 Completed [facility] Pneumococcal 13 Conjugate, PCV13 (Prevnar 13) 2004-04-19 00:00:00 Completed [facility] Polio (IPV/OPV) 2004-04-19 00:00:00 Completed [facility] DTAP 2004-04-19 00:00:00 Completed [facility] HIB 3 Dose Schedule 2004-04-19 00:00:00 Completed [facility] Hep B, Adol or Pedi Dosage 2004-04-19 00:00:00 Completed [facility] Pneumococcal 13 Conjugate, PCV13 (Prevnar 13) 2004-04-19 00:00:00 Completed [facility] Polio (IPV/OPV) 2004-04-19 00:00:00 Completed [facility] DTAP 2004-04-19 00:00:00 Completed [facility] HIB 3 Dose Schedule 2004-04-19 00:00:00 Completed [facility] Hep B, Adol or Pedi Dosage 2004-04-19 00:00:00 Completed [facility] Pneumococcal 13 Conjugate, PCV13 (Prevnar 13) 2004-04-19 00:00:00 Completed [facility] Polio (IPV/OPV) 2004-04-19 00:00:00 Completed [facility] DTAP 2004-04-19 00:00:00 Completed [facility] HIB 3 Dose Schedule 2004-04-19 00:00:00 Completed [facility] Hep B, Adol or Pedi Dosage 2004-04-19 00:00:00 Completed [facility] Pneumococcal 13 Conjugate, PCV13 (Prevnar 13) 2004-04-19 00:00:00 Completed [facility] Polio (IPV/OPV) 2004-04-19 00:00:00 Completed [facility] DTAP 2004-04-19 00:00:00 Completed [facility] HIB 3 Dose Schedule 2004-04-19 00:00:00 Completed [facility] Hep B, Adol or Pedi Dosage 2004-04-19 00:00:00 Completed [facility] Pneumococcal 13 Conjugate, PCV13 (Prevnar 13) 2004-04-19 00:00:00 Completed [facility] Polio (IPV/OPV) 2004-04-19 00:00:00 Completed [facility] DTAP 2004-04-19 00:00:00 Completed [facility] HIB 3 Dose Schedule 2004-04-19 00:00:00 Completed [facility] Hep B, Adol or Pedi Dosage 2004-04-19 00:00:00 Completed [facility] Pneumococcal 13 Conjugate, PCV13 (Prevnar 13) 2004-04-19 00:00:00 Completed [facility] Polio (IPV/OPV) 2004-04-19 00:00:00 Completed [facility] DTAP 2004-04-19 00:00:00 Completed [facility] HIB 3 Dose Schedule 2004-04-19 00:00:00 Completed [facility] Hep B, Adol or Pedi Dosage 2004-04-19 00:00:00 Completed [facility] Pneumococcal 13 Conjugate, PCV13 (Prevnar 13) 2004-04-19 00:00:00 Completed [facility] Polio (IPV/OPV) 2004-04-19 00:00:00 Completed [facility] DTAP 2004-04-19 00:00:00 Completed [facility] HIB 3 Dose Schedule 2004-04-19 00:00:00 Completed [facility] Hep B, Adol or Pedi Dosage 2004-04-19 00:00:00 Completed [facility] Pneumococcal 13 Conjugate, PCV13 (Prevnar 13) 2004-04-19 00:00:00 Completed [facility] Polio (IPV/OPV) 2004-04-19 00:00:00 Completed [facility] DTAP 2004-04-19 00:00:00 Completed [facility] HIB 3 Dose Schedule 2004-04-19 00:00:00 Completed [facility] Hep B, Adol or Pedi Dosage 2004-04-19 00:00:00 Completed [facility] Pneumococcal 13 Conjugate, PCV13 (Prevnar 13) 2004-04-19 00:00:00 Completed [facility] Polio (IPV/OPV) 2004-04-19 00:00:00 Completed [facility] DTAP 2004-04-19 00:00:00 Completed [facility] HIB 3 Dose Schedule 2004-04-19 00:00:00 Completed [facility] Hep B, Adol or Pedi Dosage 2004-04-19 00:00:00 Completed [facility] Pneumococcal 13 Conjugate, PCV13 (Prevnar 13) 2004-04-19 00:00:00 Completed [facility] Polio (IPV/OPV) 2004-04-19 00:00:00 Completed [facility] DTAP 2004-04-19 00:00:00 Completed [facility] HIB 3 Dose Schedule 2004-04-19 00:00:00 Completed [facility] Hep B, Adol or Pedi Dosage 2004-04-19 00:00:00 Completed [facility] Pneumococcal 13 Conjugate, PCV13 (Prevnar 13) 2004-04-19 00:00:00 Completed [facility] Polio (IPV/OPV) 2004-04-19 00:00:00 Completed [facility] DTAP 2004-04-19 00:00:00 Completed [facility] HIB 3 Dose Schedule 2004-04-19 00:00:00 Completed [facility] Hep B, Adol or Pedi Dosage 2004-04-19 00:00:00 Completed [facility] Pneumococcal 13 Conjugate, PCV13 (Prevnar 13) 2004-04-19 00:00:00 Completed [facility] Polio (IPV/OPV) 2004-04-19 00:00:00 Completed [facility] DTAP 2004-04-19 00:00:00 Completed [facility] HIB 3 Dose Schedule 2004-04-19 00:00:00 Completed [facility] Hep B, Adol or Pedi Dosage 2004-04-19 00:00:00 Completed [facility] Pneumococcal 13 Conjugate, PCV13 (Prevnar 13) 2004-04-19 00:00:00 Completed [facility] Polio (IPV/OPV) 2004-04-19 00:00:00 Completed [facility] DTAP 2004-04-19 00:00:00 Completed [facility] HIB 3 Dose Schedule 2004-04-19 00:00:00 Completed [facility] Hep B, Adol or Pedi Dosage 2004-04-19 00:00:00 Completed [facility] Pneumococcal 13 Conjugate, PCV13 (Prevnar 13) 2004-04-19 00:00:00 Completed [facility] Polio (IPV/OPV) 2004-04-19 00:00:00 Completed [facility] DTAP 2004-04-19 00:00:00 Completed [facility] HIB 3 Dose Schedule 2004-04-19 00:00:00 Completed [facility] Hep B, Adol or Pedi Dosage 2004-04-19 00:00:00 Completed [facility] Pneumococcal 13 Conjugate, PCV13 (Prevnar 13) 2004-04-19 00:00:00 Completed [facility] Polio (IPV/OPV) 2004-04-19 00:00:00 Completed [facility] DTAP 2004-04-19 00:00:00 Completed [facility] HIB 3 Dose Schedule 2004-04-19 00:00:00 Completed [facility] Hep B, Adol or Pedi Dosage 2004-04-19 00:00:00 Completed [facility] Pneumococcal 13 Conjugate, PCV13 (Prevnar 13) 2004-04-19 00:00:00 Completed [facility] Polio (IPV/OPV) 2004-04-19 00:00:00 Completed [facility] DTAP 2004-04-19 00:00:00 Completed [facility] HIB 3 Dose Schedule 2004-04-19 00:00:00 Completed [facility] Hep B, Adol or Pedi Dosage 2004-04-19 00:00:00 Completed [facility] Pneumococcal 13 Conjugate, PCV13 (Prevnar 13) 2004-04-19 00:00:00 Completed [facility] Polio (IPV/OPV) 2004-04-19 00:00:00 Completed [facility] DTAP 2004-04-19 00:00:00 Completed [facility] HIB 3 Dose Schedule 2004-04-19 00:00:00 Completed [facility] Hep B, Adol or Pedi Dosage 2004-04-19 00:00:00 Completed [facility] Pneumococcal 13 Conjugate, PCV13 (Prevnar 13) 2004-04-19 00:00:00 Completed [facility] Polio (IPV/OPV) 2004-04-19 00:00:00 Completed [facility] DTAP 2004-04-19 00:00:00 Completed [facility] HIB 3 Dose Schedule 2004-04-19 00:00:00 Completed [facility] Hep B, Adol or Pedi Dosage 2004-04-19 00:00:00 Completed [facility] Pneumococcal 13 Conjugate, PCV13 (Prevnar 13) 2004-04-19 00:00:00 Completed [facility] Polio (IPV/OPV) 2004-04-19 00:00:00 Completed [facility] DTAP 2004-04-19 00:00:00 Completed [facility] HIB 3 Dose Schedule 2004-04-19 00:00:00 Completed [facility] Hep B, Adol or Pedi Dosage 2004-04-19 00:00:00 Completed [facility] Pneumococcal 13 Conjugate, PCV13 (Prevnar 13) 2004-04-19 00:00:00 Completed [facility] Polio (IPV/OPV) 2004-04-19 00:00:00 Completed [facility] DTAP 2004-04-19 00:00:00 Completed [facility] HIB 3 Dose Schedule 2004-04-19 00:00:00 Completed [facility] Hep B, Adol or Pedi Dosage 2004-04-19 00:00:00 Completed [facility] Pneumococcal 13 Conjugate, PCV13 (Prevnar 13) 2004-04-19 00:00:00 Completed [facility] Polio (IPV/OPV) 2004-04-19 00:00:00 Completed [facility] DTAP 2004-04-19 00:00:00 Completed [facility] HIB 3 Dose Schedule 2004-04-19 00:00:00 Completed [facility] Hep B, Adol or Pedi Dosage 2004-04-19 00:00:00 Completed [facility] Pneumococcal 13 Conjugate, PCV13 (Prevnar 13) 2004-04-19 00:00:00 Completed [facility] Polio (IPV/OPV) 2004-04-19 00:00:00 Completed [facility] DTAP 2004-04-19 00:00:00 Completed [facility] HIB 3 Dose Schedule 2004-04-19 00:00:00 Completed [facility] Hep B, Adol or Pedi Dosage 2004-04-19 00:00:00 Completed [facility] Pneumococcal 13 Conjugate, PCV13 (Prevnar 13) 2004-04-19 00:00:00 Completed [facility] Polio (IPV/OPV) 2004-04-19 00:00:00 Completed [facility] DTAP 2004-04-19 00:00:00 Completed [facility] HIB 3 Dose Schedule 2004-04-19 00:00:00 Completed [facility] Hep B, Adol or Pedi Dosage 2004-04-19 00:00:00 Completed [facility] Pneumococcal 13 Conjugate, PCV13 (Prevnar 13) 2004-04-19 00:00:00 Completed [facility] Polio (IPV/OPV) 2004-04-19 00:00:00 Completed [facility] DTAP 2004-03-05 00:00:00 Completed [facility] HIB 3 Dose Schedule 2004-03-05 00:00:00 Completed [facility] Pneumococcal 13 Conjugate, PCV13 (Prevnar 13) 2004-03-05 00:00:00 Completed [facility] Polio (IPV/OPV) 2004-03-05 00:00:00 Completed [facility] DTAP 2004-03-05 00:00:00 Completed [facility] HIB 3 Dose Schedule 2004-03-05 00:00:00 Completed [facility] Pneumococcal 13 Conjugate, PCV13 (Prevnar 13) 2004-03-05 00:00:00 Completed [facility] Polio (IPV/OPV) 2004-03-05 00:00:00 Completed [facility] DTAP 2004-03-05 00:00:00 Completed [facility] HIB 3 Dose Schedule 2004-03-05 00:00:00 Completed [facility] Pneumococcal 13 Conjugate, PCV13 (Prevnar 13) 2004-03-05 00:00:00 Completed [facility] Polio (IPV/OPV) 2004-03-05 00:00:00 Completed [facility] DTAP 2004-03-05 00:00:00 Completed [facility] HIB 3 Dose Schedule 2004-03-05 00:00:00 Completed [facility] Pneumococcal 13 Conjugate, PCV13 (Prevnar 13) 2004-03-05 00:00:00 Completed [facility] Polio (IPV/OPV) 2004-03-05 00:00:00 Completed [facility] DTAP 2004-03-05 00:00:00 Completed [facility] HIB 3 Dose Schedule 2004-03-05 00:00:00 Completed [facility] Pneumococcal 13 Conjugate, PCV13 (Prevnar 13) 2004-03-05 00:00:00 Completed [facility] Polio (IPV/OPV) 2004-03-05 00:00:00 Completed [facility] DTAP 2004-03-05 00:00:00 Completed [facility] HIB 3 Dose Schedule 2004-03-05 00:00:00 Completed [facility] Pneumococcal 13 Conjugate, PCV13 (Prevnar 13) 2004-03-05 00:00:00 Completed [facility] Polio (IPV/OPV) 2004-03-05 00:00:00 Completed [facility] DTAP 2004-03-05 00:00:00 Completed [facility] HIB 3 Dose Schedule 2004-03-05 00:00:00 Completed [facility] Pneumococcal 13 Conjugate, PCV13 (Prevnar 13) 2004-03-05 00:00:00 Completed [facility] Polio (IPV/OPV) 2004-03-05 00:00:00 Completed [facility] DTAP 2004-03-05 00:00:00 Completed [facility] HIB 3 Dose Schedule 2004-03-05 00:00:00 Completed [facility] Pneumococcal 13 Conjugate, PCV13 (Prevnar 13) 2004-03-05 00:00:00 Completed [facility] Polio (IPV/OPV) 2004-03-05 00:00:00 Completed [facility] DTAP 2004-03-05 00:00:00 Completed [facility] HIB 3 Dose Schedule 2004-03-05 00:00:00 Completed [facility] Pneumococcal 13 Conjugate, PCV13 (Prevnar 13) 2004-03-05 00:00:00 Completed [facility] Polio (IPV/OPV) 2004-03-05 00:00:00 Completed [facility] DTAP 2004-03-05 00:00:00 Completed [facility] HIB 3 Dose Schedule 2004-03-05 00:00:00 Completed [facility] Pneumococcal 13 Conjugate, PCV13 (Prevnar 13) 2004-03-05 00:00:00 Completed [facility] Polio (IPV/OPV) 2004-03-05 00:00:00 Completed [facility] DTAP 2004-03-05 00:00:00 Completed [facility] HIB 3 Dose Schedule 2004-03-05 00:00:00 Completed [facility] Pneumococcal 13 Conjugate, PCV13 (Prevnar 13) 2004-03-05 00:00:00 Completed [facility] Polio (IPV/OPV) 2004-03-05 00:00:00 Completed [facility] DTAP 2004-03-05 00:00:00 Completed [facility] HIB 3 Dose Schedule 2004-03-05 00:00:00 Completed [facility] Pneumococcal 13 Conjugate, PCV13 (Prevnar 13) 2004-03-05 00:00:00 Completed [facility] Polio (IPV/OPV) 2004-03-05 00:00:00 Completed [facility] DTAP 2004-03-05 00:00:00 Completed [facility] HIB 3 Dose Schedule 2004-03-05 00:00:00 Completed [facility] Pneumococcal 13 Conjugate, PCV13 (Prevnar 13) 2004-03-05 00:00:00 Completed [facility] Polio (IPV/OPV) 2004-03-05 00:00:00 Completed [facility] DTAP 2004-03-05 00:00:00 Completed [facility] HIB 3 Dose Schedule 2004-03-05 00:00:00 Completed [facility] Pneumococcal 13 Conjugate, PCV13 (Prevnar 13) 2004-03-05 00:00:00 Completed [facility] Polio (IPV/OPV) 2004-03-05 00:00:00 Completed [facility] DTAP 2004-03-05 00:00:00 Completed [facility] HIB 3 Dose Schedule 2004-03-05 00:00:00 Completed [facility] Pneumococcal 13 Conjugate, PCV13 (Prevnar 13) 2004-03-05 00:00:00 Completed [facility] Polio (IPV/OPV) 2004-03-05 00:00:00 Completed [facility] DTAP 2004-03-05 00:00:00 Completed [facility] HIB 3 Dose Schedule 2004-03-05 00:00:00 Completed [facility] Pneumococcal 13 Conjugate, PCV13 (Prevnar 13) 2004-03-05 00:00:00 Completed [facility] Polio (IPV/OPV) 2004-03-05 00:00:00 Completed [facility] DTAP 2004-03-05 00:00:00 Completed [facility] HIB 3 Dose Schedule 2004-03-05 00:00:00 Completed [facility] Pneumococcal 13 Conjugate, PCV13 (Prevnar 13) 2004-03-05 00:00:00 Completed [facility] Polio (IPV/OPV) 2004-03-05 00:00:00 Completed [facility] DTAP 2004-03-05 00:00:00 Completed [facility] HIB 3 Dose Schedule 2004-03-05 00:00:00 Completed [facility] Pneumococcal 13 Conjugate, PCV13 (Prevnar 13) 2004-03-05 00:00:00 Completed [facility] Polio (IPV/OPV) 2004-03-05 00:00:00 Completed [facility] DTAP 2004-03-05 00:00:00 Completed [facility] HIB 3 Dose Schedule 2004-03-05 00:00:00 Completed [facility] Pneumococcal 13 Conjugate, PCV13 (Prevnar 13) 2004-03-05 00:00:00 Completed [facility] Polio (IPV/OPV) 2004-03-05 00:00:00 Completed [facility] DTAP 2004-03-05 00:00:00 Completed [facility] HIB 3 Dose Schedule 2004-03-05 00:00:00 Completed [facility] Pneumococcal 13 Conjugate, PCV13 (Prevnar 13) 2004-03-05 00:00:00 Completed [facility] Polio (IPV/OPV) 2004-03-05 00:00:00 Completed [facility] DTAP 2004-03-05 00:00:00 Completed [facility] HIB 3 Dose Schedule 2004-03-05 00:00:00 Completed [facility] Pneumococcal 13 Conjugate, PCV13 (Prevnar 13) 2004-03-05 00:00:00 Completed [facility] Polio (IPV/OPV) 2004-03-05 00:00:00 Completed [facility] DTAP 2004-03-05 00:00:00 Completed [facility] HIB 3 Dose Schedule 2004-03-05 00:00:00 Completed [facility] Pneumococcal 13 Conjugate, PCV13 (Prevnar 13) 2004-03-05 00:00:00 Completed [facility] Polio (IPV/OPV) 2004-03-05 00:00:00 Completed [facility] DTAP 2004-03-05 00:00:00 Completed [facility] HIB 3 Dose Schedule 2004-03-05 00:00:00 Completed [facility] Pneumococcal 13 Conjugate, PCV13 (Prevnar 13) 2004-03-05 00:00:00 Completed [facility] Polio (IPV/OPV) 2004-03-05 00:00:00 Completed [facility] DTAP 2004-03-05 00:00:00 Completed [facility] HIB 3 Dose Schedule 2004-03-05 00:00:00 Completed [facility] Pneumococcal 13 Conjugate, PCV13 (Prevnar 13) 2004-03-05 00:00:00 Completed [facility] Polio (IPV/OPV) 2004-03-05 00:00:00 Completed [facility] DTAP 2004-03-05 00:00:00 Completed [facility] HIB 3 Dose Schedule 2004-03-05 00:00:00 Completed [facility] Pneumococcal 13 Conjugate, PCV13 (Prevnar 13) 2004-03-05 00:00:00 Completed [facility] Polio (IPV/OPV) 2004-03-05 00:00:00 Completed [facility] DTAP 2004-03-05 00:00:00 Completed [facility] HIB 3 Dose Schedule 2004-03-05 00:00:00 Completed [facility] Pneumococcal 13 Conjugate, PCV13 (Prevnar 13) 2004-03-05 00:00:00 Completed [facility] Polio (IPV/OPV) 2004-03-05 00:00:00 Completed [facility] Hep B, Adol or Pedi Dosage 2003 00:00:00 Completed [facility] Hep B, Adol or Pedi Dosage 2003 00:00:00 Completed [facility] Hep B, Adol or Pedi Dosage 2003 00:00:00 Completed [facility] Hep B, Adol or Pedi Dosage 2003 00:00:00 Completed [facility] Hep B, Adol or Pedi Dosage 2003 00:00:00 Completed [facility] Hep B, Adol or Pedi Dosage 2003 00:00:00 Completed [facility] Hep B, Adol or Pedi Dosage 2003 00:00:00 Completed [facility] Hep B, Adol or Pedi Dosage 2003 00:00:00 Completed [facility] Hep B, Adol or Pedi Dosage 2003 00:00:00 Completed [facility] Hep B, Adol or Pedi Dosage 2003 00:00:00 Completed [facility] Hep B, Adol or Pedi Dosage 2003 00:00:00 Completed [facility] Hep B, Adol or Pedi Dosage 2003 00:00:00 Completed [facility] Hep B, Adol or Pedi Dosage 2003 00:00:00 Completed [facility] Hep B, Adol or Pedi Dosage 2003 00:00:00 Completed [facility] Hep B, Adol or Pedi Dosage 2003 00:00:00 Completed [facility] Hep B, Adol or Pedi Dosage 2003 00:00:00 Completed [facility] Hep B, Adol or Pedi Dosage 2003 00:00:00 Completed [facility] Hep B, Adol or Pedi Dosage 2003 00:00:00 Completed [facility] Hep B, Adol or Pedi Dosage 2003 00:00:00 Completed [facility] Hep B, Adol or Pedi Dosage 2003 00:00:00 Completed [facility] Hep B, Adol or Pedi Dosage 2003 00:00:00 Completed [facility] Hep B, Adol or Pedi Dosage 2003 00:00:00 Completed [facility] Hep B, Adol or Pedi Dosage 2003 00:00:00 Completed [facility] Hep B, Adol or Pedi Dosage 2003 00:00:00 Completed [facility] Hep B, Adol or Pedi Dosage 2003 00:00:00 Completed [facility] Hep B, Adol or Pedi Dosage 2003 00:00:00 Completed [facility] DTAP Unknown Completed [facility] HIB 3 Dose Schedule Unknown Completed [facility] HEPATITIS A Unknown Completed [facility] Hep B, Adol or Pedi Dosage Unknown Completed [facility] Meningococcal Vaccine Unknown Completed [facility] MMR Unknown Completed [facility] Pneumococcal 13 Conjugate, PCV13 (Prevnar 13) Unknown Completed [facility] Polio (IPV/OPV) Unknown Completed [facility] TDAP Unknown Completed [facility] Varicella (varivax)(chicken pox) Unknown Completed [facility] Meningococcal Polysaccharide (groups A, C, Y and W-135) conjugate vaccine (MCV4P) Unknown Completed [facility] Meningococcal B, OMV Unknown Completed [facility] HPV9 Unknown Completed [facility] DTAP Unknown Completed [facility] HIB 3 Dose Schedule Unknown Completed [facility] HEPATITIS A Unknown Completed [facility] Hep B, Adol or Pedi Dosage Unknown Completed [facility] Meningococcal Vaccine Unknown Completed [facility] MMR Unknown Completed [facility] Pneumococcal 13 Conjugate, PCV13 (Prevnar 13) Unknown Completed [facility] Polio (IPV/OPV) Unknown Completed [facility] TDAP Unknown Completed [facility] Varicella (varivax)(chicken pox) Unknown Completed [facility] Meningococcal Polysaccharide (groups A, C, Y and W-135) conjugate vaccine (MCV4P) Unknown Completed [facility] Meningococcal B, OMV Unknown Completed [facility] HPV9 Unknown Completed [facility] Vital Signs Vital Name Observation Time Observation Value Comments S ource temperature 2023-07-17 08:10:00 97.9 [degF] Com mon [facility] bmi 2023-07-17 08:10:00 35.33 kg/m2 Comm on [facility] oximetry 2023-07-17 08:10:00 99 % Commo n [facility] respiratory rate 2023-07-17 08:10:00 18 /min [facility] blood pressure systolic 2023-07-17 08:10:00 116 mm[Hg] [facility] blood pressure diastolic 2023-07-17 08:10:00 63 mm[Hg] [facility] height 2023-07-17 08:10:00 61 [in_i] Commo n [facility] weight 2023-07-17 08:10:00 187.0 [lb_av] Co mmon [facility] height 2023-07-10 10:10:00 61 [in_i] Commo n [facility] weight 2023-07-10 10:10:00 170 [lb_av] Comm on [facility] bmi 2023-07-10 10:10:00 32.12 kg/m2 Comm on [facility] height 2023-04-17 09:50:00 61 [in_i] Commo n [facility] weight 2023-04-17 09:50:00 189 [lb_av] Comm on [facility] bmi 2023-04-17 09:50:00 35.71 kg/m2 Comm on [facility] height 2023-03-24 13:40:00 61 [in_i] Commo n [facility] weight 2023-03-24 13:40:00 189.4 [lb_av] Co [facility] temperature 2023-03-24 13:40:00 98.5 [degF] Com mon [facility] bmi 2023-03-24 13:40:00 35.78 kg/m2 Comm on [facility] oximetry 2023-03-24 13:40:00 99 % Commo n [facility] respiratory rate 2023-03-24 13:40:00 16 /min [facility] blood pressure systolic 2023-03-24 13:40:00 120 mm[Hg] [facility] blood pressure diastolic 2023-03-24 13:40:00 76 mm[Hg] [facility] Systolic blood pressure 2023-01-13 01:17:00 124 mm[Hg] [facility] Diastolic blood pressure 2023-01-13 01:17:00 91 mm[Hg] [facility] Heart rate 2023-01-13 01:17:00 98 /min [facility] Body temperature 2023-01-13 01:17:00 37 [facility] Respiratory rate 2023-01-13 01:17:00 16 /min [facility] Body height 2023-01-13 01:17:00 154.9 cm [facility] Body weight 2023-01-13 01:17:00 83.915 kg [facility] BMI 2023-01-13 01:17:00 34.96 kg/m2 [facility] Oxygen saturation in Arterial blood by Pulse oximetry 2023-01-13 01:17:00 100 /min [facility] Systolic blood pressure 2022-11-22 18:48:00 124 mm[Hg] [facility] Diastolic blood pressure 2022-11-22 18:48:00 79 mm[Hg] [facility] Heart rate 2022-11-22 18:48:00 95 /min [facility] Body temperature 2022-11-22 18:48:00 36.5 [facility] Body height 2022-11-22 18:48:00 154.9 cm [facility] Body weight 2022-11-22 18:48:00 87.408 kg [facility] BMI 2022-11-22 18:48:00 36.41 kg/m2 [facility] Body mass index (BMI) [Percentile] Per age and sex 2022-11-22 18:48:00 97.88 % [facility] Oxygen saturation in Arterial blood by Pulse oximetry 2022-11-22 18:48:00 98 /min [facility] Systolic blood pressure 2022-11-08 16:07:00 120 mm[Hg] [facility] Diastolic blood pressure 2022-11-08 16:07:00 80 mm[Hg] [facility] Heart rate 2022-11-08 16:07:00 95 /min [facility] Body temperature 2022-11-08 16:07:00 36.78 [facility] Respiratory rate 2022-11-08 16:07:00 19 /min [facility] Body height 2022-11-08 16:07:00 154.9 cm [facility] Body weight 2022-11-08 16:07:00 85.911 kg [facility] BMI 2022-11-08 16:07:00 35.79 kg/m2 [facility] Body mass index (BMI) [Percentile] Per age and sex 2022-11-08 16:07:00 97.71 % [facility] Oxygen saturation in Arterial blood by Pulse oximetry 2022-11-08 16:07:00 95 /min [facility] Systolic blood pressure 2022-09-19 15:30:00 131 mm[Hg] [facility] Diastolic blood pressure 2022-09-19 15:30:00 89 mm[Hg] [facility] Heart rate 2022-09-19 15:30:00 88 /min [facility] Respiratory rate 2022-09-19 15:30:00 18 /min [facility] Body height 2022-09-19 15:30:00 154.9 cm [facility] Body weight 2022-09-19 15:30:00 87.091 kg [facility] BMI 2022-09-19 15:30:00 36.28 kg/m2 [facility] Body mass index (BMI) [Percentile] Per age and sex 2022-09-19 15:30:00 97.90 % [facility] Oxygen saturation in Arterial blood by Pulse oximetry 2022-09-19 15:30:00 99 /min [facility] Systolic blood pressure 2022-09-16 15:15:00 121 mm[Hg] [facility] Diastolic blood pressure 2022-09-16 15:15:00 84 mm[Hg] [facility] Heart rate 2022-09-16 15:15:00 87 /[facility] 2022-09-16 15:15:00 36.78 [facility] Respiratory rate 2022-09-16 15:15:00 14 /min [facility] Body weight 2022-09-16 15:15:00 86.909 kg [facility] Oxygen saturation in Arterial blood by Pulse oximetry 2022-09-16 15:15:00 97 /min [facility] Systolic blood pressure 2022-08-20 13:50:00 124 mm[Hg] [facility] Diastolic blood pressure 2022-08-20 13:50:00 82 mm[Hg] [facility] Heart rate 2022-08-20 13:50:00 91 /min [facility] Body temperature 2022-08-20 13:50:00 36.28 [facility] Respiratory rate 2022-08-20 13:50:00 15 /min [facility] Body weight 2022-08-20 13:50:00 88.769 kg [facility] Oxygen saturation in Arterial blood by Pulse oximetry 2022-08-20 13:50:00 99 /min [facility] Systolic blood pressure 2022-08-06 13:50:00 138 mm[Hg] [facility] Diastolic blood pressure 2022-08-06 13:50:00 74 mm[Hg] [facility] Heart rate 2022-08-06 13:50:00 73 /min [facility] Body temperature 2022-08-06 13:50:00 36.67 [facility] Respiratory rate 2022-08-06 13:50:00 15 /min [facility] Body weight 2022-08-06 13:50:00 86.138 kg [facility] Oxygen saturation in Arterial blood by Pulse oximetry 2022-08-06 13:50:00 99 /min [facility] Systolic blood pressure 2022-07-23 17:18:00 118 mm[Hg] [facility] Diastolic blood pressure 2022-07-23 17:18:00 74 mm[Hg] [facility] Heart rate 2022-07-23 15:16:00 79 /min [facility] Body temperature 2022-07-23 15:16:00 36.89 [facility] Respiratory rate 2022-07-23 15:16:00 16 /min [facility] Body weight 2022-07-23 15:16:00 86.41 kg [facility] Systolic blood pressure 2022-07-17 14:59:00 124 mm[Hg] [facility] Diastolic blood pressure 2022-07-17 14:59:00 81 mm[Hg] [facility] Heart rate 2022-07-17 14:59:00 87 /min [facility] Body temperature 2022-07-17 14:59:00 36.61 [facility] Respiratory rate 2022-07-17 14:59:00 18 /min [facility] Body weight 2022-07-17 14:59:00 86.818 kg [facility] Oxygen saturation in Arterial blood by Pulse oximetry 2022-07-17 14:59:00 99 /min [facility] Systolic blood pressure 2022-06-18 17:49:00 122 mm[Hg] [facility] Diastolic blood pressure 2022-06-18 17:49:00 78 mm[Hg] [facility] Heart rate 2022-06-18 16:12:00 101 /min [facility] Body temperature 2022-06-18 16:12:00 36.11 [facility] Respiratory rate 2022-06-18 16:12:00 16 /min [facility] Body weight 2022-06-18 16:12:00 85.548 kg [facility] Oxygen saturation in Arterial blood by Pulse oximetry 2022-06-18 16:12:00 99 /min [facility] Systolic blood pressure 2022-04-26 21:10:00 145 mm[Hg] [facility] Diastolic blood pressure 2022-04-26 21:10:00 88 mm[Hg] [facility] Heart rate 2022-04-26 21:10:00 84 /min [facility] Respiratory rate 2022-04-26 21:10:00 15 /min [facility] Body weight 2022-04-26 21:10:00 87.408 kg [facility] Systolic blood pressure 2022-03-05 12:38:00 126 mm[Hg] [facility] Diastolic blood pressure 2022-03-05 12:38:00 77 mm[Hg] [facility] Heart rate 2022-03-05 12:38:00 85 /[facility] Body temperature 2022-03-05 12:38:00 36.94 [facility] Respiratory rate 2022-03-05 12:38:00 16 /min [facility] Body height 2022-03-05 12:38:00 157.5 cm [facility] Body weight 2022-03-05 12:38:00 85.866 kg [facility] BMI 2022-03-05 12:38:00 34.62 kg/m2 [facility] Body mass index (BMI) [Percentile] Per age and sex 2022-03-05 12:38:00 97.58 % [facility] Systolic blood pressure 2021-12-18 13:54:00 138 mm[Hg] [facility] Diastolic blood pressure 2021-12-18 13:54:00 82 mm[Hg] [facility] Heart rate 2021-12-18 13:54:00 92 /min [facility] Respiratory [facility] 2021-12-18 13:54:00 16 /min [facility] Body weight 2021-12-18 13:54:00 86.138 [facility] height 2021-04-24 08:30:00 61 [in_i] Commo n [facility] weight 2021-04-24 08:30:00 175 [lb_av] Comm on [facility] temperature 2021-04-24 08:30:00 97.2 [degF] Com mon [facility] bmi 2021-04-24 08:30:00 33.06 kg/m2 Comm on [facility] blood pressure systolic 2021-04-24 08:30:00 100 mm[Hg] [facility] blood pressure diastolic 2021-04-24 08:30:00 72 mm[Hg] [facility] height 2021-02-22 08:00:00 61 [in_i] Commo n [facility] weight 2021-02-22 08:00:00 175 [lb_av] Comm on [facility] bmi 2021-02-22 08:00:00 33.06 kg/m2 Comm on [facility] blood pressure systolic 2021-02-22 08:00:00 145 mm[Hg] [facility] blood pressure diastolic 2021-02-22 08:00:00 97 mm[Hg] [facility] height 2020-12-25 10:00:00 61 [in_i] Commo n [facility] weight 2020-12-25 10:00:00 175.5 [lb_av] Co mmon [facility] bmi 2020-12-25 10:00:00 33.16 kg/m2 Comm on [facility] blood pressure systolic 2020-12-25 10:00:00 133 mm[Hg] [facility] blood pressure diastolic 2020-12-25 10:00:00 87 mm[Hg] [facility] Procedures Procedure Date / Time Performed Performing Clinician Source ASSIGNMENT OF BENEFITS 2023-01-13 03:39:37 Docto r Unassigned, [place] [facility] POCT TEST 2023-01-13 02:47:00 Bayron Bermeo [facility] URINALYSIS 2023-01-13 01:58:00 Bayron Bermeo [facility] CONSENT/REFUSAL FOR DIAGNOSIS AND TREATMENT 2023-01-13 01:02:47 Doctor Unassigned, [place] [facility] THROAT CULTURE 2022-11-22 19:12:[address] [facility] POCT GRP A STREP (MOLECULAR) 2022-11-08 16:46:00 Gaudencio Cowan [facility] POCT MOLECULAR STREP 2022-08-20 14:39:00 Kirti Zavala [facility] URINALYSIS 2022-07-23 16:30:00 [facility]22[facility]23 [facility]:30[facility] 2022-07-23 00:00:00 Kirti Zavala [facility] FERRITIN SERUM 2022-07-17 15:36:00 Kirti Zavala [facility] TOTAL IRON BINDING CAPACITY 2022-07-17 15:36:00 Kirti Zavala [facility] FREE T4 2022-07-17 15:36[facility]00 [facility] 2022-07-17 15:36:00 Kirti Zavala [facility] COMP. METABOLIC PANEL ([id number]) 2022-07-17 15:36:00 Kirti Zavala [facility] CBC WITH DIFF 2022-07-17 15:36[facility]ICY 2022-07-17 14:40:48 Doctor Unassigned, [place] [facility] ASSIGNMENT OF BENEFITS 2022-04-26 20:56:52 Docto r Unassigned, [place] [facility] GARDASIL 9 (HPV 9V) VACCINE 2022-03-05 12:48:24 Kirti Zavala [facility] IMMTRAC2 CONSENT 2021-12-18 05:01:00 Doctor Unas signed, [place] [facility] Encounters Start Date/Time End Date/Time Encounter Type Admission Type Attending Clinicians Care Facility Care Department Encounter ID Source 2024-01-13 13:43:00 [facility] [id number] [facility] 2023-12-29 11:56:00 [facility] [id number] [facility] 2023-07-15 13:43:01 Outpatient Juarez, Naseem [facility]MLC [facility] [id number] [facility] 2023-07-11 15:38:00 Outpatient Juarez, Naseem [facility] ST[facility] [id number] [facility] 2023-07-10 10:09:00 Outpatient JUAREZ, NASEEM [facility] ST[facility] [id number] [facility] 2023-03-24 13:44:01 Outpatient JUAREZ, NASEEM [facility] ST[facility] [id number] [facility] 2023-03-20 15:13:00 Outpatient JUAREZ, NASEEM [facility] ST[facility] [id number] [facility] 2022-12-23 16:18:00 Outpatient [facility]LMLC ST[facility] [id number] [facility] 2021-06-13 14:26:40 Outpatient [facility] [id number] [facility] 2021-06-13 14:02:33 Outpatient [facility] [id number] [facility] 2021-06-13 13:38:36 Outpatient [facility]LMLC [facility] [id number] [facility] 2021-06-13 13:35:54 Outpatient [facility]LML[facility] ST[facility] [id number] [facility] 2024-03-02 00:00:00 2024-03-02 00:00:00 (TEL) STLMLC STLMLC [id number] [facility] 2024-02-26 00:00:00 2024-02-26 00:00:00 (TEL) STLMLC STLMLC [id number] [facility] 2023-08-19 00:00:00 2023-08-19 00:00:00 (TEL) STLMLC STLMLC [id number] [facility] 2023-07-17 00:00:00 2023-07-17 00:00:00 OFFICE VISIT ESTAB PT LEVEL 4 [facility]LMLC ST[facility] [id number] [facility] 2023-07-11 00:00:00 2023-07-11 00:00:00 (TEL) STLMLC STLMLC [id number] [facility] 2023-07-10 00:00:00 2023-07-10 00:00:00 OFFICE VISIT ESTAB PT LEVEL 3 [facility]LMLC STLMLC [id number] [facility] 2023-07-10 00:00:00 2023-07-10 00:00:00 (TEL) STLMLC STLMLC [id number] [facility] 2023-06-18 00:00:00 2023-06-18 00:00:00 Outpatient [facility] [id number] [facility] Program 2023-04-18 00:00:00 2023-04-18 00:00:00 (WEB) STLMLC STLMLC [id number] [facility] 2023-04-17 00:00:00 2023-04-17 00:00:00 OFFICE VISIT ESTAB PT LEVEL 4 [facility]LMLC STL[facility]C [id number] [facility] 2023-03-27 00:00:00 2023-03-27 00:00:00 (WEB) STLMLC STLMLC [id number] [facility] 2023-03-24 00:00:00 2023-03-24 00:00:00 (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 STLMLC STLMLC [id number] [facility] 2023-03-24 00:00:00 2023-03-24 00:00:00 (TEL) STLMLC STLMLC [id number] [facility] 2023-02-07 08:40:00 2023-02-07 08:40:00 Outpatient KRISTIE TIJERINA HOWARD [facility] [id number] [facility] 2023-01-20 15:38:37 2023-01-20 15:38:37 Outpatient [place] [id number] Zach Edmondson 2023-01-12 20:19:00 2023-01-12 22:47:00 Emergency X BAYRON BERMEO [facility] ERT [id number] [facility] 2023-01-12 20:19:00 2023-01-12 22:47:00 Emergency Bayron Bermeo [facility] 1.2.840.114 350.1.13.10 4.2.7.2.686 [id number] [facility] 2022-12-29 14:02:39 2022-12-29 14:02:39 Outpatient [place] [id number] Zach Edmondson 2022-12-09 15:01:21 2022-12-09 15:01:21 Outpatient [place] [id number] Zach Edmondson 2022-11-29 09:04:32 2022-11-29 09:04:32 Outpatient [place] [id number] Zach Morrissey [place] 2022-11-22 13:30:00 2022-11-22 14:14:43 Outpatient R MARV ZAMARRIPA [facility] [id number] [facility] 2022-11-22 13:30:00 2022-11-22 14:14:43 Office Visit Marv Zamarripa [facility] 1.2.840.114 350.1.13.10 4.2.7.2.686 [id number] [facility] 2022-11-11 13:00:00 2022-11-11 13:00:00 Outpatient R MARV ZAMARRIPA [facility] [id number] [facility] 2022-11-08 11:00:00 2022-11-08 11:51:31 Outpatient R GAUDENCIO COWAN OGECHUKWU [facility] [id number] [facility] 2022-11-08 11:00:00 2022-11-08 11:51:31 Office Visit Gaudencio Cowan [facility] 1.2840.114 350.1.13.10 4.2.7.2.686 [id number] [facility] 2022-11-05 10:00:00 2022-11-05 10:00:00 Outpatient R MARV ZAMARRIPA [facility] [id number] [facility] 2022-10-28 10:00:00 2022-10-28 10:00:00 Outpatient R MARV ZAMARRIPA [facility] [id number] [facility] 2022-10-13 00:00:00 2022-10-13 00:00:00 [facility] 1.2840.114 350.1.13.10 4.2.7.2.686 [id number] [facility] 2022-09-19 11:00:00 2022-09-19 11:15:00 Engraver Wood Visit 2, Adc Lab Hussain Zamarripassica [facility] 1.2.114 350.1.13.10 4.2.7.2.686 [id number] [facility] 2022-09-19 10:30:00 2022-09-19 10:52:56 Outpatient R MARV ZAMARRIPA [facility] [id number] [facility] 2022-09-19 10:30:00 2022-09-19 10:52:56 Office Visit Hussain Zamarripassica [facility] 1.284.114 350.1.13.10 4.2.7.2.686 [id number] [facility] 2022-09-16 10:10:00 2022-09-16 10:50:00 Office Visit Kirti Zavala [facility] 1.2.840.114 350.1.13.10 4.2.7.2.686 [id number] [facility] 2022-09-16 10:10:00 2022-09-16 10:44:02 Outpatient KIRTI CRAWLEY [facility] [id number] [facility] 2022-08-28 13:04:51 2022-08-28 13:04:51 Outpatient [facility] [id number] Zach Edmondson 2022-08-27 00:00:00 2022-08-27 00:00:00 Patient Secure Msg Kirti Zavala [facility] 1..114 350.1.13.10 4.2.7.2.686 [id number] 225 [id number] [facility] 2022-08-20 08:50:00 2022-08-20 10:09:13 Outpatient R KIRTI ZAVALA [facility] [id number] [facility] 2022-08-20 08:50:00 2022-08-20 10:09:13 Office Visit Kirti Zavala [facility] 1..114 350.1.13.10 4.2.7.2.686 [id number] [facility] 2022-08-12 00:00:00 2022-08-12 00:00:00 Patient Secure Msg Doctor Unassigned, [place] [facility] 1.2840.114 350.1.13.10 4.2.7.2.686 [id number] [facility] 2022-08-06 08:50:00 2022-08-06 09:20:30 Outpatient R KIRTI ZAVALA [facility] [id number] [facility] 2022-08-06 08:50:00 2022-08-06 09:20:30 Office Visit Kirti Zavala [facility] 1.0.114 350.1.13.10 4.2.7.2.686 [id number] [facility] 2022-07-31 08:10:00 2022-07-31 08:10:00 Outpatient R KIRTI ZAVALA [facility] [id number] [facility] 2022-07-26 00:00:00 2022-07-26 00:00:00 Patient Secure Msg Kirti Zavala [facility] 1.2.840.114 350.1.13.10 4.2.7.2.686 [id number] [facility] 2022-07-23 09:10:00 2022-07-23 11:21:44 Outpatient KIRTI CRAWLEY [facility] [id number] [facility] 2022-07-23 09:10:00 2022-07-23 11:21:44 Office Visit Kirti Zavala [facility] 1.2.840.114 350.1.13.10 4.2.7.2.686 [id number] [facility] 2022-07-19 00:00:00 2022-07-19 00:00:00 Telephone Kirti Zavala [facility] 1.2.840.114 350.1.13.10 4.2.7.2.686 [id number] 225 [id number] [facility] 2022-07-19 00:00:00 2022-07-19 00:00:00 Patient Secure Msg Doctor Unassigned, [place] [facility] 1.2.840.114 350.1.13.10 4.2.7.2.686 [id number] [facility] 2022-07-17 08:50:00 2022-07-17 09:39:40 Outpatient R KIRTI ZAVALA [facility] [id number] [facility] 2022-07-17 08:50:00 2022-07-17 09:39:40 Office Visit Kirti Zavala [facility] 1.2.840.114 350.1.13.10 4.2.7.2.686 [id number] [facility] 2022-07-17 00:00:00 2022-07-17 00:00:00 Orders Only Doctor Unassigned, [place] [facility] 1.2.840.114 350.1.13.10 4.2.7.2.686 [id number] [facility] 2022-07-17 00:00:00 2022-07-17 00:00:00 Letter (Out) Kirti Zavala [facility] 1.2.840.114 350.1.13.10 4.2.7.2.686 [id number] 225 [id number] [facility] 2022-06-20 00:00:00 2022-06-20 00:00:00 Telephone Kirti Zavala [facility] 1.2.840.114 350.1.13.10 4.2.7.2.686 [id number] [facility] 2022-06-18 10:10:00 2022-06-18 10:46:37 Outpatient R KIRTI ZAVALA [facility] [id number] [facility] 2022-06-18 10:10:00 2022-06-18 10:46:37 Office Visit Kirti Zavala [facility] 1.2.840.114 350.1.13.10 4.2.7.2.686 [id number] 225 [id number] [facility] 2022-06-18 00:00:00 2022-06-18 00:00:00 Letter (Out) Kirti Zavala [facility] 1.2.840.114 350.1.13.10 4.2.7.2.686 [id number] [facility] 2022-06-05 11:16:58 2022-06-05 11:16:58 Outpatient [facility] [id number] Zach Edmondson 2022-04-26 15:10:00 2022-04-26 15:55:14 Outpatient KIRTI CRAWLEY [facility] [id number] [facility] 2022-04-26 15:10:00 2022-04-26 15:55:14 Office Visit Kirti Zavala [facility] 1.2.840.114 350.1.13.10 4.2.7.2.686 [id number] [facility] 2022-04-26 00:00:00 2022-04-26 00:00:00 Telephone Kirti Zavala [facility] 1.2.840.114 350.1.13.10 4.2.7.2.686 [id number] [facility] 2022-04-26 00:00:00 2022-04-26 00:00:00 Orders Only Doctor Unassigned, [place] [facility] 1.2.840.114 350.1.13.10 4.2.7.2.686 [id number] [facility] 2022-03-05 07:30:00 2022-03-05 07:50:00 Office Visit Kirti Zavala [facility] 1.2.840.114 350.1.13.10 4.2.7.2.686 [id number] 225 [id number] [facility] 2022-03-05 07:30:00 2022-03-05 07:30:00 Outpatient KIRTI CRAWLEY [facility] [id number] [facility] 2022-01-13 00:00:00 2022-01-13 00:00:00 Heidi Voss [facility] 1.2.840.114 350.1.13.10 4.2.7.2.686 [id number] [facility] 2021-12-18 08:50:00 2021-12-18 09:30:32 Office Visit Kirti Zavala [facility] 1.2.840.114 350.1.13.10 4.2.7.2.686 [id number] [facility] 2021-12-18 08:50:00 2021-12-18 09:30:32 Outpatient KIRTI CRAWLEY [facility] [id number] [facility] 2021-12-18 08:50:00 2021-12-18 08:50:00 Outpatient KIRTI CRAWLEY [facility] [id number] [facility] 2021-12-18 00:00:00 2021-12-18 00:00:00 Orders Only Doctor Unassigned, [place] [facility] 1.2840.114 350.1.13.10 4.2.7.2.686 [id number] [facility] 2021-12-17 00:00:00 2021-12-17 00:00:00 Refill Kirti Zavala [facility] 1.2.840.114 350.1.13.10 4.2.7.2.686 [id number] [facility] 2021-10-17 00:00:00 2021-10-17 00:00:00 Orders Only Doctor Unassigned, [place] [facility] 1.2.840.114 350.1.13.10 4.2.7.2.686 [id number] [facility] 2021-10-05 09:10:00 2021-10-05 09:39:17 Outpatient KIRTI CRAWLEY [facility] [id number] [facility] 2021-10-05 09:10:00 2021-10-05 09:39:17 Office Visit Kirti Zavala [facility] 1.2.840.114 350.1.13.10 4.2.7.2.686 [id number] [facility] 2021-10-05 09:10:00 2021-10-05 09:39:17 Outpatient R KRITI ZAVALA [facility] [id number] [facility] 2021-09-16 00:00:00 2021-09-16 00:00:00 RefKirti Sal [facility] 1.2.840.114 350.1.13.10 4.2.7.2.686 [id number] 225 [id number] [facility] 2021-09-05 00:00:00 2021-09-05 00:00:00 RefKirti Sal [facility] 1.2.840.114 350.1.13.10 4.2.7.2.686 [id number] 225 [id number] [facility] 2021-08-22 00:00:00 2021-08-22 00:00:00 Refsangita Zavala Kirti Joce [facility] 1.2.840.114 350.1.13.10 4.2.7.2.686 [id number] [facility] 2021-07-31 00:00:00 2021-07-31 00:00:00 Refsangita Zavala Kirti Joce [facility] 1.2.840.114 350.1.13.10 4.2.7.2.686 [id number] [facility] 2021-07-05 00:00:00 2021-07-05 00:00:00 Kirti Gauthier [facility] 1.2.840.114 350.1.13.10 4.2.7.2.686 [id number] [facility] 2021-06-22 10:10:00 2021-06-22 10:32:50 Office Visit Kirti Zavala [facility] 1.2.840.114 350.1.13.10 4.2.7.2.686 [id number] 225 [id number] [facility] 2021-06-22 10:10:00 2021-06-22 10:32:50 Outpatient KIRTI CRAWLEY [facility] [id number] [facility] 2021-06-22 10:10:00 2021-06-22 10:10:00 Outpatient KIRTI CRAWLEY [facility] [id number] [facility] 2021-05-25 07:50:00 2021-05-25 08:10:00 Office Visit Kirti Zavala [facility] 1.2.840.114 350.1.13.10 4.2.7.2.686 [id number] 225 [id number] [facility] 2021-05-25 07:50:00 2021-05-25 07:50:00 Outpatient KIRTI CRAWLEY [facility] [id number] [facility] 2021-05-08 00:00:00 2021-05-08 00:00:00 Telephone Kirti Zavala [facility] 1.2.840.114 350.1.13.10 4.2.7.2.686 [id number] 225 [id number] [facility] 2021-04-24 00:00:00 2021-04-24 00:00:00 OFFICE VISIT EST PT LEVEL 3 STLMLC ST[facility]C [id number] [facility] 2021-03-26 07:50:00 2021-03-26 08:17:10 Outpatient KIRTI CRAWLEY [facility] [id number] [facility] 2021-03-26 07:50:00 2021-03-26 08:17:10 Outpatient R KIRTI ZAVALA [facility] [id number] [facility] 2021-03-26 07:35:06 2021-03-26 08:17:10 Office Visit Kirti Zavala [facility] 1.2.840.114 350.1.13.10 4.2.7.2.686 [id number] [facility] 2021-03-26 00:00:00 2021-03-26 00:00:00 Orders Only Doctor Unassigned, [place] [facility] 1.20.114 350.1.13.10 4.2.7.2.686 [id number] [facility] 2021-02-26 07:30:00 2021-02-26 07:30:00 Outpatient KIRTI CRAWLEY [facility] [id number] [facility] 2021-02-22 00:00:00 2021-02-22 00:00:00 OFFICE VISIT EST PT LEVEL 3 [facility]LMLC ST[facility]C [id number] [facility] 2021-02-13 00:00:00 2021-02-13 00:00:00 Telephone Kirti Zavala [facility] 1.2840.114 350.1.13.10 4.2.7.2.686 [id number] [facility] 2020-12-26 00:00:00 2020-12-26 00:00:00 (TEL) STLMLC [facility] [id number] [facility] 2020-12-25 00:00:00 2020-12-25 00:00:00 OFFICE VISIT NEW PT LEVEL 3 [facility]LMLC [facility] [id number] [facility] 2020-11-09 00:00:00 2020-11-09 00:00:00 Refill Kirti Zavala [facility] 1.2.840.114 350.1.13.10 4.2.7.2.686 [id number] 225 [id number] [facility] 2020-10-30 08:13:03 2020-10-30 08:53:06 Office Visit Kirti Zavala [facility] 1.2.840.114 350.1.13.10 4.2.7.2.686 [id number] [facility] 2020-10-30 08:10:00 2020-10-30 08:10:00 Outpatient R KIRTI ZAVALA [facility] [id number] [facility] 2020-10-08 00:00:00 2020-10-08 00:00:00 Refill Kirti Zavala [facility] 1.2.840.114 350.1.13.10 4.2.7.2.686 [id number] 225 [id number] [facility] 2020-09-21 00:00:00 2020-09-21 00:00:00 Telephone Kirti Zavala [facility] 1.2.840.114 350.1.13.10 4.2.7.2.686 [id number] [facility] 2020-09-11 14:50:00 2020-09-11 14:50:00 Outpatient R KIRTI ZAVALA [facility] [id number] [facility] 2020-09-11 14:17:17 2020-09-11 14:37:17 Office Visit Kirti Zavala [facility] 1.2.840.114 350.1.13.10 4.2.7.2.686 [id number] [facility] 2020-09-08 08:00:00 2020-09-08 08:00:00 Outpatient R [facility] [id number] [facility] 2020-09-08 07:37:02 2020-09-08 07:52:02 [employer] [place] Visit Lab, Kirti Olmstead [facility] 1.2.840.114 350.1.13.10 4.2.7.2.686 [id number] 225 [id number] [facility] 2020-06-09 13:37:53 2020-06-09 14:45:06 Office Visit Kirti Zavala [facility] 1.2.840.114 350.1.13.10 4.2.7.2.686 [id number] [facility] 2020-06-09 13:50:00 2020-06-09 13:50:00 Outpatient KIRTI CRAWLEY [facility] [id number] [facility] 2020-05-02 00:00:00 2020-05-02 00:00:00 Telephone Kirti Zavala 1.2.840.1 [id number] 3.104.2.7 [id number] .8 [id number] [facility] 2020-03-14 08:24:03 2020-03-14 10:07:46 Office Visit Kirti Zavala 1.2.840.1 59556.1.1 3.104.2.7 .3.432192 .8 [id number] [facility] 2020-03-14 08:30:00 2020-03-14 08:30:00 Outpatient KIRTI CRAWLEY [facility] [id number] [facility] 2020-03-14 00:00:00 2020-03-14 00:00:00 Travel 1.2.840.1 62173.1.1 3.104.2.7 .3.397641 .8 1.2.840.114 350.1.13.10 4.2.7.3.698 084.8 [id number] [facility] 2020-03-07 08:17:02 2020-03-07 08:58:21 [employer] [place] Visit Kirti Zavala [facility] 1.2.840.1 74903.1.1 3.104.2.7 .3.149599 .8 [id number] [facility] 2020-03-07 08:15:00 2020-03-07 08:15:00 Outpatient Travis KIRTI ZAVALA [facility] [id number] [facility] 2020-03-07 00:00:00 2020-03-07 00:00:00 Letter (Out) Kirti Zavala [facility] 1.2.840.114 350.1.13.10 4.2.7.2.686 [id number] [facility] 2020-03-07 00:00:00 2020-03-07 00:00:00 Travel 1.2.840.1 91598.1.1 3.104.2.7 .3.782588 .8 1.2.840.114 350.1.13.10 4.2.7.3.698 084.8 [id number] [facility] 2020-03-02 13:57:26 2020-03-02 23:59:00 Hospital Encounter Kirti Zavala 1.2.840.1 74711.1.1 3.104.2.7 .3.711527 .8 [id number] [facility] 2020-03-02 00:00:00 2020-03-02 00:00:00 Outpatient Travis KIRTI ZAVALA [facility] [id number] [facility] 2020-03-02 00:00:00 2020-03-02 00:00:00 Orders Only Doctor Unassigned, [place] 1.2.840.1 99752.1.1 3.104.2.7 .3.968250 .8 [id number] [facility] 2020-03-02 00:00:00 2020-03-02 00:00:00 Travel 1.2.840.1 93437.1.1 3.104.2.7 .3.815323 .8 1.2.840.114 350.1.13.10 4.2.7.3.698 084.8 [id number] [facility] 2020-03-01 15:43:02 2020-03-01 16:12:11 Office Visit Kirti Zavala 1.2.840.1 72802.1.1 3.104.2.7 .3.392339 .8 [id number] [facility] 2020-03-01 15:50:00 2020-03-01 15:50:00 Outpatient KIRTI CRAWLEY [facility] [id number] [facility] 2020-01-26 00:00:00 2020-01-26 00:00:00 Refill Kirti Zavala 1.2.840.1 85996.1.1 3.104.2.7 .3.272859 .8 [id number] [facility] 2019-12-06 08:53:20 2019-12-29 11:24:50 Office Visit Kirti Zavala 1.2.840.1 47278.1.1 3.104.2.7 .3.384269 .8 [id number] [facility] 2019-12-27 00:00:00 2019-12-27 00:00:00 Refill Kirti Zavala 1.2.840.1 46072.1.1 3.104.2.7 .3.639920 .8 [id number] [facility] 2019-12-06 09:00:00 2019-12-06 09:00:00 Outpatient KIRTI CRAWLEY [facility] [id number] [facility] 2019-12-06 00:00:00 2019-12-06 00:00:00 Travel 1.2.840.1 88652.1.1 3.104.2.7 .3.811192 .8 1.2.840.114 350.1.13.10 4.2.7.3.698 084.8 [id number] [facility] 2019-12-06 00:00:00 2019-12-06 00:00:00 Orders Only Doctor Unassigned, [place] 1.2.840.1 44592.1.1 3.104.2.7 .3.520718 .8 [id number] [facility] 2019-11-29 00:00:00 2019-11-29 00:00:00 Refill Kirti Zavala [facility] 1.2.840.114 350.1.13.10 4.2.7.2.686 [id number] [facility] 2019-10-27 00:00:00 2019-10-27 00:00:00 Refill Kirti Zavala [facility] 1.2.840.114 350.1.13.10 4.2.7.2.686 [id number] [facility] 2019-09-17 00:00:00 2019-09-17 00:00:00 Refill Kirti Zavala [facility] 1.2.840.114 350.1.13.10 4.2.7.2.686 [id number] [facility] 2019-08-18 10:55:44 2019-08-18 11:15:44 Telemedici ne Visit Kirti Zavala [facility] 1.2.840.114 350.1.13.10 4.2.7.2.686 [id number] [facility] 2019-08-18 10:50:00 2019-08-18 10:50:00 Outpatient R KIRTI ZAVALA [facility] [id number] [facility] 2019-08-18 00:00:00 2019-08-18 00:00:00 Telephone Kirti Zavala [facility] 1.2.840.114 350.1.13.10 4.2.7.2.686 [id number] [facility] 2019-07-23 00:00:00 2019-07-23 00:00:00 Refsangita Kirti Zavala [facility] 1.2.840.114 350.1.13.10 4.2.7.2.686 [id number] [facility] 2019-06-25 00:00:00 2019-06-25 00:00:00 Refill Kirti Zavala [facility] 1.2.840.114 350.1.13.10 4.2.7.2.686 [id number] [facility] 2019-06-24 13:14:16 2019-06-24 13:48:00 Office Visit DioAndrade [facility] 1.2.840.114 350.1.13.10 4.2.7.2.686 [id number] 225 [id number] [facility] 2019-06-04 07:52:49 2019-06-04 08:12:49 Office Visit Kirti Zavala [facility] 1.2.840.114 350.1.13.10 4.2.7.2.686 [id number] 225 [id number] [facility] 2019-06-04 00:00:00 2019-06-04 00:00:00 Letter (Out) Kirti Zavala [facility] 1.2.840.114 350.1.13.10 4.2.7.2.686 [id number] 225 [id number] [facility] 2019-06-04 00:00:00 2019-06-04 00:00:00 Letter (Out) Kirti Zavala [facility] 1.2.840.114 350.1.13.10 4.2.7.2.686 [id number] 225 [id number] [facility] 2019-06-03 00:00:00 2019-06-03 00:00:00 Telephone Kirti Zavala [facility] 1.2.840.114 350.1.13.10 4.2.7.2.686 [id number] 225 [id number] [facility] 2019-02-04 00:00:00 2019-02-04 00:00:00 Orders Only Doctor Unassigned, [place] [facility] 1.2.840.114 350.1.13.10 4.2.7.2.686 [id number] [facility] 2019-01-28 09:02:42 2019-01-28 09:57:29 Office Visit Ivan Hollis [facility] [place] 1.2.840.114 350.1.13.10 4.2.7.2.686 [id number] [facility] 2019-01-28 00:00:00 2019-01-28 00:00:00 Letter (Out) Ivan Hollis [facility] [place] 1.2.840.114 350.1.13.10 4.2.7.2.686 [id number] [facility] 2019-01-25 00:00:00 2019-01-25 00:00:00 Telephone Kirti Zavala [facility] 1.2.840.114 350.1.13.10 4.2.7.2.686 [id number] [facility] 2019-01-11 14:00:31 2019-01-11 14:40:37 Office Visit [facility] 1.2.840.114 350.1.13.10 4.2.7.2.686 [id number] [facility] Results Test Description Test Time Test Comments Results Result Co mments Source POCT [id number] 02:47:00* Test Item Value Reference Range Interpretation Comme nts POCT PREG (test code = 1605) Negative On board controls acceptable with C Line (test code = 3574) Yes POCT PREG LOT # (test code = 3575) [id number] POCT PREG TEST DATE ( test code = 3576) 07/17/2024 Lab Interpretation (test cod e = 96268-9) Normal [facility] GRP A STREP (MOLECULAR)2022-11-08 16:46:00* Test Item Value Reference Range Interpretation Comme nts POCT GP A STREP (test code = 12932-8) positive Negative - Negative [facility] GRP A STREP (MOLECULAR)2022-11-08 16:46:00* Test Item Value Reference Range Interpretation Comme nts POCT GP A STREP (test code = 93583-9) positive Negative - Negative [facility] MOLECULAR [id number] 14:46:44* Test Item Value Reference Range Interpretation Comme nts POCT Molecular Strep (test c ode = 35897-2) Negative Negative Lab Interpretation (test cod e = 57171-9) Normal [facility] MOLECULAR [id number] 14:46:44* Test Item Value Reference Range Interpretation Comme nts POCT Molecular Strep (test c ode = 39071-1) Negative Negative Lab Interpretation (test cod e = 49352-2) Normal [facility] URINALYSIS W SPECIFIC [id number] 16:29:00* Test Item Value Reference Range Interpretation Comme nts POCT U SP GRAV (test code = 3255) 1.025 mg/dl 1.005-1.025 POCT PH U (test code = 3254) 5 mg/dl 5-8 POCT U LEUK EST (test code = 3263) Negative Negative - Negative POCT U NIT (test code = 3262) Negative Negative - Negati ve POCT U PROT (test code = 3259) trace Negative - Negative POCT U GLU (test code = 3256) Negative Negative - Negati ve POCT U KETONE (test code = 3258) Negative Negative - Negative POCT U UROBILI (test code = 3260) Negative 0.2-1 POCT U BILI (test code = 3261) Negative Negative - Negative POCT U BLD (test code = 3257) 250 Negative - Negati ve POCT U COLOR (test code = 3266) dark yellow POCT U APPEAR (test code = 3267) [facility] [id number] 16:29:00* Test Item Value Reference Range Interpretation Comme nts POCT U SP GRAV (test code = 3255) 1.025 mg/dl 1.005-1.025 POCT PH U (test code = 3254) 5 mg/dl 5-8 POCT U LEUK EST (test code = 3263) Negative Negative - Negative POCT U NIT (test code = 3262) Negative Negative - Negati ve POCT U PROT (test code = 3259) trace Negative - Negative POCT U GLU (test code = 3256) Negative Negative - Negati ve POCT U KETONE (test code = 3258) Negative Negative - Negative POCT U UROBILI (test code = 3260) Negative 0.2-1 POCT U BILI (test code = 3261) Negative Negative - Negative POCT U BLD (test code = 3257) 250 Negative - Negati ve POCT U COLOR (test code = 3266) dark yellow POCT U APPEAR (test code = 3267) [facility] URINALYSIS W SPECIFIC [id number] 16:29:00* Test Item Value Reference Range Interpretation Comme nts POCT U SP GRAV (test code = 3255) 1.025 mg/dl 1.005-1.025 POCT PH U (test code = 3254) 5 mg/dl 5-8 POCT U LEUK EST (test code = 3263) Negative Negative - Negative POCT U NIT (test code = 3262) Negative Negative - Negati ve POCT U PROT (test code = 3259) trace Negative - Negative POCT U GLU (test code = 3256) Negative Negative - Negati ve POCT U KETONE (test code = 3258) Negative Negative - Negative POCT U UROBILI (test code = 3260) Negative 0.2-1 POCT U BILI (test code = 3261) Negative Negative - Negative POCT U BLD (test code = 3257) 250 Negative - Negati ve POCT U COLOR (test code = 3266) dark yellow POCT U APPEAR (test code = 3267) [facility] [id number] 05:33:44* Test Item Value Reference Range Interpretation Comme nts HEMOGLOBIN A1c (test code = 68450) 5.0 % 4.2-5.6 THYROID II PROFILE (TU,T4,FTI,TSH)2021-08-09 03:59:32* Test Item Value Reference Range Interpretation Comme nts T-UPTAKE (test code = 2817) 33.1 % 24.3-39.0 THYROX. BIND. CAPAC. (test c ode = 29135) 1.0 0.8-1.3 T4 (THYROXINE) (test code = 2819) 10.3 UG/DL 4.5-10.5 CORRECTED T4 (FTI) (test cod e = 2820) 10.3 UG/DL 4.2-11.6 TSH, THIRD GENERATION (test code = 2821) 1.980 UIU/ML 0.500-4.300 CBC W/AUTO DIFF WITH [id number] 02:47:17* Test Item Value Reference Range Interpretation [...] 0.00-0.10 ABS NUCLEATED RBCS (test code = 38127) 0.00 K/UL 0.00-0.13 COMPREHENSIVE METABOLIC [id number] 02:35:49* Test Item Value Reference Range Interpretation Comme nts GLUCOSE (test code = 221) 108 MG/DL 70-99 H BUN (test code = 2207) 10 MG/DL 5-18 CREATININE (test code = 2214) 0.83 MG/DL 0.50-1.10 eGFR (2020 CKD-EPI) (test code = 68233) NO CALC ML/MIN/1.73 >60 NOTE: 2020 CKD-EPI is not validated for pediatric populations. For patients less than 19 years old, consider NKF pediatric eGFR calculator https://www.kidney.o rg/professionals/kdo qi/gfr_calculatorPed CALC BUN/CREAT (test code = 2234) 12 RATIO 6-28 SODIUM (test code = 2230) 140 MEQ/L 133-146 POTASSIUM (test code = 2227) 4.2 MEQ/L 3.5-5.4 CHLORIDE (test code = 2214) 102 MEQ/L 95-107 CARBON DIOXIDE (test code = 2205) 25 MEQ/L 19-31 CALCIUM (test code = 2208) 9.6 MG/DL 8.4-10.2 PROTEIN, TOTAL (test code = 2228) 7.2 G/DL 6.0-8.0 ALBUMIN (test code = 2200) 4.6 G/DL 3.6-5.2 CALC GLOBULIN (test code = 2239) 2.6 G/DL 2.1-3.7 CALC A/G RATIO (test code = 2233) 1.8 RATIO 1.0-2.6 BILIRUBIN, TOTAL (test code = 2206) 0.7 MG/DL See_Comment [Automated me ssage] The system which generated this result transmitted reference range: <=1.2. The reference range was not used to interpret this result as normal/abnormal. ALKALINE PHOSPHATASE (test code = 2203) 74 U/L 53-138 AST (test code = 2217) 16 U/L 9-48 ALT (test code = 2218) 17 U/L 5-45 HEPATIC FUNCTION [id number] 02:35:49* Test Item Value Reference Range Interpretation [...] 16 U/L 9-48 ALT (test code = 9) 17 U/L 5-45 UNLESS OTHERWISE INDICATED, ALL TESTING PERFORMED [facility] [address] [place] [id number] CHIP MUCKER: MICHAEL HOUSE M.D. CLIA NUMBER [id number] [place] [id number]
[2024-04-29 10:32] LABS: Specific Gravity < 1.005 (1.005-1.030)
[2024-04-29 10:34] LABS: Specific Gravity < 1.005 (1.005-1.030); Sqamous Epithelial <5 /HPF (None Seen); Urine Bacteria <20 /HPF (<20); Urine Bilirubin NEGATIVE (Negative); Urine Blood Negative (Negative); Urine Clarity Turbid (Clear); Urine Color Colorless (Yellow); Urine Culture Reflex Order NOT NEEDED; Urine Glucose NEGATIVE (Negative); Urine Ketones NEGATIVE (Negative); Urine Microscopic Reflex YN ORDER UMIC; Urine Nitrite NEGATIVE (Negative); Urine Protein NEGATIVE (Negative); Urine RBC None Seen /HPF (None Seen); Urine Urobilinogen Normal (Normal); Urine WBC <5 /HPF (<5)
--- NOTE | 2024-04-29 11:16 | RAD REPORT ---
EXAM: CT brain without contrast HISTORY: Trauma;Headache;Dizziness COMPARISON: None TECHNIQUE: Multiple contiguous axial images were obtained and a CT of the brain without contrast. Sag ittal and coronal reformats were performed. FINDINGS: No evidence of hydrocephalus, intracranial hemorrhage, or extra-axial fluid collection. The brain is normal in morphology. The calvarium is intact. The visualized paranasal sinuses and mastoid air cells are essentially clear . IMPRESSION: No evidence of acute intracranial abnormality. EXAM: CT of the cervical spine without contrast HISTORY: Trauma;Headache;Dizziness COMPARISON: None TECHNIQUE: Multiple contiguous axial images were obtained in a CT of the cervical spine without contr ast. Sagittal and coronal reformats were performed. FINDINGS: The vertebral bodies demonstrate normal height and alignment. No evidence of acute fracture or subluxation.. No degenerative changes are present. No prevertebral soft tissue swelling is seen. The posterior facets are well aligned. Normal alignment of the skull base with the cervical spine is seen. The lung apices are unremarkable. IMPRESSION: No evidence of acute osseous abnormality of the cervical spine.
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
[2024-04-29 11:57] VITALS: BP 122/84; O2SAT 98
== END 2024-04-29 11:46 | disposition home or self-care (01) ==
LOC: ER 09:53
DX: S16.1XXA Strain of muscle, fascia and tendon at neck level, initial encounter (principal); R51.9 Headache, unspecified; R11.0 Nausea; J45.909 Unspecified asthma, uncomplicated; F32.A Depression, unspecified; F41.9 Anxiety disorder, unspecified; F43.10 Post-traumatic stress disorder, unspecified; F17.290 Nicotine dependence, other tobacco product, uncomplicated; V43.52XA Car driver injured in collision with other type car in traffic accident, initial encounter; Y93.89 Activity, other specified; Y92.410 Unspecified street and highway as the place of occurrence of the external cause; Z88.0 Allergy status to penicillin; Z88.1 Allergy status to other antibiotic agents; Z91.040 Latex allergy status
CPT/HCPCS: 70450; 72125; 81001; 81025; 99283

== ENCOUNTER 2024-09-15 22:45 | Emergency (ER) | payer OTHER, SELFPAY ==
--- OUTSIDE RECORDS SUMMARY | 2024-09-15 22:55 | XMS REPORT | Continuity of Care Document ---
Author Name Unknown Address [address] [facility] [place] [address] [facility] [place] Address [address] [facility] [address] [place] [address] Care Team Providers Care Density Control Puncher Name Role Phone Kirti Zavala PA-C Primary Care Physician + DR DEBBY MASSEY Attending Clinician Unavailable DR DEBBY MASSEY Attending Clinician Unavailable Naseem Juarez Attending Clinician Unavailable Kirti Zavala PA-C Attending Clinician MARIANO TURK Attending Clinician Unavail able MARIANO TURK Attending Clinician Unavail able Mariano Turk MD Attending Clinician [phone] CYNTHIA Attending Clinician Unavailable ADOLPH LALA Attending Clinician Unavail able ADOLPH LALA Attending Clinician Unavail able BAYRON BERMEO Attending Clinician Unavailable Bayron Bermeo MD Attending Clinician [phone] MARV ZAMARRIPA Attending Clinician Unavailable Marv Porras Attending Clinician [phone] GAUDENCIO COWAN Attending Clinician Unavailab GAUDENCIO Nelson Attending Clinician Unavailab ZOFIA Khanna Attending Clinician Unavailable STEVE ORTEGA Attending Clinician UnavailSTEVE Cowart Attending Clinician Unavaila ble 2, [facility] Attending Clinician Unavailable Kirti Zavala PA-C Attending Clinician [phone] KIRTI ZAVALA Attending Clinician Unavailab le Doctor Unassigned, [place] Attending Clinician U pako Bowen MD, Heidi Attending Clinician + [phone] Lab, Lkuma Pedi Attending Clinician Unavailable Andrade Wharton MD Attending Clinician [phone] Ivan Hollis MD Attending Clinician [phone] Fely York PA-C Attending Clinician [phone] DR DEBBY MASSEY Admitting Clinician Unavailable MARIANO TURK Admitting Clinician Unavail able CYNTHIA Admitting Clinician Unavailable Payers Payer Name Policy Type Policy Number Effective Date Expirati on Date Source [id number] 2024 00:00:00 RONAK JONES [id number] 2023 00:00:00 [facility] Individual Exchange Benefit Plan [id number] [facility] (O) [id number] [facility] [id number] 2022 00:00:00 [facility] 6 [id number] 2019 00:00:00 [facility] [id number] 2013 00:00:00 [facility] [id number] [facility] C1 [id number] [facility] [id number] [facility] C1 [id number] [facility] Problems Condition Name Condition Details Condition Category Status Onset Date Resolution Date Last Treatment Date Treating Clinician Comments Source Pain in wrist Pain in wrist Disease Active 2020-05 00:00: 00 [facility] Enthesopat hy Enthesopat hy Disease Active 2020-05 00:00: 00 [facility] Depression Depression Disease Active 08-13 00:00: 00 Overview: Formattin g of this note might be different from the original. Sees Psychiatr y and Therapist [facility] Asthma Asthma Disease Active 08-13 00:00: 00 [facility] [id number] Extensor carpi ulnaris tendinitis Problem Active [facility] [id number] Pain in joint of left wrist Problem Active [facility] [id number] Flexor carpi ulnaris tendinitis Problem Active [facility] [id number] Body mass index [BMI] 35.0-35.9, adult Problem [facility] [id number] CHANTAL (generaliz ed anxiety disorder) Problem [facility] [id number] Mixed hyperlipid emia Problem [facility] [id number] Bipolar depression Problem [facility] [id number] Moderate recurrent major depression Problem [facility] [id number] Primary insomnia Problem [facility] [id number] Morbid (severe) obesity due to excess calories Problem [facility] Right ankle pain Right ankle pain Disease Resolve d 6-16 00:00: 00 2019-06-24 00:00:00 2019-06-24 13:39:36 [facility] Fracture of third metacarpal bone of right hand Fracture of third metacarpal bone of right hand Disease Resolve d 2014-05 0 00:00: 00 2019-06-24 00:00:00 2019-06-24 13:39:35 [facility] Allergies, Adverse Reactions, Alerts Allergy Name Allergy Type Status Severity Reaction(s) Onset Date Inactive Date Treating Clinician Comments Source CEPHALEX IN DRUG INGREDI Active Rash 2021-05 00:00: 00 [facility] Cephalex in Propensi ty to adverse reaction s Active Rash 2021-05 00:00: 00 [facility] Penicill in Propensi ty to adverse reaction s Active Unknown - See comments 2020-05 00:00: 00 Rashes and throat swells [facility] PENICILL IN DRUG INGREDI Active Unknown-Cmnt 2020-05 00:00: 00 [facility] Latex Propensi ty to adverse reaction s Active Rash 12-12 00:00: 00 [facility] LATEX DRUG INGREDI Active Rash 12-12 00:00: 00 [facility] Penicill ins DA Active Severe Anaphylaxis [facility] Keflex DA Active Severe Anaphylaxis [facility] Coconut DA Active Severe Anaphylaxis [facility] [place] Penicill in Penicill in Active Unknown [facility] 8091 Drug allergy Active Unknown [facility] Latex Latex Active Unknown [facility] Social History Social Habit Start Date Stop Date Quantity Comments Source History of Tobacco Use [facility] Sex Assigned At [facility] Gender identity [facility] Not [facility] Exposure to SARS-CoV-2 (event) 2022-09-09 00:00:00 2022-09-19 09:55:00 Not sure [facility] History SDOH Alcohol Frequency 2022-09-19 00:00:00 2022-09-19 00:00:00 1 [facility] History SDOH Alcohol Std Drinks 2022-09-19 00:00:00 2022-09-19 00:00:00 0 [facility] History SDOH Alcohol Binge 2022-09-19 00:00:00 2022-09-19 00:00:00 1 [facility] History SDOH Social Connections Phone 2022-09-19 00:00:00 2022-09-19 00:00:00 5 [facility] SDOH Social Connections Get Together 2022-09-19 00:00:00 2022-09-19 00:00:00 3 [facility] SDOH Social Connections Mosque 2022-09-19 00:00:00 2022-09-19 00:00:00 1 [facility] SDOH Social Connections Membership 2022-09-19 00:00:00 2022-09-19 00:00:00 2 [facility] SDOH Social Connections Meetings 2022-09-19 00:00:00 2022-09-19 00:00:00 1 [facility] SDOH Social Connections Living 2022-09-19 00:00:00 2022-09-19 00:00:00 98 [facility] SDOH Physical Activity DPW 2022-09-19 00:00:00 2022-09-19 00:00:00 3 [facility] SDOH Physical Activity MPS 2022-09-19 00:00:00 2022-09-19 00:00:00 2 [facility] SDOH Stress 2022-09-19 00:00:00 2022-09-19 00:00:00 5 [facility] SDOH Financial 2022-09-19 00:00:00 2022-09-19 00:00:00 2 [facility] SDOH Food Worry 2022-09-19 00:00:00 2022-09-19 00:00:00 2 [facility] SDOH Food Scarcity 2022-09-19 00:00:00 2022-09-19 00:00:00 2 [facility] SDOH Transport Med 2022-09-19 00:00:00 2022-09-19 00:00:00 2 [facility] SDOH Transport Non-Med 2022-09-19 00:00:00 2022-09-19 00:00:00 2 [facility] SDOH Housing Unable to Pay 2022-09-19 00:00:00 2022-09-19 00:00:00 1 [facility] History SDOH Housing Places Lived 2022-09-19 00:00:00 2022-09-19 00:00:00 1 [facility] History SDOH Housing Homeless Last Year 2022-09-19 00:00:00 2022-09-19 00:00:00 2 [facility] History of Social function 2022-09-19 00:00:00 2022-09-19 00:00:00 [facility] Alcohol intake 2022-07-17 00:00:00 2022-07-17 00:00:00 0 /d [facility] Alcoholic beverage intake 2021-12-18 00:00:00 2021-12-18 00:00:00 0 /d [facility] Tobacco Comment 2017-08-21 00:00:00 2017-08-21 00:00:00 mother smokes inside and outside of house [facility] Tobacco use and exposure 2017-08-21 00:00:00 2017-08-21 00:00:00 Smokeless tobacco non-user [facility] Smoking Status Start Date Stop Date Source Former Smoker 2024-01-12 00:00:00 2024-01-12 00:00:00 [facility] Never Smoker [facility] Medications Ordered Medication Name Filled Medication Name Start Date Stop Date Current Medication? Ordering Clinician Indication Dosage Frequency Signature (SIG) Comments Components Source ketorolac (TORADOL) injection 30 mg 2023-05 02:30: 00 05-03 01:47 :00 No 30mg 30 mg, Slow IV Push, ONCE, 1 dose, On 05/02/24 at 2030, Routine [facility] metoclopram chata HCl (REGLAN) injection 10 mg 2023-05 01:45: 00 05-03 01:49 :00 No 10mg 10 mg, Slow IV Push, ONCE, 1 dose, On 05/02/24 at 1945, LISETH [facility] Azithromyci n 250 MG Azithromyci n 250 MG 2024-0 2-29 00:00: 00 No QD Azithromyc in 250 MG butalbital- acetaminoph en-caff (ESGIC) 50-325-40 mg tablet 1 tablet 01-13 02:45: 00 01-13 02:52 :00 No 1{tbl} 1 tablet, Oral, ONCE, 1 dose, On 01/12/23 at 2145, LISETH [facility] butalbital- acetaminoph en-caff 50-325-40 mg tablet 01-12 00:00: 00 Yes [id number] 1{tbl} Take 1 tablet by mouth every 6 (six) hours as needed (Headache) . [facility] budesonide- formoteroL 160-4.5 mcg/actuati on inhaler 12-21 06:42: 03 Yes 2{puff} Inhale 2 Puffs in the morning and 2 Puffs in the evening. [facility] methylPREDN ISolone (MEDROL, ASIA,) 4 mg tablets 11-22 00:00: 00 Yes [id number] Take by mouth SEE-INSTRU CTIONS. follow package directions [facility] bromphenira mine-pseudo ephedrine-D M (BROMFED DM) 2-30-10 mg/5 mL syrup 11-22 00:00: 00 Yes [id number] 5mL Take 5 mL by mouth 4 (four) times daily as needed for Congestion /Allergies . [facility] budesonide- formoteroL 160-4.5 mcg/actuati on inhaler 11-08 11:08: 41 Yes 2{puff} Inhale 2 Puffs in the morning and 2 Puffs in the evening. [facility] clindamycin 300 mg capsule 11-08 00:00: 00 11-19 04:59 :00 No [id number] 300mg Take 1 capsule by mouth in the morning and 1 capsule at noon and 1 capsule in the evening. Do all this for 10 days. [facility] VENTOLIN HFA 90 mcg/actuati on inhaler 10-17 00:00: 00 Yes [id number] INHALE TWO (2) PUFFS BY MOUTH EVERY 6 (SIX) HOURS NEEDED FOR WHEEZING OR SHORTNESS OF BREATH. [facility] budesonide- formoteroL (SYMBICORT) 160-4.5 mcg/actuati on inhaler 09-19 10:50: 50 Yes 2{puff} Inhale 2 Puffs in the morning and 2 Puffs in the evening. [facility] montelukast (SINGULAIR) 10 mg tablet 09-19 00:00: 00 Yes [id number] 10mg Take 1 tablet by mouth in the morning. [facility] albuterol 90 mcg/actuati on inhaler 09-19 00:00: 00 10-17 00:00 :00 No [id number] 2{puff} Inhale 2 Puffs every 6 (six) hours as needed for Wheezing or Shortness of Breath. [facility] triamcinolo ne acetonide 0.1 % ointment 09-16 00:00: 00 09-19 00:00 :00 No [id number] Apply to area(s) 2 (two) times daily. [facility] methscopola mine 5 mg tablet 09-03 00:00: 00 Yes 5mg Take 1 tablet by mouth every morning. [facility] omeprazole 20 mg capsule 09-03 00:00: 00 09-19 00:00 :00 No TAKE ONE (1) CAPSULE BY MOUTH IN THE MORNING. [facility] ondansetron 8 mg disintegrat ing tablet 08-20 00:00: 00 Yes [id number] 8mg Take 1 tablet by mouth every 8 (eight) hours as needed for Nausea and Vomiting (N/V). [facility] guanFACINE 1 mg tablet 08-20 00:00: 00 Yes 1mg Take 1 tablet by mouth at bedtime. [facility] guanFACINE ER 3 mg tablet 08-20 00:00: 00 Yes 3mg Take 1 tablet by mouth at bedtime. [facility] ziprasidone 20 mg capsule 08-18 00:00: 00 Yes TAKE ONE (1) CAPSULE(S) BY MOUTH TWICE DAILY WITH FOOD. [facility] ziprasidone 60 mg capsule 08-18 00:00: 00 Yes Take by mouth daily. [facility] albuterol 2.5 mg /3 mL (0.083 %) nebulizer solution 08-06 00:00: 00 09-19 00:00 :00 No [id number] 2.5mg Inhale 3 mL every 4 (four) hours as needed for Wheezing or Shortness of Breath. [facility] ondansetron 8 mg disintegrat ing tablet 08-06 00:00: 00 08-20 00:00 :00 No [id number] 8mg Take 1 tablet by mouth every 8 (eight) hours as needed for Nausea and Vomiting (N/V). [facility] meloxicam (MOBIC ORAL) 07-23 11:13: 14 07-23 00:00 :00 No [facility] Nebulizer & Compressor For Neb Bonny 07-23 00:00: 00 09-19 00:00 :00 No [id number] Use as directed [facility] budesonide- formoteroL (SYMBICORT) 160-4.5 mcg/actuati on inhaler 07-23 00:00: 00 09-19 00:00 :00 No [id number] 2{puff} Inhale 2 Puffs in the morning and 2 Puffs in the evening. [facility] meloxicam 7.5 mg tablet 07-23 00:00: 00 09-19 00:00 :00 No [id number] Take 1 tab once daily with food for muscle pain for 3 to 5 days at a time [facility] albuterol 2.5 mg /3 mL (0.083 %) nebulizer solution 07-23 00:00: 00 08-06 00:00 :00 No [id number] 2.5mg Inhale 3 mL every 4 (four) hours as needed for Wheezing or Shortness of Breath. [facility] famotidine 20 mg tablet 07-20 00:00: 00 Yes 20mg Take 1 tablet by mouth in the morning. [facility] cetirizine 10 mg tablet 07-20 00:00: 00 Yes TAKE ONE (1) TABLET(S) BY MOUTH DAILY NEEDED FOR ALLERGIES. [facility] ondansetron 8 mg disintegrat ing tablet 07-17 00:00: 00 08-06 00:00 :00 No [id number] 8mg Take 1 tablet by mouth every 8 (eight) hours as needed for Nausea and Vomiting (N/V). [facility] clindamycin (CLEOCIN HCL) 300 mg capsule 07-17 00:00: 00 07-28 05:59 :00 No [id number] 300mg Take 1 capsule by mouth in the morning and 1 capsule at noon and 1 capsule in the evening. Do all this for 10 days. [facility] predniSONE 10 mg tablet 07-17 00:00: 00 07-23 05:59 :00 No [id number] 10mg Take 1 tablet by mouth in the morning and 1 tablet in the evening. Do all this for 5 days. [facility] fluticasone propionate 50 mcg/actuati on nasal spray 06-18 00:00: 00 09-19 00:00 :00 No [id number] 2{spray } Use 2 Sprays in each nostril in the morning and 2 Sprays in the evening. [facility] albuterol (VENTOLIN HFA) 90 mcg/actuati on inhaler 06-18 00:00: 00 09-19 00:00 :00 No INHALE TWO (2) PUFFS BY MOUTH EVERY FOUR HOURS NEEDED FOR WHEEZING, SHORTNESS OF BREATH OR CHEST TIGHTNESS. [facility] azithromyci n 250 mg tablet 06-18 00:00: 00 07-17 00:00 :00 No [id number] 250mg Take 1 tablet by mouth SEE-INSTRU CTIONS. Take 500 mg day 1, then 250 mg days 2 to 5. [facility] clindamycin (CLEOCIN HCL) 300 mg capsule 2021-05 2-09 00:00: 00 05-04 05:59 :00 No [id number] 300mg Take 1 capsule by mouth in the morning and 1 capsule at noon and 1 capsule in the evening. Do all this for 7 days. [facility] fluticasone propionate 50 mcg/actuati on nasal spray 2021-05 0-18 00:00: 00 06-18 00:00 :00 No [id number] 2{spray } Use 2 Sprays in each nostril in the morning and 2 Sprays in the evening. [facility] OXcarbazepi ne 600 mg tablet 2021-05 0-13 00:00: 00 06-18 00:00 :00 No TAKE ONE (1) TABLET(S) BY MOUTH THREE TIMES A DAY WITH MEALS. [facility] meloxicam (MOBIC ORAL) 2021-05 0-11 08:14: 15 Yes [facility] fluticasone propion-kumar meteroL (ADVAIR HFA) 115-21 mcg/actuati on inhaler 2021-05 0-07 00:00: 00 07-23 00:00 :00 No [id number] INHALE TWO (2) PUFFS BY MOUTH TWICE A DAY. [facility] OXcarbazepi ne 300 mg tablet 02-15 00:00: 00 06-18 00:00 :00 No 300mg Take 300 mg by mouth in the morning and 300 mg in the evening. [facility] VRAYLAR 4.5 mg Cap 02-13 00:00: 00 06-18 00:00 :00 No TAKE ONE (1) CAPSULE(S) BY MOUTH AT BEDTIME. [facility] mirtazapine 7.5 mg tablet 02-13 00:00: 00 06-18 00:00 :00 No 7.5mg Take 7.5 mg by mouth at bedtime. [facility] VRAYLAR 3 mg Cap 9-06 00:00: 00 06-18 00:00 :00 No 1{capsu le} Take 1 capsule by mouth daily. [facility] ADVAIR HFA 115-21 mcg/actuati on inhaler 8- 00:00: 00 02-22 00:00 :00 No [id number] INHALE TWO (2) PUFFS BY MOUTH TWICE A DAY. [facility] ADVAIR HFA 115-21 mcg/actuati on inhaler 8- 00:00: 00 01-14 00:00 :00 No [id number] INHALE TWO (2) PUFFS BY MOUTH TWICE A DAY. [facility] albuterol (VENTOLIN HFA) 90 mcg/actuati on inhaler 4-08 00:00: 00 06-18 00:00 :00 No [id number] INHALE TWO (2) PUFFS BY MOUTH EVERY FOUR HOURS NEEDED FOR WHEEZING, SHORTNESS OF BREATH OR CHEST TIGHTNESS. [facility] meloxicam 7.5 mg tablet 2020-05 0-08 00:00: 00 06-18 00:00 :00 No 7.5mg Take 7.5 mg by mouth daily. [facility] fluticasone propionate 50 mcg/actuati on nasal spray 4-26 00:00: 00 03-05 00:00 :00 No [id number] 2{spray } Use 2 Sprays in each nostril 2 (two) times daily. [facility] Rexulti 1 MG Rexulti 1 MG No QD Rexulti 1 MG Immunizations Ordered Immunization Name Filled Immunization Name Date Status Comments Source DTAP 2022-08-12 00:00:00 Completed [facility] HIB 3 Dose Schedule 2022-08-12 00:00:00 Completed [facility] HEPATITIS A 2022-08-12 00:00:00 Completed [facility] Hep B, Adol or Pedi Dosage 2022-08-12 00:00:00 Completed [facility] Meningococcal Vaccine 2022-08-12 00:00:00 Completed [facility] MMR 2022-08-12 00:00:00 Completed [facility] Pneumococcal 13 Conjugate, PCV13 (Prevnar 13) 2022-08-12 00:00:00 Completed [facility] Polio (IPV/OPV) 2022-08-12 00:00:00 Completed [facility] TDAP 2022-08-12 00:00:00 Completed [facility] Varicella (varivax)(chicken pox) 2022-08-12 00:00:00 Completed [facility] Meningococcal Polysaccharide (groups A, C, Y and W-135) conjugate vaccine (MCV4P) 2022-08-12 00:00:00 Completed [facility] Meningococcal B, OMV 2022-08-12 00:00:00 Completed [facility] HPV9 2022-08-12 00:00:00 Completed [facility] DTAP 2022-07-19 00:00:00 Completed [facility] HIB 3 Dose Schedule 2022-07-19 00:00:00 Completed [facility] HEPATITIS A 2022-07-19 00:00:00 Completed [facility] Hep B, Adol or Pedi Dosage 2022-07-19 00:00:00 Completed [facility] Meningococcal Vaccine 2022-07-19 00:00:00 Completed [facility] MMR 2022-07-19 00:00:00 Completed [facility] Pneumococcal 13 Conjugate, PCV13 (Prevnar 13) 2022-07-19 00:00:00 Completed [facility] Polio (IPV/OPV) 2022-07-19 00:00:00 Completed [facility] TDAP 2022-07-19 00:00:00 Completed [facility] Varicella (varivax)(chicken pox) 2022-07-19 00:00:00 Completed [facility] Meningococcal Polysaccharide (groups A, C, Y and W-135) conjugate vaccine (MCV4P) 2022-07-19 00:00:00 Completed [facility] Meningococcal B, OMV 2022-07-19 00:00:00 Completed [facility] HPV9 2022-07-19 00:00:00 Completed [facility] HPV9 2022-03-05 00:00:00 Completed [facility] HPV9 2022-03-05 00:00:00 Completed [facility] HPV9 2022-03-05 00:00:00 Completed [facility] HPV9 2022-03-05 00:00:00 Completed [facility] HPV9 2022-03-05 00:00:00 Completed [facility] HPV9 2022-03-05 00:00:00 Completed [facility] HPV9 2022-03-05 00:00:00 Completed [facility] HPV9 2022-03-05 00:00:00 Completed [facility] HPV9 2022-03-05 00:00:00 Completed [facility] HPV9 2022-03-05 00:00:00 Completed [facility] HPV9 2022-03-05 00:00:00 Completed [facility] HPV9 2022-03-05 00:00:00 Completed [facility] HPV9 2022-03-05 00:00:00 Completed [facility] HPV9 2022-03-05 00:00:00 Completed [facility] HPV9 2022-03-05 00:00:00 Completed [facility] HPV9 2022-03-05 00:00:00 Completed [facility] HPV9 2022-03-05 00:00:00 Completed [facility] HPV9 2022-03-05 00:00:00 Completed [facility] HPV9 2022-03-05 00:00:00 Completed [facility] HPV9 2022-03-05 00:00:00 Completed [facility] HPV9 2022-03-05 00:00:00 Completed [facility] HPV9 2022-03-05 00:00:00 Completed [facility] HPV9 2022-03-05 00:00:00 Completed [facility] HPV9 2022-03-05 00:00:00 Completed Meningococcal B, OMV 2021-03-26 00:00:00 Completed [facility] HPV9 2021-03-26 00:00:00 Completed [facility] Meningococcal B, OMV 2021-03-26 00:00:00 Completed [facility] HPV9 2021-03-26 00:00:00 Completed [facility] Meningococcal B, OMV 2021-03-26 00:00:00 Completed [facility] HPV9 2021-03-26 00:00:00 Completed [facility] Meningococcal B, OMV 2021-03-26 00:00:00 Completed [facility] HPV9 2021-03-26 00:00:00 Completed [facility] Meningococcal B, OMV 2021-03-26 00:00:00 Completed [facility] HPV9 2021-03-26 00:00:00 Completed [facility] Meningococcal B, OMV 2021-03-26 00:00:00 Completed [facility] HPV9 2021-03-26 00:00:00 Completed [facility] Meningococcal B, OMV 2021-03-26 00:00:00 Completed [facility] HPV9 2021-03-26 00:00:00 Completed [facility] Meningococcal B, OMV 2021-03-26 00:00:00 Completed [facility] HPV9 2021-03-26 00:00:00 Completed [facility] Meningococcal B, OMV 2021-03-26 00:00:00 Completed [facility] HPV9 2021-03-26 00:00:00 Completed [facility] Meningococcal B, OMV 2021-03-26 00:00:00 Completed [facility] HPV9 2021-03-26 00:00:00 Completed [facility] Meningococcal B, OMV 2021-03-26 00:00:00 Completed [facility] HPV9 2021-03-26 00:00:00 Completed [facility] Meningococcal B, OMV 2021-03-26 00:00:00 Completed [facility] HPV9 2021-03-26 00:00:00 Completed [facility] Meningococcal B, OMV 2021-03-26 00:00:00 Completed [facility] HPV9 2021-03-26 00:00:00 Completed [facility] Meningococcal B, OMV 2021-03-26 00:00:00 Completed [facility] HPV9 2021-03-26 00:00:00 Completed [facility] Meningococcal B, OMV 2021-03-26 00:00:00 Completed [facility] HPV9 2021-03-26 00:00:00 Completed [facility] Meningococcal B, OMV 2021-03-26 00:00:00 Completed [facility] HPV9 2021-03-26 00:00:00 Completed [facility] Meningococcal B, OMV 2021-03-26 00:00:00 Completed [facility] HPV9 2021-03-26 00:00:00 Completed [facility] Meningococcal B, OMV 2021-03-26 00:00:00 Completed [facility] HPV9 2021-03-26 00:00:00 Completed [facility] Meningococcal B, OMV 2021-03-26 00:00:00 Completed [facility] HPV9 2021-03-26 00:00:00 Completed [facility] Meningococcal B, OMV 2021-03-26 00:00:00 Completed [facility] HPV9 2021-03-26 00:00:00 Completed [facility] Meningococcal B, OMV 2021-03-26 00:00:00 Completed [facility] HPV9 2021-03-26 00:00:00 Completed [facility] Meningococcal B, OMV 2021-03-26 00:00:00 Completed [facility] HPV9 2021-03-26 00:00:00 Completed [facility] Meningococcal B, OMV 2021-03-26 00:00:00 Completed [facility] HPV9 2021-03-26 00:00:00 Completed [facility] Meningococcal B, OMV 2021-03-26 00:00:00 Completed [facility] HPV9 2021-03-26 00:00:00 Completed [facility] Meningococcal B, OMV 2021-03-26 00:00:00 Completed [facility] HPV9 2021-03-26 00:00:00 Completed [facility] Meningococcal B, OMV 2021-03-26 00:00:00 Completed [facility] HPV9 2021-03-26 00:00:00 Completed [facility] Meningococcal B, OMV 2021-03-26 00:00:00 Completed HPV9 2021-03-26 00:00:00 Completed Meningococcal Polysaccharide (groups A, C, Y and W-135) conjugate vaccine (MCV4P) 2019-12-06 00:00:00 Completed [facility] Meningococcal B, OMV 2019-12-06 00:00:00 Completed [facility] Meningococcal Polysaccharide (groups A, C, Y and W-135) conjugate vaccine (MCV4P) 2019-12-06 00:00:00 Completed [facility] Meningococcal B, OMV 2019-12-06 00:00:00 Completed [facility] Meningococcal Polysaccharide (groups A, C, Y and W-135) conjugate vaccine (MCV4P) 2019-12-06 00:00:00 Completed [facility] Meningococcal B, OMV 2019-12-06 00:00:00 Completed [facility] Meningococcal Polysaccharide (groups A, C, Y and W-135) conjugate vaccine (MCV4P) 2019-12-06 00:00:00 Completed [facility] Meningococcal B, OMV 2019-12-06 00:00:00 Completed [facility] Meningococcal Polysaccharide (groups A, C, Y and W-135) conjugate vaccine (MCV4P) 2019-12-06 00:00:00 Completed [facility] Meningococcal B, OMV 2019-12-06 00:00:00 Completed [facility] Meningococcal Polysaccharide (groups A, C, Y and W-135) conjugate vaccine (MCV4P) 2019-12-06 00:00:00 Completed [facility] Meningococcal B, OMV 2019-12-06 00:00:00 Completed [facility] Meningococcal Polysaccharide (groups A, C, Y and W-135) conjugate vaccine (MCV4P) 2019-12-06 00:00:00 Completed [facility] Meningococcal B, OMV 2019-12-06 00:00:00 Completed [facility] Meningococcal Polysaccharide (groups A, C, Y and W-135) conjugate vaccine (MCV4P) 2019-12-06 00:00:00 Completed [facility] Meningococcal B, OMV 2019-12-06 00:00:00 Completed [facility] Meningococcal Polysaccharide (groups A, C, Y and W-135) conjugate vaccine (MCV4P) 2019-12-06 00:00:00 Completed [facility] Meningococcal B, OMV 2019-12-06 00:00:00 Completed [facility] Meningococcal Polysaccharide (groups A, C, Y and W-135) conjugate vaccine (MCV4P) 2019-12-06 00:00:00 Completed [facility] Meningococcal B, OMV 2019-12-06 00:00:00 Completed [facility] Meningococcal Polysaccharide (groups A, C, Y and W-135) conjugate vaccine (MCV4P) 2019-12-06 00:00:00 Completed [facility] Meningococcal B, OMV 2019-12-06 00:00:00 Completed [facility] Meningococcal Polysaccharide (groups A, C, Y and W-135) conjugate vaccine (MCV4P) 2019-12-06 00:00:00 Completed [facility] Meningococcal B, OMV 2019-12-06 00:00:00 Completed [facility] Meningococcal Polysaccharide (groups A, C, Y and W-135) conjugate vaccine (MCV4P) 2019-12-06 00:00:00 Completed [facility] Meningococcal B, OMV 2019-12-06 00:00:00 Completed [facility] Meningococcal Polysaccharide (groups A, C, Y and W-135) conjugate vaccine (MCV4P) 2019-12-06 00:00:00 Completed [facility] Meningococcal B, OMV 2019-12-06 00:00:00 Completed [facility] Meningococcal Polysaccharide (groups A, C, Y and W-135) conjugate vaccine (MCV4P) 2019-12-06 00:00:00 Completed [facility] Meningococcal B, OMV 2019-12-06 00:00:00 Completed [facility] Meningococcal Polysaccharide (groups A, C, Y and W-135) conjugate vaccine (MCV4P) 2019-12-06 00:00:00 Completed [facility] Meningococcal B, OMV 2019-12-06 00:00:00 Completed [facility] Meningococcal Polysaccharide (groups A, C, Y and W-135) conjugate vaccine (MCV4P) 2019-12-06 00:00:00 Completed [facility] Meningococcal B, OMV 2019-12-06 00:00:00 Completed [facility] Meningococcal Polysaccharide (groups A, C, Y and W-135) conjugate vaccine (MCV4P) 2019-12-06 00:00:00 Completed [facility] Meningococcal B, OMV 2019-12-06 00:00:00 Completed [facility] Meningococcal Polysaccharide (groups A, C, Y and W-135) conjugate vaccine (MCV4P) 2019-12-06 00:00:00 Completed [facility] Meningococcal B, OMV 2019-12-06 00:00:00 Completed [facility] Meningococcal Polysaccharide (groups A, C, Y and W-135) conjugate vaccine (MCV4P) 2019-12-06 00:00:00 Completed [facility] Meningococcal B, OMV 2019-12-06 00:00:00 Completed [facility] Meningococcal Polysaccharide (groups A, C, Y and W-135) conjugate vaccine (MCV4P) 2019-12-06 00:00:00 Completed [facility] Meningococcal B, OMV 2019-12-06 00:00:00 Completed [facility] Meningococcal Polysaccharide (groups A, C, Y and W-135) conjugate vaccine (MCV4P) 2019-12-06 00:00:00 Completed [facility] Meningococcal B, OMV 2019-12-06 00:00:00 Completed [facility] Meningococcal Polysaccharide (groups A, C, Y and W-135) conjugate vaccine (MCV4P) 2019-12-06 00:00:00 Completed [facility] Meningococcal B, OMV 2019-12-06 00:00:00 Completed [facility] Meningococcal Polysaccharide (groups A, C, Y and W-135) conjugate vaccine (MCV4P) 2019-12-06 00:00:00 Completed [facility] Meningococcal B, OMV 2019-12-06 00:00:00 Completed [facility] Meningococcal Polysaccharide (groups A, C, Y and W-135) conjugate vaccine (MCV4P) 2019-12-06 00:00:00 Completed [facility] Meningococcal B, OMV 2019-12-06 00:00:00 Completed [facility] Meningococcal Polysaccharide (groups A, C, Y and W-135) conjugate vaccine (MCV4P) 2019-12-06 00:00:00 Completed [facility] Meningococcal B, OMV 2019-12-06 00:00:00 Completed [facility] Meningococcal Polysaccharide (groups A, C, Y and W-135) conjugate vaccine (MCV4P) 2019-12-06 00:00:00 Completed [facility] Meningococcal B, OMV 2019-12-06 00:00:00 Completed TDAP 2015-09-08 00:00:00 Completed [facility] Meningococcal Vaccine 2015-09-08 00:00:00 Completed [facility] TDAP 2015-09-08 00:00:00 Completed [facility] Meningococcal Vaccine 2015-09-08 00:00:00 Completed TDAP 2015-09-08 00:00:00 Completed Meningococcal Vaccine 2015-09-08 00:00:00 Completed [facility] TDAP 2015-09-08 00:00:00 Completed [facility] Meningococcal Vaccine 2015-09-08 00:00:00 Completed [facility] TDAP 2015-09-08 00:00:00 Completed [facility] Meningococcal Vaccine 2015-09-08 00:00:00 Completed [facility] TDAP 2015-09-08 00:00:00 Completed [facility] Meningococcal Vaccine 2015-09-08 00:00:00 Completed [facility] TDAP 2015-09-08 00:00:00 Completed [facility] Meningococcal Vaccine 2015-09-08 00:00:00 Completed [facility] TDAP 2015-09-08 00:00:00 Completed [facility] Meningococcal Vaccine 2015-09-08 00:00:00 Completed [facility] TDAP 2015-09-08 00:00:00 Completed [facility] Meningococcal Vaccine 2015-09-08 00:00:00 Completed [facility] TDAP 2015-09-08 00:00:00 Completed [facility] Meningococcal Vaccine 2015-09-08 00:00:00 Completed [facility] TDAP 2015-09-08 00:00:00 Completed [facility] Meningococcal Vaccine 2015-09-08 00:00:00 Completed [facility] TDAP 2015-09-08 00:00:00 Completed [facility] Meningococcal Vaccine 2015-09-08 00:00:00 Completed [facility] TDAP 2015-09-08 00:00:00 Completed [facility] Meningococcal Vaccine 2015-09-08 00:00:00 Completed [facility] TDAP 2015-09-08 00:00:00 Completed [facility] Meningococcal Vaccine 2015-09-08 00:00:00 Completed [facility] TDAP 2015-09-08 00:00:00 Completed [facility] Meningococcal Vaccine 2015-09-08 00:00:00 Completed [facility] TDAP 2015-09-08 00:00:00 Completed [facility] Meningococcal Vaccine 2015-09-08 00:00:00 Completed [facility] TDAP 2015-09-08 00:00:00 Completed [facility] Meningococcal Vaccine 2015-09-08 00:00:00 Completed [facility] TDAP 2015-09-08 00:00:00 Completed [facility] Meningococcal Vaccine 2015-09-08 00:00:00 Completed [facility] TDAP 2015-09-08 00:00:00 Completed [facility] Meningococcal Vaccine 2015-09-08 00:00:00 Completed [facility] TDAP 2015-09-08 00:00:00 Completed [facility] Meningococcal Vaccine 2015-09-08 00:00:00 Completed [facility] TDAP 2015-09-08 00:00:00 Completed [facility] Meningococcal Vaccine 2015-09-08 00:00:00 Completed [facility] TDAP 2015-09-08 00:00:00 Completed [facility] Meningococcal Vaccine 2015-09-08 00:00:00 Completed [facility] TDAP 2015-09-08 00:00:00 Completed [facility] Meningococcal Vaccine 2015-09-08 00:00:00 Completed [facility] TDAP 2015-09-08 00:00:00 Completed [facility] Meningococcal Vaccine 2015-09-08 00:00:00 Completed [facility] TDAP 2015-09-08 00:00:00 Completed [facility] Meningococcal Vaccine 2015-09-08 00:00:00 Completed [facility] TDAP 2015-09-08 00:00:00 Completed [facility] Meningococcal Vaccine 2015-09-08 00:00:00 Completed [facility] TDAP 2015-09-08 00:00:00 Completed [facility] Meningococcal Vaccine 2015-09-08 00:00:00 Completed [facility] HEPATITIS A 2008-08-11 00:00:00 Completed [facility] HEPATITIS A 2008-08-11 00:00:00 Completed [facility] HEPATITIS A 2008-08-11 00:00:00 Completed [facility] HEPATITIS A 2008-08-11 00:00:00 Completed [facility] HEPATITIS A 2008-08-11 00:00:00 Completed [facility] HEPATITIS A 2008-08-11 00:00:00 Completed [facility] HEPATITIS A 2008-08-11 00:00:00 Completed [facility] HEPATITIS A 2008-08-11 00:00:00 Completed [facility] HEPATITIS A 2008-08-11 00:00:00 Completed [facility] HEPATITIS A 2008-08-11 00:00:00 Completed [facility] HEPATITIS A 2008-08-11 00:00:00 Completed [facility] HEPATITIS A 2008-08-11 00:00:00 Completed [facility] HEPATITIS A 2008-08-11 00:00:00 Completed [facility] HEPATITIS A 2008-08-11 00:00:00 Completed [facility] HEPATITIS A 2008-08-11 00:00:00 Completed [facility] HEPATITIS A 2008-08-11 00:00:00 Completed [facility] HEPATITIS A 2008-08-11 00:00:00 Completed [facility] HEPATITIS A 2008-08-11 00:00:00 Completed [facility] HEPATITIS A 2008-08-11 00:00:00 Completed [facility] HEPATITIS A 2008-08-11 00:00:00 Completed [facility] HEPATITIS A 2008-08-11 00:00:00 Completed [facility] HEPATITIS A 2008-08-11 00:00:00 Completed [facility] HEPATITIS A 2008-08-11 00:00:00 Completed [facility] HEPATITIS A 2008-08-11 00:00:00 Completed [facility] HEPATITIS A 2008-08-11 00:00:00 Completed [facility] HEPATITIS A 2008-08-11 00:00:00 Completed [facility] HEPATITIS A 2008-08-11 00:00:00 Completed DTAP 2008-01-15 00:00:00 Completed [facility] HEPATITIS A 2008-01-15 00:00:00 Completed [facility] MMR 2008-01-15 00:00:00 Completed [facility] Polio (IPV/OPV) 2008-01-15 00:00:00 Completed [facility] Varicella (varivax)(chicken pox) 2008-01-15 00:00:00 Completed [facility] DTAP 2008-01-15 00:00:00 Completed [facility] HEPATITIS A 2008-01-15 00:00:00 Completed [facility] MMR 2008-01-15 00:00:00 Completed [facility] Polio (IPV/OPV) 2008-01-15 00:00:00 Completed [facility] Varicella (varivax)(chicken pox) 2008-01-15 00:00:00 Completed [facility] DTAP 2008-01-15 00:00:00 Completed [facility] HEPATITIS A 2008-01-15 00:00:00 Completed [facility] MMR 2008-01-15 00:00:00 Completed [facility] Polio (IPV/OPV) 2008-01-15 00:00:00 Completed [facility] Varicella (varivax)(chicken pox) 2008-01-15 00:00:00 Completed [facility] DTAP 2008-01-15 00:00:00 Completed [facility] HEPATITIS A 2008-01-15 00:00:00 Completed [facility] MMR 2008-01-15 00:00:00 Completed [facility] Polio (IPV/OPV) 2008-01-15 00:00:00 Completed [facility] Varicella (varivax)(chicken pox) 2008-01-15 00:00:00 Completed [facility] DTAP 2008-01-15 00:00:00 Completed [facility] HEPATITIS A 2008-01-15 00:00:00 Completed [facility] MMR 2008-01-15 00:00:00 Completed [facility] Polio (IPV/OPV) 2008-01-15 00:00:00 Completed [facility] Varicella (varivax)(chicken pox) 2008-01-15 00:00:00 Completed [facility] DTAP 2008-01-15 00:00:00 Completed [facility] HEPATITIS A 2008-01-15 00:00:00 Completed [facility] MMR 2008-01-15 00:00:00 Completed [facility] Polio (IPV/OPV) 2008-01-15 00:00:00 Completed [facility] Varicella (varivax)(chicken pox) 2008-01-15 00:00:00 Completed [facility] DTAP 2008-01-15 00:00:00 Completed [facility] HEPATITIS A 2008-01-15 00:00:00 Completed [facility] MMR 2008-01-15 00:00:00 Completed [facility] Polio (IPV/OPV) 2008-01-15 00:00:00 Completed [facility] Varicella (varivax)(chicken pox) 2008-01-15 00:00:00 Completed [facility] DTAP 2008-01-15 00:00:00 Completed [facility] HEPATITIS A 2008-01-15 00:00:00 Completed [facility] MMR 2008-01-15 00:00:00 Completed [facility] Polio (IPV/OPV) 2008-01-15 00:00:00 Completed [facility] Varicella (varivax)(chicken pox) 2008-01-15 00:00:00 Completed [facility] DTAP 2008-01-15 00:00:00 Completed [facility] HEPATITIS A 2008-01-15 00:00:00 Completed [facility] MMR 2008-01-15 00:00:00 Completed [facility] Polio (IPV/OPV) 2008-01-15 00:00:00 Completed [facility] Varicella (varivax)(chicken pox) 2008-01-15 00:00:00 Completed [facility] DTAP 2008-01-15 00:00:00 Completed [facility] HEPATITIS A 2008-01-15 00:00:00 Completed [facility] MMR 2008-01-15 00:00:00 Completed [facility] Polio (IPV/OPV) 2008-01-15 00:00:00 Completed [facility] Varicella (varivax)(chicken pox) 2008-01-15 00:00:00 Completed [facility] DTAP 2008-01-15 00:00:00 Completed [facility] HEPATITIS A 2008-01-15 00:00:00 Completed [facility] MMR 2008-01-15 00:00:00 Completed [facility] Polio (IPV/OPV) 2008-01-15 00:00:00 Completed [facility] Varicella (varivax)(chicken pox) 2008-01-15 00:00:00 Completed [facility] DTAP 2008-01-15 00:00:00 Completed [facility] HEPATITIS A 2008-01-15 00:00:00 Completed [facility] MMR 2008-01-15 00:00:00 Completed [facility] Polio (IPV/OPV) 2008-01-15 00:00:00 Completed [facility] Varicella (varivax)(chicken pox) 2008-01-15 00:00:00 Completed [facility] DTAP 2008-01-15 00:00:00 Completed [facility] HEPATITIS A 2008-01-15 00:00:00 Completed [facility] MMR 2008-01-15 00:00:00 Completed [facility] Polio (IPV/OPV) 2008-01-15 00:00:00 Completed [facility] Varicella (varivax)(chicken pox) 2008-01-15 00:00:00 Completed [facility] DTAP 2008-01-15 00:00:00 Completed [facility] HEPATITIS A 2008-01-15 00:00:00 Completed [facility] MMR 2008-01-15 00:00:00 Completed [facility] Polio (IPV/OPV) 2008-01-15 00:00:00 Completed [facility] Varicella (varivax)(chicken pox) 2008-01-15 00:00:00 Completed [facility] DTAP 2008-01-15 00:00:00 Completed [facility] HEPATITIS A 2008-01-15 00:00:00 Completed [facility] MMR 2008-01-15 00:00:00 Completed [facility] Polio (IPV/OPV) 2008-01-15 00:00:00 Completed [facility] Varicella (varivax)(chicken pox) 2008-01-15 00:00:00 Completed [facility] DTAP 2008-01-15 00:00:00 Completed [facility] HEPATITIS A 2008-01-15 00:00:00 Completed [facility] MMR 2008-01-15 00:00:00 Completed [facility] Polio (IPV/OPV) 2008-01-15 00:00:00 Completed [facility] Varicella (varivax)(chicken pox) 2008-01-15 00:00:00 Completed [facility] DTAP 2008-01-15 00:00:00 Completed [facility] HEPATITIS A 2008-01-15 00:00:00 Completed [facility] MMR 2008-01-15 00:00:00 Completed [facility] Polio (IPV/OPV) 2008-01-15 00:00:00 Completed [facility] Varicella (varivax)(chicken pox) 2008-01-15 00:00:00 Completed [facility] DTAP 2008-01-15 00:00:00 Completed [facility] HEPATITIS A 2008-01-15 00:00:00 Completed [facility] MMR 2008-01-15 00:00:00 Completed [facility] Polio (IPV/OPV) 2008-01-15 00:00:00 Completed [facility] Varicella (varivax)(chicken pox) 2008-01-15 00:00:00 Completed [facility] DTAP 2008-01-15 00:00:00 Completed [facility] HEPATITIS A 2008-01-15 00:00:00 Completed [facility] MMR 2008-01-15 00:00:00 Completed [facility] Polio (IPV/OPV) 2008-01-15 00:00:00 Completed [facility] Varicella (varivax)(chicken pox) 2008-01-15 00:00:00 Completed [facility] DTAP 2008-01-15 00:00:00 Completed [facility] HEPATITIS A 2008-01-15 00:00:00 Completed [facility] MMR 2008-01-15 00:00:00 Completed [facility] Polio (IPV/OPV) 2008-01-15 00:00:00 Completed [facility] Varicella (varivax)(chicken pox) 2008-01-15 00:00:00 Completed [facility] DTAP 2008-01-15 00:00:00 Completed [facility] HEPATITIS A 2008-01-15 00:00:00 Completed [facility] MMR 2008-01-15 00:00:00 Completed [facility] Polio (IPV/OPV) 2008-01-15 00:00:00 Completed [facility] Varicella (varivax)(chicken pox) 2008-01-15 00:00:00 Completed [facility] DTAP 2008-01-15 00:00:00 Completed [facility] HEPATITIS A 2008-01-15 00:00:00 Completed [facility] MMR 2008-01-15 00:00:00 Completed [facility] Polio (IPV/OPV) 2008-01-15 00:00:00 Completed [facility] Varicella (varivax)(chicken pox) 2008-01-15 00:00:00 Completed [facility] DTAP 2008-01-15 00:00:00 Completed [facility] HEPATITIS A 2008-01-15 00:00:00 Completed [facility] MMR 2008-01-15 00:00:00 Completed [facility] Polio (IPV/OPV) 2008-01-15 00:00:00 Completed [facility] Varicella (varivax)(chicken pox) 2008-01-15 00:00:00 Completed [facility] DTAP 2008-01-15 00:00:00 Completed [facility] HEPATITIS A 2008-01-15 00:00:00 Completed [facility] MMR 2008-01-15 00:00:00 Completed [facility] Polio (IPV/OPV) 2008-01-15 00:00:00 Completed [facility] Varicella (varivax)(chicken pox) 2008-01-15 00:00:00 Completed [facility] DTAP 2008-01-15 00:00:00 Completed [facility] HEPATITIS A 2008-01-15 00:00:00 Completed [facility] MMR 2008-01-15 00:00:00 Completed [facility] Polio (IPV/OPV) 2008-01-15 00:00:00 Completed [facility] Varicella (varivax)(chicken pox) 2008-01-15 00:00:00 Completed [facility] DTAP 2008-01-15 00:00:00 Completed [facility] HEPATITIS A 2008-01-15 00:00:00 Completed [facility] MMR 2008-01-15 00:00:00 Completed [facility] Polio (IPV/OPV) 2008-01-15 00:00:00 Completed [facility] Varicella (varivax)(chicken pox) 2008-01-15 00:00:00 Completed [facility] DTAP 2008-01-15 00:00:00 Completed HEPATITIS A 2008-01-15 00:00:00 Completed MMR 2008-01-15 00:00:00 Completed Polio (IPV/OPV) 2008-01-15 00:00:00 Completed Varicella (varivax)(chicken pox) 2008-01-15 00:00:00 Completed Pneumococcal 13 Conjugate, PCV13 (Prevnar 13) 2005-07-16 00:00:00 Completed [facility] Polio (IPV/OPV) 2005-07-16 00:00:00 Completed [facility] Pneumococcal 13 Conjugate, PCV13 (Prevnar 13) 2005-07-16 00:00:00 Completed [facility] Polio (IPV/OPV) 2005-07-16 00:00:00 Completed [facility] Pneumococcal 13 Conjugate, PCV13 (Prevnar 13) 2005-07-16 00:00:00 Completed [facility] Polio (IPV/OPV) 2005-07-16 00:00:00 Completed [facility] Pneumococcal 13 Conjugate, PCV13 (Prevnar 13) 2005-07-16 00:00:00 Completed [facility] Polio (IPV/OPV) 2005-07-16 00:00:00 Completed [facility] Pneumococcal 13 Conjugate, PCV13 (Prevnar 13) 2005-07-16 00:00:00 Completed [facility] Polio (IPV/OPV) 2005-07-16 00:00:00 Completed [facility] Pneumococcal 13 Conjugate, PCV13 (Prevnar 13) 2005-07-16 00:00:00 Completed [facility] Polio (IPV/OPV) 2005-07-16 00:00:00 Completed [facility] Pneumococcal 13 Conjugate, PCV13 (Prevnar 13) 2005-07-16 00:00:00 Completed [facility] Polio (IPV/OPV) 2005-07-16 00:00:00 Completed [facility] Pneumococcal 13 Conjugate, PCV13 (Prevnar 13) 2005-07-16 00:00:00 Completed [facility] Polio (IPV/OPV) 2005-07-16 00:00:00 Completed [facility] Pneumococcal 13 Conjugate, PCV13 (Prevnar 13) 2005-07-16 00:00:00 Completed [facility] Polio (IPV/OPV) 2005-07-16 00:00:00 Completed [facility] Pneumococcal 13 Conjugate, PCV13 (Prevnar 13) 2005-07-16 00:00:00 Completed [facility] Polio (IPV/OPV) 2005-07-16 00:00:00 Completed [facility] Pneumococcal 13 Conjugate, PCV13 (Prevnar 13) 2005-07-16 00:00:00 Completed [facility] Polio (IPV/OPV) 2005-07-16 00:00:00 Completed [facility] Pneumococcal 13 Conjugate, PCV13 (Prevnar 13) 2005-07-16 00:00:00 Completed [facility] Polio (IPV/OPV) 2005-07-16 00:00:00 Completed [facility] Pneumococcal 13 Conjugate, PCV13 (Prevnar 13) 2005-07-16 00:00:00 Completed [facility] Polio (IPV/OPV) 2005-07-16 00:00:00 Completed [facility] Pneumococcal 13 Conjugate, PCV13 (Prevnar 13) 2005-07-16 00:00:00 Completed [facility] Polio (IPV/OPV) 2005-07-16 00:00:00 Completed [facility] Pneumococcal 13 Conjugate, PCV13 (Prevnar 13) 2005-07-16 00:00:00 Completed [facility] Polio (IPV/OPV) 2005-07-16 00:00:00 Completed [facility] Pneumococcal 13 Conjugate, PCV13 (Prevnar 13) 2005-07-16 00:00:00 Completed [facility] Polio (IPV/OPV) 2005-07-16 00:00:00 Completed [facility] Pneumococcal 13 Conjugate, PCV13 (Prevnar 13) 2005-07-16 00:00:00 Completed [facility] Polio (IPV/OPV) 2005-07-16 00:00:00 Completed [facility] Pneumococcal 13 Conjugate, PCV13 (Prevnar 13) 2005-07-16 00:00:00 Completed [facility] Polio (IPV/OPV) 2005-07-16 00:00:00 Completed [facility] Pneumococcal 13 Conjugate, PCV13 (Prevnar 13) 2005-07-16 00:00:00 Completed [facility] Polio (IPV/OPV) 2005-07-16 00:00:00 Completed [facility] Pneumococcal 13 Conjugate, PCV13 (Prevnar 13) 2005-07-16 00:00:00 Completed [facility] Polio (IPV/OPV) 2005-07-16 00:00:00 Completed [facility] Pneumococcal 13 Conjugate, PCV13 (Prevnar 13) 2005-07-16 00:00:00 Completed [facility] Polio (IPV/OPV) 2005-07-16 00:00:00 Completed [facility] Pneumococcal 13 Conjugate, PCV13 (Prevnar 13) 2005-07-16 00:00:00 Completed [facility] Polio (IPV/OPV) 2005-07-16 00:00:00 Completed [facility] Pneumococcal 13 Conjugate, PCV13 (Prevnar 13) 2005-07-16 00:00:00 Completed [facility] Polio (IPV/OPV) 2005-07-16 00:00:00 Completed [facility] Pneumococcal 13 Conjugate, PCV13 (Prevnar 13) 2005-07-16 00:00:00 Completed [facility] Polio (IPV/OPV) 2005-07-16 00:00:00 Completed [facility] Pneumococcal 13 Conjugate, PCV13 (Prevnar 13) 2005-07-16 00:00:00 Completed [facility] Polio (IPV/OPV) 2005-07-16 00:00:00 Completed [facility] Pneumococcal 13 Conjugate, PCV13 (Prevnar 13) 2005-07-16 00:00:00 Completed [facility] Polio (IPV/OPV) 2005-07-16 00:00:00 Completed [facility] Pneumococcal 13 Conjugate, PCV13 (Prevnar 13) 2005-07-16 00:00:00 Completed Polio (IPV/OPV) 2005-07-16 00:00:00 Completed MMR 2005-06-11 00:00:00 Completed [facility] Varicella (varivax)(chicken pox) 2005-06-11 00:00:00 Completed [facility] MMR 2005-06-11 00:00:00 Completed [facility] Varicella (varivax)(chicken pox) 2005-06-11 00:00:00 Completed [facility] MMR 2005-06-11 00:00:00 Completed [facility] Varicella (varivax)(chicken pox) 2005-06-11 00:00:00 Completed [facility] MMR 2005-06-11 00:00:00 Completed [facility] Varicella (varivax)(chicken pox) 2005-06-11 00:00:00 Completed [facility] MMR 2005-06-11 00:00:00 Completed [facility] Varicella (varivax)(chicken pox) 2005-06-11 00:00:00 Completed [facility] MMR 2005-06-11 00:00:00 Completed [facility] Varicella (varivax)(chicken pox) 2005-06-11 00:00:00 Completed [facility] 2005-06-11 00:00:00 Completed [facility] Varicella (varivax)(chicken pox) 2005-06-11 00:00:00 Completed [facility] 2005-06-11 00:00:00 Completed [facility] Varicella (varivax)(chicken pox) 2005-06-11 00:00:00 Completed [facility] 2005-06-11 00:00:00 Completed [facility] Varicella (varivax)(chicken pox) 2005-06-11 00:00:00 Completed [facility] 2005-06-11 00:00:00 Completed [facility] Varicella (varivax)(chicken pox) 2005-06-11 00:00:00 Completed [facility] 2005-06-11 00:00:00 Completed [facility] Varicella (varivax)(chicken pox) 2005-06-11 00:00:00 Completed [facility] 2005-06-11 00:00:00 Completed [facility] Varicella (varivax)(chicken pox) 2005-06-11 00:00:00 Completed [facility] 2005-06-11 00:00:00 Completed [facility] Varicella (varivax)(chicken pox) 2005-06-11 00:00:00 Completed [facility] 2005-06-11 00:00:00 Completed [facility] Varicella (varivax)(chicken pox) 2005-06-11 00:00:00 Completed [facility] 2005-06-11 00:00:00 Completed [facility] Varicella (varivax)(chicken pox) 2005-06-11 00:00:00 Completed [facility] 2005-06-11 00:00:00 Completed [facility] Varicella (varivax)(chicken pox) 2005-06-11 00:00:00 Completed [facility] 2005-06-11 00:00:00 Completed [facility] Varicella (varivax)(chicken pox) 2005-06-11 00:00:00 Completed [facility] MMR 2005-06-11 00:00:00 Completed [facility] Varicella (varivax)(chicken pox) 2005-06-11 00:00:00 Completed [facility] MMR 2005-06-11 00:00:00 Completed [facility] Varicella (varivax)(chicken pox) 2005-06-11 00:00:00 Completed [facility] 2005-06-11 00:00:00 Completed [facility] Varicella (varivax)(chicken pox) 2005-06-11 00:00:00 Completed [facility] 2005-06-11 00:00:00 Completed [facility] Varicella (varivax)(chicken pox) 2005-06-11 00:00:00 Completed [facility] 2005-06-11 00:00:00 Completed [facility] Varicella (varivax)(chicken pox) 2005-06-11 00:00:00 Completed [facility] 2005-06-11 00:00:00 Completed [facility] Varicella (varivax)(chicken pox) 2005-06-11 00:00:00 Completed [facility] 2005-06-11 00:00:00 Completed [facility] Varicella (varivax)(chicken pox) 2005-06-11 00:00:00 Completed [facility] 2005-06-11 00:00:00 Completed [facility] Varicella (varivax)(chicken pox) 2005-06-11 00:00:00 Completed [facility] MMR 2005-06-11 00:00:00 Completed [facility] Varicella (varivax)(chicken pox) 2005-06-11 00:00:00 Completed [facility] MMR 2005-06-11 00:00:00 Completed Varicella (varivax)(chicken pox) 2005-06-11 00:00:00 Completed DTAP 2005-05-07 00:00:00 Completed [facility] HIB 3 Dose Schedule 2005-05-07 00:00:00 Completed [facility] Hep B, Adol or Pedi Dosage 2005-05-07 00:00:00 Completed [facility] Pneumococcal 13 Conjugate, PCV13 (Prevnar 13) 2005-05-07 00:00:00 Completed [facility] Polio (IPV/OPV) 2005-05-07 00:00:00 Completed [facility] DTAP 2005-05-07 00:00:00 Completed [facility] HIB 3 Dose Schedule 2005-05-07 00:00:00 Completed [facility] Hep B, Adol or Pedi Dosage 2005-05-07 00:00:00 Completed [facility] Pneumococcal 13 Conjugate, PCV13 (Prevnar 13) 2005-05-07 00:00:00 Completed [facility] Polio (IPV/OPV) 2005-05-07 00:00:00 Completed [facility] DTAP 2005-05-07 00:00:00 Completed [facility] HIB 3 Dose Schedule 2005-05-07 00:00:00 Completed [facility] Hep B, Adol or Pedi Dosage 2005-05-07 00:00:00 Completed [facility] Pneumococcal 13 Conjugate, PCV13 (Prevnar 13) 2005-05-07 00:00:00 Completed [facility] Polio (IPV/OPV) 2005-05-07 00:00:00 Completed [facility] DTAP 2005-05-07 00:00:00 Completed [facility] HIB 3 Dose Schedule 2005-05-07 00:00:00 Completed [facility] Hep B, Adol or Pedi Dosage 2005-05-07 00:00:00 Completed [facility] Pneumococcal 13 Conjugate, PCV13 (Prevnar 13) 2005-05-07 00:00:00 Completed [facility] Polio (IPV/OPV) 2005-05-07 00:00:00 Completed [facility] DTAP 2005-05-07 00:00:00 Completed [facility] HIB 3 Dose Schedule 2005-05-07 00:00:00 Completed [facility] Hep B, Adol or Pedi Dosage 2005-05-07 00:00:00 Completed [facility] Pneumococcal 13 Conjugate, PCV13 (Prevnar 13) 2005-05-07 00:00:00 Completed [facility] Polio (IPV/OPV) 2005-05-07 00:00:00 Completed [facility] DTAP 2005-05-07 00:00:00 Completed [facility] HIB 3 Dose Schedule 2005-05-07 00:00:00 Completed [facility] Hep B, Adol or Pedi Dosage 2005-05-07 00:00:00 Completed [facility] Pneumococcal 13 Conjugate, PCV13 (Prevnar 13) 2005-05-07 00:00:00 Completed [facility] Polio (IPV/OPV) 2005-05-07 00:00:00 Completed [facility] DTAP 2005-05-07 00:00:00 Completed [facility] HIB 3 Dose Schedule 2005-05-07 00:00:00 Completed [facility] Hep B, Adol or Pedi Dosage 2005-05-07 00:00:00 Completed [facility] Pneumococcal 13 Conjugate, PCV13 (Prevnar 13) 2005-05-07 00:00:00 Completed [facility] Polio (IPV/OPV) 2005-05-07 00:00:00 Completed [facility] DTAP 2005-05-07 00:00:00 Completed [facility] HIB 3 Dose Schedule 2005-05-07 00:00:00 Completed [facility] Hep B, Adol or Pedi Dosage 2005-05-07 00:00:00 Completed [facility] Pneumococcal 13 Conjugate, PCV13 (Prevnar 13) 2005-05-07 00:00:00 Completed [facility] Polio (IPV/OPV) 2005-05-07 00:00:00 Completed [facility] DTAP 2005-05-07 00:00:00 Completed [facility] HIB 3 Dose Schedule 2005-05-07 00:00:00 Completed [facility] Hep B, Adol or Pedi Dosage 2005-05-07 00:00:00 Completed [facility] Pneumococcal 13 Conjugate, PCV13 (Prevnar 13) 2005-05-07 00:00:00 Completed [facility] Polio (IPV/OPV) 2005-05-07 00:00:00 Completed [facility] DTAP 2005-05-07 00:00:00 Completed [facility] HIB 3 Dose Schedule 2005-05-07 00:00:00 Completed [facility] Hep B, Adol or Pedi Dosage 2005-05-07 00:00:00 Completed [facility] Pneumococcal 13 Conjugate, PCV13 (Prevnar 13) 2005-05-07 00:00:00 Completed [facility] Polio (IPV/OPV) 2005-05-07 00:00:00 Completed [facility] DTAP 2005-05-07 00:00:00 Completed [facility] HIB 3 Dose Schedule 2005-05-07 00:00:00 Completed [facility] Hep B, Adol or Pedi Dosage 2005-05-07 00:00:00 Completed [facility] Pneumococcal 13 Conjugate, PCV13 (Prevnar 13) 2005-05-07 00:00:00 Completed [facility] Polio (IPV/OPV) 2005-05-07 00:00:00 Completed [facility] DTAP 2005-05-07 00:00:00 Completed [facility] HIB 3 Dose Schedule 2005-05-07 00:00:00 Completed [facility] Hep B, Adol or Pedi Dosage 2005-05-07 00:00:00 Completed [facility] Pneumococcal 13 Conjugate, PCV13 (Prevnar 13) 2005-05-07 00:00:00 Completed [facility] Polio (IPV/OPV) 2005-05-07 00:00:00 Completed [facility] DTAP 2005-05-07 00:00:00 Completed [facility] HIB 3 Dose Schedule 2005-05-07 00:00:00 Completed [facility] Hep B, Adol or Pedi Dosage 2005-05-07 00:00:00 Completed [facility] Pneumococcal 13 Conjugate, PCV13 (Prevnar 13) 2005-05-07 00:00:00 Completed [facility] Polio (IPV/OPV) 2005-05-07 00:00:00 Completed [facility] DTAP 2005-05-07 00:00:00 Completed [facility] HIB 3 Dose Schedule 2005-05-07 00:00:00 Completed [facility] Hep B, Adol or Pedi Dosage 2005-05-07 00:00:00 Completed [facility] Pneumococcal 13 Conjugate, PCV13 (Prevnar 13) 2005-05-07 00:00:00 Completed [facility] Polio (IPV/OPV) 2005-05-07 00:00:00 Completed [facility] DTAP 2005-05-07 00:00:00 Completed [facility] HIB 3 Dose Schedule 2005-05-07 00:00:00 Completed [facility] Hep B, Adol or Pedi Dosage 2005-05-07 00:00:00 Completed [facility] Pneumococcal 13 Conjugate, PCV13 (Prevnar 13) 2005-05-07 00:00:00 Completed [facility] Polio (IPV/OPV) 2005-05-07 00:00:00 Completed [facility] DTAP 2005-05-07 00:00:00 Completed [facility] HIB 3 Dose Schedule 2005-05-07 00:00:00 Completed [facility] Hep B, Adol or Pedi Dosage 2005-05-07 00:00:00 Completed [facility] Pneumococcal 13 Conjugate, PCV13 (Prevnar 13) 2005-05-07 00:00:00 Completed [facility] Polio (IPV/OPV) 2005-05-07 00:00:00 Completed [facility] DTAP 2005-05-07 00:00:00 Completed [facility] HIB 3 Dose Schedule 2005-05-07 00:00:00 Completed [facility] Hep B, Adol or Pedi Dosage 2005-05-07 00:00:00 Completed [facility] Pneumococcal 13 Conjugate, PCV13 (Prevnar 13) 2005-05-07 00:00:00 Completed [facility] Polio (IPV/OPV) 2005-05-07 00:00:00 Completed [facility] DTAP 2005-05-07 00:00:00 Completed [facility] HIB 3 Dose Schedule 2005-05-07 00:00:00 Completed [facility] Hep B, Adol or Pedi Dosage 2005-05-07 00:00:00 Completed [facility] Pneumococcal 13 Conjugate, PCV13 (Prevnar 13) 2005-05-07 00:00:00 Completed [facility] Polio (IPV/OPV) 2005-05-07 00:00:00 Completed [facility] DTAP 2005-05-07 00:00:00 Completed [facility] HIB 3 Dose Schedule 2005-05-07 00:00:00 Completed [facility] Hep B, Adol or Pedi Dosage 2005-05-07 00:00:00 Completed [facility] Pneumococcal 13 Conjugate, PCV13 (Prevnar 13) 2005-05-07 00:00:00 Completed [facility] Polio (IPV/OPV) 2005-05-07 00:00:00 Completed [facility] DTAP 2005-05-07 00:00:00 Completed [facility] HIB 3 Dose Schedule 2005-05-07 00:00:00 Completed [facility] Hep B, Adol or Pedi Dosage 2005-05-07 00:00:00 Completed [facility] Pneumococcal 13 Conjugate, PCV13 (Prevnar 13) 2005-05-07 00:00:00 Completed [facility] Polio (IPV/OPV) 2005-05-07 00:00:00 Completed [facility] DTAP 2005-05-07 00:00:00 Completed [facility] HIB 3 Dose Schedule 2005-05-07 00:00:00 Completed [facility] Hep B, Adol or Pedi Dosage 2005-05-07 00:00:00 Completed [facility] Pneumococcal 13 Conjugate, PCV13 (Prevnar 13) 2005-05-07 00:00:00 Completed [facility] Polio (IPV/OPV) 2005-05-07 00:00:00 Completed [facility] DTAP 2005-05-07 00:00:00 Completed [facility] HIB 3 Dose Schedule 2005-05-07 00:00:00 Completed [facility] Hep B, Adol or Pedi Dosage 2005-05-07 00:00:00 Completed [facility] Pneumococcal 13 Conjugate, PCV13 (Prevnar 13) 2005-05-07 00:00:00 Completed [facility] Polio (IPV/OPV) 2005-05-07 00:00:00 Completed [facility] DTAP 2005-05-07 00:00:00 Completed [facility] HIB 3 Dose Schedule 2005-05-07 00:00:00 Completed [facility] Hep B, Adol or Pedi Dosage 2005-05-07 00:00:00 Completed [facility] Pneumococcal 13 Conjugate, PCV13 (Prevnar 13) 2005-05-07 00:00:00 Completed [facility] Polio (IPV/OPV) 2005-05-07 00:00:00 Completed [facility] DTAP 2005-05-07 00:00:00 Completed [facility] HIB 3 Dose Schedule 2005-05-07 00:00:00 Completed [facility] Hep B, Adol or Pedi Dosage 2005-05-07 00:00:00 Completed [facility] Pneumococcal 13 Conjugate, PCV13 (Prevnar 13) 2005-05-07 00:00:00 Completed [facility] Polio (IPV/OPV) 2005-05-07 00:00:00 Completed [facility] DTAP 2005-05-07 00:00:00 Completed [facility] HIB 3 Dose Schedule 2005-05-07 00:00:00 Completed [facility] Hep B, Adol or Pedi Dosage 2005-05-07 00:00:00 Completed [facility] Pneumococcal 13 Conjugate, PCV13 (Prevnar 13) 2005-05-07 00:00:00 Completed [facility] Polio (IPV/OPV) 2005-05-07 00:00:00 Completed [facility] DTAP 2005-05-07 00:00:00 Completed [facility] HIB 3 Dose Schedule 2005-05-07 00:00:00 Completed [facility] Hep B, Adol or Pedi Dosage 2005-05-07 00:00:00 Completed [facility] Pneumococcal 13 Conjugate, PCV13 (Prevnar 13) 2005-05-07 00:00:00 Completed [facility] Polio (IPV/OPV) 2005-05-07 00:00:00 Completed [facility] DTAP 2005-05-07 00:00:00 Completed HIB 3 Dose Schedule 2005-05-07 00:00:00 Completed Hep B, Adol or Pedi Dosage 2005-05-07 00:00:00 Completed Pneumococcal 13 Conjugate, PCV13 (Prevnar 13) 2005-05-07 00:00:00 Completed Polio (IPV/OPV) 2005-05-07 00:00:00 Completed DTAP 2004-04-19 00:00:00 Completed [facility] HIB 3 Dose Schedule 2004-04-19 00:00:00 Completed [facility] Hep B, Adol or Pedi Dosage 2004-04-19 00:00:00 Completed [facility] Pneumococcal 13 Conjugate, PCV13 (Prevnar 13) 2004-04-19 00:00:00 Completed [facility] Polio (IPV/OPV) 2004-04-19 00:00:00 Completed [facility] DTAP 2004-04-19 00:00:00 Completed [facility] HIB 3 Dose Schedule 2004-04-19 00:00:00 Completed [facility] Hep B, Adol or Pedi Dosage 2004-04-19 00:00:00 Completed [facility] Pneumococcal 13 Conjugate, PCV13 (Prevnar 13) 2004-04-19 00:00:00 Completed [facility] Polio (IPV/OPV) 2004-04-19 00:00:00 Completed [facility] DTAP 2004-04-19 00:00:00 Completed [facility] HIB 3 Dose Schedule 2004-04-19 00:00:00 Completed [facility] Hep B, Adol or Pedi Dosage 2004-04-19 00:00:00 Completed [facility] Pneumococcal 13 Conjugate, PCV13 (Prevnar 13) 2004-04-19 00:00:00 Completed [facility] Polio (IPV/OPV) 2004-04-19 00:00:00 Completed [facility] DTAP 2004-04-19 00:00:00 Completed [facility] HIB 3 Dose Schedule 2004-04-19 00:00:00 Completed [facility] Hep B, Adol or Pedi Dosage 2004-04-19 00:00:00 Completed [facility] Pneumococcal 13 Conjugate, PCV13 (Prevnar 13) 2004-04-19 00:00:00 Completed [facility] Polio (IPV/OPV) 2004-04-19 00:00:00 Completed [facility] DTAP 2004-04-19 00:00:00 Completed [facility] HIB 3 Dose Schedule 2004-04-19 00:00:00 Completed [facility] Hep B, Adol or Pedi Dosage 2004-04-19 00:00:00 Completed [facility] Pneumococcal 13 Conjugate, PCV13 (Prevnar 13) 2004-04-19 00:00:00 Completed [facility] Polio (IPV/OPV) 2004-04-19 00:00:00 Completed [facility] DTAP 2004-04-19 00:00:00 Completed [facility] HIB 3 Dose Schedule 2004-04-19 00:00:00 Completed [facility] Hep B, Adol or Pedi Dosage 2004-04-19 00:00:00 Completed [facility] Pneumococcal 13 Conjugate, PCV13 (Prevnar 13) 2004-04-19 00:00:00 Completed [facility] Polio (IPV/OPV) 2004-04-19 00:00:00 Completed [facility] DTAP 2004-04-19 00:00:00 Completed [facility] HIB 3 Dose Schedule 2004-04-19 00:00:00 Completed [facility] Hep B, Adol or Pedi Dosage 2004-04-19 00:00:00 Completed [facility] Pneumococcal 13 Conjugate, PCV13 (Prevnar 13) 2004-04-19 00:00:00 Completed [facility] Polio (IPV/OPV) 2004-04-19 00:00:00 Completed [facility] DTAP 2004-04-19 00:00:00 Completed [facility] HIB 3 Dose Schedule 2004-04-19 00:00:00 Completed [facility] Hep B, Adol or Pedi Dosage 2004-04-19 00:00:00 Completed [facility] Pneumococcal 13 Conjugate, PCV13 (Prevnar 13) 2004-04-19 00:00:00 Completed [facility] Polio (IPV/OPV) 2004-04-19 00:00:00 Completed [facility] DTAP 2004-04-19 00:00:00 Completed [facility] HIB 3 Dose Schedule 2004-04-19 00:00:00 Completed [facility] Hep B, Adol or Pedi Dosage 2004-04-19 00:00:00 Completed [facility] Pneumococcal 13 Conjugate, PCV13 (Prevnar 13) 2004-04-19 00:00:00 Completed [facility] Polio (IPV/OPV) 2004-04-19 00:00:00 Completed [facility] DTAP 2004-04-19 00:00:00 Completed [facility] HIB 3 Dose Schedule 2004-04-19 00:00:00 Completed [facility] Hep B, Adol or Pedi Dosage 2004-04-19 00:00:00 Completed [facility] Pneumococcal 13 Conjugate, PCV13 (Prevnar 13) 2004-04-19 00:00:00 Completed [facility] Polio (IPV/OPV) 2004-04-19 00:00:00 Completed [facility] DTAP 2004-04-19 00:00:00 Completed [facility] HIB 3 Dose Schedule 2004-04-19 00:00:00 Completed [facility] Hep B, Adol or Pedi Dosage 2004-04-19 00:00:00 Completed [facility] Pneumococcal 13 Conjugate, PCV13 (Prevnar 13) 2004-04-19 00:00:00 Completed [facility] Polio (IPV/OPV) 2004-04-19 00:00:00 Completed [facility] DTAP 2004-04-19 00:00:00 Completed [facility] HIB 3 Dose Schedule 2004-04-19 00:00:00 Completed [facility] Hep B, Adol or Pedi Dosage 2004-04-19 00:00:00 Completed [facility] Pneumococcal 13 Conjugate, PCV13 (Prevnar 13) 2004-04-19 00:00:00 Completed [facility] Polio (IPV/OPV) 2004-04-19 00:00:00 Completed [facility] DTAP 2004-04-19 00:00:00 Completed [facility] HIB 3 Dose Schedule 2004-04-19 00:00:00 Completed [facility] Hep B, Adol or Pedi Dosage 2004-04-19 00:00:00 Completed [facility] Pneumococcal 13 Conjugate, PCV13 (Prevnar 13) 2004-04-19 00:00:00 Completed [facility] Polio (IPV/OPV) 2004-04-19 00:00:00 Completed [facility] DTAP 2004-04-19 00:00:00 Completed [facility] HIB 3 Dose Schedule 2004-04-19 00:00:00 Completed [facility] Hep B, Adol or Pedi Dosage 2004-04-19 00:00:00 Completed [facility] Pneumococcal 13 Conjugate, PCV13 (Prevnar 13) 2004-04-19 00:00:00 Completed [facility] Polio (IPV/OPV) 2004-04-19 00:00:00 Completed [facility] DTAP 2004-04-19 00:00:00 Completed [facility] HIB 3 Dose Schedule 2004-04-19 00:00:00 Completed [facility] Hep B, Adol or Pedi Dosage 2004-04-19 00:00:00 Completed [facility] Pneumococcal 13 Conjugate, PCV13 (Prevnar 13) 2004-04-19 00:00:00 Completed [facility] Polio (IPV/OPV) 2004-04-19 00:00:00 Completed [facility] DTAP 2004-04-19 00:00:00 Completed [facility] HIB 3 Dose Schedule 2004-04-19 00:00:00 Completed [facility] Hep B, Adol or Pedi Dosage 2004-04-19 00:00:00 Completed [facility] Pneumococcal 13 Conjugate, PCV13 (Prevnar 13) 2004-04-19 00:00:00 Completed [facility] Polio (IPV/OPV) 2004-04-19 00:00:00 Completed [facility] DTAP 2004-04-19 00:00:00 Completed [facility] HIB 3 Dose Schedule 2004-04-19 00:00:00 Completed [facility] Hep B, Adol or Pedi Dosage 2004-04-19 00:00:00 Completed [facility] Pneumococcal 13 Conjugate, PCV13 (Prevnar 13) 2004-04-19 00:00:00 Completed [facility] Polio (IPV/OPV) 2004-04-19 00:00:00 Completed [facility] DTAP 2004-04-19 00:00:00 Completed [facility] HIB 3 Dose Schedule 2004-04-19 00:00:00 Completed [facility] Hep B, Adol or Pedi Dosage 2004-04-19 00:00:00 Completed [facility] Pneumococcal 13 Conjugate, PCV13 (Prevnar 13) 2004-04-19 00:00:00 Completed [facility] Polio (IPV/OPV) 2004-04-19 00:00:00 Completed [facility] DTAP 2004-04-19 00:00:00 Completed [facility] HIB 3 Dose Schedule 2004-04-19 00:00:00 Completed [facility] Hep B, Adol or Pedi Dosage 2004-04-19 00:00:00 Completed [facility] Pneumococcal 13 Conjugate, PCV13 (Prevnar 13) 2004-04-19 00:00:00 Completed [facility] Polio (IPV/OPV) 2004-04-19 00:00:00 Completed [facility] DTAP 2004-04-19 00:00:00 Completed [facility] HIB 3 Dose Schedule 2004-04-19 00:00:00 Completed [facility] Hep B, Adol or Pedi Dosage 2004-04-19 00:00:00 Completed [facility] Pneumococcal 13 Conjugate, PCV13 (Prevnar 13) 2004-04-19 00:00:00 Completed [facility] Polio (IPV/OPV) 2004-04-19 00:00:00 Completed [facility] DTAP 2004-04-19 00:00:00 Completed [facility] HIB 3 Dose Schedule 2004-04-19 00:00:00 Completed [facility] Hep B, Adol or Pedi Dosage 2004-04-19 00:00:00 Completed [facility] Pneumococcal 13 Conjugate, PCV13 (Prevnar 13) 2004-04-19 00:00:00 Completed [facility] Polio (IPV/OPV) 2004-04-19 00:00:00 Completed [facility] DTAP 2004-04-19 00:00:00 Completed [facility] HIB 3 Dose Schedule 2004-04-19 00:00:00 Completed [facility] Hep B, Adol or Pedi Dosage 2004-04-19 00:00:00 Completed [facility] Pneumococcal 13 Conjugate, PCV13 (Prevnar 13) 2004-04-19 00:00:00 Completed [facility] Polio (IPV/OPV) 2004-04-19 00:00:00 Completed [facility] DTAP 2004-04-19 00:00:00 Completed [facility] HIB 3 Dose Schedule 2004-04-19 00:00:00 Completed [facility] Hep B, Adol or Pedi Dosage 2004-04-19 00:00:00 Completed [facility] Pneumococcal 13 Conjugate, PCV13 (Prevnar 13) 2004-04-19 00:00:00 Completed [facility] Polio (IPV/OPV) 2004-04-19 00:00:00 Completed [facility] DTAP 2004-04-19 00:00:00 Completed [facility] HIB 3 Dose Schedule 2004-04-19 00:00:00 Completed [facility] Hep B, Adol or Pedi Dosage 2004-04-19 00:00:00 Completed [facility] Pneumococcal 13 Conjugate, PCV13 (Prevnar 13) 2004-04-19 00:00:00 Completed [facility] Polio (IPV/OPV) 2004-04-19 00:00:00 Completed [facility] DTAP 2004-04-19 00:00:00 Completed [facility] HIB 3 Dose Schedule 2004-04-19 00:00:00 Completed [facility] Hep B, Adol or Pedi Dosage 2004-04-19 00:00:00 Completed [facility] Pneumococcal 13 Conjugate, PCV13 (Prevnar 13) 2004-04-19 00:00:00 Completed [facility] Polio (IPV/OPV) 2004-04-19 00:00:00 Completed [facility] DTAP 2004-04-19 00:00:00 Completed [facility] HIB 3 Dose Schedule 2004-04-19 00:00:00 Completed [facility] Hep B, Adol or Pedi Dosage 2004-04-19 00:00:00 Completed [facility] Pneumococcal 13 Conjugate, PCV13 (Prevnar 13) 2004-04-19 00:00:00 Completed [facility] Polio (IPV/OPV) 2004-04-19 00:00:00 Completed [facility] DTAP 2004-04-19 00:00:00 Completed HIB 3 Dose Schedule 2004-04-19 00:00:00 Completed Hep B, Adol or Pedi Dosage 2004-04-19 00:00:00 Completed Pneumococcal 13 Conjugate, PCV13 (Prevnar 13) 2004-04-19 00:00:00 Completed Polio (IPV/OPV) 2004-04-19 00:00:00 Completed DTAP 2004-03-05 00:00:00 Completed [facility] HIB 3 Dose Schedule 2004-03-05 00:00:00 Completed [facility] Pneumococcal 13 Conjugate, PCV13 (Prevnar 13) 2004-03-05 00:00:00 Completed [facility] Polio (IPV/OPV) 2004-03-05 00:00:00 Completed [facility] DTAP 2004-03-05 00:00:00 Completed [facility] HIB 3 Dose Schedule 2004-03-05 00:00:00 Completed [facility] Pneumococcal 13 Conjugate, PCV13 (Prevnar 13) 2004-03-05 00:00:00 Completed [facility] Polio (IPV/OPV) 2004-03-05 00:00:00 Completed [facility] DTAP 2004-03-05 00:00:00 Completed [facility] HIB 3 Dose Schedule 2004-03-05 00:00:00 Completed [facility] Pneumococcal 13 Conjugate, PCV13 (Prevnar 13) 2004-03-05 00:00:00 Completed [facility] Polio (IPV/OPV) 2004-03-05 00:00:00 Completed [facility] DTAP 2004-03-05 00:00:00 Completed [facility] HIB 3 Dose Schedule 2004-03-05 00:00:00 Completed [facility] Pneumococcal 13 Conjugate, PCV13 (Prevnar 13) 2004-03-05 00:00:00 Completed [facility] Polio (IPV/OPV) 2004-03-05 00:00:00 Completed [facility] DTAP 2004-03-05 00:00:00 Completed [facility] HIB 3 Dose Schedule 2004-03-05 00:00:00 Completed [facility] Pneumococcal 13 Conjugate, PCV13 (Prevnar 13) 2004-03-05 00:00:00 Completed [facility] Polio (IPV/OPV) 2004-03-05 00:00:00 Completed [facility] DTAP 2004-03-05 00:00:00 Completed [facility] HIB 3 Dose Schedule 2004-03-05 00:00:00 Completed [facility] Pneumococcal 13 Conjugate, PCV13 (Prevnar 13) 2004-03-05 00:00:00 Completed [facility] Polio (IPV/OPV) 2004-03-05 00:00:00 Completed [facility] DTAP 2004-03-05 00:00:00 Completed [facility] HIB 3 Dose Schedule 2004-03-05 00:00:00 Completed [facility] Pneumococcal 13 Conjugate, PCV13 (Prevnar 13) 2004-03-05 00:00:00 Completed [facility] Polio (IPV/OPV) 2004-03-05 00:00:00 Completed [facility] DTAP 2004-03-05 00:00:00 Completed [facility] HIB 3 Dose Schedule 2004-03-05 00:00:00 Completed [facility] Pneumococcal 13 Conjugate, PCV13 (Prevnar 13) 2004-03-05 00:00:00 Completed [facility] Polio (IPV/OPV) 2004-03-05 00:00:00 Completed [facility] DTAP 2004-03-05 00:00:00 Completed [facility] HIB 3 Dose Schedule 2004-03-05 00:00:00 Completed [facility] Pneumococcal 13 Conjugate, PCV13 (Prevnar 13) 2004-03-05 00:00:00 Completed [facility] Polio (IPV/OPV) 2004-03-05 00:00:00 Completed [facility] DTAP 2004-03-05 00:00:00 Completed [facility] HIB 3 Dose Schedule 2004-03-05 00:00:00 Completed [facility] Pneumococcal 13 Conjugate, PCV13 (Prevnar 13) 2004-03-05 00:00:00 Completed [facility] Polio (IPV/OPV) 2004-03-05 00:00:00 Completed [facility] DTAP 2004-03-05 00:00:00 Completed [facility] HIB 3 Dose Schedule 2004-03-05 00:00:00 Completed [facility] Pneumococcal 13 Conjugate, PCV13 (Prevnar 13) 2004-03-05 00:00:00 Completed [facility] Polio (IPV/OPV) 2004-03-05 00:00:00 Completed [facility] DTAP 2004-03-05 00:00:00 Completed [facility] HIB 3 Dose Schedule 2004-03-05 00:00:00 Completed [facility] Pneumococcal 13 Conjugate, PCV13 (Prevnar 13) 2004-03-05 00:00:00 Completed [facility] Polio (IPV/OPV) 2004-03-05 00:00:00 Completed [facility] DTAP 2004-03-05 00:00:00 Completed [facility] HIB 3 Dose Schedule 2004-03-05 00:00:00 Completed [facility] Pneumococcal 13 Conjugate, PCV13 (Prevnar 13) 2004-03-05 00:00:00 Completed [facility] Polio (IPV/OPV) 2004-03-05 00:00:00 Completed [facility] DTAP 2004-03-05 00:00:00 Completed [facility] HIB 3 Dose Schedule 2004-03-05 00:00:00 Completed [facility] Pneumococcal 13 Conjugate, PCV13 (Prevnar 13) 2004-03-05 00:00:00 Completed [facility] Polio (IPV/OPV) 2004-03-05 00:00:00 Completed [facility] DTAP 2004-03-05 00:00:00 Completed [facility] HIB 3 Dose Schedule 2004-03-05 00:00:00 Completed [facility] Pneumococcal 13 Conjugate, PCV13 (Prevnar 13) 2004-03-05 00:00:00 Completed [facility] Polio (IPV/OPV) 2004-03-05 00:00:00 Completed [facility] DTAP 2004-03-05 00:00:00 Completed [facility] HIB 3 Dose Schedule 2004-03-05 00:00:00 Completed [facility] Pneumococcal 13 Conjugate, PCV13 (Prevnar 13) 2004-03-05 00:00:00 Completed [facility] Polio (IPV/OPV) 2004-03-05 00:00:00 Completed [facility] DTAP 2004-03-05 00:00:00 Completed [facility] HIB 3 Dose Schedule 2004-03-05 00:00:00 Completed [facility] Pneumococcal 13 Conjugate, PCV13 (Prevnar 13) 2004-03-05 00:00:00 Completed [facility] Polio (IPV/OPV) 2004-03-05 00:00:00 Completed [facility] DTAP 2004-03-05 00:00:00 Completed [facility] HIB 3 Dose Schedule 2004-03-05 00:00:00 Completed [facility] Pneumococcal 13 Conjugate, PCV13 (Prevnar 13) 2004-03-05 00:00:00 Completed [facility] Polio (IPV/OPV) 2004-03-05 00:00:00 Completed [facility] DTAP 2004-03-05 00:00:00 Completed [facility] HIB 3 Dose Schedule 2004-03-05 00:00:00 Completed [facility] Pneumococcal 13 Conjugate, PCV13 (Prevnar 13) 2004-03-05 00:00:00 Completed [facility] Polio (IPV/OPV) 2004-03-05 00:00:00 Completed [facility] DTAP 2004-03-05 00:00:00 Completed [facility] HIB 3 Dose Schedule 2004-03-05 00:00:00 Completed [facility] Pneumococcal 13 Conjugate, PCV13 (Prevnar 13) 2004-03-05 00:00:00 Completed [facility] Polio (IPV/OPV) 2004-03-05 00:00:00 Completed [facility] DTAP 2004-03-05 00:00:00 Completed [facility] HIB 3 Dose Schedule 2004-03-05 00:00:00 Completed [facility] Pneumococcal 13 Conjugate, PCV13 (Prevnar 13) 2004-03-05 00:00:00 Completed [facility] Polio (IPV/OPV) 2004-03-05 00:00:00 Completed [facility] DTAP 2004-03-05 00:00:00 Completed [facility] HIB 3 Dose Schedule 2004-03-05 00:00:00 Completed [facility] Pneumococcal 13 Conjugate, PCV13 (Prevnar 13) 2004-03-05 00:00:00 Completed [facility] Polio (IPV/OPV) 2004-03-05 00:00:00 Completed [facility] DTAP 2004-03-05 00:00:00 Completed [facility] HIB 3 Dose Schedule 2004-03-05 00:00:00 Completed [facility] Pneumococcal 13 Conjugate, PCV13 (Prevnar 13) 2004-03-05 00:00:00 Completed [facility] Polio (IPV/OPV) 2004-03-05 00:00:00 Completed [facility] DTAP 2004-03-05 00:00:00 Completed [facility] HIB 3 Dose Schedule 2004-03-05 00:00:00 Completed [facility] Pneumococcal 13 Conjugate, PCV13 (Prevnar 13) 2004-03-05 00:00:00 Completed [facility] Polio (IPV/OPV) 2004-03-05 00:00:00 Completed [facility] DTAP 2004-03-05 00:00:00 Completed [facility] HIB 3 Dose Schedule 2004-03-05 00:00:00 Completed [facility] Pneumococcal 13 Conjugate, PCV13 (Prevnar 13) 2004-03-05 00:00:00 Completed [facility] Polio (IPV/OPV) 2004-03-05 00:00:00 Completed [facility] DTAP 2004-03-05 00:00:00 Completed [facility] HIB 3 Dose Schedule 2004-03-05 00:00:00 Completed [facility] Pneumococcal 13 Conjugate, PCV13 (Prevnar 13) 2004-03-05 00:00:00 Completed [facility] Polio (IPV/OPV) 2004-03-05 00:00:00 Completed [facility] DTAP 2004-03-05 00:00:00 Completed [facility] HIB 3 Dose Schedule 2004-03-05 00:00:00 Completed Pneumococcal 13 Conjugate, PCV13 (Prevnar 13) 2004-03-05 00:00:00 Completed Polio (IPV/OPV) 2004-03-05 00:00:00 Completed Hep B, Adol or Pedi Dosage 2003 00:00:00 Completed [facility] Hep B, Adol or Pedi Dosage 2003 00:00:00 Completed [facility] Hep B, Adol or Pedi Dosage 2003 00:00:00 Completed [facility] Hep B, Adol or Pedi Dosage 2003 00:00:00 Completed [facility] Hep B, Adol or Pedi Dosage 2003 00:00:00 Completed [facility] Hep B, Adol or Pedi Dosage 2003 00:00:00 Completed [facility] Hep B, Adol or Pedi Dosage 2003 00:00:00 Completed [facility] Hep B, Adol or Pedi Dosage 2003 00:00:00 Completed [facility] Hep B, Adol or Pedi Dosage 2003 00:00:00 Completed [facility] Hep B, Adol or Pedi Dosage 2003 00:00:00 Completed [facility] Hep B, Adol or Pedi Dosage 2003 00:00:00 Completed [facility] Hep B, Adol or Pedi Dosage 2003 00:00:00 Completed [facility] Hep B, Adol or Pedi Dosage 2003 00:00:00 Completed [facility] Hep B, Adol or Pedi Dosage 2003 00:00:00 Completed [facility] Hep B, Adol or Pedi Dosage 2003 00:00:00 Completed [facility] Hep B, Adol or Pedi Dosage 2003 00:00:00 Completed [facility] Hep B, Adol or Pedi Dosage 2003 00:00:00 Completed [facility] Hep B, Adol or Pedi Dosage 2003 00:00:00 Completed [facility] Hep B, Adol or Pedi Dosage 2003 00:00:00 Completed [facility] Hep B, Adol or Pedi Dosage 2003 00:00:00 Completed [facility] Hep B, Adol or Pedi Dosage 2003 00:00:00 Completed [facility] Hep B, Adol or Pedi Dosage 2003 00:00:00 Completed [facility] Hep B, Adol or Pedi Dosage 2003 00:00:00 Completed [facility] Hep B, Adol or Pedi Dosage 2003 00:00:00 Completed [facility] Hep B, Adol or Pedi Dosage 2003 00:00:00 Completed [facility] Hep B, Adol or Pedi Dosage 2003 00:00:00 Completed [facility] Hep B, Adol or Pedi Dosage 2003 00:00:00 Completed [facility] Vital Signs Vital Name Observation Time Observation Value Comments S ource Height 2024-09-13 15:05:00 154.94 CM Weight 2024-09-13 15:05:00 88.4 KG Height 2024-09-15 14:03:00 154.94 CM Weight 2024-09-15 14:03:00 93 KG Height 2024-09-13 15:05:00 154.94 CM Weight 2024-09-13 15:05:00 88.4 KG Systolic blood pressure 2024-05-03 04:04:00 131 mm[Hg] [facility] Diastolic blood pressure 2024-05-03 04:04:00 70 mm[Hg] [facility] Heart rate 2024-05-03 04:04:00 107 /min [facility] Body temperature 2024-05-03 04:04:00 36.5 Danitza [facility] Respiratory rate 2024-05-03 04:04:00 20 /min [facility] Oxygen saturation in Arterial blood by Pulse oximetry 2024-05-03 04:04:00 99 /min [facility] Body height 2024-05-03 01:29:35 157.5 cm [facility] Body weight 2024-05-03 01:29:35 83.915 kg [facility] BMI 2024-05-03 01:29:35 33.84 kg/m2 [facility] height 2023-07-17 08:10:00 61 [in_i] [facility] n [facility] weight 2023-07-17 08:10:00 187.0 [lb_av] [facility] temperature 2023-07-17 08:10:00 97.9 [degF] Com mon [facility] bmi 2023-07-17 08:10:00 35.33 kg/m2 [facility] oximetry 2023-07-17 08:10:00 99 % [facility] respiratory rate 2023-07-17 08:10:00 18 /min [facility] blood pressure systolic 2023-07-17 08:10:00 116 mm[Hg] [facility] blood pressure diastolic 2023-07-17 08:10:00 63 mm[Hg] [facility] height 2023-07-10 10:10:00 61 [in_i] Commo n [facility] weight 2023-07-10 10:10:00 170 [lb_av] Comm on [facility] bmi 2023-07-10 10:10:00 32.12 kg/m2 Comm on [facility] height 2023-04-17 09:50:00 61 [in_i] Commo n [facility] weight 2023-04-17 09:50:00 189 [lb_av] Comm on [facility] bmi 2023-04-17 09:50:00 35.71 kg/m2 [facility] on [facility] height 2023-03-24 13:40:00 61 [in_i] [facility]mo n [facility] weight 2023-03-24 13:40:00 189.4 [lb_av] [facility] temperature 2023-03-24 13:40:00 98.5 [degF] Com [facility] bmi 2023-03-24 13:40:00 35.78 kg/m2 [facility] oximetry 2023-03-24 13:40:00 99 % [facility] respiratory rate 2023-03-24 13:40:00 16 /min [facility] blood pressure systolic 2023-03-24 13:40:00 120 mm[Hg] [facility] blood pressure diastolic 2023-03-24 13:40:00 76 mm[Hg] [facility] Systolic blood pressure 2023-01-13 01:17:00 124 mm[Hg] [facility] Diastolic blood pressure 2023-01-13 01:17:00 91 mm[Hg] [facility] Heart rate 2023-01-13 01:17:00 98 /min [facility] Body temperature 2023-01-13 01:17:00 37 [facility] Respiratory rate 2023-01-13 01:17:00 16 /min [facility] Body height 2023-01-13 01:17:00 154.9 cm [facility] Body weight 2023-01-13 01:17:00 83.915 kg [facility] BMI 2023-01-13 01:17:00 34.96 kg/m2 [facility] Oxygen saturation in Arterial blood by Pulse oximetry 2023-01-13 01:17:00 100 /min [facility] Systolic blood pressure 2022-11-22 18:48:00 124 mm[Hg] [facility] Diastolic blood pressure 2022-11-22 18:48:00 79 mm[Hg] [facility] Heart rate 2022-11-22 18:48:00 95 /min [facility] Body temperature 2022-11-22 18:48:00 36.5 [facility] Body height 2022-11-22 18:48:00 154.9 cm [facility] Body weight 2022-11-22 18:48:00 87.408 kg [facility] BMI 2022-11-22 18:48:00 36.41 kg/m2 [facility] Body mass index (BMI) [Percentile] Per age and sex 2022-11-22 18:48:00 97.88 % [facility] Oxygen saturation in Arterial blood by Pulse oximetry 2022-11-22 18:48:00 98 /min [facility] Systolic blood pressure 2022-11-08 16:07:00 120 mm[Hg] [facility] Diastolic blood pressure 2022-11-08 16:07:00 80 mm[Hg] [facility] Heart rate 2022-11-08 16:07:00 95 /min [facility] Body temperature 2022-11-08 16:07:00 36.78 Danit[facility] Respiratory rate 2022-11-08 16:07:00 19 /min [facility] Body height 2022-11-08 16:07:00 154.9 cm [facility] Body weight 2022-11-08 16:07:00 85.911 kg [facility] BMI 2022-11-08 16:07:00 35.79 kg/m2 [facility] Body mass index (BMI) [Percentile] Per age and sex 2022-11-08 16:07:00 97.71 % [facility] Oxygen saturation in Arterial blood by Pulse oximetry 2022-11-08 16:07:00 95 /min [facility] Systolic blood pressure 2022-09-19 15:30:00 131 mm[Hg] [facility] Diastolic blood pressure 2022-09-19 15:30:00 89 mm[Hg] [facility] Heart rate 2022-09-19 15:30:00 88 /min [facility] Respiratory rate 2022-09-19 15:30:00 18 /min [facility] Body height 2022-09-19 15:30:00 154.9 cm [facility] Body weight 2022-09-19 15:30:00 87.091 kg [facility] BMI 2022-09-19 15:30:00 36.28 kg/m2 [facility] Body mass index (BMI) [Percentile] Per age and sex 2022-09-19 15:30:00 97.90 % [facility] Oxygen saturation in Arterial blood by Pulse oximetry 2022-09-19 15:30:00 99 /min [facility] Systolic blood pressure 2022-09-16 15:15:00 121 mm[Hg] [facility] Diastolic blood pressure 2022-09-16 15:15:00 84 mm[Hg] [facility] Heart rate 2022-09-16 15:15:00 87 /min [facility] Body temperature 2022-09-16 15:15:00 36.78 Danitza [facility] Respiratory rate 2022-09-16 15:15:00 14 /min [facility] Body weight 2022-09-16 15:15:00 86.909 kg [facility] Oxygen saturation in Arterial blood by Pulse oximetry 2022-09-16 15:15:00 97 /min [facility] Systolic blood pressure 2022-08-20 13:50:00 124 mm[Hg] [facility] Diastolic blood pressure 2022-08-20 13:50:00 82 mm[Hg] [facility] Heart rate 2022-08-20 13:50:00 91 /min [facility] Body temperature 2022-08-20 13:50:00 36.28 Danitza [facility] Respiratory rate 2022-08-20 13:50:00 15 /min [facility] Body weight 2022-08-20 13:50:00 88.769 kg [facility] Oxygen saturation in Arterial blood by Pulse oximetry 2022-08-20 13:50:00 99 /min [facility] Systolic blood pressure 2022-08-06 13:50:00 138 mm[Hg] [facility] Diastolic blood pressure 2022-08-06 13:50:00 74 mm[Hg] [facility] Heart rate 2022-08-06 13:50:00 73 /min [facility] Body temperature 2022-08-06 13:50:00 36.67 Danitza [facility] Respiratory rate 2022-08-06 13:50:00 15 /min [facility] Body weight 2022-08-06 13:50:00 86.138 kg [facility] Oxygen saturation in Arterial blood by Pulse oximetry 2022-08-06 13:50:00 99 /min [facility] Systolic blood pressure 2022-07-23 17:18:00 118 mm[Hg] [facility] Diastolic blood pressure 2022-07-23 17:18:00 74 mm[Hg] [facility] Heart rate 2022-07-23 15:16:00 79 /min [facility] Body temperature 2022-07-23 15:16:00 36.89 Danitza [facility] Respiratory rate 2022-07-23 15:16:00 16 /min [facility] Body weight 2022-07-23 15:16:00 86.41 kg [facility] Systolic blood pressure 2022-07-17 14:59:00 124 mm[Hg] [facility] Diastolic blood pressure 2022-07-17 14:59:00 81 mm[Hg] [facility] Heart rate 2022-07-17 14:59:00 87 /min [facility] Body temperature 2022-07-17 14:59:00 36.61 Danitza [facility] Respiratory rate 2022-07-17 14:59:00 18 /min [facility] Body weight 2022-07-17 14:59:00 86.818 kg [facility] Oxygen saturation in Arterial blood by Pulse oximetry 2022-07-17 14:59:00 99 /min [facility] Systolic blood pressure 2022-06-18 17:49:00 122 mm[Hg] [facility] Diastolic blood pressure 2022-06-18 17:49:00 78 mm[Hg] [facility] Heart rate 2022-06-18 16:12:00 101 /min [facility] Body temperature 2022-06-18 16:12:00 36.11 Danitza [facility] Respiratory rate 2022-06-18 16:12:00 16 /min [facility] Body weight 2022-06-18 16:12:00 85.548 kg [facility] Oxygen saturation in Arterial blood by Pulse oximetry 2022-06-18 16:12:00 99 /min [facility] Systolic blood pressure 2022-04-26 21:10:00 145 mm[Hg] [facility] Diastolic blood pressure 2022-04-26 21:10:00 88 mm[Hg] [facility] Heart rate 2022-04-26 21:10:00 84 /min [facility] Respiratory rate 2022-04-26 21:10:00 15 /min [facility] Body weight 2022-04-26 21:10:00 87.408 kg [facility] Systolic blood pressure 2022-03-05 12:38:00 126 mm[Hg] [facility] Diastolic blood pressure 2022-03-05 12:38:00 77 mm[Hg] [facility] Heart rate 2022-03-05 12:38:00 85 /min [facility] Body temperature 2022-03-05 12:38:00 36.94 Danitza [facility] Respiratory rate 2022-03-05 12:38:00 16 /min [facility] Body height 2022-03-05 12:38:00 157.5 cm [facility] Body weight 2022-03-05 12:38:00 85.866 kg [facility] BMI 2022-03-05 12:38:00 34.62 kg/m2 [facility] Body mass index (BMI) [Percentile] Per age and sex 2022-03-05 12:38:00 97.58 % [facility] Systolic blood pressure 2021-12-18 13:54:00 138 mm[Hg] [facility] Diastolic blood pressure 2021-12-18 13:54:00 82 mm[Hg] [facility] Heart rate 2021-12-18 13:54:00 92 /min [facility] Respiratory rate 2021-12-18 13:54:00 16 /min [facility] Body weight 2021-12-18 13:54:00 86.138 kg [facility] height 2021-04-24 08:30:00 61 [in_i] Commo n [facility] weight 2021-04-24 08:30:00 175 [lb_av] [facility] temperature 2021-04-24 08:30:00 97.2 [degF] Com mon [facility] bmi 2021-04-24 08:30:00 33.06 kg/m2 [facility] blood pressure systolic 2021-04-24 08:30:00 100 mm[Hg] [facility] blood pressure diastolic 2021-04-24 08:30:00 72 mm[Hg] [facility] height 2021-02-22 08:00:00 61 [in_i] Commo n [facility] weight 2021-02-22 08:00:00 175 [lb_av] Comm on [facility] bmi 2021-02-22 08:00:00 33.06 kg/m2 [facility] blood pressure systolic 2021-02-22 08:00:00 145 mm[Hg] [facility] blood pressure diastolic 2021-02-22 08:00:00 97 mm[Hg] Common [facility] height 2020-12-25 10:00:00 61 [in_i] Commo n [facility] weight 2020-12-25 10:00:00 175.5 [lb_av] Co mmon [facility] bmi 2020-12-25 10:00:00 33.16 kg/m2 [facility] blood pressure systolic 2020-12-25 10:00:00 133 mm[Hg] [facility] blood pressure diastolic 2020-12-25 10:00:00 87 mm[Hg] Common [facility] Procedures Procedure Date / Time Performed Performing Clinician Source XR LUMBAR SPINE 2 VW 2024-05-03 02:44:25 Mert Turk [facility] XR SPINE THORACIC 2 VW 2024-05-03 02:44:25 Dano Turk [facility] ASSIGNMENT OF BENEFITS 2023-01-13 03:39:37 Docto r Unassigned, [place] [facility] POCT TEST 2023-01-13 02:47:00 Bayron Bermeo [facility] URINALYSIS 2023-01-13 01:58:00 Bayron Bermeo [facility] CONSENT/REFUSAL FOR DIAGNOSIS AND TREATMENT 2023-01-13 01:02:47 Doctor Unassigned, [place] [facility] THROAT CULTURE 2022-11-22 19:12:00 Marv Zamarripa [facility] POCT GRP A STREP (MOLECULAR) 2022-11-08 16:46:00 Gaudencio Cowan [facility] POCT MOLECULAR STREP 2022-08-20 14:39:00 Kirti Zavala [facility] URINALYSIS 2022-07-23 16:30:00 [facility] 2022-07-23 16:30:00 [facility] 2022-07-23 00:00:00 Kirti Zavala [facility] FERRITIN SERUM 2022-07-17 15:36:00 Kirti Zavala [facility] TOTAL IRON BINDING CAPACITY 2022-07-17 15:36:00 Kirti Zavala [facility] FREE T4 2022-07-17 15:36:00 [facility] TRIIODOTHYRONINE 2022-07-17 15:36:00 Kirti Zavala [facility] COMP. METABOLIC PANEL (85749) 2022-07-17 15:36:00 Kirti Zavala [facility] CBC WITH DIFF 2022-07-17 15:36:00 [facility] 2022-07-17 14:40:48 Doctor Unassigned, [place] [facility] ASSIGNMENT OF BENEFITS 2022-04-26 20:56:52 Docto r Unassigned, [place] [facility] GARDASIL 9 (HPV 9V) VACCINE 2022-03-05 12:48:24 Kirti Zavala [facility] IMMTRAC2 CONSENT 2021-12-18 05:01:00 Doctor Bronson signed, [place] [facility] Encounters Start Date/Time End Date/Time Encounter Type Admission Type Attending [facility] Care Facility Care Department Encounter ID Source 2024-09-15 11:15:00 Inpatient C DEBBY MASSEY ANDREW [facility] OSC[facility] [id number] [facility] 2024-01-13 13:43:00 Outpatient Juarez, Naseem STLMLC STLMLC [id number] [facility] 2023-12-29 11:56:00 Outpatient Juarez, Naseem STLMLC STLMLC [id number] [facility] 2023-07-15 13:43:01 Outpatient Juarez, Naseem STLMLC STLMLC [id number] [facility] 2023-07-11 15:38:00 Outpatient Juarez, Naseem STLMLC STLMLC [id number] [facility] 2023-07-10 10:09:00 Outpatient JUAREZ, NASEEM STLMLC STLMLC [id number] [facility] 2023-03-24 13:44:01 Outpatient JUAREZ, NASEEM STLMLC STLMLC [id number] [facility] 2023-03-20 15:13:00 Outpatient JUAREZ, NASEEM STLMLC STLMLC [id number] [facility] 2022-12-23 16:18:00 Outpatient STLMLC STLMLC [id number] [facility] 2021-06-13 14:26:40 Outpatient STLMLC STLMLC [id number] [facility] 2021-06-13 14:02:33 Outpatient STLMLC STLMLC [id number] [facility] 2021-06-13 13:38:36 Outpatient STLMLC STLMLC [id number] [facility] 2021-06-13 13:35:54 Outpatient STLMLC STLMLC [id number] [facility] 2024-09-15 13:26:00 2024-09-15 14:53:00 Outpatient DEBBY LEYVA ANDREW [facility] OSCES [id number] [facility] 2022-02-21 00:00:00 2024-09-09 21:33:38 Kirti Gauthier [facility] 1.2.840.114 350.1.13.10 4.2.7.2.686 [id number] [facility] 2024-05-02 19:28:00 2024-05-02 22:06:00 Emergency X MARIANO TURK JOSEPH [facility] ERT [id number] [facility] 2024-05-02 19:28:00 2024-05-02 22:06:00 Emergency Mariano Turk [facility] 1.2.840.114 350.1.13.10 4.2.7.2.686 [id number] [facility] 2024-03-02 00:00:00 2024-03-02 00:00:00 (TEL) STLMLC STLC [id number] [facility] 2024-02-26 00:00:00 2024-02-26 00:00:00 (TEL) STLMLC STLMLC [id number] [facility] 2023-08-19 00:00:00 2023-08-19 00:00:00 (TEL) STLMLC STLMLC [id number] [facility] 2023-07-17 00:00:00 2023-07-17 00:00:00 OFFICE VISIT ESTAB PT LEVEL 4 STLMLC STLMLC [id number] [facility] 2023-07-11 00:00:00 2023-07-11 00:00:00 (TEL) STLMLC STLMLC [id number] [facility] 2023-07-10 00:00:00 2023-07-10 00:00:00 OFFICE VISIT ESTAB PT LEVEL 3 STLMLC STLMLC [id number] [facility] 2023-07-10 00:00:00 2023-07-10 00:00:00 (TEL) STLMLC STLMLC [id number] [facility] 2023-06-18 00:00:00 2023-06-18 00:00:00 Outpatient [facility] [id number] [facility] 2023-04-18 00:00:00 2023-04-18 00:00:00 (WEB) STLMLC STLMLC [id number] [facility] 2023-04-17 00:00:00 2023-04-17 00:00:00 OFFICE VISIT ESTAB PT LEVEL 4 STLMLC STLMLC [id number] [facility] 2023-03-27 00:00:00 2023-03-27 00:00:00 (WEB) STLMLC STLMLC [id number] [facility] 2023-03-24 00:00:00 2023-03-24 00:00:00 (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 STLMLC STLMLC [id number] [facility] 2023-03-24 00:00:00 2023-03-24 00:00:00 (TEL) STLMLC STLMLC [id number] [facility] 2023-02-07 08:40:00 2023-02-07 08:40:00 Outpatient ADOLPH TIJERINA HOWARD [facility] [id number] [facility] 2023-01-20 15:38:37 2023-01-20 15:38:37 Outpatient SFA KEVIN [id number] Zach Edmondson 2023-01-12 20:19:00 2023-01-12 22:47:00 Emergency X BAYRON BERMEO [facility] ERT [id number] [facility] 2023-01-12 20:19:00 2023-01-12 22:47:00 Emergency Bayron Bermeo [facility] 1.2.840.114 350.1.13.10 4.2.7.2.686 [id number] [facility] 2022-12-29 14:02:39 2022-12-29 14:02:[address] [facility] [id number] Zach Edmondson 2022-12-09 15:01:21 2022-12-09 15:01:[address] [facility] [id number] Zach Edmondson 2022-11-29 09:04:32 2022-11-29 09:04:[address] [facility] [id number] Zach Edmondson 2022-11-22 13:30:00 2022-11-22 14:14:43 Outpatient R MARV ZAMARRIPA [facility] [id number] [facility] 2022-11-22 13:30:00 2022-11-22 14:14:43 Office Visit Marv Zamarripa [facility] 1.2.840.114 350.1.13.10 4.2.7.2.686 [id number] [facility] 2022-11-11 13:00:00 2022-11-11 13:00:00 Outpatient R DALLIN MARV [facility] [id number] [facility] 2022-11-08 11:00:00 2022-11-08 11:51:31 Outpatient R GAUDENCIO COWAN OGECHUKWU [facility] [id number] [facility] 2022-11-08 11:00:00 2022-11-08 11:51:31 Office Visit Gaudencio Cowan [facility] 1.2.840.114 350.1.13.10 4.2.7.2.686 [id number] [facility] 2022-11-05 10:00:00 2022-11-05 10:00:00 Outpatient MARV DEJESUS [facility] [id number] [facility] 2022-10-28 10:00:00 2022-10-28 10:00:00 Outpatient MRAV DEJESUS [facility] [id number] [facility] 2022-10-13 00:00:00 2022-10-13 00:00:00 [facility] 1.2.840.114 350.1.13.10 4.2.7.2.686 [id number] [facility] 2022-09-19 11:00:00 2022-09-19 11:15:00 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, 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 Marv Zamarripa [facility] 1.2840.114 350.1.13.10 4.2.7.2.686 [id number] [facility] 2022-09-19 10:30:00 2022-09-19 10:52:56 Outpatient R MARV ZAMARRIPA [facility] [id number] [facility] 2022-09-19 10:30:00 2022-09-19 10:52:56 Office Visit Marv Zamarripa [facility] 1.2.840.114 350.1.13.10 4.2.7.2.686 [id number] [facility] 2022-09-16 10:10:00 2022-09-16 10:50:00 Office Visit Kirti Zavala [facility] 1.2840.114 350.1.13.10 4.2.7.2.686 [id number] [facility] 2022-09-16 10:10:00 2022-09-16 10:44:02 Outpatient R KIRTI ZAVALA [facility] [id number] [facility] 2022-08-28 13:04:51 2022-08-28 13:04:51 Outpatient SFA SFA [id number] Zach Edmondson 2022-08-27 00:00:00 2022-08-27 00:00:00 Patient Secure Msg Kirti Zavala [facility] 1.0.114 350.1.13.10 4.2.7.2.686 [id number] [facility] 2022-08-20 08:50:00 2022-08-20 10:09:13 Outpatient R KIRTI ZAVALA [facility] [id number] [facility] 2022-08-20 08:50:00 2022-08-20 10:09:13 Office Visit Kirti Zavala [facility] 1.840.114 350.1.13.10 4.2.7.2.686 [id number] [facility] 2022-08-12 00:00:00 2022-08-12 00:00:00 Patient Secure Msg Doctor Unassigned, [place] [facility] 1.840.114 350.1.13.10 4.2.7.2.686 [id number] [facility] 2022-08-06 08:50:00 2022-08-06 09:20:30 Outpatient R KIRTI ZAVALA [facility] [id number] [facility] 2022-08-06 08:50:00 2022-08-06 09:20:30 Office Visit Kirti Zavala [facility] 1.2840.114 350.1.13.10 4.2.7.2.686 [id number] [facility] 2022-07-31 08:10:00 2022-07-31 08:10:00 Outpatient R KIRTI ZAVALA [facility] [id number] [facility] 2022-07-26 00:00:00 2022-07-26 00:00:00 Patient Secure Msg Kirti Zavala [facility] 1.2840.114 350.1.13.10 4.2.7.2.686 [id number] [facility] 2022-07-23 09:10:00 2022-07-23 11:21:44 Outpatient R KIRTI ZAVALA [facility] [id number] [facility] 2022-07-23 09:10:00 2022-07-23 11:21:44 Office Visit Kirti Zavala [facility] 1.840.114 350.1.13.10 4.2.7.2.686 [id number] [facility] 2022-07-19 00:00:00 2022-07-19 00:00:[address] [facility] 1.2840.114 350.1.13.10 4.2.7.2.686 [id number] [facility] 2022-07-19 00:00:00 2022-07-19 00:00:00 Patient Secure Msg Doctor Unassigned, [place] [facility] 1.2840.114 350.1.13.10 4.2.7.2.686 [id number] [facility] 2022-07-17 08:50:00 2022-07-17 09:39:40 Outpatient R KIRTI ZAVALA [facility] [id number] [facility] 2022-07-17 08:50:00 2022-07-17 09:39:40 Office Visit Kirti Zavala [facility] 1.2.840.114 350.1.13.10 4.2.7.2.686 [id number] [facility] 2022-07-17 00:00:00 2022-07-17 00:00:00 Orders Only Doctor Unassigned, [place] [facility] 1.2.840.114 350.1.13.10 4.2.7.2.686 [id number] [facility] 2022-07-17 00:00:00 2022-07-17 00:00:00 Letter (Out) Kirti Zavala [facility] 1.2.840.114 350.1.13.10 4.2.7.2.686 [id number] [facility] 2022-06-20 00:00:00 2022-06-20 00:00:00 Telephone Kirti Zavala [facility] 1.2.840.114 350.1.13.10 4.2.7.2.686 [id number] [facility] 2022-06-18 10:10:00 2022-06-18 10:46:37 Outpatient R KIRTI ZAVALA [facility] [id number] [facility] 2022-06-18 10:10:00 2022-06-18 10:46:37 Office Visit Kirti Zavala [facility] 1.2.840.114 350.1.13.10 4.2.7.2.686 [id number] [facility] 2022-06-18 00:00:00 2022-06-18 00:00:00 Letter (Out) Kirti Zavala [facility] 1.2.840.114 350.1.13.10 4.2.7.2.686 [id number] [facility] 2022-06-05 11:16:58 2022-06-05 11:16:58 Outpatient [facility] [id number] Zach Edmondson 2022-04-26 15:10:00 2022-04-26 15:55:14 Outpatient KIRTI CRAWLEY [facility] [id number] [facility] 2022-04-26 15:10:00 2022-04-26 15:55:14 Office Visit Kirti Zavala [facility] 1.2.840.114 350.1.13.10 4.2.7.2.686 [id number] [facility] 2022-04-26 00:00:00 2022-04-26 00:00:00 Telephone Kirti Zavala [facility] 1..840.114 350.1.13.10 4.2.7.2.686 [id number] [facility] 2022-04-26 00:00:00 2022-04-26 00:00:00 Orders Only Doctor Unassigned, [place] [facility] 1.2.840.114 350.1.13.10 4.2.7.2.686 [id number] [facility] 2022-03-05 07:30:00 2022-03-05 07:50:00 Office Visit Kirti Zavala [facility] 1.2.840.114 350.1.13.10 4.2.7.2.686 [id number] [facility] 2022-03-05 07:30:00 2022-03-05 07:30:00 Outpatient R KIRTI ZAVALA [facility] [id number] [facility] 2022-01-13 00:00:00 2022-01-13 00:00:00 Heidi Voss [facility] 1.840.114 350.1.13.10 4.2.7.2.686 [id number] 225 [id number] [facility] 2021-12-18 08:50:00 2021-12-18 09:30:32 Office Visit Kitri Zavala [facility] 1.2.840.114 350.1.13.10 4.2.7.2.686 [id number] 225 [id number] [facility] 2021-12-18 08:50:00 2021-12-18 09:30:32 Outpatient KIRTI CRAWLEY [facility] [id number] [facility] 2021-12-18 08:50:00 2021-12-18 08:50:00 Outpatient KIRTI CRAWLEY [facility] [id number] [facility] 2021-12-18 00:00:00 2021-12-18 00:00:00 Orders Only Doctor Unassigned, [place] [facility] 1.840.114 350.1.13.10 4.2.7.2.686 [id number] [facility] 2021-12-17 00:00:00 2021-12-17 00:00:00 Refill Kirti Zavala [facility] 1.2840.114 350.1.13.10 4.2.7.2.686 [id number] 225 [id number] [facility] 2021-10-17 00:00:00 2021-10-17 00:00:00 Orders Only Doctor Unassigned, [place] [facility] 1.2840.114 350.1.13.10 4.2.7.2.686 [id number] [facility] 2021-10-05 09:10:00 2021-10-05 09:39:17 Outpatient KIRTI CRAWLEY [facility] [id number] [facility] 2021-10-05 09:10:00 2021-10-05 09:39:17 Office Visit Kirti Zavala [facility] 1.2.840.114 350.1.13.10 4.2.7.2.686 [id number] 225 [id number] [facility] 2021-10-05 09:10:00 2021-10-05 09:39:17 Outpatient KIRTI CRAWLEY [facility] [id number] [place] [facility]:00:00 2021-09-16 00:00:00 Kirti Gauthier [facility] 1.2.840.114 350.1.13.10 4.2.7.2.686 [id number] 225 [id number] [facility] 2021-09-05 00:00:00 2021-09-05 00:00:00 Kirti Gauthier [facility] 1.2.840.114 350.1.13.10 4.2.7.2.686 [id number] 225 [id number] [facility] 2021-08-22 00:00:00 2021-08-22 00:00:00 Kirti Gauthier [facility] 1.2.840.114 350.1.13.10 4.2.7.2.686 [id number] 225 [id number] [facility] 2021-07-31 00:00:00 2021-07-31 00:00:00 Kirti Gauthier [facility] 1.2.840.114 350.1.13.10 4.2.7.2.686 [id number] 225 [id number] [facility] 2021-07-05 00:00:00 2021-07-05 00:00:00 Kirti Gauthier [facility] 1.2.840.114 350.1.13.10 4.2.7.2.686 [id number] [facility] 2021-06-22 10:10:00 2021-06-22 10:32:50 Office Visit Kirti Zavala [facility] 1.2.840.114 350.1.13.10 4.2.7.2.686 [id number] 225 [id number] [facility] 2021-06-22 10:10:00 2021-06-22 10:32:50 Outpatient R KIRTI ZAVALA [facility] [id number] [facility] 2021-06-22 10:10:00 2021-06-22 10:10:00 Outpatient KIRTI CRAWLEY [facility] [id number] [facility] 2021-05-25 07:50:00 2021-05-25 08:10:00 Office Visit Kirti Zavala [facility] 1.2.840.114 350.1.13.10 4.2.7.2.686 [id number] 225 [id number] [facility] 2021-05-25 07:50:00 2021-05-25 07:50:00 Outpatient KIRTI CRAWLEY [facility] [id number] [facility] 2021-05-08 00:00:00 2021-05-08 00:00:00 Telephone Kirti Zavala [facility] 1.2.840.114 350.1.13.10 4.2.7.2.686 [id number] 225 [id number] [facility] 2021-04-24 00:00:00 2021-04-24 00:00:00 OFFICE VISIT EST PT LEVEL 3 STLMLC STLMLC [id number] [facility] 2021-03-26 07:50:00 2021-03-26 08:17:10 Outpatient KIRTI CRAWLEY [facility] [id number] [facility] 2021-03-26 07:50:00 2021-03-26 08:17:10 Outpatient KIRTI CRAWLEY [facility] [id number] [facility] 2021-03-26 07:35:06 2021-03-26 08:17:10 Office Visit Kirti Zavala [facility] 1.2.0.114 350.1.13.10 4.2.7.2.686 [id number] 225 [id number] [facility] 2021-03-26 00:00:00 2021-03-26 00:00:00 Orders Only Doctor Unassigned, [place] [facility] 1.2.840.114 350.1.13.10 4.2.7.2.686 [id number] [facility] 2021-02-26 07:30:00 2021-02-26 07:30:00 Outpatient R KIRTI ZAVALA [facility] [id number] [facility] 2021-02-22 00:00:00 2021-02-22 00:00:00 OFFICE VISIT EST PT LEVEL 3 STLMLC STLMLC [id number] [facility] 2021-02-13 00:00:00 2021-02-13 00:00:00 Telephone Kirti Zavala [facility] 1.20.114 350.1.13.10 4.2.7.2.686 [id number] [facility] 2020-12-26 00:00:00 2020-12-26 00:00:00 (TEL) STLMLC STLMLC [id number] [facility] 2020-12-25 00:00:00 2020-12-25 00:00:00 OFFICE VISIT NEW PT LEVEL 3 STLMLC STLMLC [id number] [facility] 2020-11-09 00:00:00 2020-11-09 00:00:00 Refill Kirti Zavala [facility] 1.20.114 350.1.13.10 4.2.7.2.686 [id number] 225 [id number] [facility] 2020-10-30 08:13:03 2020-10-30 08:53:06 Office Visit Kirti Zavala [facility] 1.2840.114 350.1.13.10 4.2.7.2.686 [id number] [facility] 2020-10-30 08:10:00 2020-10-30 08:10:00 Outpatient KIRTI CRAWLEY [facility] [id number] [facility] 2020-10-08 00:00:00 2020-10-08 00:00:00 Refill Kirti Zavala [facility] 1.2.840.114 350.1.13.10 4.2.7.2.686 [id number] 225 [id number] [facility] 2020-09-21 00:00:00 2020-09-21 00:00:00 Telephone Kirti Zavala [facility] 1.2.840.114 350.1.13.10 4.2.7.2.686 [id number] [facility] 2020-09-11 14:50:00 2020-09-11 14:50:00 Outpatient KIRTI CRAWLEY [facility] [id number] [facility] 2020-09-11 14:17:17 2020-09-11 14:37:17 Office Visit Kirti Zavala [facility] 1.2.840.114 350.1.13.10 4.2.7.2.686 [id number] 225 [id number] [facility] 2020-09-08 08:00:00 2020-09-08 08:00:00 Outpatient R [facility] [id number] [facility] 2020-09-08 07:37:02 2020-09-08 07:52:02 Tool Polisher Visit Lab, Kirti Olmstead [facility] 1.2.840.114 350.1.13.10 4.2.7.2.686 [id number] 225 [id number] [facility] 2020-06-09 13:37:53 2020-06-09 14:45:06 Office Visit Kitri Zavala [facility] 1.2.840.114 350.1.13.10 4.2.7.2.686 [id number] [facility] 2020-06-09 13:50:00 2020-06-09 13:50:00 Outpatient R KIRTI ZAVALA [facility] [id number] [facility] 2020-05-02 00:00:00 2020-05-02 00:00:00 Telephone Kirti Zavala 1.2.840.1 21235.1.1 3.104.2.7 .3.291639 .8 [id number] [facility] 2020-03-14 08:24:03 2020-03-14 10:07:46 Office Visit Kirti Zavala 1.2.840.1 56207.1.1 3.104.2.7 .3.148317 .8 [id number] [facility] 2020-03-14 08:30:00 2020-03-14 08:30:00 Outpatient R KIRTI ZAVALA [facility] [id number] [facility] 2020-03-14 00:00:00 2020-03-14 00:00:00 Travel 1.2.840.1 23675.1.1 3.104.2.7 .3.701788 .8 1.2.840.114 350.1.13.10 4.2.7.3.698 084.8 [id number] [facility] 2020-03-07 08:17:02 2020-03-07 08:58:21 Tool Polisher Visit Kirti Zavala Lab, [facility] 1.2.840.1 37240.1.1 3.104.2.7 .3.592561 .8 [id number] [facility] 2020-03-07 08:15:00 2020-03-07 08:15:00 Outpatient KIRTI CRAWLEY [facility] [id number] [facility] 2020-03-07 00:00:00 2020-03-07 00:00:00 Letter (Out) Kirti Zavala [facility] 1.2.840.114 350.1.13.10 4.2.7.2.686 [id number] [facility] 2020-03-07 00:00:00 2020-03-07 00:00:00 Travel 1.2.840.1 04958.1.1 3.104.2.7 .3.610179 .8 1.2.840.114 350.1.13.10 4.2.7.3.698 084.8 [id number] [facility] 2020-03-02 13:57:26 2020-03-02 23:59:00 Hospital Encounter Kirti Zavala 1.2.840.1 25839.1.1 3.104.2.7 .3.568949 .8 [id number] [facility] 2020-03-02 00:00:00 2020-03-02 00:00:00 Outpatient KIRTI CRAWLEY [facility] [id number] [facility] 2020-03-02 00:00:00 2020-03-02 00:00:00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 evaluated for the headaches by a Neurologist. Pt was at [facility] last week for same where pt had a CT head and was managed with a headache cocktail. No trauma. Currently EDWARDS is rated at 8/10. No possibility of as estelle is a female per pt. No travel hx. No focal weakness. 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 used: No Headache Pain location: Frontal Radiates to: Does not radiate Severity currently: 8/10 Severity at highest: 8/10 Timing: Constant Progression: Unchanged Chronicity: Chronic Similar to prior headaches: yes Context: activity, bright light and loud noise Relieved by: Nothing Worsened by: Light and sound Ineffective treatments: Acetaminophen and prescription medications Associated symptoms: photophobia and sinus pressure Associated symptoms: no abdominal pain, no back pain, no blurred vision, no congestion, no cough, no diarrhea, no dizziness, no drainage, no ear pain, no eye pain, no facial pain, no fatigue, no fever, no focal weakness, no hearing loss, no loss of balance, no myalgias, no nausea, no near-syncope, no neck pain, no neck stiffness, no numbness, no paresthesias, no seizures, no sore throat, no swollen glands, no syncope, no tingling, no URI, no visual change, no vomiting and no weakness Risk factors: no family hx of SAH, does not have insomnia and lifestyle not sedentary Past Medical History/Immunizations: Past Medical History: Diagnosis Date Abnormal uterine bleeding menorrhagia Anxiety Asthma Depression Esophageal reflux History of self-harm Cutting / inner thigh / last time was Early 2019 Major depressive disorder with Bi-Polar Tendencies Migraines [...] Comments: mother smokes inside and outside of house Alcohol Use No. Drug Use No. Sexual Activity Not sexually active. Comments: has never had sex; interested in girls Past Surgical History: [employer] Tooth extraction Apr 2022 Review of Systems: Review of Systems Constitutional: Negative. Negative for fatigue and fever. HENT: Positive for sinus pressure. Negative for congestion, ear pain, hearing loss, postnasal drip and sore throat. Eyes: Positive for photophobia. Negative for blurred vision and pain. Respiratory: Negative. Negative for cough. Breasts: Negative. Cardiovascular: Negative. Negative for syncope and near-syncope. Gastrointestinal: Negative. Negative for abdominal pain, diarrhea, nausea and vomiting. Genitourinary: Negative. Musculoskeletal: Negative. Negative for back pain, myalgias, neck pain and [...] is not in acute distress. Appearance: Normal appearance. She is well-developed and normal weight. She is not ill-appearing, toxic-appearing or diaphoretic. HENT: Head: Normocephalic and atraumatic. Nose: Nose normal. Mouth/Throat: Mouth: Mucous membranes are moist. Pharynx: Oropharynx is clear. No oropharyngeal exudate or posterior oropharyngeal erythema. Eyes: General: No scleral icterus. Right eye: No discharge. Left eye: No discharge. Extraocular Movements: Extraocular movements intact. Conjunctiva/sclera: Conjunctivae normal. Pupils: Pupils are equal, round, and reactive to light. Neck: Thyroid: No thyromegaly. Cardiovascular: Rate and Rhythm: Normal rate and regular rhythm. Heart sounds: Normal heart sounds. No murmur heard. Pulmonary: Effort: Pulmonary effort is normal. No respiratory distress. Breath sounds: Normal breath sounds. No stridor. No wheezing, rhonchi or rales. Chest: Chest wall: No tenderness. Abdominal: General: Bowel sounds are normal. There is no distension. Palpations: Abdomen is soft. Tenderness: There is no abdominal tenderness. There is no right CVA tenderness, left CVA tenderness, guarding or rebound. Musculoskeletal: General: No swelling, tenderness, deformity or signs of injury. Normal range of motion. Cervical back: Normal range of motion and neck supple. No rigidity or tenderness. Right lower leg: No edema. Left lower leg: No edema. Lymphadenopathy: Cervical: No cervical adenopathy. Skin: General: Skin is warm and dry. Capillary Refill: Capillary refill takes less than 2 seconds. Coloration: Skin is not jaundiced or pale. Findings: No bruising, erythema, lesion or rash. Neurological: General: No focal deficit present. Mental Status: She is alert and oriented to person, place, and time. Cranial Nerves: No cranial [...] POCT TEST Orders Placed This Encounter Medications skobnbyghn-ncsntauxbggzo-grzn (ESGIC) 50-325-40 mg tablet 1 tablet First Provider Eval: ED Events Date/Time Event User Comments 01/12/232020 Medical Screening Begins BAYRON BERMEO MD -- 01/12/232020 First Provider Evaluation BAYRON BERMEO [...] injury Details: ED evaluation dn management as documented Will refer pt to Dr Lala/Neurology Amount and/or Complexity of Data Reviewed Labs: ordered. Risk OTC drugs. Prescription drug management. Flowsheet Documentation: 10:20 PM Pt re-examined. Headache significantly improved Will discharge home with ESGIC and refer to Dr Lala, Neurology Specialist or Neurology Clinic in [place] Scoring Tools: No data recorded Disposition/Condition: ED Disposition ED Disposition Disch - Home Condition Stable Comment -- Discharge Medications: Patient's Medications START taking these medications No medications on file CONTINUE taking these medications which have NOT CHANGED MKYCGSZTAZBGGHQ-KIMDFNJQWFZSPKQ-MS (BROMFED DM) 2-30-10 MG/5 ML SYRUP Take 5 mL by mouth 4 (four) times daily as needed for Congestion/Allergies. BUDESONIDE-FORMOTEROL 160-4.5 MCG/ACTUATION INHALER Inhale 2 Puffs in the morning and 2 Puffs in the evening. CETIRIZINE 10 MG TABLET TAKE ONE (1) TABLET(S) BY MOUTH DAILY NEEDED FOR ALLERGIES. FAMOTIDINE 20 MG TABLET Take 1 tablet by mouth in the morning. GUANFACINE ER 3 MG TABLET Take 1 tablet by mouth at bedtime. METHSCOPOLAMINE 5 MG TABLET Take 1 tablet by mouth every morning. METHYLPREDNISOLONE (MEDROL, ASIA,) 4 MG TABLETS Take by mouth SEE-INSTRUCTIONS. follow package directions MONTELUKAST (SINGULAIR) 10 MG TABLET Take 1 tablet by mouth in the morning. ONDANSETRON 8 MG DISINTEGRATING TABLET Take 1 tablet by mouth every 8 (eight) hours as needed for Nausea and Vomiting (N/V). VENTOLIN HFA 90 MCG/ACTUATION INHALER INHALE TWO (2) PUFFS BY MOUTH EVERY 6 (SIX) HOURS NEEDED FOR WHEEZING OR SHORTNESS OF BREATH. ZIPRASIDONE 60 MG CAPSULE Take by mouth daily. START taking Modified Medications as Prescribed No medications on file STOP taking these medications No medications on file Follow-up: Contact information for follow-up Adolph Lala MD Specialty: PN-NEUROLOGY [facility] [address] [place] [address]. [facility] [id number] Neurology Clinic Specialty: PN-NEUROLOGY [address] [place] [id number] Electronically signed by: Bayron Bermeo MD 01/12/232222 [facility] 2022-02-21 09:56:35 Name from pharmacy: Advair HFA 115mcg-21mcg Aer Will file in chart as: ADVAIR HFA 115-21 mcg/actuation inhaler Sig: INHALE TWO (2) PUFFS BY MOUTH TWICE A DAY. Disp: 12 g Refills: 0 (Pharmacy requested: Not specified) Start: 02/21/2022 Class: eRX Non-formulary For: Mild intermittent asthma without complication To pharmacy: Sending Erx refill request Last ordered: 1 month ago by Kirti Zavala PA-C Last refill: 01/14/2022 Rx #: [id number] Last filled-- 01.14.22 Malena Meneses RN [facility]
[2024-09-15] MEDS ORDERED: METOCLOPRAMIDE 10 MG/2mL INJ ONE (23:39)
[2024-09-15] MEDS ORDERED: NA CHLORIDE 0.9% 1,000 ML ONE (23:39)
[2024-09-15] MEDS ORDERED: DIPHENHYDRAMINE 50 MG/ML VIAL ONE (23:39)
[2024-09-15] MEDS ORDERED: MORPHINE 4 MG/ML SYR ONE (23:49)
[2024-09-15 23:59] LABS: PT Prothrombin Time 12.5 SECONDS (10-13.0); Protime INR 1.1
[2024-09-16] LABS: Absolute Monocytes 0.2 K/uL (0.1-1.3); Absolute Neutrophil 5.1 K/uL (1.8-8.0); Basophils % 0.3 % (0-1.3); Hematocrit 41.4 % (36.0-45.0); Hemoglobin 14.6 g/dL (12.0-15.0); MCH 27.7 pg (27.0-35.0); MCHC 35.3 g/dL (32.0-36.0); MCV 78.5 fL (80-100); MPV 7.9 fL (7.6-11.3); Monocytes % 2.6 % (3.3-12.3); Neutrophils % 81.1 % (41.7-73.7); Nucleated Red Blood Cells % 0.2 % (0-0); Platelets 292 thou/uL (152-406); RBC Red Blood Cell Count 5.27 M/uL (3.86-4.86); Red Cell Distribution Width 13.5 % (12.1-15.2)
[2024-09-16 00:13] LABS: ALT/SGPT 45 U/L (13-56); AST/SGOT 22 U/L (15-37); Albumin/Globulin Ratio 0.9 (1.1-1.8); Alkaline Phosphatase 61 U/L (45-117); Anion Gap 10.8 mEq/L (5.0-15.0); BUN Blood Urea Nitrogen 12 mg/dL (7-18); Bicarbonate 23 mEq/L (21-32); Bilirubin Total 0.5 mg/dL (0.2-1.0); Globulin 4.3 g/dL (2.3-3.5); Glomerular Filtration Rate 119 ml/min (=/>90); Glucose Level 130 mg/dL (74-106); Magnesium 2.2 mg/dL (1.6-2.4); Potassium 3.8 mEq/L (3.5-5.1); Protein, Total 8.3 g/dL (6.4-8.2); Sodium Level 138 mEq/L (136-145); Troponin High Sensitivity 6.9 pg/mL (<58.9)
[2024-09-16 00:14] LABS: Bilirubin Direct < 0.2 mg/dL (0-0.2); Bilirubin Indirect, Calculated 0.3 mg/dL (0.2-0.8)
--- NOTE | 2024-09-16 01:38 | EDPHYS ---
Physician Documentation [facility] Name: Simon Collier Age: 18 yrs Sex: Female : 2005 Arrival Date: 09/15/2024 Time: 22:43 Bed 19 Private MD: ED Physician Luiz Sandoval HPI: 09/15 23:10 This 18 yrs old Female presents to ER via EMS with complaints of Neck and Upper Back cp Pain, Nausea/Vomiting. 23:10 The patient or guardian complains of pain, that is acute. The patient presents with cp pain that is acute. The symptoms are located in the thoracic area. Onset: The symptoms/episode began/occurred today. 23:10 Associated signs and symptoms: Pertinent positives: fever, headache, nausea, vomiting, cp Pertinent negatives: abdominal pain, chest pain, numbness, weakness. 23:10 Patient is a 18-year-old female who presents to the emergency department via EMS with cp complaints of neck and back pain. Patient reports fever at home and reports having neck and back injections performed earlier today with a possible epidural injection. Historical: - Allergies: 23:06 Keflex; kj2 23:06 Latex; kj2 23:06 PENICILLINS; kj2 - PMHx: 23:06 Anxiety; Asthma; BPD; Depression; PTSD; kj2 - PSHx: 23:06 wisdom teeth; kj2 - Immunization history:: Adult Immunizations unknown. - Infectious Disease History:: Denies. - Social history:: Smoking status: unknown. ROS: 23:15 Constitutional: Positive for fever, Negative for poor PO intake, cp 23:15 Eyes: Negative for injury, pain, redness, and discharge, cp 23:15 ENT: Negative for drainage from ear(s), ear pain, sore throat, difficulty swallowing, difficulty handling secretions, 23:15 Neck: Positive for pain with movement, pain at rest, 23:15 Cardiovascular: Positive for chest pain, Negative for edema, palpitations, 23:15 Respiratory: Negative for cough, shortness of breath, wheezing, 23:15 Abdomen/GI: Positive for nausea and vomiting, Negative for abdominal pain, 23:15 Back: Positive for pain at rest, pain with movement, of the thoracic area, 23:15 Skin: Negative for rash, 23:15 Neuro: Positive for headache, Negative for altered mental status, numbness, weakness, 23:15 All other systems are negative, Exam: 23:20 Constitutional: The patient appears in no acute distress, alert, awake, cp non-diaphoretic, non-toxic, well developed, well nourished, obese, uncomfortable, 23:20 Head/Face: Normocephalic, atraumatic. cp 23:20 Eyes: Periorbital structures: appear normal, Pupils: equal, round, and reactive to light and accomodation, Extraocular movements: intact throughout, Conjunctiva: normal, no exudate, no injection, Sclera: no appreciated abnormality, Lids and lashes: appear normal, bilaterally, 23:20 ENT: External ear(s): are unremarkable, Nose: is normal, Mouth: Lips: moist, Oral mucosa: moist, Posterior pharynx: Airway: no evidence of obstruction, patent, 23:20 Neck: ROM/movement: pain, that is moderate, with any movement, Meningeal signs: are not present, 23:20 Chest/axilla: Inspection: normal, 23:20 Cardiovascular: Rate: normal, Rhythm: regular, 23:20 Respiratory: the patient does not display signs of respiratory distress, Respirations: normal, no use of accessory muscles, no retractions, labored breathing, is not present, Breath sounds: are clear throughout, no decreased breath sounds, no stridor, no wheezing, 23:20 Abdomen/GI: Inspection: abdomen appears normal, Palpation: abdomen is soft and cp non-tender, in all quadrants, 23:20 Back: pain, that is severe, of the thoracic area, puncture wounds noted upper thoracic area midline, no erythema and no gross swelling noted, no active bleeding and no discharge expressed, 23:20 Neuro: Orientation: to person, place \T\ time. Mentation: is normal, Motor: moves all cp fours, no focal deficits, Sensation: no obvious gross deficits, 09/16 00:07 ECG was reviewed by the Attending Physician. cp Vital Signs: 09/15 23:08 BP 136 / 76; Pulse 96; Resp 20; Pulse Ox 100% ; Weight 88.45 kg; Height 5 ft. 1 in. ; kj2 Pain 9/10; 09/16 00:02 Height 5 ft. 1 in. ; kj2 01:05 BP 121 / 57; Pulse 73; Resp 18; Pulse Ox 100% ; kj2 09/15 23:08 Body Mass Index 36.84 (88.45 kg, 154.94 cm) kj2 09/15 23:08 Pain Scale: Adult kj2 MDM: 09/15 22:52 Medical Screening Exam initiated 09/16 01:37 Data reviewed: vital signs, nurses notes, lab test result(s), radiologic studies, CT cp scan, I have discussed the patient's presentation/case with the attending Emergency Department Physician; and as a result, I will discharge patient. 01:37 Differential diagnosis: sepsis, meningitis, spinal abscess, headache, migraine. I cp considered the following discharge prescriptions or medication management in the emergency department Medications were administered in the Emergency Department. See MAR. Counseling: I had a detailed discussion with the patient and/or guardian regarding the historical points, exam findings, and any diagnostic results supporting the discharge/admit diagnosis, lab results, radiology results, to return to the emergency department if symptoms worsen or persist or if there are any questions or concerns that arise at home. Response to treatment: the patient's symptoms have mildly improved after treatment, and as a result, I will discharge patient. 09/15 23:08 Order name: Basic Metabolic Panel; Complete Time: 00:15 cp 09/16 00:15 Interpretation: Normal except: CL 108; GLUC 130. 09/15 23:08 Order name: CBC with Diff; Complete Time: 00:15 cp 09/16 00:15 Interpretation: Normal except: RBC 5.27; MCV 78.5; MARILEE% 81.1; MN% 2.6. 09/15 23:08 Order name: LFT's; Complete Time: 00:15 cp 09/16 00:15 Interpretation: Normal except: TP 8.3; GLOB 4.3; A/G 0.9. 09/15 23:08 Order name: Magnesium; Complete Time: 00:15 cp 09/15 23:08 Order name: PT-INR; Complete Time: 00:15 cp 09/15 23:08 Order name: Troponin HS; Complete Time: 00:15 cp 09/16 00:15 Interpretation: Within normal limits. 09/15 23:08 Order name: Lactate w/ 2H reflex if indic.; Complete Time: 00:15 cp 09/15 23:08 Order name: XRAY Chest (1 view) 09/15 23:57 Order name: CT Head C Spine cp 09/15 23:57 Order name: CT Thoracic Spine Wo Cont cp 09/15 23:08 Order name: Cardiac monitoring; Complete Time: 00:01 cp 09/15 23:08 Order name: EKG - Nurse/Tech; Complete Time: 00:01 cp 09/15 23:08 Order name: IV Saline Lock; Complete Time: 23:31 cp 09/15 23:08 Order name: Labs collected and sent; Complete Time: 23: cp 09/15 23:08 Order name: O2 Per Protocol; Complete Time: 00:01 cp 09/15 23:08 Order name: O2 Sat Monitoring; Complete Time: 00:01 cp 09/16 01:24 Order name: PO challenge; Complete Time: 02:09 cp EC:07 Rate is 113 beats/min. Rhythm is regular. WI interval is normal. QRS interval is cp normal. QT interval is normal. T waves are Inverted in lead aVR. Interpreted by me. Reviewed by me. Administered Medications: 09/15 23:45 Drug: metoCLOPramide IVP 10 mg IVP once; over 1 to 2 minutes Route: IVP; Site: [address]; 09/16 01:07 Follow up: Response: No adverse reaction kj2 00:00 Drug: diphenhydrAMINE IVP 25 mg IVP once Route: IVP; Site: left antecubital; kj2 01:06 Follow up: Response: No adverse reaction kj2 00:00 Drug: morphine IVP or IV 4 mg IVP once over 4 mins Route: IVP; Infused Over: 4 mins; kj2 Site: left antecubital; 01:06 Follow up: Response: No adverse reaction kj2 00:01 Drug: NS 0.9% IV 1000 ml IV at 1 bolus Per protocol; to be given as a bolus over 60 kj2 minutes Route: IV; Rate: 1 bolus; Site: left antecubital; 01:07 Follow up: Response: No adverse reaction; IV Status: Completed infusion; IV Intake: kj2 1000ml 01:34 CANCELLED (Physician Discretion): methocarbamol1 grams IVPB once over 1 hrs; (mix in NS cp 100 mL) 01:45 Drug: Dexamethasone IVP 10 mg IVP once Route: IVP; Site: right antecubital; rg5 02:00 Follow up: Response: No adverse reaction; Pain is decreased rg5 01:45 Drug: Diazepam IVP 5 mg IVP once Route: IVP; Site: right antecubital; rg5 02:00 Follow up: Response: No adverse reaction rg5 02:07 Not Given (meds not availablee): fentanyl (pf)25 mcg IVP once rg5 Disposition: 20:53 Co-signature as Attending Physician, Luiz Sandoval MD I agree with the assessment sp4 and plan of care. I reviewed the patient's care provided by the Advanced Practice Provider and agree with the diagnosis and treatment plan. Disposition Summary: 09/16/24 01:37 Discharge Ordered Notes: Location: Home cp Problem: new cp Symptoms: have improved cp Condition: Stable cp Diagnosis - Headache cp - Cervicalgia cp - Dorsalgia, unspecified cp Followup: cp - With: Private Physician - When: 2 - 3 days - Reason: Recheck today's complaints Discharge Instructions: - Discharge Summary Sheet cp - Acute Back Pain, Adult cp - Migraine Headache cp - Heat Therapy cp - Neck Exercises cp - Back Exercises cp Forms: - Medication Reconciliation Form cp - Antibiotic Education cp - Prescription Opioid Use cp - Patient Portal Instructions cp - Leadership Thank You Letter cp Prescriptions: - Medrol ([place]) 4 mg Oral Tablets, Dose Pack - take 1 tablet ORAL route as directed - follow package instructions; 1 packet; cp Refills: 0, Product Selection Permitted - methocarbamol 750 mg Oral tablet - take 1 tablet ORAL route every 6-8 hours; 30 tablet; Refills: 0, Product cp Selection Permitted Signatures: Dispatcher [employer] EDMS Fermin Longoria PA PA cp Potepalov, Sergey, MD MD sp4 Omar Ríos RN RN rg5 Joi Carlos RN RN kj2 Corrections: (The following items were deleted from the chart) 09/15 23:08 23:08 BASIC METABOLIC PANEL+C.LAB.BRZ ordered. EDMS EDMS 23:08 23:08 CBC+H.LAB.BRZ ordered. EDMS EDMS 23:08 23:08 HEPATIC FUNCTION+C.LAB.BRZ ordered. EDMS EDMS 23:08 23:08 MAGNESIUM+C.LAB.BRZ ordered. EDMS EDMS 23:08 23:08 PROTIME (+INR)+COAG.LAB.BRZ ordered. EDMS EDMS 23: 23:08 Troponin High Sensitivity+C.LAB.BRZ ordered. EDMS EDMS : 23:08 LACTATE+C.LAB.BRZ ordered. EDMS EDMS : 23:08 Chest Single View+RAD.RAD.BRZ ordered. EDMS EDMS 09/16 01:34 01:33 Methocarbamol IVPB 1 grams IVPB once over 1 hrs; (mix in NS 100 mL) ordered. cp cp
--- NOTE | 2024-09-16 01:38 | ER ---
Nurse's Notes [facility] Name: Simon Collier Age: 18 yrs Sex: Female : 2005 Arrival Date: 09/15/2024 Time: 22:43 Bed 19 Private MD: Diagnosis: Headache;Cervicalgia;Dorsalgia, unspecified Presentation: 09/15 23:05 Chief complaint: EMS states: neck and back pain, nausea and vomiting. Coronavirus kj2 screen: Client denies travel out of the [place] in the last 14 days. Ebola Screen: No symptoms or risks identified at this time. Initial Sepsis Screen: Does the patient meet any 2 criteria? No. Patient's initial sepsis screen is negative. Does the patient have a suspected source of infection? No. Patient's initial sepsis screen is negative. Risk Assessment: Do you want to hurt yourself or someone else? Patient reports no desire to harm self or others. Onset of symptoms was September 15, 2024. 23:05 Method Of Arrival: EMS: [facility] kj2 23:05 Acuity: SANDRA 3 kj2 Triage Assessment: 23:07 General: Appears uncomfortable, Behavior is cooperative, crying. Pain: Complains of kj2 pain in neck, back Pain currently is 8 out of 10 on a pain scale. Neuro: Level of Consciousness is awake, alert, obeys commands, Oriented to person, place, time, situation. Cardiovascular: Patient's skin is warm and dry. Respiratory: Airway is patent Respiratory effort is even, unlabored. GI: No signs and/or symptoms were reported involving the gastrointestinal system. : No signs and/or symptoms were reported regarding the genitourinary system. Historical: - Allergies: 23:06 Keflex; kj2 23:06 Latex; kj2 23:06 PENICILLINS; kj2 - PMHx: 23:06 Anxiety; Asthma; BPD; Depression; PTSD; kj2 - PSHx: 23:06 wisdom teeth; kj2 - Immunization history:: Adult Immunizations unknown. - Infectious Disease History:: Denies. - Social history:: Smoking status: unknown. Screenin:09 [facility] ED Fall Risk Assessment (Adult) History of falling in the last 3 months, kj2 including since admission No falls in past 3 months (0 pts) Confusion or Disorientation No (0 pts) Intoxicated or Sedated No (0 pts) Impaired Gait No (0 pts) Mobility Assist Device Used No (0 pt) Altered Elimination No (0 pt) Score/Fall Risk Level 0 - 2 = Low Risk Maintained a safe environment, Hourly rounding (assess needs \T\ fall precautionary measures) done. Abuse screen: Denies threats or abuse. Denies injuries from another. Nutritional screening: No deficits noted. Tuberculosis screening: No symptoms or risk factors identified. Assessment: 23:09 General: see triage assessment. kj2 23:10 Neuro: Level of Consciousness is awake, alert, obeys commands, Oriented to person, kj2 place, time, situation. 09/16 00:01 Reassessment: Patient appears in no apparent distress at this time. Patient and/or kj2 family updated on plan of care and expected duration. Pain level reassessed. Patient is alert, oriented x 3, equal unlabored respirations, skin warm/dry/pink. 01:05 Reassessment: Patient appears in no apparent distress at this time. Patient and/or kj2 family updated on plan of care and expected duration. Pain level reassessed. Patient is alert, oriented x 3, equal unlabored respirations, skin warm/dry/pink. Vital Signs: 09/15 23:08 BP 136 / 76; Pulse 96; Resp 20; Pulse Ox 100% ; Weight 88.45 kg; Height 5 ft. 1 in. ; kj2 Pain 9/10; 09/16 00:02 Height 5 ft. 1 in. ; kj2 01:05 BP 121 / 57; Pulse 73; Resp 18; Pulse Ox 100% ; kj2 09/15 23:08 Body Mass Index 36.84 (88.45 kg, 154.94 cm) kj2 09/15 23:08 Pain Scale: Adult kj2 ED Course: 09/15 22:43 Patient arrived in ED. vk 22:44 Fermin Longoria PA is PHCP. cp 22:44 Luiz Sandoval MD is Attending Physician. cp 22:59 Joi Carlos RN is Primary Nurse. kj2 23:06 Triage completed. kj2 23:16 Patient has correct armband on for positive identification. Bed in low position. Call kj2 light in reach. Adult w/ patient. Provided Education on: call light. 23:17 Arm band placed on Patient placed in an exam room, on a stretcher. kj2 23:31 Maintain EMS IV. Dressing intact. Good blood return noted. Site clean \T\ dry. Gauge \T\ kj 2 site: 20g left AC. Flushed with 10 mL NS. 23:50 XRAY Chest (1 view) In Process Unspecified. EDMS 09/16 00:20 CT Head C Spine In Process Unspecified. EDMS 00:21 CT Thoracic Spine Wo Cont In Process Unspecified. EDMS 02:00 No provider procedures requiring assistance completed. rg5 02:00 IV discontinued, bleeding controlled, No redness/swelling at site. Pressure dressing rg5 applied. Administered Medications: 09/15 23:45 Drug: metoCLOPramide IVP 10 mg IVP once; over 1 to 2 minutes Route: IVP; Site: left kj2 antecubital; 09/16 01:07 Follow up: Response: No adverse reaction kj2 00:00 Drug: diphenhydrAMINE IVP 25 mg IVP once Route: IVP; Site: left antecubital; kj2 01:06 Follow up: Response: No adverse reaction kj2 00:00 Drug: morphine IVP or IV 4 mg IVP once over 4 mins Route: IVP; Infused Over: 4 mins; kj2 Site: left antecubital; 01:06 Follow up: Response: No adverse reaction kj2 00:01 Drug: NS 0.9% IV 1000 ml IV at 1 bolus Per protocol; to be given as a bolus over 60 kj2 minutes Route: IV; Rate: 1 bolus; Site: left antecubital; 01:07 Follow up: Response: No adverse reaction; IV Status: Completed infusion; IV Intake: kj2 1000ml 01:34 CANCELLED (Physician Discretion): methocarbamol1 grams IVPB once over 1 hrs; (mix in NS cp 100 mL) 01:45 Drug: Dexamethasone IVP 10 mg IVP once Route: IVP; Site: right antecubital; rg5 02:00 Follow up: Response: No adverse reaction; Pain is decreased rg5 01:45 Drug: Diazepam IVP 5 mg IVP once Route: IVP; Site: right antecubital; rg5 02:00 Follow up: Response: No adverse reaction rg5 02:07 Not Given (meds not availablee): fentanyl (pf)25 mcg IVP once rg5 Medication: 09/15 23:16 VIS not applicable for this client. kj2 Intake: 09/16 01:07 IV: 1000ml; Total: 1000ml. kj2 Outcome: 01:37 Discharge ordered by . cp 02:00 Discharged to home via wheelchair, rg5 02:00 Condition: stable 02:00 Discharge instructions given to patient, Instructed on discharge instructions, follow up and referral plans. Demonstrated understanding of instructions, follow-up care, medications, Prescriptions given X 2, 02:08 Patient left the ED. rg5 Signatures: Dispatcher [employer] EDMS Fermin Longoria PA PA cp Kruse, Vivian vk Gallardo, Rommel, RN RN rg5 Joi Carlos, RN RN kj2
[2024-09-16] MEDS ORDERED: DIAZEPAM 10 MG/2 ML INJ SYRINGE ONE (01:45)
[2024-09-16] MEDS ORDERED: dexAMETHasone 10 MG/ML VIAL ONE (01:46)
--- NOTE | 2024-09-16 02:25 | RAD REPORT ---
EXAM DESCRIPTION: Head C Spine Mpr Wo Con RadLex: CT HEAD AND CERVICAL SPINE WITHOUT CONTRAST CLINICAL HISTORY: 18 years Female; neck pain; Headache; Bed Name: 19 TECHNIQUE: Noncontrast CT head and cervical spine. All CT scans at this facility use dose modulation, iterative reconstruction, and/or weight based dosi ng when appropriate to reduce radiation dose to as low as reasonably achievable. COMPARISON: None. FINDINGS: BRAIN: Parenchyma: No acute hemorrhage, large territorial infarction, or mass effect. Ventricles and extra-axial spaces: Appropriate for age. Visualized paranasal sinuses: Clear. Mastoid air cells: Clear. Bones: No acute focal abnormality. Additional comment: None. CERVICAL SPINE: Alignment: Normal. Vertebrae: Vertebral bodies and posterior elements are intact without acute fracture. Mild multilevel degenerative changes. Extra-vertebral soft tissues: Normal. Additional comment: None. IMPRESSION: 1. No acute intracranial findings. 2. No acute fracture or subluxation of the cervical spine. Electronically signed by: Arnold Cleary MD 09/16/2024 01:21 AM CDT TYG Due to temporary technical issues with the PACS/[employer] reporting system, reports are being luan d by the in-house radiologist without review as a courtesy to ensure prompt reporting the interpreting radiologist is fully responsible for the content of the report. Transcribed Date/Time: 09/16/2024 2:25 AM
--- NOTE | 2024-09-16 02:26 | RAD REPORT ---
EXAM: CT THORACIC SPINE WITHOUT IV CONTRAST, 09/15/2024 11:57 PM CDT HISTORY: thoracic pain TECHNIQUE: Axial CT images of the thoracic spine were obtained. Coronal and sagittal reconstructions were performed. All CT scans are performed using dose optimization techniques as appropriate to a performed exam including automated exposure control and/or standardized protocols for targeted exams where dose is matched to indication/reason for exam/patient size. COMPARISON: None. FINDINGS: ALIGNMENT: Normal thoracic kyphosis. No subluxation. MINERALIZATION: Normal. No suspicious bone lesions. VERTEBRAL BODIES: No acute fracture or vertebral body height loss. DISCS: Intervertebral disc height is preserved. No large disc herniation. POSTERIOR ELEMENTS: No acute abnormality. No significant stenosis by noncontrast CT, SOFT TISSUES: No suspicious abnormality. RIBS: No acute fracture identified. CHEST/ABDOMEN: Visualized intrathoracic and intraabdominal contents are unremarkable. IMPRESSION: No acute fracture or subluxation of the thoracic spine. Electronically signed by: Beatriz Liao MD 09/16/2024 01:21 AM CDT RP Due to temporary technical issues with the PACS/[employer] reporting system, reports are being luan d by the in-house radiologist without review as a courtesy to ensure prompt reporting the interpreting radiologist is fully responsible for the content of the report. Transcribed Date/Time: 09/16/2024 2:25 AM
[2024-09-16 02:44] VITALS: O2SAT 100
[2024-09-16 02:45] VITALS: BP 121/57
--- NOTE | 2024-09-16 05:44 | RAD REPORT ---
EXAM: XR Chest, 1 View CLINICAL HISTORY: The patient is 18 years old and is Female; CHEST PAIN TECHNIQUE: Frontal view of the chest. COMPARISON: No relevant prior studies available. FINDINGS: LUNGS: Unremarkable. No consolidation. PLEURAL SPACE: Unremarkable. No pneumothorax. HEART: Unremarkable. No cardiomegaly. MEDIASTINUM: Unremarkable. Normal mediastinal contour. BONES/JOINTS: Unremarkable. No acute fracture. UPPER ABDOMEN: Unremarkable as visualized. IMPRESSION: No acute cardiopulmonary process. Electronically signed by: Suzy Cody MD 09/16/2024 12:10 AM CDT RP Due to temporary technical issues with the PACS/[employer] reporting system, reports are being luan d by the in-house radiologist without review as a courtesy to ensure prompt reporting the interpreting radiologist is fully responsible for the content of the report. Transcribed Date/Time: 09/16/2024 5:43 AM
--- NOTE | 2024-09-16 11:53 | EKG ---
Test Date: 2024-09-16 Test Time: 00:00:00 Journalism Intern: AMA MEASUREMENT RESULTS: Intervals: Rate: 113 TN: 126 QRSD: 80 QT: 352 QTc: 482 [place]: P: 61 TN: 126 QRS: 84 T: 51 INTERPRETIVE STATEMENTS: Sinus tachycardia Otherwise normal ECG Compared to ECG 05/25/2023 20:57:38 Sinus rhythm no longer present Sinus arrhythmia no longer present Short TN interval no longer present Right-axis deviation no longer present Electronically Signed On 09-16-24 11:51:54 CDT by Raul Patterson
== END 2024-09-16 02:08 | disposition home or self-care (01) ==
LOC: ER 22:45
DX: R51.9 Headache, unspecified (principal); M54.2 Cervicalgia; M54.9 Dorsalgia, unspecified; R11.2 Nausea with vomiting, unspecified
CPT/HCPCS: 36415; 70450; 71045; 72125; 72128; 80048; 80076; 83605; 83735; 84484; 85025; 85610; 93005; 99284; J1100; J1200; J2765; J3360; J7030